=== PATIENT | female | born 1940 | race Caucasian/White ===

== ENCOUNTER 2020-11-25 06:37 | Outpatient (REF) | payer MEDICARE, SELFPAY ==
[2020-11-25 11:27] LABS: MANUAL DIFF FLAG NO
[2020-11-25 11:32] LABS: Urine Cytology See Pathology rpt
[2020-11-25 11:48] LABS: Basophils Absolute Auto 0.1 X10*3/uL (0.0-0.2); Basophils Percent Auto 0.7 % (0-2); Eosinophils Absolute Auto 0.8 X10*3/uL (0.0-0.4); Eosinophils Percent Auto 12.2 % (0-4); Hematocrit 35.7 % (37-47); Hemoglobin 11.3 g/dl (12.0-16.0); Imm Gran Abs Auto 0.03 X10*3/uL (0.00-0.03); Imm Gran Pct Auto 0.4 % (0.0-0.4); Lymphocytes Absolute Auto 1.3 X10*3/uL (1.2-4.9); Mean Corpuscular HGB Conc 31.7 g/dl (31.0-35.0); Mean Corpuscular Hemoglobin 31.5 pg (27.0-33.0); Mean Corpuscular Volume 99.4 fL (80-98); Mean Platelet Volume 11.2 fL (9.4-12.3); Monocytes Absolute Auto 0.6 X10*3/uL (0.1-1.2); Neutrophils Percent Auto 58.7 % (45-73); Platelet Count 281 X10*3/uL (160-400); Red Blood Count 3.59 X10*6/uL (4.20-5.50); Red Cell Distribution Width 14.5 % (11.0-16.0); White Blood Count 6.8 X10*3/uL (4.8-10.8)
[2020-11-25 12:12] LABS: Alanine Aminotransferase 17 U/L (0-31); Albumin Level 4.2 g/dL (3.5-5.0); Alkaline Phosphatase 68 U/L (39-117); Anion Gap 14 (12-20); Aspartate Amino Transferase 23 U/L (5-31); Bilirubin Total 0.5 mg/dL (0.0-1.0); Blood Urea Nitrogen 25 mg/dL (9-16); Calcium 9.7 mg/dL (8.4-10.2); Carbon Dioxide 26 mmol/L (22-29); Chloride 106 mmol/L (96-108); Cholesterol 143 mg/dL; Estimated Glomerular Filt Rate 59; Glucose Fasting 130 mg/dL (60-99); HDL Cholesterol 56 mg/dL; Iron 76 mcg/dL (30-160); LDL Cholesterol Calculated 64 mg/dl; Percent Iron Saturation 21 % (15-50); Potassium 4.6 mmol/L (3.3-5.1); Sodium 141 mmol/L (135-145); Total Iron Binding Capacity 356 mcg/dL (228-428); Total Protein 6.8 g/dL (6.5-8.0); Triglycerides 119 mg/dL; Unsaturated Iron Binding 280 ug/dL
[2020-11-25 12:16] LABS: Free T4 (Free Thyroxine) 1.21 ng/dL (0.71-1.85); Thyroid Stimulating Hormone 0.25 uIU/mL (0.32-4.0); Vitamin D 25-OH Total 42.5 ng/mL (>30)
[2020-11-25 12:17] LABS: Estimated Average Glucose 128 mg/dL; Hemoglobin A1c % 6.1 %
== END 2020-11-25 06:38 | disposition home or self-care (01) ==
LOC: HO.HMGCLDS 06:37
PROVIDERS: PCP Internal Medicine; Visit Provider Internal Medicine
DX: I10 Essential (primary) hypertension (principal); E78.00 Pure hypercholesterolemia, unspecified; E11.9 Type 2 diabetes mellitus without complications; E03.9 Hypothyroidism, unspecified; E55.9 Vitamin D deficiency, unspecified; D50.9 Iron deficiency anemia, unspecified
CPT/HCPCS: 36415; 80053; 80061; 82306; 83036; 83540; 84439; 84443; 85025; 88112

== ENCOUNTER 2020-11-26 07:30 | Outpatient (REF) | payer MEDICARE, SELFPAY ==
[2020-11-28 09:01] LABS: Urine Cytology See Pathology rpt
== END 2020-11-26 07:31 | disposition home or self-care (01) ==
LOC: HO.LNP 07:30
PROVIDERS: Visit Provider Internal Medicine
DX: R31.9 Hematuria, unspecified (principal)
CPT/HCPCS: 88112

== ENCOUNTER 2020-11-27 07:30 | Outpatient (REF) | payer MEDICARE, SELFPAY ==
[2020-11-28 09:09] LABS: Urine Cytology See Pathology rpt
== END 2020-11-27 07:31 | disposition home or self-care (01) ==
LOC: HO.LNP 07:30
PROVIDERS: Visit Provider Internal Medicine
DX: R31.9 Hematuria, unspecified (principal)
CPT/HCPCS: 88112

== ENCOUNTER 2020-11-27 08:14 | Outpatient (REF) | payer MEDICARE, SELFPAY | END 2020-11-27 08:15 | disposition home or self-care (01) | LOC: HO.HMGCLNP 08:14 | PROVIDERS: Visit Provider Internal Medicine | DX: Z13.89 Encounter for screening for other disorder (principal) ==

== ENCOUNTER 2021-02-27 09:08 | Outpatient (REF) | payer MEDICARE, SELFPAY ==
[2021-02-27 11:54] LABS: Estimated Average Glucose 131 mg/dL; Hemoglobin A1c % 6.2 %
== END 2021-02-27 09:09 | disposition home or self-care (01) ==
LOC: HO.HMGCLR 09:08
PROVIDERS: PCP Internal Medicine; Visit Provider Internal Medicine
DX: E11.9 Type 2 diabetes mellitus without complications (principal)
CPT/HCPCS: 36415; 83036

== ENCOUNTER 2021-06-02 07:16 | Outpatient (REF) | payer MEDICARE, SELFPAY ==
[2021-06-02 11:55] LABS: Estimated Average Glucose 134 mg/dL; Hemoglobin A1c % 6.3 %
== END 2021-06-02 07:17 | disposition home or self-care (01) ==
LOC: HO.HMGCLDS 07:16
PROVIDERS: PCP Internal Medicine; Visit Provider Internal Medicine
DX: E11.9 Type 2 diabetes mellitus without complications (principal)
CPT/HCPCS: 36415; 83036

== ENCOUNTER 2021-11-06 07:07 | Outpatient (REF) | payer MEDICARE, SELFPAY ==
[2021-11-06 11:21] LABS: MANUAL DIFF FLAG NO
[2021-11-06 11:43] LABS: Estimated Average Glucose 131 mg/dL; Hemoglobin A1c % 6.2 %
[2021-11-06 11:54] LABS: Creatinine Urine 74.71 mg/dL; Microalbum/Creatinine Ratio Ur 10.7 ug/mg cr
[2021-11-06 11:59] LABS: Alanine Aminotransferase 18 U/L (0-31); Albumin Level 3.9 g/dL (3.5-5.0); Alkaline Phosphatase 81 U/L (39-117); Anion Gap 11 (12-20); Aspartate Amino Transferase 24 U/L (5-31); Basophils Percent Auto 0.6 % (0-2); Bilirubin Total 0.6 mg/dL (0.0-1.0); Blood Urea Nitrogen 28 mg/dL (9-16); Calcium 9.6 mg/dL (8.4-10.2); Carbon Dioxide 26 mmol/L (22-29); Chloride 106 mmol/L (96-108); Cholesterol 138 mg/dL; Eosinophils Absolute Auto 0.7 X10*3/uL (0.0-0.4); Eosinophils Percent Auto 9.7 % (0-4); Estimated Glomerular Filt Rate 58; Glucose Fasting 124 mg/dL (60-99); HDL Cholesterol 49 mg/dL; Hematocrit 31.4 % (37.0-47.0); Hemoglobin 9.8 g/dl (12.0-16.0); Imm Gran Abs Auto 0.02 X10*3/uL (0.00-0.03); Imm Gran Pct Auto 0.3 % (0.0-0.4); LDL Cholesterol Calculated 74 mg/dl; Lymphocytes Absolute Auto 1.1 X10*3/uL (1.2-4.9); Mean Corpuscular HGB Conc 31.2 g/dl (31.0-35.0); Mean Corpuscular Hemoglobin 31.3 pg (27.0-33.0); Mean Corpuscular Volume 100.3 fL (80.0-98.0); Monocytes Absolute Auto 0.7 X10*3/uL (0.1-1.2); Monocytes Percent Auto 10.8 % (2-11); Neutrophils Absolute Auto 4.2 x10*3/uL (2.0-8.3); Neutrophils Percent Auto 62.6 % (45-73); Platelet Count 287 X10*3/uL (160-400); Potassium 4.8 mmol/L (3.3-5.1); Red Blood Count 3.13 X10*6/uL (4.20-5.50); Red Cell Distribution Width 15.6 % (11.0-16.0); Sodium 138 mmol/L (135-145); Total Protein 6.6 g/dL (6.5-8.0); Triglycerides 76 mg/dL; White Blood Count 6.7 X10*3/uL (4.8-10.8)
[2021-11-06 12:04] LABS: Thyroid Stimulating Hormone 0.65 uIU/mL (0.32-4.0); Vitamin D 25-OH Total 48.3 ng/mL (>30)
== END 2021-11-06 07:08 | disposition home or self-care (01) ==
LOC: HO.HMGCLDS 07:07
PROVIDERS: PCP Internal Medicine; Visit Provider Internal Medicine
DX: I25.10 Atherosclerotic heart disease of native coronary artery without angina pectoris (principal); I10 Essential (primary) hypertension; E78.00 Pure hypercholesterolemia, unspecified; E11.9 Type 2 diabetes mellitus without complications; E03.9 Hypothyroidism, unspecified; E55.9 Vitamin D deficiency, unspecified
CPT/HCPCS: 36415; 80053; 80061; 82043; 82306; 83036; 84439; 84443; 85025

== ENCOUNTER 2022-02-16 10:28 | Outpatient (REF) | payer MEDICARE, SELFPAY ==
[2022-02-16 13:44] LABS: MANUAL DIFF FLAG NO
[2022-02-16 14:00] LABS: Basophils Absolute Auto 0.1 X10*3/uL (0.0-0.2); Basophils Percent Auto 0.8 % (0-2); Eosinophils Absolute Auto 0.5 X10*3/uL (0.0-0.4); Eosinophils Percent Auto 7.8 % (0-4); Hematocrit 29.8 % (37.0-47.0); Hemoglobin 9.6 g/dl (12.0-16.0); Imm Gran Abs Auto 0.02 X10*3/uL (0.00-0.03); Imm Gran Pct Auto 0.3 % (0.0-0.4); Lymphocytes Absolute Auto 1.2 X10*3/uL (1.2-4.9); Lymphocytes Percent Auto 20.3 % (20-40); Mean Corpuscular HGB Conc 32.2 g/dl (31.0-35.0); Mean Corpuscular Hemoglobin 31.9 pg (27.0-33.0); Monocytes Absolute Auto 0.6 X10*3/uL (0.1-1.2); Monocytes Percent Auto 10.1 % (2-11); Neutrophils Absolute Auto 3.7 x10*3/uL (2.0-8.3); Neutrophils Percent Auto 60.7 % (45-73); Platelet Count 229 X10*3/uL (160-400); Red Blood Count 3.01 X10*6/uL (4.20-5.50); Red Cell Distribution Width 14.8 % (11.0-16.0); White Blood Count 6.1 X10*3/uL (4.8-10.8)
[2022-02-16 14:04] LABS: Estimated Average Glucose 126 mg/dL
[2022-02-16 14:28] LABS: Alanine Aminotransferase 18 U/L (0-31); Albumin Level 3.8 g/dL (3.5-5.0); Alkaline Phosphatase 59 U/L (39-117); Anion Gap 12 (12-20); Aspartate Amino Transferase 28 U/L (5-31); Bilirubin Total 0.2 mg/dL (0.0-1.0); Blood Urea Nitrogen 27 mg/dL (9-16); Calcium 9.4 mg/dL (8.4-10.2); Carbon Dioxide 24 mmol/L (22-29); Chloride 108 mmol/L (96-108); Estimated Glomerular Filt Rate 57; Glucose Random 88 mg/dL (60-115); Iron 74 mcg/dL (30-160); Percent Iron Saturation 21 % (15-50); Potassium 5.9 mmol/L (3.3-5.1); Sodium 138 mmol/L (135-145); Total Iron Binding Capacity 354 mcg/dL (228-428); Total Protein 6.6 g/dL (6.5-8.0); Unsaturated Iron Binding 280 ug/dL
== END 2022-02-16 10:29 | disposition home or self-care (01) ==
LOC: HO.10HDL 10:28
PROVIDERS: Visit Provider Internal Medicine
DX: D64.9 Anemia, unspecified (principal); E11.9 Type 2 diabetes mellitus without complications; I25.10 Atherosclerotic heart disease of native coronary artery without angina pectoris; I10 Essential (primary) hypertension
CPT/HCPCS: 36415; 80053; 83036; 83540; 85025

== ENCOUNTER 2022-05-20 06:58 | Outpatient (REF) | payer MEDICARE, SELFPAY ==
[2022-05-20 11:27] LABS: MANUAL DIFF FLAG NO
[2022-05-20 11:36] LABS: Basophils Absolute Auto 0.1 X10*3/uL (0.0-0.2); Eosinophils Absolute Auto 0.5 X10*3/uL (0.0-0.4); Eosinophils Percent Auto 10.4 % (0-4); Hematocrit 32.2 % (37.0-47.0); Hemoglobin 10.4 g/dl (12.0-16.0); Imm Gran Abs Auto 0.01 X10*3/uL (0.00-0.03); Imm Gran Pct Auto 0.2 % (0.0-0.4); Lymphocytes Absolute Auto 1.2 X10*3/uL (1.2-4.9); Mean Corpuscular HGB Conc 32.3 g/dl (31.0-35.0); Mean Corpuscular Hemoglobin 32.3 pg (27.0-33.0); Mean Platelet Volume 11.6 fL (9.4-12.3); Monocytes Absolute Auto 0.6 X10*3/uL (0.1-1.2); Monocytes Percent Auto 11.2 % (2-11); Neutrophils Absolute Auto 2.8 x10*3/uL (2.0-8.3); Neutrophils Percent Auto 54.2 % (45-73); Platelet Count 274 X10*3/uL (160-400); Red Blood Count 3.22 X10*6/uL (4.20-5.50); Red Cell Distribution Width 14.9 % (11.0-16.0); White Blood Count 5.2 X10*3/uL (4.8-10.8)
[2022-05-20 11:55] LABS: Alanine Aminotransferase 17 U/L (0-31); Albumin Level 4.2 g/dL (3.5-5.0); Alkaline Phosphatase 67 U/L (39-117); Anion Gap 14 (12-20); Aspartate Amino Transferase 25 U/L (5-31); Bilirubin Total 0.5 mg/dL (0.0-1.0); Blood Urea Nitrogen 25 mg/dL (9-16); Calcium 9.7 mg/dL (8.4-10.2); Carbon Dioxide 25 mmol/L (22-29); Chloride 107 mmol/L (96-108); Estimated Glomerular Filt Rate 51; Glucose Random 121 mg/dL (60-115); Iron 57 mcg/dL (30-160); Percent Iron Saturation 15 % (15-50); Potassium 4.9 mmol/L (3.3-5.1); Sodium 141 mmol/L (135-145); Total Iron Binding Capacity 385 mcg/dL (228-428); Total Protein 6.9 g/dL (6.5-8.0); Unsaturated Iron Binding 328 ug/dL
[2022-05-20 12:02] LABS: Estimated Average Glucose 131 mg/dL; Hemoglobin A1c % 6.2 %
== END 2022-05-20 06:59 | disposition home or self-care (01) ==
LOC: HO.HMGCLDS 06:58
PROVIDERS: PCP Internal Medicine; Visit Provider Internal Medicine
DX: D64.9 Anemia, unspecified (principal); E11.9 Type 2 diabetes mellitus without complications; I25.10 Atherosclerotic heart disease of native coronary artery without angina pectoris; I10 Essential (primary) hypertension
CPT/HCPCS: 36415; 80053; 83036; 83540; 85025

== ENCOUNTER 2022-08-20 08:12 | Outpatient (REF) | payer MEDICARE, SELFPAY ==
[2022-08-20 11:19] LABS: MANUAL DIFF FLAG NO
[2022-08-20 11:24] LABS: Basophils Percent Auto 0.5 % (0-2); Eosinophils Absolute Auto 0.5 X10*3/uL (0.0-0.4); Eosinophils Percent Auto 8.5 % (0-4); Hematocrit 32.6 % (37.0-47.0); Hemoglobin 10.4 g/dl (12.0-16.0); Imm Gran Abs Auto 0.09 X10*3/uL (0.00-0.03); Imm Gran Pct Auto 1.4 % (0.0-0.4); Lymphocytes Absolute Auto 1.4 X10*3/uL (1.2-4.9); Lymphocytes Percent Auto 22.1 % (20-40); Mean Corpuscular HGB Conc 31.9 g/dl (31.0-35.0); Mean Corpuscular Volume 97.3 fL (80.0-98.0); Mean Platelet Volume 10.3 fL (9.4-12.3); Monocytes Absolute Auto 0.6 X10*3/uL (0.1-1.2); Monocytes Percent Auto 9.5 % (2-11); Neutrophils Absolute Auto 3.7 x10*3/uL (2.0-8.3); Platelet Count 361 X10*3/uL (160-400); Red Blood Count 3.35 X10*6/uL (4.20-5.50); Red Cell Distribution Width 14.4 % (11.0-16.0); White Blood Count 6.3 X10*3/uL (4.8-10.8)
[2022-08-20 11:43] LABS: Alanine Aminotransferase 22 U/L (0-31); Alkaline Phosphatase 81 U/L (39-117); Anion Gap 9 (12-20); Aspartate Amino Transferase 28 U/L (5-31); Bilirubin Total 0.4 mg/dL (0.0-1.0); Blood Urea Nitrogen 26 mg/dL (9-16); Calcium 9.7 mg/dL (8.4-10.2); Carbon Dioxide 28 mmol/L (22-29); Chloride 106 mmol/L (96-108); Estimated Glomerular Filt Rate 52; Glucose Random 120 mg/dL (60-115); Iron 40 mcg/dL (30-160); Percent Iron Saturation 13 % (15-50); Potassium 4.9 mmol/L (3.3-5.1); Sodium 138 mmol/L (135-145); Total Iron Binding Capacity 309 mcg/dL (228-428); Total Protein 6.7 g/dL (6.5-8.0); Unsaturated Iron Binding 269 ug/dL
[2022-08-20 11:48] LABS: Estimated Average Glucose 137 mg/dL; Hemoglobin A1c % 6.4 %
== END 2022-08-20 08:13 | disposition home or self-care (01) ==
LOC: HO.HMGCLDS 08:12
PROVIDERS: PCP Internal Medicine; Visit Provider Internal Medicine
DX: D64.9 Anemia, unspecified (principal); E11.9 Type 2 diabetes mellitus without complications; I25.10 Atherosclerotic heart disease of native coronary artery without angina pectoris; I10 Essential (primary) hypertension
CPT/HCPCS: 36415; 80053; 83036; 83540; 85025

== ENCOUNTER 2022-11-24 08:21 | Outpatient (REF) | payer MEDICARE, SELFPAY ==
[2022-11-24 11:28] LABS: MANUAL DIFF FLAG NO
[2022-11-24 12:04] LABS: Basophils Absolute Auto 0.1 X10*3/uL (0.0-0.2); Basophils Percent Auto 0.8 % (0-2); Eosinophils Absolute Auto 0.4 X10*3/uL (0.0-0.4); Eosinophils Percent Auto 6.3 % (0-4); Hematocrit 31.7 % (37.0-47.0); Hemoglobin 9.9 g/dl (12.0-16.0); Imm Gran Abs Auto 0.02 X10*3/uL (0.00-0.03); Imm Gran Pct Auto 0.3 % (0.0-0.4); Lymphocytes Absolute Auto 1.4 X10*3/uL (1.2-4.9); Lymphocytes Percent Auto 22.1 % (20-40); Mean Corpuscular HGB Conc 31.2 g/dl (31.0-35.0); Mean Corpuscular Hemoglobin 30.9 pg (27.0-33.0); Mean Corpuscular Volume 99.1 fL (80.0-98.0); Mean Platelet Volume 10.7 fL (9.4-12.3); Monocytes Absolute Auto 0.7 X10*3/uL (0.1-1.2); Monocytes Percent Auto 11.9 % (2-11); Neutrophils Absolute Auto 3.6 x10*3/uL (2.0-8.3); Neutrophils Percent Auto 58.6 % (45-73); Platelet Count 307 X10*3/uL (160-400); Red Cell Distribution Width 14.8 % (11.0-16.0); White Blood Count 6.2 X10*3/uL (4.8-10.8)
[2022-11-24 12:07] LABS: Estimated Average Glucose 137 mg/dL; Hemoglobin A1c % 6.4 %
[2022-11-24 12:39] LABS: Creatinine Urine 51.27 mg/dL; Microalbumin Urine < 5.0 mg/L
[2022-11-24 14:55] LABS: Alanine Aminotransferase 15 U/L (0-31); Albumin Level 4.1 g/dL (3.5-5.0); Alkaline Phosphatase 84 U/L (39-117); Anion Gap 12 (12-20); Aspartate Amino Transferase 21 U/L (5-31); Bilirubin Total 0.6 mg/dL (0.0-1.0); Blood Urea Nitrogen 31 mg/dL (9-16); Calcium 9.6 mg/dL (8.4-10.2); Carbon Dioxide 24 mmol/L (22-29); Chloride 107 mmol/L (96-108); Estimated Glomerular Filt Rate 47; Glucose Random 114 mg/dL (60-115); Potassium 4.2 mmol/L (3.3-5.1); Sodium 139 mmol/L (135-145); Total Protein 6.7 g/dL (6.5-8.0)
[2022-11-24 15:10] LABS: Thyroid Stimulating Hormone 0.51 uIU/mL (0.32-4.0)
== END 2022-11-24 08:22 | disposition home or self-care (01) ==
LOC: HO.HMGCLDS 08:21
PROVIDERS: PCP Internal Medicine; Visit Provider Internal Medicine
DX: I12.9 Hypertensive chronic kidney disease with stage 1 through stage 4 chronic kidney disease, or unspecified chronic kidney disease (principal); E11.22 Type 2 diabetes mellitus with diabetic chronic kidney disease; N18.9 Chronic kidney disease, unspecified; K21.9 Gastro-esophageal reflux disease without esophagitis; E03.9 Hypothyroidism, unspecified
CPT/HCPCS: 36415; 80053; 82043; 83036; 84439; 84443; 85025

== ENCOUNTER 2023-03-02 06:16 | Outpatient (REF) | payer MEDICARE, SELFPAY ==
[2023-03-02 11:24] LABS: MANUAL DIFF FLAG NO
[2023-03-02 11:36] LABS: Basophils Absolute Auto 0.1 X10*3/uL (0.0-0.2); Eosinophils Absolute Auto 0.8 X10*3/uL (0.0-0.4); Eosinophils Percent Auto 12.1 % (0-4); Hemoglobin 9.5 g/dl (12.0-16.0); Imm Gran Abs Auto 0.03 X10*3/uL (0.00-0.03); Imm Gran Pct Auto 0.4 % (0.0-0.4); Lymphocytes Absolute Auto 1.3 X10*3/uL (1.2-4.9); Lymphocytes Percent Auto 18.4 % (20-40); Mean Corpuscular HGB Conc 31.7 g/dl (31.0-35.0); Mean Corpuscular Hemoglobin 30.8 pg (27.0-33.0); Mean Corpuscular Volume 97.4 fL (80.0-98.0); Mean Platelet Volume 10.7 fL (9.4-12.3); Monocytes Absolute Auto 0.7 X10*3/uL (0.1-1.2); Monocytes Percent Auto 9.5 % (2-11); Neutrophils Percent Auto 58.6 % (45-73); Platelet Count 277 X10*3/uL (160-400); Red Blood Count 3.08 X10*6/uL (4.20-5.50); Red Cell Distribution Width 15.7 % (11.0-16.0); White Blood Count 6.9 X10*3/uL (4.8-10.8)
[2023-03-02 11:52] LABS: Estimated Average Glucose 134 mg/dL; Hemoglobin A1c % 6.3 %
[2023-03-02 12:23] LABS: Creatinine Urine 61.43 mg/dL; Microalbum/Creatinine Ratio Ur 16.2 ug/mg cr
[2023-03-02 12:35] LABS: Alanine Aminotransferase 14 U/L (0-31); Albumin Level 3.8 g/dL (3.5-5.0); Alkaline Phosphatase 69 U/L (39-117); Anion Gap 14 (12-20); Aspartate Amino Transferase 21 U/L (5-31); Bilirubin Total 0.4 mg/dL (0.0-1.0); Blood Urea Nitrogen 24 mg/dL (9-16); Calcium 9.7 mg/dL (8.4-10.2); Carbon Dioxide 22 mmol/L (22-29); Chloride 107 mmol/L (96-108); Cholesterol 138 mg/dL; Estimated Glomerular Filt Rate 54; Glucose Fasting 118 mg/dL (60-99); HDL Cholesterol 52 mg/dL; LDL Cholesterol Calculated 68 mg/dl; Potassium 4.4 mmol/L (3.3-5.1); Sodium 139 mmol/L (135-145); Total Protein 6.8 g/dL (6.5-8.0); Triglycerides 90 mg/dL
[2023-03-02 12:57] LABS: Thyroid Stimulating Hormone 0.54 uIU/mL (0.32-4.0)
== END 2023-03-02 06:17 | disposition home or self-care (01) ==
LOC: HO.HMGCLDS 06:16
PROVIDERS: PCP Internal Medicine; Visit Provider Internal Medicine
DX: I25.10 Atherosclerotic heart disease of native coronary artery without angina pectoris (principal); I10 Essential (primary) hypertension; E03.9 Hypothyroidism, unspecified; E78.00 Pure hypercholesterolemia, unspecified; E11.9 Type 2 diabetes mellitus without complications
CPT/HCPCS: 36415; 80053; 80061; 82043; 83036; 84439; 84443; 85025

== ENCOUNTER 2023-06-07 10:52 | Outpatient (REF) | payer MEDICARE, SELFPAY ==
[2023-06-07 13:19] LABS: MANUAL DIFF FLAG NO
[2023-06-07 13:28] LABS: Basophils Absolute Auto 0.1 X10*3/uL (0.0-0.2); Basophils Percent Auto 0.9 % (0-2); Eosinophils Absolute Auto 0.5 X10*3/uL (0.0-0.4); Eosinophils Percent Auto 7.8 % (0-4); Hematocrit 30.6 % (37.0-47.0); Hemoglobin 9.6 g/dl (12.0-16.0); Imm Gran Abs Auto 0.02 X10*3/uL (0.00-0.03); Imm Gran Pct Auto 0.3 % (0.0-0.4); Lymphocytes Absolute Auto 1.2 X10*3/uL (1.2-4.9); Lymphocytes Percent Auto 18.8 % (20-40); Mean Corpuscular HGB Conc 31.4 g/dl (31.0-35.0); Mean Corpuscular Hemoglobin 30.9 pg (27.0-33.0); Mean Corpuscular Volume 98.4 fL (80.0-98.0); Mean Platelet Volume 10.8 fL (9.4-12.3); Monocytes Absolute Auto 0.9 X10*3/uL (0.1-1.2); Monocytes Percent Auto 13.3 % (2-11); Neutrophils Absolute Auto 3.9 x10*3/uL (2.0-8.3); Neutrophils Percent Auto 58.9 % (45-73); Platelet Count 246 X10*3/uL (160-400); Red Blood Count 3.11 X10*6/uL (4.20-5.50); Red Cell Distribution Width 15.1 % (11.0-16.0); White Blood Count 6.6 X10*3/uL (4.8-10.8)
[2023-06-07 13:42] LABS: Estimated Average Glucose 128 mg/dL; Hemoglobin A1c % 6.1 % (<6.0)
[2023-06-07 13:47] LABS: Anion Gap 12 (12-20); Blood Urea Nitrogen 23 mg/dL (9-16); Calcium 9.6 mg/dL (8.4-10.2); Carbon Dioxide 23 mmol/L (22-29); Chloride 109 mmol/L (96-108); Estimated Glomerular Filt Rate 59; Glucose Random 91 mg/dL (60-115); Iron 36 mcg/dL (30-160); Percent Iron Saturation 11 % (15-50); Potassium 4.6 mmol/L (3.3-5.1); Sodium 139 mmol/L (135-145); Total Iron Binding Capacity 342 mcg/dL (228-428); Unsaturated Iron Binding 306 ug/dL
== END 2023-06-07 10:53 | disposition home or self-care (01) ==
LOC: HO.HMGCLDS 10:52
PROVIDERS: PCP Internal Medicine; Visit Provider Internal Medicine
DX: E11.22 Type 2 diabetes mellitus with diabetic chronic kidney disease (principal); I12.9 Hypertensive chronic kidney disease with stage 1 through stage 4 chronic kidney disease, or unspecified chronic kidney disease; N18.9 Chronic kidney disease, unspecified; D64.9 Anemia, unspecified
CPT/HCPCS: 36415; 80048; 83036; 83540; 85025

== ENCOUNTER 2023-09-08 10:25 | Outpatient (REF) | payer MEDICARE, SELFPAY ==
[2023-09-08 13:21] LABS: MANUAL DIFF FLAG NO
[2023-09-08 13:29] LABS: Basophils Absolute Auto 0.1 X10*3/uL (0.0-0.2); Eosinophils Absolute Auto 0.4 X10*3/uL (0.0-0.4); Eosinophils Percent Auto 8.4 % (0-4); Hemoglobin 8.8 g/dl (12.0-16.0); Imm Gran Abs Auto 0.01 X10*3/uL (0.00-0.03); Imm Gran Pct Auto 0.2 % (0.0-0.4); Lymphocytes Absolute Auto 0.8 X10*3/uL (1.2-4.9); Lymphocytes Percent Auto 16.2 % (20-40); Mean Corpuscular HGB Conc 31.4 g/dl (31.0-35.0); Mean Corpuscular Hemoglobin 30.1 pg (27.0-33.0); Mean Corpuscular Volume 95.9 fL (80.0-98.0); Mean Platelet Volume 10.4 fL (9.4-12.3); Monocytes Absolute Auto 0.6 X10*3/uL (0.1-1.2); Monocytes Percent Auto 11.5 % (2-11); Neutrophils Absolute Auto 3.2 x10*3/uL (2.0-8.3); Neutrophils Percent Auto 62.7 % (45-73); Platelet Count 259 X10*3/uL (160-400); Red Blood Count 2.92 X10*6/uL (4.20-5.50); Red Cell Distribution Width 15.5 % (11.0-16.0); White Blood Count 5.1 X10*3/uL (4.8-10.8)
[2023-09-08 13:49] LABS: Estimated Average Glucose 134 mg/dL; Hemoglobin A1c % 6.3 % (<6.0)
[2023-09-08 13:54] LABS: Alanine Aminotransferase 9 U/L (0-31); Albumin Level 3.7 g/dL (3.5-5.0); Alkaline Phosphatase 75 U/L (39-117); Anion Gap 12 (12-20); Aspartate Amino Transferase 18 U/L (5-31); Bilirubin Total 0.3 mg/dL (0.0-1.0); Blood Urea Nitrogen 23 mg/dL (9-16); Calcium 9.3 mg/dL (8.4-10.2); Carbon Dioxide 25 mmol/L (22-29); Chloride 107 mmol/L (96-108); Estimated Glomerular Filt Rate 56; Glucose Random 108 mg/dL (60-115); Potassium 4.6 mmol/L (3.3-5.1); Sodium 139 mmol/L (135-145); Total Protein 6.8 g/dL (6.5-8.0)
[2023-09-08 14:15] LABS: Free T4 (Free Thyroxine) 1.16 ng/dL (0.71-1.85); Thyroid Stimulating Hormone 0.64 uIU/mL (0.32-4.0)
== END 2023-09-08 10:26 | disposition home or self-care (01) ==
LOC: HO.HMGCLDS 10:25
PROVIDERS: PCP Internal Medicine; Visit Provider Internal Medicine
DX: I25.10 Atherosclerotic heart disease of native coronary artery without angina pectoris (principal); I12.9 Hypertensive chronic kidney disease with stage 1 through stage 4 chronic kidney disease, or unspecified chronic kidney disease; E11.22 Type 2 diabetes mellitus with diabetic chronic kidney disease; N18.9 Chronic kidney disease, unspecified; D64.9 Anemia, unspecified
CPT/HCPCS: 36415; 80053; 83036; 84439; 84443; 85025

== ENCOUNTER 2023-12-10 09:42 | Outpatient (REF) | payer MEDICARE, SELFPAY ==
[2023-12-10 13:03] LABS: MANUAL DIFF FLAG NO
[2023-12-10 13:22] LABS: Basophils Absolute Auto 0.1 X10*3/uL (0.0-0.2); Basophils Percent Auto 0.9 % (0-2); Eosinophils Absolute Auto 0.5 X10*3/uL (0.0-0.4); Eosinophils Percent Auto 7.5 % (0-4); Hematocrit 28.8 % (37.0-47.0); Hemoglobin 8.9 g/dl (12.0-16.0); Imm Gran Abs Auto 0.03 X10*3/uL (0.00-0.03); Imm Gran Pct Auto 0.4 % (0.0-0.4); Lymphocytes Absolute Auto 1.3 X10*3/uL (1.2-4.9); Lymphocytes Percent Auto 19.1 % (20-40); Mean Corpuscular HGB Conc 30.9 g/dl (31.0-35.0); Mean Corpuscular Hemoglobin 29.7 pg (27.0-33.0); Mean Platelet Volume 10.3 fL (9.4-12.3); Monocytes Absolute Auto 0.8 X10*3/uL (0.1-1.2); Monocytes Percent Auto 11.4 % (2-11); Neutrophils Absolute Auto 4.1 x10*3/uL (2.0-8.3); Neutrophils Percent Auto 60.7 % (45-73); Platelet Count 298 X10*3/uL (160-400); Red Cell Distribution Width 16.2 % (11.0-16.0); White Blood Count 6.7 X10*3/uL (4.8-10.8)
[2023-12-10 13:45] LABS: Estimated Average Glucose 140 mg/dL; Hemoglobin A1c % 6.5 % (<6.0)
[2023-12-10 14:03] LABS: Anion Gap 14 (12-20); Blood Urea Nitrogen 21 mg/dL (9-16); Calcium 9.8 mg/dL (8.4-10.2); Carbon Dioxide 22 mmol/L (22-29); Chloride 107 mmol/L (96-108); Estimated Glomerular Filt Rate 51; Glucose Random 115 mg/dL (60-115); Iron 35 mcg/dL (30-160); Percent Iron Saturation 10 % (15-50); Potassium 4.8 mmol/L (3.3-5.1); Sodium 138 mmol/L (135-145); Total Iron Binding Capacity 359 mcg/dL (228-428); Unsaturated Iron Binding 324 ug/dL
== END 2023-12-10 09:43 | disposition home or self-care (01) ==
LOC: HO.HMGCLDS 09:42
PROVIDERS: PCP Internal Medicine; Visit Provider Internal Medicine
DX: E11.9 Type 2 diabetes mellitus without complications (principal); I10 Essential (primary) hypertension; D64.9 Anemia, unspecified
CPT/HCPCS: 36415; 80048; 83036; 83540; 85025

== ENCOUNTER 2024-01-05 10:41 | Outpatient (REF) | payer MEDICARE, SELFPAY ==
[2024-01-05 14:35] LABS: Iron 37 mcg/dL (30-160); Percent Iron Saturation 13 % (15-50); Total Iron Binding Capacity 277 mcg/dL (228-428); Unsaturated Iron Binding 240 ug/dL
[2024-01-05 14:52] LABS: Ferritin 151 ng/mL (10-250)
[2024-01-05 14:59] LABS: Folate 12.7 ng/mL (> or = 4.0); Vitamin B12 961 pg/mL (200-900)
== END 2024-01-05 10:42 | disposition home or self-care (01) ==
LOC: HO.HMGCLDS 10:41
PROVIDERS: PCP Internal Medicine; Visit Provider Internal Medicine Gastroenterology
DX: D64.9 Anemia, unspecified (principal)
CPT/HCPCS: 36415; 82607; 82728; 82746; 83540

== ENCOUNTER 2024-01-08 13:28 | Outpatient (REF) | payer MEDICARE, SELFPAY ==
[2024-01-10 13:51] LABS: OBS1 NEGATIVE (NEGATIVE)
[2024-01-10 13:52] LABS: OBS Int Ctl Valid YES; OBS2 NEGATIVE (NEGATIVE); OBS3 NEGATIVE (NEGATIVE)
== END 2024-01-08 13:29 | disposition home or self-care (01) ==
LOC: HO.LNP 13:28
PROVIDERS: Visit Provider Internal Medicine Gastroenterology
DX: D64.9 Anemia, unspecified (principal)
CPT/HCPCS: 82270

== ENCOUNTER 2024-01-23 05:09 | Inpatient (IN) | payer MEDICARE, SELFPAY ==
[2024-01-23] VITALS (9 sets, daily range): BP systolic 114–160; BP diastolic 58–75; PULSE 76–92; RESP 13–18; TEMP 35.8–36.9; O2SAT 96–99; BMI 26.8; BMI 26.9
--- NOTE | 2024-01-23 | ECG_ITS ---
Test Reason : WEAKNESS Blood Pressure : / mmHG Vent. Rate : 082 BPM Atrial Rate : 082 BPM P-R Int : 204 ms QRS Dur : 082 ms QT Int : 346 ms P-R-T Axes : 069 -27 024 degrees QTc Int : 404 ms Normal sinus rhythm Minimal voltage criteria for LVH, may be normal variant ( R in aVL ) Inferior infarct , age undetermined Anteroseptal infarct (cited on or before 02-OCT-2002) Abnormal ECG When compared with ECG of 08-OCT-2002 07:36, Inferior infarct is now Present Questionable change in initial forces of Septal leads T wave inversion now evident in Anterior leads Referred By: Generic ED Physician Electronically Signed By:SALOMON AGUILA MD
--- NOTE | ~2024-01-23 | MR_ITS ---
EXAMINATION: MR ABDOMEN WITHOUT CONTRAST CLINICAL INFORMATION: obstructive jaundice COMPARISON: CT from the same day TECHNIQUE: MR abdomen is performed without gadolinium contrast. Routine and MRCP sequences were obtained. FINDINGS: Limited evaluation in some regions due to motion artifact. LUNG BASES: The visualized lung bases are grossly unremarkable. LIVER, GALLBLADDER, AND BILIARY TREE: Hepatic signal appears normal. There is redemonstrated severe intrahepatic biliary ductal dilatation, similar to recent CT. The uppermost portion of the common bile duct is not clearly visualized, while the mid and lower duct appears nondilated in the postcholecystectomy state. Absence of clear communication between the dilated central intrahepatic ducts and the upper common bile duct raises suspicion for an obstructing mass lesion at this location such as a Klatskin tumor cholangiocarcinoma, with evaluation for this partially limited without intravenous contrast. PANCREAS: Pancreas appears moderately atrophic but appreciable ductal dilatation. SPLEEN: There are several scattered T2 bright lesions in the spleen measuring up to approximately 2 cm in diameter. These are nonspecific and may represent cysts and/or hemangiomas. ADRENAL GLANDS: Unremarkable. KIDNEYS AND URETERS: No hydronephrosis. No focal parenchymal abnormalities in the absence of intravenous contrast. GASTROINTESTINAL TRACT: No bowel obstruction. No ascites or fluid collection. ABDOMINAL WALL: No significant hernia is appreciated. LYMPH NODES: No lymphadenopathy. VASCULAR: Grossly unremarkable on this unenhanced exam. OSSEOUS STRUCTURES: Multilevel degenerative changes in the spine. MR/MR MRCP IMPRESSION: Severe intrahepatic biliary ductal dilatation redemonstrated. Absence of clear communication between the dilated central intrahepatic ducts and the upper common bile duct raises suspicion for an obstructing mass lesion such as a Klatskin tumor cholangiocarcinoma, with evaluation for this partially limited without intravenous contrast.
--- NOTE | ~2024-01-23 | CT_ITS ---
EXAMINATION: CT ABDOMEN AND PELVIS WITH CONTRAST CLINICAL INFORMATION: Painless jaundice COMPARISON: None available. TECHNIQUE: Multidetector volumetric images were obtained from the superior aspect of the liver through the pubic symphysis following administration 85 mL of Omnipaque 350 intravenous contrast. Sagittal and coronal reformatted images were obtained on the technologist's workstation. Oral contrast: Yes This CT examination was performed using dose optimization techniques as appropriate, variously including the following: *Automated exposure control *Adjustment of mA and/or kV according to patient size (this includes techniques or standardized protocols for targeted exams where dose is matched to indication/reason for exam; i.e. extremities or head) *Use of iterative reconstruction technique DLP: 485 mGy-cm FINDINGS: LUNG BASES: Dependent atelectasis at the lung bases. Upper normal heart size. Coronary artery and aortic valve calcification seen. LIVER, GALLBLADDER, AND BILIARY TREE: There is severe intrahepatic biliary duct dilatation. The common bile duct does not appear dilated. There is question increased enhancement and wall thickening of the common hepatic duct for example coronal image 31 series 7. There are also surgical clips seen in this region. No liver mass appreciated. The gallbladder is not seen and has presumably been removed. PANCREAS: Unremarkable. SPLEEN: Several low-attenuation splenic lesions. These have low Hounsfield units and may represent multiple splenic cysts. ADRENAL GLANDS: Unremarkable. KIDNEYS AND URETERS: The kidneys are normal in size, shape, and attenuation. No hydronephrosis, hydroureter, or calculi seen. No perinephric stranding. BLADDER: Unremarkable. GASTROINTESTINAL TRACT: There is a question area of wall thickening in the proximal right colon for example axial image 51 series 3 and coronal reconstructed image 45 small and large bowel is otherwise unremarkable. The appendix is not seen. The stomach is unremarkable. ABDOMINAL WALL: No significant hernia is appreciated. LYMPH NODES: Normal. VASCULAR: Atherosclerotic disease. No aneurysm. PELVIC VISCERA: Post hysterectomy. OSSEOUS STRUCTURES: Mild scoliosis and degenerative changes of the spine. Mild anterior subluxation of L5 with respect L5 or S1 probably secondary to facet arthritis. CT/CT abdomen pelvis w IV con IMPRESSION: Severe intrahepatic biliary duct dilatation. Extrahepatic bile ducts do not appear dilated. Question wall thickening and enhancement of the proximal common hepatic duct in the hilum of the liver. There are surgical clips seen in this region. Gallbladder not seen and has presumably been removed. Biliary stricture, cholangitis, cholangiocarcinoma/Klatskin tumor, and metastatic disease should be considered. No discrete liver mass seen. Follow-up MR with contrast and MRCP recommended although this may be limited due to artifact from surgical clips in the liver hilum. Question of abnormal wall thickening of the proximal right colon. Differential would include colitis and mass. Multiple low-attenuation splenic lesions, probably representing cysts. Fleischner guidelines were followed.
--- NOTE | 2024-01-23 05:26 | ED.GENADULT ---
HPI - General Adult General Chief complaint: Weakness Stated complaint: WEAKNESS Time Seen by Provider: 01/23/24 05:26 History of Present Illness ED Provider: Satinder CORDERO narrative: The patient is an 83-year-old woman who lives with her . The patient comes to the emergency room tonight because she tried to walk in her legs were very weak so that she could not hold herself up. She let herself down gently to the floor. Her could not help her up and so he called 911. The patient says that the weakness of her legs seems to have been coming on over the last week. She says that last Wednesday, on father's Day, she was very active and functioning at her usual normal level of function. However since last Wednesday she has had gradual worsening of the strength of her legs until finally she had her episode tonight where she could not keep herself up. There is no pain associated with this process. It is obvious that the patient is jaundiced. The patient says that she has not typically jaundiced and had not noticed that she was jaundiced until paramedics commented on her appearance. The patient's also had not realized that she had developed jaundice. She has had no fever, sweats, chills. No cough or sputum. Related Data Allergies Allergy/AdvReac Type Severity Reaction Status Date / Time No Known Allergies Allergy Verified 01/23/24 05:16 Review of Systems Review of Systems: Yes all other systems are reviewed and are negative [facility] Social History Social History Smoked in Last 30 Days: No Use of substances other than those prescribed or required for medical reasons: No Advance Directives: No Advance Directives Information Provided: No Do you have a plan to hurt others: No Plan Physical Exam ED Vital Signs: Vital Signs - 24 hr 01/23/24 05:10 01/23/24 08:00 Temperature 98.2 F 98.4 F Pulse Rate 84 85 Respiratory Rate 18 14 Blood Pressure 136/62 133/69 Pulse Oximetry 97 97 Oxygen Delivery Method Room Air Room Air BMI result Body Mass Index 26.8 Const Other: The patient is awake and alert. She is obviously jaundiced. Her mental status seems clear and she seems to be quite a good historian. She does not appear in any pain or respiratory distress. Mucous membranes looked dry suggesting dehydration. HENMT Other: Face is symmetrical. Mucous membranes are dry. Eyes Other: Pupils are round equal, conjunctivae are clear, extraocular movements intact. Bilateral scleral icterus. Neck Other: No JVD Resp Effort & Inspection: normal respiratory effort Auscultation: clear to auscultation bilaterally Cardio Other: The patient has a regular rate and rhythm. I think there is a 2/6 or 3/6 systolic murmur. GI Other: Abdomen is soft and nontender. Back/Spine/Pelvis Other: No CVA percussion tenderness Skin Other: The skin is jaundiced. No other obvious skin abnormalities apparent. Neuro Other: The patient is awake and alert with a normal mental status. She is good historian. She seems generally weak. Her cranial nerves are intact. She moves her upper extremities well. She is able to move both of her legs but she moves them weakly. Extrem Other: Trace peripheral edema. No calf swelling or tenderness. No asymmetry. Medical Decision Making Medical Decision Making MDM Narrative: The patient is an 83-year-old woman who presents with 6 days of gradually worsening weakness. Here in the emergency room it was apparent that she is quite jaundiced. Apparently neither she nor her had noticed the development of jaundice which suggests that this has been a gradual development. The patient has no abdominal pain or other pains associated with this jaundice. The patient's workup shows a white count of 8.8, a hemoglobin low at 7.7. Clinically the patient looks dry but the patient is BUN creatinine are at baseline. The patient's LFTs however are remarkably deranged. Bilirubin is 9.6. AST is 718. ALT is 280. Alk phos is 2,229. I have ordered a CT scan to help evaluate the patient has painless jaundice and abnormal LFTs. I will be signing the patient out to the oncoming emergency physician at change of shift pending the results of her abdominal CT. Lab Data 01/23/24 05:26 01/23/24 06:08 Labs: Lab Results 01/23/24 01/23/24 Range/Units 05:26 06:08 WBC 8.8 (4.8-10.8) X10*3/uL RBC 2.46 L (4.20-5.50) X10*6/uL Hgb 7.7 L (12.0-16.0) g/dl Hct 23.3 L (37.0-47.0) % MCV 94.7 (80.0-98.0) fL MCH 31.3 (27.0-33.0) pg MCHC 33.0 (31.0-35.0) g/dl RDW 21.9 H (11.0-16.0) % Plt Count 324 (160-400) X10*3/uL MPV 10.7 (9.4-12.3) fL Immature Gran % (Auto) 0.3 (0.0-0.4) % Neut % (Auto) 77.4 H (45-73) % Lymph % (Auto) 7.3 L (20-40) % [place] % (Auto) 10.6 (2-11) % Eos % (Auto) 3.8 (0-4) % Baso % (Auto) 0.6 (0-2) % Lymph # (Auto) 0.6 L (1.2-4.9) X10*3/uL [place] # (Auto) 0.9 (0.1-1.2) X10*3/uL Eos # (Auto) 0.3 (0.0-0.4) X10*3/uL Baso # (Auto) 0.1 (0.0-0.2) X10*3/uL Abs Immat Gran (auto) 0.03 (0.00-0.03) X10*3/uL Absolute Neuts (auto) 6.8 (2.0-8.3) x10*3/uL Absolute Nucleated RBC 0.000 (0.0-0.012) X10*3/uL Nucleated RBC % (auto) 0.0 (0.0-0.2) /100WBC Sodium 134 L (135-145) mmol/L Potassium 4.7 (3.3-5.1) mmol/L Chloride 103 (96-108) mmol/L Carbon Dioxide 22 (22-29) mmol/L Anion Gap 14 (12-20) BUN 23 H (9-16) mg/dL Creatinine 0.90 (0.5-1.4) mg/dL Estim Creat Clear Calc 39.7 Estimated GFR 60 Random Glucose 107 (60-115) mg/dL Calcium 9.2 D (8.4-10.2) mg/dL Total Bilirubin 9.6 H (0.0-1.0) mg/dL AST 718 H (5-31) U/L ALT 280 H (0-31) U/L Alkaline Phosphatase 2229 H (39-117) U/L Troponin I High Sens 17.6 H (<3.5-17.0) ng/L Total Protein 6.5 (6.5-8.0) g/dL Albumin 2.8 L (3.5-5.0) g/dL Independent Interpretation I performed an independent interpretation of an: EKG Interpretation: EKG at 05:21 shows normal sinus rhythm at 82 beats per minute. No definite acute ischemic changes. Discharge Plan Discharge Clinical Impression: Painless jaundice, Weakness Patient Disposition: Still a Patient Print Language: [place]ar[place]
[2024-01-23 05:30] LABS: MANUAL DIFF FLAG NO
[2024-01-23 05:31] LABS: Basophils Absolute Auto 0.1 X10*3/uL (0.0-0.2); Basophils Percent Auto 0.6 % (0-2); Eosinophils Absolute Auto 0.3 X10*3/uL (0.0-0.4); Eosinophils Percent Auto 3.8 % (0-4); Hematocrit 23.3 % (37.0-47.0); Hemoglobin 7.7 g/dl (12.0-16.0); Imm Gran Abs Auto 0.03 X10*3/uL (0.00-0.03); Imm Gran Pct Auto 0.3 % (0.0-0.4); Lymphocytes Absolute Auto 0.6 X10*3/uL (1.2-4.9); Lymphocytes Percent Auto 7.3 % (20-40); Mean Corpuscular Hemoglobin 31.3 pg (27.0-33.0); Mean Corpuscular Volume 94.7 fL (80.0-98.0); Mean Platelet Volume 10.7 fL (9.4-12.3); Monocytes Absolute Auto 0.9 X10*3/uL (0.1-1.2); Monocytes Percent Auto 10.6 % (2-11); Neutrophils Absolute Auto 6.8 x10*3/uL (2.0-8.3); Neutrophils Percent Auto 77.4 % (45-73); Platelet Count 324 X10*3/uL (160-400); Red Blood Count 2.46 X10*6/uL (4.20-5.50); Red Cell Distribution Width 21.9 % (11.0-16.0); White Blood Count 8.8 X10*3/uL (4.8-10.8)
--- NOTE | 2024-01-23 05:33 | PC.NURSE ---
pt biba from home, a&ox4, respirations even and unlabored. pt reporting increasing bilateral leg weakness x3 days, pt reports her PCP had stopped her amlodipine and reports that she felt that the symptoms started after that. pt reports she does not use a wlkaer at home but reports due to weakness she has needed to. pt denies chest pain, n/v/d. pt normal sinus on tele 80-83 bpm. 22G placed in right hand, labs obtained and sent.
[2024-01-23 06:24] LABS: Anion Gap 14 (12-20)
[2024-01-23 06:32] LABS: Alanine Aminotransferase 280 U/L (0-31); Albumin Level 2.8 g/dL (3.5-5.0); Alkaline Phosphatase 2229 U/L (39-117); Aspartate Amino Transferase 718 U/L (5-31); Bilirubin Total 9.6 mg/dL (0.0-1.0); Blood Urea Nitrogen 23 mg/dL (9-16); Calcium 9.2 mg/dL (8.4-10.2); Carbon Dioxide 22 mmol/L (22-29); Chloride 103 mmol/L (96-108); Creatinine Clr Calc Pharmacy 39.7; Estimated Glomerular Filt Rate 60; Glucose Random 107 mg/dL (60-115); Potassium 4.7 mmol/L (3.3-5.1); Sodium 134 mmol/L (135-145); Total Protein 6.5 g/dL (6.5-8.0)
[2024-01-23 06:38] LABS: Troponin-I High Sensitivity 17.6 ng/L (<3.5-17.0)
[2024-01-23] MEDS: iohexoL 350 MG/ML 100 ML INFUS..BTL IV (08:32)
--- NOTE | 2024-01-23 08:41 | ECG_ITS ---
Test Reason : CHEST PAIN Blood Pressure : / mmHG Vent. Rate : 090 BPM Atrial Rate : 090 BPM P-R Int : 218 ms QRS Dur : 086 ms QT Int : 362 ms P-R-T Axes : 091 -19 072 degrees QTc Int : 442 ms Poor data quality, interpretation may be adversely affected Sinus rhythm with 1st degree A-V block Low voltage QRS Septal infarct (cited on or before 02-OCT-2002) Abnormal ECG When compared with ECG of 23-JAN-2024 05:21, No significant change was found Referred By: Yunier Rajan Electronically Signed By:SALOMON AGUILA MD
[2024-01-23] MEDS: 0.9 % Sodium Chloride 1,000 ML 999 ML IV (08:42)
--- NOTE | 2024-01-23 08:45 | PC.NURSE ---
Pt complaining of ras pain after returning from CT scan. vs as charted, pt appears well, ekg ordered.
[2024-01-23 08:51] LABS: Bilirubin Direct 7.3 mg/dL (0.0-0.5)
--- NOTE | 2024-01-23 11:23 | P.HPHOSP_ITS ---
History of Present Illness Date of Service: 01/23/24 Attending physician on admission: Gerry Hoyt Chief Complaint: jaundice, weakness 83 year old female with history of htn, hld, cad, moderate , and type 2 diabetes presented to the ED earlier today for evaluation of bilateral lower extremity weakness. She was so weak today she had to lower herself to the ground and her (with whom she lives) could not help her up. She reports for the last 2 weeks she has been feeling generally weak with anorexia, nausea, vomiting x1. Has lost 8 pounds unintentionally over the last 2 weeks. She has also had joy like stools but denies any melena, hematochezia, abd pain, diarrhea. She was seen by Dr. Oliveira in the office for evaluation of anemia and was prescribed iron but stopped taking this. She also stopped taking amlodipine on her own as she felt this was causing her symptoms. Her son at bedside reports that she was at his house last weekend and was ambulatory though was slightly unsteady on her feet. He noticed she was jaundiced yesterday. On arrival, VSS thought hypertensive on admission to 160/75 (has not yet received am meds). No leukocytosis. H/H 7.7/23.3% (was 8.9/28.8% on 12/09 stool occult blood negative on 01/09). Renal function lytes normal except Na 134. Total bili 9.6, direct bili 7.3, AST 718, ALT 280, alk phos 2229. Initial trop 17.6, repeat pending. CT abdomen/pelvis shows severe intrahepatic biliary ductal dilatation without any dilatation of the extrahepatic bile ducts. There was also question of wall thickening enhancement of the proximal common hepatic duct in the hilum of the liver with surgical clips seen in the region. She is status post cholecystectomy. Differential diagnosis includes biliary stricture, cholangitis, cholangiocarcinoma/Klatskin tumor, and metastatic disease should be considered. No discrete liver mass seen. There is also question of abnormal wall thickening of the proximal right colon differential to include colitis versus mass. She will be admitted for further evaluation and management of painless jaundice. Review of Systems 2 Review of Systems: Yes all other systems are reviewed and are negative [facility] Medical History Aortic stenosis CAD (coronary artery disease) Type 2 diabetes mellitus HLD (hyperlipidemia) HTN (hypertension) Social History Unable to assess alcohol history related to: Unknown Smoked in Last 30 Days: No Use of substances other than those prescribed or required for medical reasons: No Advance Directives: No Advance Directives Information Provided: No Do you have a plan to hurt others: No Plan Meds Allergies Allergy/AdvReac Type Severity Reaction Status Date / Time No Known Allergies Allergy Verified 01/23/24 05:16 Active Medications: Current Medications Acetaminophen (Acetaminophen 325 Mg Tablet) 650 mg PO Q6H PRN PRN Reason: Pain, Mild (Pain Scale 1-3), fever or headache Calcium Carbonate (Calcium Carbonate 750 Mg Tab.Chew) 750 mg PO Q4H PRN PRN Reason: Heartburn Enoxaparin Sodium (Enoxaparin Sodium 40 Mg/0.4 Ml Syringe) 40 mg SUBCUT Q24H DEN Sodium Chloride (Ns) 1,000 mls @ 100 mls/hr IVCONT .Q10H DEN Magnesium Hydroxide (Milk Of Magnesia 30 Ml Oral.Susp) 30 ml PO DAILY PRN PRN Reason: Constipation Melatonin (Melatonin 3 Mg Tablet) 6 mg PO BEDTIME PRN PRN Reason: Insomnia Sodium Chloride (0.9 % Sodium Chloride Flush 3 Ml Syringe) 3 ml IVFLUSH QSHIFT DEN Home Medications ?Medication ?Instructions ?Recorded ?Confirmed ?Last Taken ?Type albuterol sulfate 90 mcg/actuation 2 puff inhalation Q4-6H PRN 01/23/24 01/23/24 Unknown History aerosol inhaler Shortness Of Breath Or Wheezing aspirin 81 mg tablet,delayed 81 mg PO BEDTIME 01/23/24 01/23/24 01/22/24 History release atorvastatin 40 mg tablet 40 mg PO BEDTIME 01/23/24 01/23/24 01/22/24 History carvedilol 12.5 mg tablet 12.5 mg PO BID 01/23/24 01/23/24 01/22/24 History cholecalciferol (vitamin D3) 50 50 mcg PO BID 01/23/24 01/23/24 01/22/24 History mcg (2,000 unit) capsule isosorbide mononitrate 60 mg 90 mg PO DAILY 01/23/24 01/23/24 01/22/24 History tablet,extended release 24 hr levothyroxine 88 mcg tablet 88 mcg PO DAILY 01/23/24 01/23/24 01/22/24 History (Synthroid) lisinopril 10 mg tablet 10 mg PO DAILY 01/23/24 01/23/24 01/22/24 History magnesium oxide 500 mg PO DAILY 01/23/24 01/23/24 01/22/24 History metformin 500 mg tablet 500 mg PO DAILY 01/23/24 01/23/24 01/22/24 History nitroglycerin 0.4 mg sublingual 0.4 mg sublingual Q5M PRN Chest 01/23/24 01/23/24 Unknown History tablet Pain Physical Exam 2 Vital Signs and Narrative: Vital Signs: Last Vital Signs Temp 98.4 F 01/23/24 08:00 Pulse 88 01/23/24 08:45 Resp 18 01/23/24 08:45 BP 147/65 H 01/23/24 08:45 Pulse Ox 98 01/23/24 08:45 O2 Del Method Room Air 01/23/24 08:45 BMI result Body Mass Index 26.8 Constitutional - Awake and Alert, No apparent distress Eyes - PERRLA, EOMI, scleral icterus Cardiovascular - S1S2, RRR, No edema Respiratory - Normal lung expansion, Normal respiratory effort, No respiratory distress, CTA bilaterally Gastrointestinal - NT / ND; +BS; No rebound or guarding Extremities - no calf tenderness bilaterally, no swelling Skin - Warm/Dry, jaundice Neurological - Alert & oriented x3 Psychological - Appropriate affect Results Labs 01/23/24 05:26 01/23/24 06:08 Labs: Laboratory Results - last 24 hr 01/23/24 01/23/24 05:26 06:08 MCV 94.7 MCH 31.3 MCHC 33.0 RDW 21.9 H Plt Count 324 MPV 10.7 Immature Gran % (Auto) 0.3 Neut % (Auto) 77.4 H Lymph % (Auto) 7.3 L [place] % (Auto) 10.6 Eos % (Auto) 3.8 Baso % (Auto) 0.6 Lymph # (Auto) 0.6 L [place] # (Auto) 0.9 Eos # (Auto) 0.3 Baso # (Auto) 0.1 Abs Immat Gran (auto) 0.03 Absolute Neuts (auto) 6.8 Absolute Nucleated RBC 0.000 Nucleated RBC % (auto) 0.0 Anion Gap 14 Estim Creat Clear Calc 39.7 Estimated GFR 60 Random Glucose 107 Calcium 9.2 D Total Bilirubin 9.6 H Direct Bilirubin 7.3 H AST 718 H ALT 280 H Alkaline Phosphatase 2229 H Troponin I High Sens 17.6 H Total Protein 6.5 Albumin 2.8 L Imaging Radiologist's Impressions: Impressions Abdomen/Pelvis CT 01/23/24 08:59 IMPRESSION: Severe intrahepatic biliary duct dilatation. Extrahepatic bile ducts do not appear dilated. Question wall thickening and enhancement of the proximal common hepatic duct in the hilum of the liver. There are surgical clips seen in this region. Gallbladder not seen and has presumably been removed. Biliary stricture, cholangitis, cholangiocarcinoma/Klatskin tumor, and metastatic disease should be considered. No discrete liver mass seen. Follow-up MR with contrast and MRCP recommended although this may be limited due to artifact from surgical clips in the liver hilum. Question of abnormal wall thickening of the proximal right colon. Differential would include colitis and mass. Multiple low-attenuation splenic lesions, probably representing cysts. Fleischner guidelines were followed. Assessment and Plan (1) Weakness: Status: Acute (2) Painless jaundice: Status: Acute (3) Anemia: Status: Acute Plan 83 year old female with history of htn, hld, cad, moderate , and type 2 diabetes admitted for further management and evaluation of painless jaundice #Painless obstructive jaundice -Total bili 9.6, direct bili 7.3, AST 718, ALT 280, alk phos 2229. -CT abdomen/pelvis shows severe intrahepatic biliary ductal dilatation without any dilatation of the extrahepatic bile ducts. There was also question of wall thickening enhancement of the proximal common hepatic duct in the hilum of the liver with surgical clips seen in the region. She is status post cholecystectomy. Differential diagnosis includes biliary stricture, cholangitis, cholangiocarcinoma/Klatskin tumor, and metastatic disease should be considered. No discrete liver mass seen. There is also question of abnormal wall thickening of the proximal right colon differential to include colitis versus mass. -MRCP ordered -GI consult -admit to med/tele #Unintentional weight loss --8lbs last 2 weeks with anorexia #Acute on chronic normocytic anemia -h/h 7.7/23.3% -concern for hemolysis- ldh, retic count haptoglobin pending #Elevated trop/CAD -no anginal chest pain. ekg nonischemic -?chronic trop peak. Initial trop 17, repeat pending -continue bb, isosorbide, asa #hld -hold statin due to above #HTN -continue coreg, isosorbide, lisinopril #Hypothyroidism -continue levothyroxine #Non insulin dependent type 2 diabetes -poc glucose, diabetic diet -admelog ss -hold metforming DVT prophylaxis- lovenox full code Pt requires inpt stay at least 2 midnights for evaluation and management of painless obstructive jaundice with concern for malignancy requiring advanced imaging and expert consultation as well as close monitoring given presumed hemolytic anemia Quality Stroke Does the patient have a stroke diagnosis?: No VTE Prior VTE?: No VTE Risk Level:: Medical - moderate - high VTE Device Contraindication: Treatment Not Indicated VTE Drug Contraindication: N/A - Med Ordered
--- NOTE | 2024-01-23 11:28 | PHA.MEDREC ---
Pharmacy Consult ? Medication Reconciliation Pharmacy has completed the medication reconciliation. Spoke with patient to confirm medication, she was a great historian and knew all of her medications. She stopped taking amlodipine on per doctors orders and was taking an iron supplement but stopped taking that Wednesday. She has nitroglycerin with her wherever she goes but has never used it. She confirmed she does 1.5 tablets of isosorbide daily. She last took her medications yesterday and had nothing today.
[2024-01-23 11:36] LABS: Retic HGB Equivalent 35.7 pg (30.0-35.0); Reticulocyte Percent 3.1 % (0.5-1.8); Reticulocytes Absolute 0.075 X10*6/uL (0.026-0.095)
[2024-01-23 11:47] LABS: Lactate Dehydrogenase 679 U/L (122-220)
[2024-01-23] MEDS: Isosorbide Mononitrate 30 MG TAB.ER.24H 90 MG PO (12:08)
[2024-01-23] MEDS: carvediloL 12.5 MG TABLET PO ×2 (12:08→21:27)
[2024-01-23] MEDS: Enoxaparin Sodium 40 MG/0.4 ML SYRINGE SUBCUT (12:08)
[2024-01-23] MEDS: Cholecalciferol (Vitamin D3) 25 MCG TABLET 50 MCG PO ×2 (12:08→21:27)
[2024-01-23] MEDS: lisinopriL 10 MG TABLET PO (12:08)
[2024-01-23 12:22] LABS: Troponin-I High Sensitivity 29.8 ng/L (<3.5-17.0)
[2024-01-23 14:36] LABS: Glucose, Whole Blood 93 mg/dL (60-115)
[2024-01-23] MEDS: 0.9 % Sodium Chloride 1,000 ML 100 ML IVCONT (14:40)
[2024-01-23 14:55] LABS: INTERNATIONAL NORM RATIO 1.2 (0.9-1.1)
[2024-01-23 16:12] LABS: Glucose, Whole Blood 106 mg/dL (60-115)
[2024-01-23] MEDS: Milk of Magnesia 30 ML ORAL.SUSP PO (18:25)
--- NOTE | 2024-01-23 19:52 | PM.EVENT ---
Event Note Date of Service: 01/23/24 Event Note: GI Consult-Full note dictated-D/W patient and her son, Demetrius, in detail Imp/Recs: 1. 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 Will require an ERCP and EUS at tertiary center, and if not successful would then need an IR procedure for a percutaneous drainage. Will try to arrange for an inpatient transfer to [facility]. If no beds are available we can work on an outpatient referral once she is transfused and up to being discharged. 2. Anemia. Stools Hemoccult neg x 3 earlier in the month and she reports a neg. Cologuard last year. She has not had any endoscopic procedures for > 10 years, but denies any GI symptomns. Would give 1 or 2 u PRBC's for symptomatic relief. Hold Aspirin. Patient and her son are comfortable with this plan. D/W hospitalist staff, LUYD Pani[place]. Thanks. Time Spent With Patient Time: Total time managing care of this patient today ____ minutes.
--- NOTE | 2024-01-23 19:52 | PM.DS ---
DS: Providers Provider Date of Service: 01/23/24 Date of admission: 01/23/24 11:19 Date of discharge: 01/23/24 Primary care physician: Polo Villalta MD Admitting clinician: Maria Alejandra Pearson Attending physician on admission: Gerry Hoyt Consults: 01/23/24 11:21 Consult to Gastroenterology Routine Consulting Provider: Zaid Slater Reason for consultation: painless jaundice, MRCP ordered Attending physician on discharge: Lawson Montes Discharging clinician: Maria Alejandra Pearson DS: Transfer Hospital Acceptance Reason for Transfer: painless obstructive jaundice Name of Facility: [facility] DS: Diagnosis Discharge Diagnosis (1) Weakness: Status: Acute (2) Painless jaundice: Status: Acute (3) Anemia: Status: Acute DS: Summary Hospital Course Hospital Course: HPI on admission by this provider 01/23/24: 83 year old female with history of htn, hld, cad, moderate , and type 2 diabetes presented to the ED earlier today for evaluation of bilateral lower extremity weakness. She was so weak today she had to lower herself to the ground and her (with whom she lives) could not help her up. She reports for the last 2 weeks she has been feeling generally weak with anorexia, nausea, vomiting x1. Has lost 8 pounds unintentionally over the last 2 weeks. She has also had joy like stools but denies any melena, hematochezia, abd pain, diarrhea. She was seen by Dr. Oliveira in the office for evaluation of anemia and was prescribed iron but stopped taking this. She also stopped taking amlodipine on her own as she felt this was causing her symptoms. Her son at bedside reports that she was at his house last weekend and was ambulatory though was slightly unsteady on her feet. He noticed she was jaundiced yesterday. On arrival, VSS thought hypertensive on admission to 160/75 (has not yet received am meds). No leukocytosis. H/H 7.7/23.3% (was 8.9/28.8% on 12/09 stool occult blood negative on 01/09). Renal function lytes normal except Na 134. Total bili 9.6, direct bili 7.3, AST 718, ALT 280, alk phos 2229. Initial trop 17.6, repeat pending. CT abdomen/pelvis shows severe intrahepatic biliary ductal dilatation without any dilatation of the extrahepatic bile ducts. There was also question of wall thickening enhancement of the proximal common hepatic duct in the hilum of the liver with surgical clips seen in the region. She is status post cholecystectomy. Differential diagnosis includes biliary stricture, cholangitis, cholangiocarcinoma/Klatskin tumor, and metastatic disease should be considered. No discrete liver mass seen. There is also question of abnormal wall thickening of the proximal right colon differential to include colitis versus mass. She will be admitted for further evaluation and management of painless jaundice. Hospital course: Pt admitted to med/surg for further evaluation and management of obstructive jaundice. CT abd/pelvis as above. MRCP ordered with final radiology report pending. CA-19 pending, CEA elevated at 4.5 given non smoking status. Concern for hemolytic anemia with H/H 7.7/23.3%, LDH 679 with% reticulocytes 3.1%, haptoglobin remains pending. 1 unit packed red blood cells ordered for transfusion following type and screen and repeat CBC. Inital trop elevated at 17.6, with positive delta change with repeat 29. There is no chest pain. EKG shows t wave inversion in septal and anterior leads but no STELLA or depressions, suspect demand in setting of anemia. Discussed with cardiology, no further work up/intervention recommended, agrees with transfusion. nuclear monitoring technician placed for cardiac monitoring. Gastroenterology was consulted and evaluated case including MRCP recommending transfer to tertiary care facility for ERCP with possible percutaneous intervention. Dr. Slater, GI, discussed case with Dr. Roy at [facility] who is agreeable to transfer and Dr. Herman would be attending GI provider upon transfer pending acceptable. Call placed to [facility] transfer line and patient will be transferred upon bed availability. She has never been a smoker and no significant alcohol history. No illicit substance use. Course by problem: #Painless obstructive jaundice -Total bili 9.6, direct bili 7.3, AST 718, ALT 280, alk phos 2229. -CT abdomen/pelvis shows severe intrahepatic biliary ductal dilatation without any dilatation of the extrahepatic bile ducts. There was also question of wall thickening enhancement of the proximal common hepatic duct in the hilum of the liver with surgical clips seen in the region. She is status post cholecystectomy. Differential diagnosis includes biliary stricture, cholangitis, cholangiocarcinoma/Klatskin tumor, and metastatic disease should be considered. No discrete liver mass seen. There is also question of abnormal wall thickening of the proximal right colon differential to include colitis versus mass. -MRCP ordered with final read pending. Reviewed by GI recommending transfer to tertiary facility for ERCP. Images uploaded to [facility] #Unintentional weight loss- concerning for malignancy --8lbs last 2 weeks with anorexia #Acute on chronic normocytic anemia -h/h 7.7/23.3% -concern for hemolysis- LDH 679, retic % 3.1%, haptoglobin pending -transfuse 1 unit packed red blood cells #Elevated trop/CAD- likely demand in setting of anemia -no anginal chest pain. ekg nonischemic -Initial trop 17, repeat 29. Discussed with cardiology, agrees with transfusion, no further work-up/intervention recommended -continue bb, isosorbide. ASA on hold #hld -hold statin due to above #HTN -continue coreg, isosorbide, lisinopril #Hypothyroidism -continue levothyroxine #Non insulin dependent type 2 diabetes -poc glucose, diabetic diet -admelog ss -hold metformin Status at Discharge Functional status at discharge: independent ambulation Overall status at discharge: patient is not back to baseline Time Attestation Discharge Coordination Time (in mins): 40 Quality: Safe Use of Opioids Does Pt have an Active Cancer Diagnosis on the Problem List?: No Quality: Stroke Does the patient have a stroke diagnosis?: No Physical Exam Vital Signs: Vital Signs: Last Vital Signs Temp 97.6 F 01/23/24 15:50 Pulse 79 01/23/24 15:50 Resp 13 01/23/24 15:50 BP 148/64 H 01/23/24 15:50 Pulse Ox 98 01/23/24 15:50 O2 Del Method Room Air 01/23/24 15:50 BMI result Body Mass Index 26.9 DS: Data Data Completed and Pending Labs on day of discharge: Laboratory Results - last 24 hr 01/23/24 01/23/24 01/23/24 05:26 06:08 11:54 WBC 8.8 RBC 2.46 L Hgb 7.7 L Hct 23.3 L MCV 94.7 MCH 31.3 MCHC 33.0 RDW 21.9 H Plt Count 324 MPV 10.7 Immature Gran % (Auto) 0.3 Neut % (Auto) 77.4 H Lymph % (Auto) 7.3 L Humphreys % (Auto) 10.6 Eos % (Auto) 3.8 Baso % (Auto) 0.6 Lymph # (Auto) 0.6 L Humphreys # (Auto) 0.9 Eos # (Auto) 0.3 Baso # (Auto) 0.1 Abs Immat Gran (auto) 0.03 Absolute Neuts (auto) 6.8 Absolute Nucleated RBC 0.000 Nucleated RBC % (auto) 0.0 Absolute Retic 0.075 Percent Retic 3.1 H Immature Retic Fraction 32.0 H Retic Hgb Equivalent 35.7 H PT INR Sodium 134 L Potassium 4.7 Chloride 103 Carbon Dioxide 22 Anion Gap 14 BUN 23 H Creatinine 0.90 Estim Creat Clear Calc 39.7 Estimated GFR 60 POC Glucose Random Glucose 107 Calcium 9.2 D Total Bilirubin 9.6 H Direct Bilirubin 7.3 H AST 718 H ALT 280 H Alkaline Phosphatase 2229 H Lactate Dehydrogenase 679 H Troponin I High Sens 17.6 H 29.8 H D Total Protein 6.5 Albumin 2.8 L Carcinoembryonic Ag 01/23/24 01/23/24 01/23/24 14:32 14:34 16:08 WBC RBC Hgb Hct MCV MCH MCHC RDW Plt Count MPV Immature Gran % (Auto) Neut % (Auto) Lymph % (Auto) Humphreys % (Auto) Eos % (Auto) Baso % (Auto) Lymph # (Auto) Humphreys # (Auto) Eos # (Auto) Baso # (Auto) Abs Immat Gran (auto) Absolute Neuts (auto) Absolute Nucleated RBC Nucleated RBC % (auto) Absolute Retic Percent Retic Immature Retic Fraction Retic Hgb Equivalent PT 15.0 H INR 1.2 H Sodium Potassium Chloride Carbon Dioxide Anion Gap BUN Creatinine Estim Creat Clear Calc Estimated GFR POC Glucose 93 106 Random Glucose Calcium Total Bilirubin Direct Bilirubin AST ALT Alkaline Phosphatase Lactate Dehydrogenase Troponin I High Sens Total Protein Albumin Carcinoembryonic Ag 4.50 Discharge Plan Discharge Anticipated Discharge Date/Time: 01/23/24 20:15 Patient Disposition: Xfer Acute Care Hospital Discharge Diagnosis: Painless obstructive jaundice Referrals: Polo Villalta MD [Primary Care Provider] - 1 Week Zaid Slater MD [Physician] - 1 Week Discharge Medications: Continued atorvastatin 40 mg tablet 40 mg PO BEDTIME metformin 500 mg tablet 500 mg PO DAILY carvedilol 12.5 mg tablet 12.5 mg PO BID isosorbide mononitrate 60 mg tablet extended release 24 hr 90 mg PO DAILY Rx Instructions: 1.5 tablets daily levothyroxine [Synthroid] 88 mcg tablet 88 mcg PO DAILY lisinopril 10 mg tablet 10 mg PO DAILY nitroglycerin 0.4 mg tablet, sublingual 0.4 mg sublingual Q5M PRN (Reason: Chest Pain) albuterol sulfate 90 mcg/actuation HFA aerosol inhaler 2 puff inhalation Q4-6H PRN (Reason: Shortness Of Breath Or Wheezing) magnesium oxide 500 mg magnesium Tablet 500 mg PO DAILY cholecalciferol (vitamin D3) 50 mcg (2,000 unit) Capsule 50 mcg PO BID Held aspirin 81 mg Tablet,Delayed Release (Dr/Ec) 81 mg PO BEDTIME Hold Instructions: Resume on 01/28/24. resume at discretion of [facility] post procedure Discharge Orders: Discharge Order (Routine); Ordered 01/23/24 Ordered By: Lawson Montes Diet: Diabetic diet Activity on Discharge: As tolerated Stand Alone Forms: Patient Portal Discharge page Print Language: Hungarian Care Plan Goals: Transfer to [facility] for ERCP Health Concerns: Painless obstructive jaundice Plan of Treatment: Transfer to [facility] for ERCP Assessment: See discharge summary
[2024-01-23 19:59] LABS: MANUAL DIFF FLAG NO
[2024-01-23 20:06] LABS: Basophils Percent Auto 0.5 % (0-2); Eosinophils Absolute Auto 0.1 X10*3/uL (0.0-0.4); Eosinophils Percent Auto 0.9 % (0-4); Hematocrit 22.1 % (37.0-47.0); Hemoglobin 7.2 g/dl (12.0-16.0); Imm Gran Abs Auto 0.04 X10*3/uL (0.00-0.03); Imm Gran Pct Auto 0.5 % (0.0-0.4); Lymphocytes Absolute Auto 0.7 X10*3/uL (1.2-4.9); Lymphocytes Percent Auto 8.6 % (20-40); Mean Corpuscular HGB Conc 32.6 g/dl (31.0-35.0); Mean Corpuscular Hemoglobin 31.4 pg (27.0-33.0); Mean Corpuscular Volume 96.5 fL (80.0-98.0); Monocytes Absolute Auto 0.9 X10*3/uL (0.1-1.2); Neutrophils Absolute Auto 6.2 x10*3/uL (2.0-8.3); Neutrophils Percent Auto 78.5 % (45-73); Platelet Count 337 X10*3/uL (160-400); Red Blood Count 2.29 X10*6/uL (4.20-5.50); Red Cell Distribution Width 22.3 % (11.0-16.0); White Blood Count 7.9 X10*3/uL (4.8-10.8)
[2024-01-23 20:39] LABS: Glucose, Whole Blood 193 mg/dL (60-115)
[2024-01-23] MEDS: Insulin Lispro 100 UNIT/ML 3 ML VIAL SUBCUT (21:26)
--- NOTE | 2024-01-23 21:50 | PC.NURSE ---
pt to transfer to [facility]. tele placed per order, rbc ordered and hanging, pm meds given and nurse to angelique given to [facility]. pt to fe to [place] [facility], room 36b.
--- NOTE | 2024-01-24 03:45 | CONS_ITS ---
DATE OF SERVICE: 01/23/2024 REASON FOR CONSULTATION: Obstructive jaundice and anemia. HISTORY OF PRESENT ILLNESS: The patient is an 83-year-old female, who presented to the hospital early this morning with weakness and was found to be anemic, as well as noted to be jaundiced. She was not aware of her jaundice when she arrived. It appears that the patient has been somewhat progressively anemic since at least last year where she had a hemoglobin of 9.9 in October 2022. Hemoglobin in September was 8.8. Hemoglobin on January 22 when she came in this morning was down to 7.7. She did submit 3 hemoccult negative stool cards early this month. She also describes a negative Cologuard test last year. She has not had any type of colonoscopy nor upper endoscopy in at least 10 years by her description. She did have iron studies early this month with an iron of 37, iron saturation of 13% and a ferritin of 151. She had normal B12 and folate level earlier this month as well. She has otherwise been feeling well from a GI standpoint. She specifically denies any history of significant heartburn, dysphagia, anorexia, nausea, vomiting, nor early satiety. Her bowel movements have been fairly regular and she has not noticed any hematochezia nor melena. She does describe having undergone a cardiac catheterization a couple of months ago that was negative for any significant coronary artery disease and did not require any coronary artery stent placement. She has been on a low-dose aspirin, but no other blood thinners. In regard to the jaundice, she has no prior history of that in herself nor any family history of liver disease. She does not use any alcohol. She denies any abdominal pain, pruritus, increasing abdominal girth, nor edema. She has noticed light colored stools for at least a week and darkened urine. MEDICATIONS: At home included amlodipine, albuterol inhaler p.r.n., aspirin 81 mg atorvastatin, carvedilol, isosorbide, levothyroxine, lisinopril, metformin. PAST MEDICAL HISTORY: She has had surgeries including cholecystectomy, appendectomy, hysterectomy, back surgery, and carpal tunnel surgery. Medical problems include hypertension, hyperlipidemia, [id number] diabetes mellitus. She denies history of [place] or stroke. Anemia as above. FAMILY HISTORY: Noncontributory. REVIEW OF SYSTEMS: CONSTITUTIONAL: She has been feeling weak and tired. She has lost about 10 pounds. CARDIAC: No chest pain. PULMONARY: No coughing or hemoptysis. GI: As above. URINARY: No dysuria. No hematuria although her urine has been dark in relation to her jaundice. PHYSICAL EXAMINATION: GENERAL: Pleasant, alert, elderly female, in no distress. She has jaundice. No spider angiomata. HEENT: Anicteric sclerae. Moist mucous membranes. NECK: Supple. CARDIAC: Normal S1, S2. ABDOMEN: Soft, nondistended, nontender without mass. EXTREMITIES: Without edema. LABORATORY DATA: As above. CBC this evening shows a white blood cell count of 7.9, hemoglobin 7.2, MCV 97, platelets 337,000. PT 15.0 with INR 1.2. CEA level 4.5. Labs from this morning showed normal electrolytes, BUN 23, creatinine 0.9, total bilirubin 9.6, direct bilirubin 7.3, AST 718, ALT 280, alkaline phosphatase 2229. Of note, she had a completely normal liver profile in September. Her albumin today was 2.8. I did review both her CT scan and MRI. These both show significant intrahepatic biliary dilatation with a cutoff seen at the level of the cyndee hepatis. The extrahepatic bile duct distal to that is normal. There was no sign of any pancreatic mass. There was no sign of any obvious liver mass. There was some questionable thickening of the right colon on the CAT scan. There was no definitive mass. 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 She does not show any signs of cholangitis. She does not show any signs of intrinsic liver disease. Based on all this, I would recommend that she needs an ERCP and endoscopic ultrasound for further evaluation both with a biopsy and hopeful placement of biliary stent for decompression and relief of her jaundice. Given the nature of her disease, I would recommend this be done a tertiary facility. As such, I shall look to arrange a transfer to a tertiary facility such as [facility]. If a bed is not available within 24 hours, we could always plan to discharge her once she is feeling better in regard to the anemia and then look to arrange for an outpatient procedure as soon as possible. In the meantime, I would plan on giving her least a unit of blood to hopefully give her symptomatic improvement in regard to the anemia. The cause of the anemia is not clear given her negative hemoccults and negative Cologuard, as well as negative GI symptoms. She also does not have iron deficiency and therefore seems unlikely to be related to chronic GI blood loss. I would hold her aspirin in the meantime. This has all been discussed in detail with the patient and her son, particularly in regard to the probable diagnosis of a cholangiocarcinoma. They are comfortable with this plan including that of transfer to [facility]. Thanks for the consultation. MD HUGO Whiteside/CARLY / [phone] MTDD
[2024-01-25 10:38] LABS: Haptoglobin 259 mg/dL (43-212)
[2024-01-26 13:44] LABS: Carbohydrate Antigen 19-9 506 U/mL (<34)
== END 2024-01-23 22:25 | disposition short-term general hospital (02) | DRG 437 ==
LOC: HO.ED 10:34 → HO.EDOVER 11:29 → HO.S3 12:05
PROVIDERS: Internal Medicine; Admitting Provider Physician Assistant; Emergency Provider Emergency Medicine; PCP Internal Medicine; Visit Provider Hospitalist
DX: C24.0 Malignant neoplasm of extrahepatic bile duct (principal); I25.10 Atherosclerotic heart disease of native coronary artery without angina pectoris; E11.9 Type 2 diabetes mellitus without complications; I10 Essential (primary) hypertension; I35.0 Nonrheumatic aortic (valve) stenosis; E03.9 Hypothyroidism, unspecified; E78.5 Hyperlipidemia, unspecified; D64.9 Anemia, unspecified; R63.4 Abnormal weight loss; Z68.26 Body mass index [BMI] 26.0-26.9, adult; Z79.82 Long term (current) use of aspirin; Z79.890 Hormone replacement therapy; Z79.899 Other long term (current) drug therapy
CPT/HCPCS: 36415; 74177; 74181; 80053; 82248; 82378; 82947; 83010; 83615; 84484; 85025; 85045; 85610; 86301; 86850; 86900; 86901; 86923; 93005; 99221; 99285; J1650; P9016; Q9967

== ENCOUNTER → 2024-01-23 05:21 | Outpatient (BNV) | payer MEDICARE, SELFPAY | PROVIDERS: Admitting Provider Physician Assistant; Emergency Provider Emergency Medicine; PCP Internal Medicine; Visit Provider Internal Medicine Cardiovascular Disease | DX: R94.31 Abnormal electrocardiogram [ECG] [EKG] (principal) | CPT/HCPCS: 93010 ==

== ENCOUNTER → 2024-01-23 11:19 | Outpatient (BNV) | payer MEDICARE, SELFPAY | PROVIDERS: Admitting Provider Physician Assistant; Emergency Provider Emergency Medicine; PCP Internal Medicine; Visit Provider Physician Assistant | DX: R17 Unspecified jaundice (principal); D64.9 Anemia, unspecified; R53.1 Weakness | CPT/HCPCS: 99235 ==

== ENCOUNTER 2024-02-09 05:47 | Outpatient (REF) | payer MEDICARE, SELFPAY ==
[2024-02-09 05:49] LABS: MANUAL DIFF FLAG NO
[2024-02-09 06:19] LABS: Basophils Absolute Auto 0.1 X10*3/uL (0.0-0.2); Basophils Percent Auto 0.6 % (0-2); Eosinophils Absolute Auto 0.4 X10*3/uL (0.0-0.4); Eosinophils Percent Auto 4.9 % (0-4); Hematocrit 23.6 % (37.0-47.0); Hemoglobin 7.5 g/dl (12.0-16.0); Imm Gran Abs Auto 0.11 X10*3/uL (0.00-0.03); Imm Gran Pct Auto 1.3 % (0.0-0.4); Lymphocytes Absolute Auto 2.4 X10*3/uL (1.2-4.9); Lymphocytes Percent Auto 26.8 % (20-40); Mean Corpuscular HGB Conc 31.8 g/dl (31.0-35.0); Mean Corpuscular Hemoglobin 31.9 pg (27.0-33.0); Mean Corpuscular Volume 100.4 fL (80.0-98.0); Mean Platelet Volume 10.3 fL (9.4-12.3); Neutrophils Absolute Auto 4.9 x10*3/uL (2.0-8.3); Neutrophils Percent Auto 55.4 % (45-73); Platelet Count 280 X10*3/uL (160-400); Red Blood Count 2.35 X10*6/uL (4.20-5.50); Red Cell Distribution Width 22.5 % (11.0-16.0); White Blood Count 8.8 X10*3/uL (4.8-10.8)
== END 2024-02-09 05:48 | disposition home or self-care (01) ==
LOC: HO.MMNH1L 05:47
PROVIDERS: Visit Provider Internal Medicine
DX: M62.59 Muscle wasting and atrophy, not elsewhere classified, multiple sites (principal); N18.30 Chronic kidney disease, stage 3 unspecified
CPT/HCPCS: 36415; 85025

== ENCOUNTER 2024-02-28 16:05 | Outpatient (REF) | payer MEDICARE, SELFPAY ==
[2024-02-28 16:34] LABS: MANUAL DIFF FLAG NO
[2024-02-28 17:13] LABS: Basophils Absolute Auto 0.1 X10*3/uL (0.0-0.2); Basophils Percent Auto 0.6 % (0-2); Eosinophils Absolute Auto 0.3 X10*3/uL (0.0-0.4); Eosinophils Percent Auto 3.3 % (0-4); Hematocrit 27.1 % (37.0-47.0); Hemoglobin 8.8 g/dl (12.0-16.0); Imm Gran Abs Auto 0.03 X10*3/uL (0.00-0.03); Imm Gran Pct Auto 0.4 % (0.0-0.4); Lymphocytes Percent Auto 23.7 % (20-40); Mean Corpuscular HGB Conc 32.5 g/dl (31.0-35.0); Mean Corpuscular Hemoglobin 32.8 pg (27.0-33.0); Mean Corpuscular Volume 101.1 fL (80.0-98.0); Neutrophils Absolute Auto 5.1 x10*3/uL (2.0-8.3); Platelet Count 297 X10*3/uL (160-400); Red Blood Count 2.68 X10*6/uL (4.20-5.50); Red Cell Distribution Width 19.2 % (11.0-16.0); White Blood Count 8.5 X10*3/uL (4.8-10.8)
[2024-02-28 18:53] LABS: Alanine Aminotransferase 83 U/L (0-31); Albumin Level 3.1 g/dL (3.5-5.0); Alkaline Phosphatase 1016 U/L (39-117); Anion Gap 12 (12-20); Aspartate Amino Transferase 132 U/L (5-31); Bilirubin Total 1.7 mg/dL (0.0-1.0); Blood Urea Nitrogen 11 mg/dL (9-16); Calcium 9.1 mg/dL (8.4-10.2); Carbon Dioxide 29 mmol/L (22-29); Chloride 101 mmol/L (96-108); Estimated Glomerular Filt Rate > 60; Glucose Random 97 mg/dL (60-115); Iron 30 mcg/dL (30-160); Percent Iron Saturation 15 % (15-50); Potassium 3.9 mmol/L (3.3-5.1); Sodium 138 mmol/L (135-145); Total Iron Binding Capacity 200 mcg/dL (228-428); Total Protein 6.8 g/dL (6.5-8.0); Unsaturated Iron Binding 170 ug/dL
== END 2024-02-28 16:06 | disposition home or self-care (01) ==
LOC: HO.LAB 16:05
PROVIDERS: PCP Internal Medicine; Visit Provider Internal Medicine
DX: D64.9 Anemia, unspecified (principal); R63.4 Abnormal weight loss
CPT/HCPCS: 36415; 80053; 82378; 83540; 85025

== ENCOUNTER 2024-03-21 14:17 | Inpatient (IN) | payer MEDICARE, SELFPAY ==
[2024-03-21] VITALS (17 sets, daily range): BP systolic 143–197; BP diastolic 73–114; PULSE 87–102; RESP 15–23; TEMP 36.7–39.1; O2SAT 89–100; BMI 26.3
--- NOTE | ~2024-03-21 | CT_ITS ---
EXAMINATION: CT head for stroke (accession [id number]) CT angio head neck stroke (accession [id number]) CLINICAL INFORMATION: Word salkaren. COMPARISON: MR brain 11/26/2005. TECHNIQUE: Chart Calculator images were obtained. A CT angiogram of the head and neck was performed in the arterial phase after the intravenous administration of 70 mL Omnipaque 350. Pre and delayed postcontrast images of the head were also obtained. 3D images were processed on an independent workstation under concurrent supervision. Arterial stenoses are measured in accordance with NASCET criteria or similar method if applicable. This CT examination was performed using dose optimization techniques as appropriate, including one or more of the following: Automated exposure control, iterative reconstruction, and adjustment of technique factors (mA and/or kVp) according to patient size (this includes techniques or standardized protocols for targeted exams where dose is matched to indication/reason for exam). Fleischner Society criteria for the followup of incidental pulmonary nodules was implemented if appropriate. Total exam dose-length product 1430 mGy-cm FINDINGS: Head: Postcontrast images reveal no abnormal intracranial mass or enhancement. There is no intracranial mass effect or midline shift. Lateral and third ventricles are normal. No hydrocephalus. There are numerous foci of hypoattenuation within the periventricular white matter that most likely represent a chronic manifestation of small vessel ischemia. Gupta-white matter infiltration is otherwise preserved and there is no evidence of an acute infarct. The calvarium and skull base are grossly intact. Mastoid air cells and middle ear cavities are well aerated. No intracranial sinus disease. CT angiogram neck: Atheromatous calcification involves the aortic arch apex. Origins of the major aortic branches are widely patent. Common carotid arteries are patent. Partially calcified atheromatous plaque involves both carotid bifurcations. There is 25% stenosis at the origin of the right lower carotid artery. No stenosis of the left extra cranial internal carotid artery. The cervical segments of the vertebral arteries are widely patent. CT angiogram head: Atheromatous calcification involves the cavernous segments of both internal carotid arteries. Intracranial carotid arteries are otherwise patent. The intradural vertebral artery segments and basilar artery are patent. Anterior, middle, and posterior cerebral artery complexes are normal. No intracranial large vessel occlusion. No identifiable aneurysm or high flow vascular lesion. The timing of the contrast injection provides adequate opacification of the dural venous sinuses which are patent. Other: Soft tissues of the neck including the thyroid gland are normal. No pathologically enlarged cervical lymph nodes. No mediastinal or axillary adenopathy is visualized within the [id number] of this examination. There is pleural-parenchymal scarring at the apices of both lungs. There is no acute osseous finding. Specifically no worrisome lytic or blastic osseous lesion. CT/CT angio head neck stroke IMPRESSION: There are numerous chronic small vessel ischemic changes within the periventricular white matter. No evidence of acute territorial infarct or hemorrhage. No abnormal intracranial mass or enhancement. There is 25% stenosis at the origin of the right internal carotid artery. Otherwise no stenosis of the cervical carotid or vertebral arteries. No intracranial large vessel occlusion. Electronically signed by: Zaid Nash MD 03/21/2024 03:13 PM EDT
--- NOTE | ~2024-03-21 | CT_ITS ---
EXAMINATION: CT head for stroke (accession [id number]) CT angio head neck stroke (accession [id number]) CLINICAL INFORMATION: Word salkaren. COMPARISON: MR brain 11/26/2005. TECHNIQUE: [employer]er images were obtained. A CT angiogram of the head and neck was performed in the arterial phase after the intravenous administration of 70 mL Omnipaque 350. Pre and delayed postcontrast images of the head were also obtained. 3D images were processed on an independent workstation under concurrent supervision. Arterial stenoses are measured in accordance with NASCET criteria or similar method if applicable. This CT examination was performed using dose optimization techniques as appropriate, including one or more of the following: Automated exposure control, iterative reconstruction, and adjustment of technique factors (mA and/or kVp) according to patient size (this includes techniques or standardized protocols for targeted exams where dose is matched to indication/reason for exam). Fleischner Society criteria for the followup of incidental pulmonary nodules was implemented if appropriate. Total exam dose-length product 1430 mGy-cm FINDINGS: Head: Postcontrast images reveal no abnormal intracranial mass or enhancement. There is no intracranial mass effect or midline shift. Lateral and third ventricles are normal. No hydrocephalus. There are numerous foci of hypoattenuation within the periventricular white matter that most likely represent a chronic manifestation of small vessel ischemia. Gupta-white matter infiltration is otherwise preserved and there is no evidence of an acute infarct. The calvarium and skull base are grossly intact. Mastoid air cells and middle ear cavities are well aerated. No intracranial sinus disease. CT angiogram neck: Atheromatous calcification involves the aortic arch apex. Origins of the major aortic branches are widely patent. Common carotid arteries are patent. Partially calcified atheromatous plaque involves both carotid bifurcations. There is 25% stenosis at the origin of the right lower carotid artery. No stenosis of the left extra cranial internal carotid artery. The cervical segments of the vertebral arteries are widely patent. CT angiogram head: Atheromatous calcification involves the cavernous segments of both internal carotid arteries. Intracranial carotid arteries are otherwise patent. The intradural vertebral artery segments and basilar artery are patent. Anterior, middle, and posterior cerebral artery complexes are normal. No intracranial large vessel occlusion. No identifiable aneurysm or high flow vascular lesion. The timing of the contrast injection provides adequate opacification of the dural venous sinuses which are patent. Other: Soft tissues of the neck including the thyroid gland are normal. No pathologically enlarged cervical lymph nodes. No mediastinal or axillary adenopathy is visualized within the [id number] of this examination. There is pleural-parenchymal scarring at the apices of both lungs. There is no acute osseous finding. Specifically no worrisome lytic or blastic osseous lesion. CT/CT head for stroke IMPRESSION: There are numerous chronic small vessel ischemic changes within the periventricular white matter. No evidence of acute territorial infarct or hemorrhage. No abnormal intracranial mass or enhancement. There is 25% stenosis at the origin of the right internal carotid artery. Otherwise no stenosis of the cervical carotid or vertebral arteries. No intracranial large vessel occlusion. Electronically signed by: Zaid Nash MD 03/21/2024 03:13 PM EDT
--- NOTE | ~2024-03-21 | MR_ITS ---
EXAMINATION: MR BRAIN WITHOUT CONTRAST CLINICAL INFORMATION: word salad, understanding issues stroke protocol COMPARISON: None available. TECHNIQUE: MRI of the brain was obtained using routine sequences without contrast. FINDINGS: No acute intracranial hemorrhage or infarct. Scattered and confluent periventricular and deep white matter T2/FLAIR hyperintensities, nonspecific however commonly seen with small vessel ischemic disease. Mild global cerebral atrophy. No midline shift or hydrocephalus. No acute extra-axial fluid collections. The osseous structures are unremarkable. Partially empty sella. The pineal gland and remaining midline structures are unremarkable. Sequelae of bilateral lens replacement. Other, no acute orbital pathology. The paranasal sinuses and mastoid air cells are clear. MR/MR head/brain wo con IMPRESSION: -No acute intracranial abnormalities. -Mild global cerebral atrophy and chronic microangiopathy. Electronically signed by: Sade Hill MD 03/22/2024 03:26 PM EDT
--- NOTE | ~2024-03-21 | CT_ITS ---
EXAMINATION: CT CHEST, ABDOMEN AND PELVIS WITHOUT CONTRAST CLINICAL INFORMATION: Altered mental status, fever, cough, nausea/vomiting COMPARISON: CT abdomen and pelvis 01/23/2024 TECHNIQUE: Multidetector volumetric imaging was performed of the chest, abdomen and pelvis without intravenous contrast. Oral contrast was not administered. Sagittal and coronal reformatted images were obtained on the technologist's workstation. This CT examination was performed using dose optimization techniques as appropriate, variously including the following: *Automated exposure control *Adjustment of mA and/or kV according to patient size (this includes techniques or standardized protocols for targeted exams where dose is matched to indication/reason for exam; i.e. extremities or head) *Use of iterative reconstruction technique DLP: 844 mGy-cm FINDINGS: Evaluation of solid organs, vascular structures, and bowel wall limited in the absence of intravenous contrast. CHEST: PLEURA: There is no pleural effusion. LUNGS: Central airways patent. Moderate diffuse bronchial wall thickening. Diffuse bilateral smooth interlobular septal thickening. Mild bilateral lower lobe deep atelectasis. No confluent pulmonary consolidation. Solid, oval, 4 mm nodule in the superior segment left lower lobe (series 5, image 199), for which per Fleischner Society guidelines no dedicated follow-up imaging is required. Scattered additional sub-4 mm pulmonary micronodules, nonspecific. MEDIASTINUM: Left atrial enlargement. Moderate aortic arch calcific atherosclerosis. Dilated main pulmonary artery, measuring up to 3.6 cm in maximal diameter. No pericardial effusion. No mediastinal lymphadenopathy. Lack of intravenous contrast limits evaluation for hilar lymphadenopathy. No bulky hilar lymphadenopathy appreciated. CORONARY ARTERY CALCIFICATION: Moderate multivessel coronary artery calcifications and/or stents present. CHEST WALL/AXILLA: Unremarkable. No lymphadenopathy. ABDOMEN AND PELVIS: LIVER AND BILIARY TREE: Two, bile duct stents in place proximal tips in the left hepatic lobe, and distal tip terminating in the third portion of the duodenum. Mild pneumobilia. Decreased, mild to moderate residual intrahepatic biliary duct dilation throughout. GALLBLADDER: Status post cholecystectomy. PANCREAS: Unremarkable. SPLEEN: Unremarkable. ADRENAL GLANDS: Unremarkable. KIDNEYS AND URETERS: Excreted contrast within the bilateral renal collecting systems. No hydronephrosis. GASTROINTESTINAL TRACT: Unremarkable. VASCULAR: Moderate aortoiliac calcific atherosclerosis. LYMPH NODES: No lymphadenopathy. PERITONEUM: Trace pelvic free fluid. BLADDER: Gerard catheter with a partially distended urinary bladder. PELVIC VISCERA: Status post hysterectomy. ABDOMINAL AND PELVIC WALL: Unremarkable. OSSEOUS STRUCTURES: Severe anterior wedge compression deformity of the T7 vertebral body with approximately 70% anterior height loss and no osseous retropulsion, age indeterminate but chronic appearing. Moderate multilevel degenerative lumbar spondylosis. Mild, 2 mm anterolisthesis of L5 on S1. CT/CT abdomen pelvis wo IV con IMPRESSION: 1. Diffuse bilateral pulmonary bronchial wall thickening and interlobular septal thickening, most likely representing interstitial edema although atypical infection could appear similar. No pleural effusions. 2. No acute abnormality of the abdomen, or pelvis within the limitations of noncontrast technique. 3. Compared to 01/23/2024, interval placement of two internal biliary stents with decreased, mild to moderate residual intrahepatic biliary duct dilation. 4. Severe anterior wedge compression deformity of the T7 vertebral body with approximately 70% anterior height loss and no osseous retropulsion, age indeterminate but chronic appearing. Electronically signed by: Venkata Varela MD 03/21/2024 05:35 PM EDT
--- NOTE | 2024-03-21 14:23 | ECG_ITS ---
Test Reason : STROKE ? Blood Pressure : / mmHG Vent. 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
--- NOTE | 2024-03-21 14:24 | ED_ITS ---
HPI - General Adult General Chief complaint: Stroke Stated complaint: VILLAR,ALTERED PER EMS Time Seen by Provider: 03/21/24 14:30 Source: patient and EMS Mode of arrival: EMS Limitations: altered mental status History of Present Illness ED Provider: Agustín WOODWARD HPI narrative: 84-year-old female history of anemia, painless jaundice, htn, hld presents to the emergency department with altered mental status, difficulty speaking, she is unable to provide me with a history or review of systems. On my 1st review with patient she is having word salad and difficulty putting sentences together she is not making sense. Unable to obtain an accurate NIH stroke scale. According to EMS patient reported to that she woke up this morning with a headache she typically does not get headaches. However last known well time was yesterday before bed. Unclear when exactly. Patient is not on blood thinners only aspirin. Related Data Home Medications ?Medication ?Instructions ?Recorded ?Confirmed albuterol sulfate 90 mcg/actuation 2 puff inhalation Q4-6H PRN 01/23/24 01/23/24 aerosol inhaler Shortness Of Breath Or Wheezing aspirin 81 mg tablet,delayed 81 mg PO BEDTIME 01/23/24 01/23/24 release atorvastatin 40 mg tablet 40 mg PO BEDTIME 01/23/24 01/23/24 carvedilol 12.5 mg tablet 12.5 mg PO BID 01/23/24 01/23/24 cholecalciferol (vitamin D3) 50 50 mcg PO BID 01/23/24 01/23/24 mcg (2,000 unit) capsule isosorbide mononitrate 60 mg 90 mg PO DAILY 01/23/24 01/23/24 tablet,extended release 24 hr levothyroxine 88 mcg tablet 88 mcg PO DAILY 01/23/24 01/23/24 (Synthroid) lisinopril 10 mg tablet 10 mg PO DAILY 01/23/24 01/23/24 magnesium oxide 500 mg PO DAILY 01/23/24 01/23/24 metformin 500 mg tablet 500 mg PO DAILY 01/23/24 01/23/24 nitroglycerin 0.4 mg sublingual 0.4 mg sublingual Q5M PRN Chest 01/23/24 01/23/24 tablet Pain Allergies Allergy/AdvReac Type Severity Reaction Status Date / Time No Known Allergies Allergy Verified 03/21/24 14:49 Review of Systems 2 Review of Systems: Yes all other systems are reviewed and are negative [facility] Past Medical History Attestation statement: The following information was validated with the patient. Source: old records reviewed and nursing notes reviewed Medical History Aortic stenosis CAD (coronary artery disease) Type 2 diabetes mellitus HLD (hyperlipidemia) HTN (hypertension) Social History Social History Household Members: Spouse Housing: House Do you presently have visiting nurse or other home services: No Unable to assess alcohol history related to: Unable to respond and Unknown Patient Tobacco Use Status: Never used Tobacco Use of substances other than those prescribed or required for medical reasons: Unable to respond Advance Directives: No Advance Directives Information Provided: No Do you have a plan to hurt others: No Plan Physical Exam ED Vital Signs: Vital Signs - 24 hr 03/21/24 14:47 03/21/24 14:59 03/21/24 15:22 Temperature 98.6 F 100.5 F H Pulse Rate 88 87 90 Respiratory Rate 23 H 18 17 Blood Pressure 197/77 H 188/78 H 183/73 H Pulse Oximetry 96 93 Oxygen Delivery Method Room Air Room Air Room Air Oxygen Flow Rate 03/21/24 15:43 03/21/24 15:59 03/21/24 16:25 Temperature 98.0 F Pulse Rate 93 96 94 Respiratory Rate 19 16 20 Blood Pressure 185/74 H 186/88 H 184/90 H Pulse Oximetry 92 95 Oxygen Delivery Method Room Air Room Air Oxygen Flow Rate 03/21/24 17:38 03/21/24 17:48 03/21/24 18:44 Temperature 101.7 F H Pulse Rate 98 99 Respiratory Rate 22 H 22 H Blood Pressure 189/108 H 188/87 H Pulse Oximetry 96 89 L Oxygen Delivery Method Room Air Oxygen Flow Rate 03/21/24 18:49 03/21/24 19:39 03/21/24 20:08 Temperature 102.4 F H Pulse Rate 102 H 100 Respiratory Rate 20 15 Blood Pressure 145/114 H 143/79 H Pulse Oximetry 96 100 100 Oxygen Delivery Method Nasal Cannula Nasal Cannula Nasal Cannula Oxygen Flow Rate 2 2 2 BMI result Body Mass Index 26.3 vss Appearance: Alert. Only oriented to person, not place, time or situation.? No acute distress.? Head: Normocephalic, atraumatic, no step-offs or deformities Eyes: Pupils equal, round and reactive to light.? ENT: Pharynx normal.? Neck: Normal inspection.? Neck supple.? CVS: Normal heart rate and rhythm.? Pulses normal.? Respiratory: No respiratory distress.? Breath sounds normal.? Abdomen: Soft and nontender.? Skin: Skin warm and dry.? Normal skin color.? Normal skin turgor.? Extremities: No lower extremity edema.? No calf ttp. 5/5 strength to upper extremities. Patient not following commands unable to obtain strength to lower extremities bilaterally. Neuro: Only oriented to person, not place, time or situation.? Patient intermittently following commands unable to obtain an accurate NIH stroke scale. Course Reevaluation(s) Reevaluation #1: Discuss this case with Dr. Serrano who recommemds prompt MRI and no TNK due to unclear LKWT. Time: 14:38 Reevaluation #2: I received a call from radiologist Dr. Cleveland who states that there is no acute hemorrhage or ischemic regions on CT head. There is currently a system down for [facility], CT head without contrast is showing white matter changes, diffuse atrophy. CTA still pending. MRI ordered Time: 14:44 Reevaluation #3: CBC with a baseline anemia noted. Chemistry no acute findings needing intervention. Patient's troponin 21 with a nonischemic EKG, patient's cholesterol LDL and total cholesterol elevated. Time: 15:03 Additional Reevaluation(s): 1613 I was informed by nursing that patient febrile, at this time some sort of infection suspected, due to normal labs, urine, and altered mentation meningitis and aseptic meningitis should be ruled out as well as encephalitis. Patient an MRI will start empiric antibiotics vanco and 2 g of ceftriaxone. If MRI is normal will proceed with lumbar puncture. Also added imaging of abdomen and chest to ensure there is no other possible etiologies for altered mental status and or infection. 1817 Per MRI, they were unaware that patient was a stroke protocol although is ordered as a stroke protocol due to lack of phone call from ED. It was in the indication on the test however . Now patient projectile vomiting, unable to go to MRI at this time. Will proceed with lumbar puncture. When MRI arrived at this time, patient is now a projectile vomiting, appears jaundice. Will give Reglan and Benadryl. Will also order stat ammonia 1950 Lumbar puncture done by this CRISSY w/ sterile technique, no complications, tubes sent for analysis. Verbal consent was obtained from family () prior to the procedure. 2033 High protein 55.7. Normal glucose 62. Meningitis and encephalitis panel pending Hospitalist aware of this. Plan hospital admission CT abd and pelvis and CT chest also pending Medications Administered Discontinued Medications Generic Name Dose Route Start Last Admin Trade Name Freq PRN Reason Stop Dose Admin Acetaminophen 650 mg 03/21/24 15:10 03/21/24 15:25 Acetaminophen Supp 650 Mg Supp.Rect [place] 03/21/24 15:11 650 mg ONCE ONE Administration Acetaminophen 325 mg 03/21/24 18:08 03/21/24 18:50 Acetaminophen Supp 325 Mg Supp.Rect [place] 03/21/24 18:09 325 mg ONCE ONE Administration Dexamethasone Sodium Phosphate 10 mg 03/21/24 20:00 03/21/24 20:09 Dexamethasone Sod Phosphate 10 Mg/Ml Vial IVPUSH 03/21/24 20:01 10 mg ONCE ONE Administration Diphenhydramine HCl 25 mg 03/21/24 18:19 03/21/24 18:39 Diphenhydramine Hcl 50 Mg/Ml Vial IVPUSH 03/21/24 18:20 25 mg ONCE ONE Administration Ceftriaxone Sodium 2 gm/ 50 mls @ 100 mls/hr 03/21/24 16:13 03/21/24 17:21 Sodium Chloride IV 03/21/24 16:42 Infused ONCE ONE Infusion Vancomycin HCl 1,500 mg/ 500 mls @ 333.333 mls/hr 03/21/24 16:13 03/21/24 17:33 Sodium Chloride IV 03/21/24 17:42 333.33 mls/hr ONCE ONE Administration Sodium Chloride 1,000 mls @ 999 mls/hr 03/21/24 16:45 03/21/24 17:35 Ns IV 03/21/24 17:45 999 mls/hr .Q1H1M DEN Administration Iohexol 100 ml 03/21/24 14:39 03/21/24 14:40 Iohexol 350 Mg/Ml 100 Ml Infus..Btl IV 03/21/24 14:40 70 ml ONCE ONE Administration Metoclopramide HCl 10 mg 03/21/24 18:19 03/21/24 18:39 Metoclopramide Hcl 10 Mg/2 Ml Vial IVPUSH 03/21/24 18:20 10 mg ONCE ONE Administration Midazolam HCl 1 mg 03/21/24 19:58 03/21/24 20:09 Midazolam Hcl/Pf 2 Mg/2 Ml Vial IVPUSH 03/21/24 19:59 1 mg ONCE ONE Administration Medical Decision Making Medical Decision Making [facility] Narrative: 1427 84-year-old female presents with word salad and headache since this morning. Last known well time however was last night. Poor historian. Only oriented to person on arrival. Physical exam normal UE strength, unable to assess strength lower extremities bilaterally. When patient tries to speak it has garbled speech, word salad. Oriented only to person, not place, time or situation. I am concerned for intracranial hemorrhage or stroke. Other differentials include complex migraine. Will rule out metabolic derangements and urinary infection. No reported trauma no signs of trauma head, neck, chest, abdomen and pelvis. Meningitis and encephalitis may need to be ruled out. Plan stroke protocol. Will reach out to neurology. Differential Diagnosis Differential Diagnoses: The differential diagnosis associated with the presentation includes I am concerned for intracranial hemorrhage or stroke. Other differentials include complex migraine. Will rule out metabolic derangements and urinary infection. No reported trauma no signs of trauma head, neck, chest, abdomen and pelvis.Meningitis and encephalitis may need to be ruled out. Admission/Observation Consideration of admission/observation: Escalation of care including admission/observation considered Lab Data [facility] Lab Attestation statement: I reviewed the patient's lab results. 03/21/24 14:27 03/21/24 14:27 Labs: Lab Results 03/21/24 03/21/24 03/21/24 Range/Units 14:27 14:55 15:26 WBC 8.2 (4.8-10.8) X10*3/uL RBC 3.02 L (4.20-5.50) X10*6/uL Hgb 9.8 L (12.0-16.0) g/dl Hct 30.1 L (37.0-47.0) % MCV 99.7 H (80.0-98.0) fL MCH 32.5 (27.0-33.0) pg MCHC 32.6 (31.0-35.0) g/dl RDW 17.1 H (11.0-16.0) % Plt Count 236 (160-400) X10*3/uL MPV 10.6 (9.4-12.3) fL Immature Gran % (Auto) 0.4 (0.0-0.4) % Neut % (Auto) 67.1 (45-73) % Lymph % (Auto) 21.5 (20-40) % Phillips % (Auto) 9.0 (2-11) % Eos % (Auto) 1.3 (0-4) % Baso % (Auto) 0.7 (0-2) % Lymph # (Auto) 1.8 (1.2-4.9) X10*3/uL Phillips # (Auto) 0.7 (0.1-1.2) X10*3/uL Eos # (Auto) 0.1 (0.0-0.4) X10*3/uL Baso # (Auto) 0.1 (0.0-0.2) X10*3/uL Abs Immat Gran (auto) 0.03 (0.00-0.03) X10*3/uL Absolute Neuts (auto) 5.5 (2.0-8.3) x10*3/uL Absolute Nucleated RBC 0.000 (0.0-0.012) X10*3/uL Nucleated RBC % (auto) 0.0 (0.0-0.2) /100WBC ESR 38 H (0-20) MM/HR Hold Purple Top SEE NOTE PT 12.3 (11.1-13.3) SEC Whole Blood PT (11.1-13.5) sec INR 1.0 (0.9-1.1) Whole Blood INR (0.9-1.1) APTT 30.7 (26.0-36.8) SEC Hold Blue Top SEE NOTE Sodium 137 (135-145) mmol/L Potassium 3.8 (3.3-5.1) mmol/L Chloride 100 (96-108) mmol/L Carbon Dioxide 28 (22-29) mmol/L Anion Gap 13 (12-20) BUN 14 (9-16) mg/dL Creatinine 0.66 (0.5-1.4) mg/dL Estim Creat Clear Calc TNP Estimated GFR > 60 POC Glucose 122 H (60-115) mg/dL Random Glucose 117 H (60-115) mg/dL Lactic Acid (0.5-2.0) mmol/L Calcium 9.3 (8.4-10.2) mg/dL Total Bilirubin 1.3 H (0.0-1.0) mg/dL Direct Bilirubin 0.7 H (0.0-0.5) mg/dL AST 43 H (5-31) U/L ALT 28 (0-31) U/L Alkaline Phosphatase 319 H (39-117) U/L Ammonia (13-55) umol/L Lactate Dehydrogenase 249 H (122-220) U/L Troponin I High Sens 21.0 H (<3.5-17.0) ng/L C-Reactive Protein 2.98 H (< or = 0.50) mg/dL Total Protein 7.0 (6.5-8.0) g/dL Albumin 3.3 L (3.5-5.0) g/dL Triglycerides 94 (<150) mg/dL Cholesterol 206 H (<200) mg/dL LDL Cholesterol, Calc 130 H (<100) mg/dL HDL Cholesterol 58 (>40) mg/dL Urine Color Yellow Urine Appearance Clear Urine pH 7.5 (5.0-9.0) Ur Specific [place] >= 1.030 H (1.005-1.025) Urine Protein 30 (1+) H (Neg-Trace) mg/dL Urine Glucose (UA) Negative (Negative) mg/dL Urine Ketones Negative (Negative) mg/dL Urine Blood Negative (Negative) Urine Nitrite Negative (Negative) Ur Leukocyte Esterase Negative (Negative) Urine RBC 0-2 (0-2) /HPF Urine WBC 0-5 (0-5) /HPF Ur Squamous Epith Cells 3-5 (0-2) /HPF Urine Bacteria None Seen (None Seen) Hyaline Casts 0-2 (0-2) /LPF CSF Tube Number CSF Appearance (b) CSF Glucose mg/dL CSF Total Protein (15-45) mg/dL Salicylates (15-30) mg/dL Acetaminophen (<30) mcg/mL Influenza Type A (PCR) (Negative) Influenza Type B (PCR) (Negative) RSV RNA Qual (PCR) (Negative) SARS-CoV-2 RNA (RT-PCR) (Negative) 03/21/24 03/21/24 03/21/24 Range/Units 15:37 17:09 17:31 WBC (4.8-10.8) X10*3/uL RBC (4.20-5.50) X10*6/uL Hgb (12.0-16.0) g/dl Hct (37.0-47.0) % MCV (80.0-98.0) fL MCH (27.0-33.0) pg MCHC (31.0-35.0) g/dl RDW (11.0-16.0) % Plt Count (160-400) X10*3/uL MPV (9.4-12.3) fL Immature Gran % (Auto) (0.0-0.4) % Neut % (Auto) (45-73) % Lymph % (Auto) (20-40) % Phillips % (Auto) (2-11) % Eos % (Auto) (0-4) % Baso % (Auto) (0-2) % Lymph # (Auto) (1.2-4.9) X10*3/uL Phillips # (Auto) (0.1-1.2) X10*3/uL Eos # (Auto) (0.0-0.4) X10*3/uL Baso # (Auto) (0.0-0.2) X10*3/uL Abs Immat Gran (auto) (0.00-0.03) X10*3/uL Absolute Neuts (auto) (2.0-8.3) x10*3/uL Absolute Nucleated RBC (0.0-0.012) X10*3/uL Nucleated RBC % (auto) (0.0-0.2) /100WBC ESR (0-20) MM/HR Hold Purple Top PT (11.1-13.3) SEC Whole Blood PT (11.1-13.5) sec INR (0.9-1.1) Whole Blood INR (0.9-1.1) APTT (26.0-36.8) SEC Hold Blue Top Sodium (135-145) mmol/L Potassium (3.3-5.1) mmol/L Chloride (96-108) mmol/L Carbon Dioxide (22-29) mmol/L Anion Gap (12-20) BUN (9-16) mg/dL Creatinine (0.5-1.4) mg/dL Estim Creat Clear Calc Estimated GFR POC Glucose (60-115) mg/dL Random Glucose (60-115) mg/dL Lactic Acid 1.0 (0.5-2.0) mmol/L Calcium (8.4-10.2) mg/dL Total Bilirubin (0.0-1.0) mg/dL Direct Bilirubin (0.0-0.5) mg/dL AST (5-31) U/L ALT (0-31) U/L Alkaline Phosphatase (39-117) U/L Ammonia (13-55) umol/L Lactate Dehydrogenase (122-220) U/L Troponin I High Sens 154.0 H* D (<3.5-17.0) ng/L C-Reactive Protein (< or = 0.50) mg/dL Total Protein (6.5-8.0) g/dL Albumin (3.5-5.0) g/dL Triglycerides (<150) mg/dL Cholesterol (<200) mg/dL LDL Cholesterol, Calc (<100) mg/dL HDL Cholesterol (>40) mg/dL Urine Color Urine Appearance Urine pH (5.0-9.0) Ur Specific [place] (1.005-1.025) Urine Protein (Neg-Trace) mg/dL Urine Glucose (UA) (Negative) mg/dL Urine Ketones (Negative) mg/dL Urine Blood (Negative) Urine Nitrite (Negative) Ur Leukocyte Esterase (Negative) Urine RBC (0-2) /HPF Urine WBC (0-5) /HPF Ur Squamous Epith Cells (0-2) /HPF Urine Bacteria (None Seen) Hyaline Casts (0-2) /LPF CSF Tube Number CSF Appearance (b) CSF Glucose mg/dL CSF Total Protein (15-45) mg/dL Salicylates (15-30) mg/dL Acetaminophen (<30) mcg/mL Influenza Type A (PCR) NEGATIVE (Negative) Influenza Type B (PCR) NEGATIVE (Negative) RSV RNA Qual (PCR) NEGATIVE (Negative) SARS-CoV-2 RNA (RT-PCR) NEGATIVE (Negative) 03/21/24 03/21/24 03/21/24 Range/Units 17:43 18:36 19:45 WBC (4.8-10.8) X10*3/uL RBC (4.20-5.50) X10*6/uL Hgb (12.0-16.0) g/dl Hct (37.0-47.0) % MCV (80.0-98.0) fL MCH (27.0-33.0) pg MCHC (31.0-35.0) g/dl RDW (11.0-16.0) % Plt Count (160-400) X10*3/uL MPV (9.4-12.3) fL Immature Gran % (Auto) (0.0-0.4) % Neut % (Auto) (45-73) % Lymph % (Auto) (20-40) % Phillips % (Auto) (2-11) % Eos % (Auto) (0-4) % Baso % (Auto) (0-2) % Lymph # (Auto) (1.2-4.9) X10*3/uL Phillips # (Auto) (0.1-1.2) X10*3/uL Eos # (Auto) (0.0-0.4) X10*3/uL Baso # (Auto) (0.0-0.2) X10*3/uL Abs Immat Gran (auto) (0.00-0.03) X10*3/uL Absolute Neuts (auto) (2.0-8.3) x10*3/uL Absolute Nucleated RBC (0.0-0.012) X10*3/uL Nucleated RBC % (auto) (0.0-0.2) /100WBC ESR (0-20) MM/HR Hold Purple Top PT (11.1-13.3) SEC Whole Blood PT (11.1-13.5) sec INR (0.9-1.1) Whole Blood INR (0.9-1.1) APTT (26.0-36.8) SEC Hold Blue Top Sodium (135-145) mmol/L Potassium (3.3-5.1) mmol/L Chloride (96-108) mmol/L Carbon Dioxide (22-29) mmol/L Anion Gap (12-20) BUN (9-16) mg/dL Creatinine (0.5-1.4) mg/dL Estim Creat Clear Calc Estimated GFR POC Glucose (60-115) mg/dL Random Glucose (60-115) mg/dL Lactic Acid (0.5-2.0) mmol/L Calcium (8.4-10.2) mg/dL Total Bilirubin (0.0-1.0) mg/dL Direct Bilirubin (0.0-0.5) mg/dL AST (5-31) U/L ALT (0-31) U/L Alkaline Phosphatase (39-117) U/L Ammonia 35 (13-55) umol/L Lactate Dehydrogenase (122-220) U/L Troponin I High Sens (<3.5-17.0) ng/L C-Reactive Protein (< or = 0.50) mg/dL Total Protein (6.5-8.0) g/dL Albumin (3.5-5.0) g/dL Triglycerides (<150) mg/dL Cholesterol (<200) mg/dL LDL Cholesterol, Calc (<100) mg/dL HDL Cholesterol (>40) mg/dL Urine Color Urine Appearance Urine pH (5.0-9.0) Ur Specific [place] (1.005-1.025) Urine Protein (Neg-Trace) mg/dL Urine Glucose (UA) (Negative) mg/dL Urine Ketones (Negative) mg/dL Urine Blood (Negative) Urine Nitrite (Negative) Ur Leukocyte Esterase (Negative) Urine RBC (0-2) /HPF Urine WBC (0-5) /HPF Ur Squamous Epith Cells (0-2) /HPF Urine Bacteria (None Seen) Hyaline Casts (0-2) /LPF CSF Tube Number 2 CSF Appearance (b) Cloudy CSF Glucose 62 mg/dL CSF Total Protein 55.7 H (15-45) mg/dL Salicylates < 5.0 L (15-30) mg/dL Acetaminophen 11 (<30) mcg/mL Influenza Type A (PCR) (Negative) Influenza Type B (PCR) (Negative) RSV RNA Qual (PCR) (Negative) SARS-CoV-2 RNA (RT-PCR) (Negative) 03/22/24 Range/Units 15:08 WBC (4.8-10.8) X10*3/uL RBC (4.20-5.50) X10*6/uL Hgb (12.0-16.0) g/dl Hct (37.0-47.0) % MCV (80.0-98.0) fL MCH (27.0-33.0) pg MCHC (31.0-35.0) g/dl RDW (11.0-16.0) % Plt Count (160-400) X10*3/uL MPV (9.4-12.3) fL Immature Gran % (Auto) (0.0-0.4) % Neut % (Auto) (45-73) % Lymph % (Auto) (20-40) % Phillips % (Auto) (2-11) % Eos % (Auto) (0-4) % Baso % (Auto) (0-2) % Lymph # (Auto) (1.2-4.9) X10*3/uL Phillips # (Auto) (0.1-1.2) X10*3/uL Eos # (Auto) (0.0-0.4) X10*3/uL Baso # (Auto) (0.0-0.2) X10*3/uL Abs Immat Gran (auto) (0.00-0.03) X10*3/uL Absolute Neuts (auto) (2.0-8.3) x10*3/uL Absolute Nucleated RBC (0.0-0.012) X10*3/uL Nucleated RBC % (auto) (0.0-0.2) /100WBC ESR (0-20) MM/HR Hold Purple Top PT (11.1-13.3) SEC Whole Blood PT 13.0 (11.1-13.5) sec INR (0.9-1.1) Whole Blood INR 1.1 (0.9-1.1) APTT (26.0-36.8) SEC Hold Blue Top Sodium (135-145) mmol/L Potassium (3.3-5.1) mmol/L Chloride (96-108) mmol/L Carbon Dioxide (22-29) mmol/L Anion Gap (12-20) BUN (9-16) mg/dL Creatinine (0.5-1.4) mg/dL Estim Creat Clear Calc Estimated GFR POC Glucose (60-115) mg/dL Random Glucose (60-115) mg/dL Lactic Acid (0.5-2.0) mmol/L Calcium (8.4-10.2) mg/dL Total Bilirubin (0.0-1.0) mg/dL Direct Bilirubin (0.0-0.5) mg/dL AST (5-31) U/L ALT (0-31) U/L Alkaline Phosphatase (39-117) U/L Ammonia (13-55) umol/L Lactate Dehydrogenase (122-220) U/L Troponin I High Sens (<3.5-17.0) ng/L C-Reactive Protein (< or = 0.50) mg/dL Total Protein (6.5-8.0) g/dL Albumin (3.5-5.0) g/dL Triglycerides (<150) mg/dL Cholesterol (<200) mg/dL LDL Cholesterol, Calc (<100) mg/dL HDL Cholesterol (>40) mg/dL Urine Color Urine Appearance Urine pH (5.0-9.0) Ur Specific [place] (1.005-1.025) Urine Protein (Neg-Trace) mg/dL Urine Glucose (UA) (Negative) mg/dL Urine Ketones (Negative) mg/dL Urine Blood (Negative) Urine Nitrite (Negative) Ur Leukocyte Esterase (Negative) Urine RBC (0-2) /HPF Urine WBC (0-5) /HPF Ur Squamous Epith Cells (0-2) /HPF Urine Bacteria (None Seen) Hyaline Casts (0-2) /LPF CSF Tube Number CSF Appearance (b) CSF Glucose mg/dL CSF Total Protein (15-45) mg/dL Salicylates (15-30) mg/dL Acetaminophen (<30) mcg/mL Influenza Type A (PCR) (Negative) Influenza Type B (PCR) (Negative) RSV RNA Qual (PCR) (Negative) SARS-CoV-2 RNA (RT-PCR) (Negative) Independent Interpretation I performed an independent interpretation of an: EKG (Vent. 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 External Record Review External record reviewed: Outpatient record Chronic Conditions Patient?s care impacted by: Diabetes and Hypertension Critical Care Time Critical Care Time Critical Care Time: Yes Total Critical Care Time: 60 Attestation: I attest to this time spent taking care of the patient, obtaining history, physical, reviewing labs, imaging, speaking to my attending, speaking to specialist. Discharge Plan Discharge Clinical Impression: Encephalopathy, AMS (altered mental status), Fever Patient Disposition: Still a Patient Prescriptions: No Action atorvastatin 40 mg tablet 40 mg PO BEDTIME metformin 500 mg tablet 500 mg PO DAILY carvedilol 12.5 mg tablet 12.5 mg PO BID isosorbide mononitrate 60 mg tablet extended release 24 hr 90 mg PO DAILY Rx Instructions: 1.5 tablets daily levothyroxine [Synthroid] 88 mcg tablet 88 mcg PO DAILY lisinopril 10 mg tablet 10 mg PO DAILY nitroglycerin 0.4 mg tablet, sublingual 0.4 mg sublingual Q5M PRN (Reason: Chest Pain) albuterol sulfate 90 mcg/actuation HFA aerosol inhaler 2 puff inhalation Q4-6H PRN (Reason: Shortness Of Breath Or Wheezing) aspirin 81 mg Tablet,Delayed Release (Dr/Ec) 81 mg PO BEDTIME Hold Instructions: Resume on 01/28/24. resume at discretion of [facility] GI post procedure magnesium oxide 500 mg magnesium Tablet 500 mg PO DAILY cholecalciferol (vitamin D3) 50 mcg (2,000 unit) Capsule 50 mcg PO BID Print Language: Maldivian
[2024-03-21 14:33] LABS: MANUAL DIFF FLAG NO
[2024-03-21 14:39] LABS: Basophils Absolute Auto 0.1 X10*3/uL (0.0-0.2); Basophils Percent Auto 0.7 % (0-2); Eosinophils Absolute Auto 0.1 X10*3/uL (0.0-0.4); Eosinophils Percent Auto 1.3 % (0-4); Hematocrit 30.1 % (37.0-47.0); Hemoglobin 9.8 g/dl (12.0-16.0); Imm Gran Abs Auto 0.03 X10*3/uL (0.00-0.03); Imm Gran Pct Auto 0.4 % (0.0-0.4); Lymphocytes Absolute Auto 1.8 X10*3/uL (1.2-4.9); Lymphocytes Percent Auto 21.5 % (20-40); Mean Corpuscular HGB Conc 32.6 g/dl (31.0-35.0); Mean Corpuscular Hemoglobin 32.5 pg (27.0-33.0); Mean Corpuscular Volume 99.7 fL (80.0-98.0); Mean Platelet Volume 10.6 fL (9.4-12.3); Monocytes Absolute Auto 0.7 X10*3/uL (0.1-1.2); Neutrophils Absolute Auto 5.5 x10*3/uL (2.0-8.3); Neutrophils Percent Auto 67.1 % (45-73); Platelet Count 236 X10*3/uL (160-400); Red Blood Count 3.02 X10*6/uL (4.20-5.50); Red Cell Distribution Width 17.1 % (11.0-16.0); White Blood Count 8.2 X10*3/uL (4.8-10.8)
[2024-03-21] MEDS: iohexoL 350 MG/ML 100 ML INFUS..BTL IV (14:40)
[2024-03-21 14:42] LABS: Prothrombin Time 12.3 SEC (11.1-13.3)
[2024-03-21 14:45] LABS: Partial Thromboplastin Time 30.7 SEC (26.0-36.8)
[2024-03-21 14:52] LABS: Anion Gap 13 (12-20); Blood Urea Nitrogen 14 mg/dL (9-16); Calcium 9.3 mg/dL (8.4-10.2); Carbon Dioxide 28 mmol/L (22-29); Chloride 100 mmol/L (96-108); Cholesterol 206 mg/dL (<200); Estimated Glomerular Filt Rate > 60; Glucose Random 117 mg/dL (60-115); HDL Cholesterol 58 mg/dL (>40); LDL Cholesterol Calculated 130 mg/dL (<100); Potassium 3.8 mmol/L (3.3-5.1); Sodium 137 mmol/L (135-145); Triglycerides 94 mg/dL (<150)
[2024-03-21 15:04] LABS: Stroke Lab Use COMPLETE
[2024-03-21 15:11] LABS: ~PT, ~INR - Anti Coag Clinic 1.1 (0.9-1.1)
[2024-03-21 15:11] LABS: Glucose, Whole Blood 122 mg/dL (60-115)
[2024-03-21] MEDS: Acetaminophen Supp 650 MG SUPP.RECT PR (15:25)
[2024-03-21 15:33] LABS: Appearance Urine Clear; Color Urine Yellow; Glucose Urine UA Negative (Negative); Leukocyte Esterase Urine Negative (Negative); Nitrite Urine Negative (Negative); PH 7.5 (5.0-9.0); Specific Gravity - Urine >= 1.030 (1.005-1.025); UMIC TRIGGER UACC YES; Urine Blood Negative (Negative); Urine Ketones Negative (Negative); Urine Protein 30 (1+) mg/dL (Neg-Trace)
--- NOTE | 2024-03-21 15:42 | PC.NURSE ---
Pt comes to ED today via EMS for c/o VILLAR, confusion, and disorganized speech. Per EMS, reports upon waking Pt was exhibiting the above mentioned symptoms. Last well known was last night before bed. VSS, Pt is febrile at 100.5 rectally. Exam and PMH is limited as Pt is unable to appropriately respond to questions. Gerard placed and Pt medicated per MAR. Attempted to call at listed contact number for PMH and completion of MRI screening form, no answer x2. Will continue to try to contact.
[2024-03-21 15:45] LABS: Bacteria Urine None Seen (None Seen); Hyaline Casts Urine 0-2 /LPF (0-2); RBC Urine 0-2 /HPF (0-2); WBC Urine 0-5 /HPF (0-5)
--- NOTE | 2024-03-21 16:02 | PC.NURSE ---
MRI screening form completed w son at bedside and faxed to MRI.
--- NOTE | 2024-03-21 16:03 | PC.NURSE ---
pt noted to have episode of coughing w small of amount of green/yellow vomit, pt also noted to have some increased sneezing on arrival. family denies similar symptoms at home but reports some allergy symptoms.
--- NOTE | 2024-03-21 16:22 | MHC.STROKE ---
Met with patient, and son to discuss patient's presenting symptoms. reports that patient complained of severe headache yesterday evening around 5pm. Reports that she was holding her head in her hands. States that she was using the telephone as a tv remote and he noticed that her speech was garbled. Today in ED, patient confused. Unable to follow all commands. Difficulty with word finding and speech noted to be garbled as well. Pt does have periods of lucidity but then will be unable to answer basic questions. Pt moving all extremities. No palmar drift noted. Denies any pain at this time. Pt is warm to touch and has a temp of 100.5. ED provider spoke with neurology. Plan is for MRI. Pt's and son agreeable to this plan. Stroke/TIA education provided. ED provider also provided in depth conversation on plan of care. All questions answered. Will continue to assist as needed.
[2024-03-21] MEDS: cefTRIAXone sodium 2 GM in 0.9 % Sodium Chloride 50 ML IV (16:45)
[2024-03-21 16:53] LABS: C Reactive Protein 2.98 mg/dL (< or = 0.50)
[2024-03-21 17:05] LABS: Erythrocyte Sedimentation Rate 38 MM/HR (0-20)
[2024-03-21] MEDS: vancomycin HCL 1,500 MG in 0.9 % Sodium Chloride 500 ML 333.33 MG IV (17:33)
[2024-03-21] MEDS: 0.9 % Sodium Chloride 1,000 ML 999 ML IV (17:35)
[2024-03-21 18:05] LABS: Influenza A PCR NEGATIVE (Negative); Influenza B PCR NEGATIVE (Negative); Resp Syncy Virus RNA Qual PCR NEGATIVE (Negative); SARS COV2 PCR INHOUSE NEGATIVE (Negative)
[2024-03-21 18:19] LABS: Acetaminophen LAB 11 mcg/mL (<30); Salicylate < 5.0 mg/dL (15-30)
--- NOTE | 2024-03-21 18:28 | ECG_ITS ---
Test Reason : ABNORMAL LABS Blood Pressure : / mmHG Vent. 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
[2024-03-21 18:31] LABS: Lactate Dehydrogenase 249 U/L (122-220)
[2024-03-21] MEDS: diphenhydrAMINE HCL 50 MG/ML VIAL 25 MG IVPUSH (18:39)
[2024-03-21] MEDS: Metoclopramide HCl 10 MG/2 ML VIAL IVPUSH (18:39)
[2024-03-21 18:49] LABS: Ammonia 35 umol/L (13-55)
[2024-03-21] MEDS: Acetaminophen Supp 325 MG SUPP.RECT PR (18:50)
--- NOTE | 2024-03-21 19:47 | PC.NURSE ---
this rn assumed care of pt, pt alert but not oriented. respirations even and unlabored on 2L nasal cannula. Emi BOSTON at bedside preforming spinal tap. pt tolerated well, fluids obtained and sent to lab. pt repositioned into back with pillows on sides. Provider aware of pt temperature at this time. pt IV rewrapped. pt sinus tachy on monitor 100-102bpm.
[2024-03-21 19:59] LABS: CSF Tube # 2
[2024-03-21 20:06] LABS: Alanine Aminotransferase 28 U/L (0-31); Albumin Level 3.3 g/dL (3.5-5.0); Alkaline Phosphatase 319 U/L (39-117); Aspartate Amino Transferase 43 U/L (5-31); Bilirubin Direct 0.7 mg/dL (0.0-0.5); Bilirubin Total 1.3 mg/dL (0.0-1.0)
[2024-03-21] MEDS: dexAMETHasone sod phosphate 10 MG/ML VIAL IVPUSH (20:09)
[2024-03-21] MEDS: Midazolam HCl/PF 2 MG/2 ML VIAL 1 MG IVPUSH (20:09)
--- NOTE | 2024-03-21 20:13 | PC.NURSE ---
pt visibly agitated and attempting to interfere with medical devices. pt medicated per mar at this time.
[2024-03-21 20:18] LABS: CSF Appearance Cloudy
[2024-03-21 20:29] LABS: Glucose CSF 62 mg/dL; Total Protein CSF 55.7 mg/dL (15-45)
--- NOTE | 2024-03-21 20:37 | P.HPHOSP_ITS ---
History of Present Illness Date of Service: 03/21/24 Attending physician on admission: Ambika Cabrales Chief Complaint: headache,ams 84-year-old female with history of aortic stenosis, coronary artery disease, [id number] type 2 diabetes, hyperlipidemia, hypothyroidism, hypertension, painless jaundice, and recently diagnosed cholangiocarcinoma following with Dr. Clifton at the [facility] presented to the ED earlier today from home for evaluation of altered mental status. The patient is unable to provide any history and is presenting with word salad and difficulty putting sentences together, overall not making sense. Her [id number] is at bedside who assists with history. She states that over the last week she has had several intermittent episodes of garbled speech/word salad that have been transient. However this morning woke up agitated and aggressive which is far from her baseline. She is independent at home and takes care of her demented and ambulates with a walker at baseline. This morning was complaining of a severe headache and was unable to put words together. Last known well time was at bedtime last night. Patient is unable to follow commands and NIH stroke scale is unavailable as a result. She does take a baby aspirin daily. Since arrival, patient has developed fevers of 102.4 tachycardia as well as tachypnea. She was briefly hypoxic to 89% but is now satting 100% on 2 L supplemental O2. Initially hypertensive at 189/108 143/79 on admission. There is no leukocytosis. She has a macrocytic anemia with H/H 9.8/30.1%. Renal function within normal limits, electrolyte levels normal. Glucose 117. Lactic acid 1.0. Total bilirubin 1.3, direct bilirubin 0.7, AST 43, ALT 28, alkaline phosphatase 313. Ammonia level 35. LDH 249. Initial troponin 21, repeat 154. CRP 2.98, ESR 38. LDL 130. Urinalysis not indicative of infection but shows elevated specific gravity 1+ protein. LP performed at bedside in the ED with results pending but glucose within normal limits and elevated total protein at 55.7. She is negative for COVID-19, RSV, influenza. Head CT appears negative for any acute intracranial abnormality but shows chronic microvascular changes and CTA of the head/neck is negative for any large vessel occlusion or hemodynamically significant stenosis. Chest CT and CT of the abdomen/pelvis remain pending due to delay in radiology reads. In the ED, has been treated empirically for bacterial meningitis with ampicillin, ceftriaxone, vancomycin and dexamethasone. Has also been given 1 mg midazolam for agitation and Reglan for vomiting. Review of Systems 2 Review of Systems: Yes Unobtainable due to mental status [facility] Medical History Cholangiocarcinoma Aortic stenosis CAD (coronary artery disease) Type 2 diabetes mellitus HLD (hyperlipidemia) HTN (hypertension) Social History Household Members: Spouse Housing: House Do you presently have visiting nurse or other home services: No Unable to assess alcohol history related to: Unable to respond and Unknown Patient Tobacco Use Status: Never used Tobacco Use of substances other than those prescribed or required for medical reasons: Unable to respond Advance Directives: No Advance Directives Information Provided: No Do you have a plan to hurt others: No Plan Meds Allergies Allergy/AdvReac Type Severity Reaction Status Date / Time No Known Allergies Allergy Verified 03/21/24 14:49 Active Medications: Current Medications Acetaminophen (Acetaminophen 325 Mg Tablet) 650 mg PO Q6H PRN PRN Reason: Pain, Mild (Pain Scale 1-3), fever or headache Atorvastatin Calcium (Atorvastatin Calcium 80 Mg Tablet) 80 mg PO DAILY DEN Calcium Carbonate (Calcium Carbonate 750 Mg Tab.Chew) 750 mg PO Q4H PRN PRN Reason: Heartburn Dexamethasone Sodium Phosphate (Dexamethasone Sod Phosphate 10 Mg/Ml Vial) 10 mg IVPUSH Q6H DEN Ampicillin Sodium 2 gm/ Sodium (Chloride) 100 mls @ 200 mls/hr IV ONCE DEN Lactated Ringer's (Lr) 1,000 mls @ 100 mls/hr IVCONT .Q10H DEN Ampicillin Sodium 2 gm/ Sodium (Chloride) 100 mls @ 200 mls/hr IV Q4H DEN Ceftriaxone Sodium 2 gm/ (Sodium Chloride) 50 mls @ 100 mls/hr IV Q12H DEN Acyclovir Sodium 600 mg/ (Sodium Chloride) 262 mls @ 262 mls/hr IV Q8H DEN Magnesium Hydroxide (Milk Of Magnesia 30 Ml Oral.Susp) 30 ml PO DAILY PRN PRN Reason: Constipation Melatonin (Melatonin 3 Mg Tablet) 6 mg PO BEDTIME PRN PRN Reason: Insomnia Pharmacy Consult (Consult Rx Vancomycin Dosing) 1 each MISCELLANE DAILY PRN PRN Reason: Consult order Sodium Chloride (0.9 % Sodium Chloride Flush 3 Ml Syringe) 3 ml IVFLUSH QSHIFT [facility] Home Medications ?Medication ?Instructions ?Recorded ?Confirmed ?Last Taken ?Type albuterol sulfate 90 mcg/actuation 2 puff inhalation Q4-6H PRN 01/23/24 03/21/24 03/21/24 06:00 History aerosol inhaler Shortness Of Breath Or Wheezing atorvastatin 40 mg tablet 40 mg PO BEDTIME 01/23/24 03/21/24 03/20/24 History carvedilol 12.5 mg tablet 12.5 mg PO BID 01/23/24 03/21/24 03/21/24 06:00 History cholecalciferol (vitamin D3) 50 50 mcg PO BID 01/23/24 03/21/24 03/21/24 06:00 History mcg (2,000 unit) capsule isosorbide mononitrate 60 mg 90 mg PO DAILY 01/23/24 03/21/24 03/21/24 06:00 History tablet,extended release 24 hr levothyroxine 88 mcg tablet 88 mcg PO DAILY 01/23/24 03/21/24 03/21/24 06:00 History (Synthroid) lisinopril 10 mg tablet 10 mg PO DAILY 01/23/24 03/21/24 03/21/24 06:00 History magnesium oxide 500 mg PO DAILY 01/23/24 03/21/24 03/21/24 06:00 History metformin 500 mg tablet 500 mg PO DAILY 01/23/24 03/21/24 03/21/24 06:00 History nitroglycerin 0.4 mg sublingual 0.4 mg sublingual Q5M PRN Chest 01/23/24 03/21/24 03/21/24 06:00 History tablet Pain Physical Exam 2 Vital Signs and Narrative: Vital Signs: Last Vital Signs Temp 102.4 F H 03/21/24 19:39 Pulse 100 03/21/24 20:08 Resp 15 03/21/24 20:08 BP 143/79 H 03/21/24 20:08 Pulse Ox 100 03/21/24 20:08 O2 Del Method Nasal Cannula 03/21/24 20:08 O2 Flow Rate 2 03/21/24 20:08 BMI result Body Mass Index 26.3 Constitutional - Awake and Alert, weak appearing, No apparent distress Eyes - PERRLA, EOMI Cardiovascular - S1S2, RRR, 2+ ble edema Respiratory - Normal lung expansion, Normal respiratory effort, No respiratory distress, CTA bilaterally Gastrointestinal - NT / ND; +BS; No rebound or guarding - Gerard catheter in place Extremities - no calf tenderness bilaterally, no swelling Skin - Warm/Dry Neurological - Alert & disoriented, unable to form sentences, demonstrating word salad/incomprehensible speech Results Labs 03/21/24 14:27 03/21/24 14:27 Labs: Laboratory Results - last 24 hr 03/21/24 03/21/24 03/21/24 14:27 14:55 15:26 MCV 99.7 H MCH 32.5 MCHC 32.6 RDW 17.1 H Plt Count 236 MPV 10.6 Immature Gran % (Auto) 0.4 Neut % (Auto) 67.1 Lymph % (Auto) 21.5 Jack % (Auto) 9.0 Eos % (Auto) 1.3 Baso % (Auto) 0.7 Lymph # (Auto) 1.8 Jack # (Auto) 0.7 Eos # (Auto) 0.1 Baso # (Auto) 0.1 Abs Immat Gran (auto) 0.03 Absolute Neuts (auto) 5.5 Absolute Nucleated RBC 0.000 Nucleated RBC % (auto) 0.0 ESR 38 H Hold Purple Top SEE NOTE PT 12.3 Whole Blood PT INR 1.0 Whole Blood INR APTT 30.7 Hold Blue Top SEE NOTE Anion Gap 13 Estim Creat Clear Calc TNP Estimated GFR > 60 POC Glucose 122 H Random Glucose 117 H Lactic Acid Calcium 9.3 Total Bilirubin 1.3 H Direct Bilirubin 0.7 H AST 43 H ALT 28 Alkaline Phosphatase 319 H Ammonia Lactate Dehydrogenase 249 H Troponin I High Sens 21.0 H C-Reactive Protein 2.98 H Total Protein 7.0 Albumin 3.3 L Triglycerides 94 Cholesterol 206 H LDL Cholesterol, Calc 130 H HDL Cholesterol 58 Urine Color Yellow Urine Appearance Clear Urine pH 7.5 Ur Specific [place] >= 1.030 H Urine Protein 30 (1+) H Urine Glucose (UA) Negative Urine Ketones Negative Urine Blood Negative Urine Nitrite Negative Ur Leukocyte Esterase Negative Urine RBC 0-2 Urine WBC 0-5 Ur Squamous Epith Cells 3-5 Urine Bacteria None Seen Hyaline Casts 0-2 CSF Tube Number CSF Appearance (b) CSF Glucose CSF Total Protein Salicylates Acetaminophen Influenza Type A (PCR) Influenza Type B (PCR) RSV RNA Qual (PCR) SARS-CoV-2 RNA (RT-PCR) 03/21/24 03/21/24 03/21/24 15:37 17:09 17:31 MCV MCH MCHC RDW Plt Count MPV Immature Gran % (Auto) Neut % (Auto) Lymph % (Auto) Jack % (Auto) Eos % (Auto) Baso % (Auto) Lymph # (Auto) Jack # (Auto) Eos # (Auto) Baso # (Auto) Abs Immat Gran (auto) Absolute Neuts (auto) Absolute Nucleated RBC Nucleated RBC % (auto) ESR Hold Purple Top PT Whole Blood PT INR Whole Blood INR APTT Hold Blue Top Anion Gap Estim Creat Clear Calc Estimated GFR POC Glucose Random Glucose Lactic Acid 1.0 Calcium Total Bilirubin Direct Bilirubin AST ALT Alkaline Phosphatase Ammonia Lactate Dehydrogenase Troponin I High Sens 154.0 H* D C-Reactive Protein Total Protein Albumin Triglycerides Cholesterol LDL Cholesterol, Calc HDL Cholesterol Urine Color Urine Appearance Urine pH Ur Specific [place] Urine Protein Urine Glucose (UA) Urine Ketones Urine Blood Urine Nitrite Ur Leukocyte Esterase Urine RBC Urine WBC Ur Squamous Epith Cells Urine Bacteria Hyaline Casts CSF Tube Number CSF Appearance (b) CSF Glucose CSF Total Protein Salicylates Acetaminophen Influenza Type A (PCR) NEGATIVE Influenza Type B (PCR) NEGATIVE RSV RNA Qual (PCR) NEGATIVE SARS-CoV-2 RNA (RT-PCR) NEGATIVE 03/21/24 03/21/24 03/21/24 17:43 18:36 19:45 MCV MCH MCHC RDW Plt Count MPV Immature Gran % (Auto) Neut % (Auto) Lymph % (Auto) Jack % (Auto) Eos % (Auto) Baso % (Auto) Lymph # (Auto) Jack # (Auto) Eos # (Auto) Baso # (Auto) Abs Immat Gran (auto) Absolute Neuts (auto) Absolute Nucleated RBC Nucleated RBC % (auto) ESR Hold Purple Top PT Whole Blood PT INR Whole Blood INR APTT Hold Blue Top Anion Gap Estim Creat Clear Calc Estimated GFR POC Glucose Random Glucose Lactic Acid Calcium Total Bilirubin Direct Bilirubin AST ALT Alkaline Phosphatase Ammonia 35 Lactate Dehydrogenase Troponin I High Sens C-Reactive Protein Total Protein Albumin Triglycerides Cholesterol LDL Cholesterol, Calc HDL Cholesterol Urine Color Urine Appearance Urine pH Ur Specific [place] Urine Protein Urine Glucose (UA) Urine Ketones Urine Blood Urine Nitrite Ur Leukocyte Esterase Urine RBC Urine WBC Ur Squamous Epith Cells Urine Bacteria Hyaline Casts CSF Tube Number 2 CSF Appearance (b) Cloudy CSF Glucose 62 CSF Total Protein 55.7 H Salicylates < 5.0 L Acetaminophen 11 Influenza Type A (PCR) Influenza Type B (PCR) RSV RNA Qual (PCR) SARS-CoV-2 RNA (RT-PCR) 03/22/24 15:08 MCV MCH MCHC RDW Plt Count MPV Immature Gran % (Auto) Neut % (Auto) Lymph % (Auto) Jack % (Auto) Eos % (Auto) Baso % (Auto) Lymph # (Auto) Jack # (Auto) Eos # (Auto) Baso # (Auto) Abs Immat Gran (auto) Absolute Neuts (auto) Absolute Nucleated RBC Nucleated RBC % (auto) ESR Hold Purple Top PT Whole Blood PT 13.0 INR Whole Blood INR 1.1 APTT Hold Blue Top Anion Gap Estim Creat Clear Calc Estimated GFR POC Glucose Random Glucose Lactic Acid Calcium Total Bilirubin Direct Bilirubin AST ALT Alkaline Phosphatase Ammonia Lactate Dehydrogenase Troponin I High Sens C-Reactive Protein Total Protein Albumin Triglycerides Cholesterol LDL Cholesterol, Calc HDL Cholesterol Urine Color Urine Appearance Urine pH Ur Specific [place] Urine Protein Urine Glucose (UA) Urine Ketones Urine Blood Urine Nitrite Ur Leukocyte Esterase Urine RBC Urine WBC Ur Squamous Epith Cells Urine Bacteria Hyaline Casts CSF Tube Number CSF Appearance (b) CSF Glucose CSF Total Protein Salicylates Acetaminophen Influenza Type A (PCR) Influenza Type B (PCR) RSV RNA Qual (PCR) SARS-CoV-2 RNA (RT-PCR) Assessment and Plan (1) Fever: Status: Acute (2) AMS (altered mental status): Status: Acute (3) Encephalopathy: Status: Acute Plan 84-year-old female with history of aortic stenosis, coronary artery disease, [id number] type 2 diabetes, hyperlipidemia, hypothyroidism, hypertension, painless jaundice, and recently diagnosed cholangiocarcinoma following with Dr. Clifton at the [facility] admitted for further management of acute metabolic encephalopathy #Acute encephalopathy with incomprehensible speech- suspect metabolic -LP performed at bedside. Elevated total protein 55, remaining CSF analysis pending including encephalitis/meningitis panel and Lyme -cover empirically for viral/bacterial meningitis/encephalitis with IV ampicillin, 2 g ceftriaxone q.12h, vancomycin, acyclovir, and dexamethasone q.6h (initiated 03/21) -head CT negative for any acute intracranial abnormality -ammonia level within normal limits. TSH with reflex free T4 pending -evaluate MRI brain for any structural abnormality including mass or acute CVA -given LP, aspirin contraindicated. Keep patient NPO given encephalopathy. Continue IVF. As a result, statin contraindicated but lipid panel is pending -neuro checks, swallow evaluation, MUSCULOSKELETAL PHYSICIAN evaluation -neurology consult, Infectious Disease consult -monitor on telemetry # acute fever -concern for meningitis. Plan as above -urinalysis unremarkable. CT chest and abdomen/pelvis pending # elevated troponins -initial tropes 21 -->154. Per cardiology no AC given LP. Repeat trop am -echo -cardiology consult -monitor on telemetry # [id number] type 2 diabetes -POC glucose. NPO for now. Hold on insulin coverage for now -hold metformin # chronic macrocytic anemia -vitamin B12 and folic acid pending # cholangiocarcinoma -following outpatient with [facility] # hypothyroidism -TSH with reflex free T4 pending. Continue levothyroxine # CAD -resume Coreg, isosorbide once tolerating p.o.. Hold aspirin # hypertension -resume lisinopril, isosorbide, Coreg once tolerating p.o. DVT prophylaxis- SCPs, hold on anticoagulation given LP Full code Patient requires inpatient stay at least 2 midnights for management of fever with acute metabolic encephalopathy with concern for meningitis/encephalitis requiring empiric coverage with IV antibiotics, IV antiviral therapy, IV steroids, close monitoring of mentation and vital signs as well as expert consultation Quality Stroke Does the patient have a stroke diagnosis?: No VTE Prior VTE?: No VTE Risk Level:: Medical - moderate - high VTE Device Contraindication: N/A - Device Ordered VTE Drug Contraindication: Treatment Not Indicated
--- NOTE | 2024-03-21 21:27 | PHA.MEDREC ---
Addendum entered by Baljit Marinelli RPh 03/21/24 21:37: Med rec checked by [facility] Original Note: Pharmacy Consult ? Medication Reconciliation Pharmacy has completed the medication reconciliation. Confirmed medications with patient daughter in law Vianca at bedside. The daughter in law was able to confirm her meds and states she probably took them this morning but was not entirely sure.
[2024-03-21] MEDS: Lactated Ringers 1,000 ML 100 ML IVCONT (21:29)
[2024-03-21 21:36] LABS: Folate 7.2 ng/mL (> or = 4.0); Vitamin B12 509 pg/mL (200-900)
[2024-03-21 21:37] LABS: Appearance CSF BLOODY; CSF Tube # 4
[2024-03-21 21:38] LABS: Color CSF RED
[2024-03-21 21:39] LABS: White Blood Cell CSF 38 MM*3
[2024-03-21 21:40] LABS: CSF Monos 1 %; Lymphocytes CSF 8 %; Neutrophils CSF 91 %; Red Blood Cell CSF 4200 MM*3
--- NOTE | 2024-03-21 21:40 | PC.NURSE ---
second IV access established at this time, 22G placed in left forearm. pt medicated per sep. aware of pt temperature, ice packs placed on pt. critical 38WBC found in spinal fluid called to this RN, aware.
[2024-03-21 21:50] LABS: Cholesterol 207 mg/dL (<200); HDL Cholesterol 57 mg/dL (>40); LDL Cholesterol Calculated 129 mg/dL (<100); Triglycerides 108 mg/dL (<150)
[2024-03-21] MEDS: Acetaminophen 1,000 MG/100 ML PIGGYBACK 400 MG IV (21:50)
[2024-03-21 21:54] LABS: Cryptococcus neoformans/gattii Not Detected (Not Detect.); Enterovirus Not Detected (Not Detect.); Escherichia coli K1 Not Detected (Not Detect.); Haemophilus influenzae Not Detected (Not Detect.); Herpes simplex virus 1 Not Detected (Not Detect.); Herpes simplex virus 2 Not Detected (Not Detect.); Human herpesvirus 6 Not Detected (Not Detect.); Human parechovirus Not Detected (Not Detect.); Listeria monocytogenes Not Detected (Not Detect.); Neisseria meningitidis Not Detected (Not Detect.); Streptococcus agalactiae Not Detected (Not Detect.); Streptococcus pneumoniae Not Detected (Not Detect.); Varicella zoster virus Not Detected (Not Detect.)
[2024-03-21 22:04] LABS: TSH reflex Free T4 0.21 uIU/mL (0.32-4.0)
[2024-03-21] MEDS: diazePAM 10 MG/2 ML CARTRIDGE 5 MG IVPUSH (22:11)
--- NOTE | 2024-03-21 22:11 | PC.NURSE ---
Addendum entered by Maribel Dean 03/21/24 22:23: unable to place camera, sitter to do 1:1 at this time. Original Note: pt notably agitated and attempting to remove IVs, pt medicated per mar. camera placed on pt for safety, rectal probe placed to monitor pt temperature.
[2024-03-21 22:22] LABS: Glucose, Whole Blood 120 mg/dL (60-115)
[2024-03-21 22:45] LABS: Free T4 (Free Thyroxine) 1.33 ng/dL (0.71-1.85)
[2024-03-22] VITALS (15 sets, daily range): BP systolic 148–197; BP diastolic 67–93; PULSE 76–95; RESP 13–21; TEMP 36.2–38; O2SAT 99–100; BMI 29.1
[2024-03-22] MEDS: Ampicillin Sodium 2 GM in 0.9 % Sodium Chloride 100 ML IV ×6 (00:26→21:56)
[2024-03-22] MEDS: dexAMETHasone sod phosphate 10 MG/ML VIAL IVPUSH ×4 (00:26→19:58)
[2024-03-22] MEDS: LORazepam 2 MG/ML VIAL IVPUSH (00:50)
[2024-03-22] MEDS: OLANZapine 10 MG VIAL IM (00:50)
--- NOTE | 2024-03-22 00:54 | PC.NURSE ---
pt continues to be agitated, combative and unable tp orient. aware, pt medicated per sep. adithyater remains at bedside.
--- NOTE | 2024-03-22 01:09 | PC.NURSE ---
pt allowed to sleep, respirations even and unlabored. pt sating 100% on 2L nasal cannula, no acute distress noted.
[2024-03-22] MEDS: cefTRIAXone sodium 2 GM in 0.9 % Sodium Chloride 50 ML IV ×2 (03:50→16:59)
[2024-03-22] MEDS: vancomycin HCL 750 MG in 0.9 % Sodium Chloride 250 ML 265 MG IV ×2 (05:49→19:59)
[2024-03-22 06:13] LABS: MANUAL DIFF FLAG NO
[2024-03-22 06:29] LABS: Basophils Percent Auto 0.2 % (0-2); Hematocrit 32.3 % (37.0-47.0); Hemoglobin 10.5 g/dl (12.0-16.0); Imm Gran Abs Auto 0.04 X10*3/uL (0.00-0.03); Imm Gran Pct Auto 0.5 % (0.0-0.4); Lymphocytes Absolute Auto 0.9 X10*3/uL (1.2-4.9); Lymphocytes Percent Auto 11.7 % (20-40); Mean Corpuscular HGB Conc 32.5 g/dl (31.0-35.0); Mean Corpuscular Hemoglobin 32.1 pg (27.0-33.0); Mean Corpuscular Volume 98.8 fL (80.0-98.0); Mean Platelet Volume 11.2 fL (9.4-12.3); Monocytes Absolute Auto 0.1 X10*3/uL (0.1-1.2); Monocytes Percent Auto 1.4 % (2-11); Neutrophils Absolute Auto 6.9 x10*3/uL (2.0-8.3); Neutrophils Percent Auto 86.2 % (45-73); Platelet Count 220 X10*3/uL (160-400); Red Blood Count 3.27 X10*6/uL (4.20-5.50); Red Cell Distribution Width 16.9 % (11.0-16.0); White Blood Count 8.1 X10*3/uL (4.8-10.8)
[2024-03-22 06:30] LABS: Anion Gap 17 (12-20); Blood Urea Nitrogen 10 mg/dL (9-16); Calcium 8.6 mg/dL (8.4-10.2); Carbon Dioxide 23 mmol/L (22-29); Chloride 100 mmol/L (96-108); Creatinine Clr Calc Pharmacy 53.7; Estimated Glomerular Filt Rate > 60; Glucose Random 152 mg/dL (60-115); Potassium 3.4 mmol/L (3.3-5.1); Sodium 137 mmol/L (135-145)
--- NOTE | 2024-03-22 07:00 | CA_ITS ---
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 There is normal left ventricular wall thickness. The left ventricular systolic function is low normal. The visually estimated ejection fraction is between 50-55%. - Elevated filling pressures. - The inferoseptal wall, the basal inferior, mid inferior, and mid anteroseptal segments are akinetic. - Normal right ventricular cavity size and systolic function. - Mild pulmonary hypertension is present. Findings Procedure Information Contrast agent, definity, is being given per protocol without apparent complications. Left Ventricle Normal left ventricular cavity size. There is normal left ventricular wall thickness. The left ventricular systolic function is low normal. The visually estimated ejection fraction is between 50-55%. There is evidence of regional wall motion abnormalities. Abnormal diastolic function is noted. Spectral Doppler is indicative of an impaired relaxation filling pattern. Elevated filling pressures. Wall Motion Rest Echo Findings The inferoseptal wall, the basal inferior, mid inferior, and mid anteroseptal segments are akinetic. Right Ventricle Normal right ventricular cavity size and systolic function. Atria The left atrium is severely dilated. The right atrium is normal in size. Aortic Valve There is a normal trileaflet aortic valve. There is mild calcification of the aortic valve. There is no aortic valve stenosis. There is no aortic valve regurgitation. Mitral Valve There is mild mitral annular calcification. There is trace mitral valve regurgitation. There is no mitral valve stenosis. Pulmonic Valve The pulmonic valve is normal. There is trace pulmonic valve regurgitation. Tricuspid Valve Likely normal tricuspid valve structure and function. Significantly elevated right atrial pressure. Mild pulmonary hypertension is present. Great Vessels All visible segments of the aorta are normal in size. The visualized portions of the pulmonary artery and branches are normal. Venous The inferior vena cava is dilated and does not collapse with inspiration. Pericardium/Pleural There is no evidence of pericardial effusion. Prior Study Comparison No prior study available for comparison. Measurements 2D Linear Measurements IVSd: 1.01 0.6-0.9/0.6-1.0 cm LVIDd: 3.97 3.9-5.3/4.2-5.9 cm LVIDd Index: 2.58 2.4-3.2/2.2-3.1 cm/m2 LVIDs: 3.06 2.0-3.6 cm LVPWd: 0.84 0.7-1.1 cm LA Diam: 3.70 2.7-3.8/3.0-4.0 cm LAIDs Index: 2.40 1.5-2.3 cm/m2 LV Mass: 140.27 67-162/88-224 g LV Mass Index: 91.08 43-95/49-115 g/m2 LVOT Diam: 2.10 3.0+(-)1.3 cm 2D Systolic Function EF 4C: 46.10 >55% EF 2C: 53.50 >55% EF BiP: 51.90 >55% Mitral Valve MV VTI: 0.28 MV Pk Vivek: 1.31 MV Mn Vivek: 0.84 MV Pk Grad: 7.00 MV Mn Grad: 3.00 MV Pk E: 0.97 MV PK A: 1.14 MV Decel Time: 186.00 E/A: 0.90 E'Lateral: 3.92 E'Medial: 3.59 E/E' Med: 27.10 E/E' Lat: 24.80 PHT: 54.00 MVA PHT: 4.07 MVA Continuity: 1.92 Decel Millard: 5.23 Aortic Valve AoV Pk Vivek: 2.01 AoV Mn Vivek: 1.45 AoV VTI: 0.48 AoV Pk Grad: 16.00 Aov Mn Grad: 9.00 LEON Cont.VTI: 1.11 LVOT LVOT Pk Vivek: 0.71 LVOT Mn Vivek: 0.46 LVOT VTI: 0.15 LVOT Pk Grad: 2.00 LVOT Mn Grad: 1.00 LVOT Diam: 2.10 LVOT Area: 3.46 Diastolic Function MV Pk E: 0.97 MV Pk A: 1.14 E/A: 0.90 E'Medial: 3.59 E/E' Med: 27.10 E' Laterial: 3.92 E/E' Lat: 24.80 Right Ventricle TAPSE (mm): 20.40 TVS' Vivek: 11.40 Tricuspid Valve TR Pk Vivek: 2.24 TR Pk Grad: 20.00 RA Press: 15.00 RVSP: 35.00 Great Vessels Aorta Sinus of Valsalva: 3.27 2.0-3.5 cm Ao Asc: 3.50 2.1-3.4 cm Updated in Other Vendor System with Status of Final Saud Butterfield MD electronically signed on 03/22/2024 12:44:10 PM with status of Final
[2024-03-22] MEDS: Lactated Ringers 1,000 ML 100 ML IVCONT ×2 (07:40→17:49)
[2024-03-22 08:57] LABS: Troponin-I High Sensitivity 784.4 ng/L (<3.5-17.0)
--- NOTE | 2024-03-22 09:19 | MHC.CM.PN ---
Patient is here with AMS; CM spoke with /Nayan @ [phone] and addressed IMM with him (original will be mailed certified letter to Nayan nd a copy will be placed on the chart). Patient lives in a house with Nayan, she uses a walker & cane to assist with mobility, and she is active with [facility]. Home/resume said services vs STR pending PT Eval is the tentative plan and CM has initiated and will follow for dc planning. Patient's Son, Ghulam is the HCP and Nayan is agreeable go look for a copy.PCP is Dr. Polo Villalta.
--- NOTE | 2024-03-22 10:01 | P.CONCA_ITS ---
History of Present Illness History of Present Illness Date of Service: 03/22/24 Requesting physician: Gerry Hoyt Chief complaint: AMS, ?CVA vs ?meningitis Narrative: 84-year-old female presenting for change in mental status and confusion. She previously had coronary CTA performed which showed proximal RCA and LAD stenosis and apparently underwent cardiac catheterization in 12/20/2023 at [facility]. At that time no significant coronary disease was noted. 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 She also has background diabetes, [id number] aortic valve stenosis and hyperlipidemia. She is recently diagnosed with cholangiocarcinoma. She had a LP performed the emergency department yesterday and some desserts are currently pending she also had acute fever. We are seeing her for elevated troponin level. She is very hard of hearing but was able to answer questions. She denied any chest discomfort shortness of breath whatsoever. Appears quite frail and chronically sick. [facility] Past Medical History Medical History Cholangiocarcinoma Aortic stenosis CAD (coronary artery disease) Type 2 diabetes mellitus HLD (hyperlipidemia) HTN (hypertension) Social History Social History Household Members: Spouse Housing: House Do you presently have visiting nurse or other home services: No Unable to assess alcohol history related to: Unable to respond and Unknown Patient Tobacco Use Status: Never used Tobacco Use of substances other than those prescribed or required for medical reasons: Unable to respond Advance Directives: No Advance Directives Information Provided: No Do you have a plan to hurt others: No Plan Nutrition Risks: No Nutritional Risk service: No Meds Allergies Allergy/AdvReac Type Severity Reaction Status Date / Time No Known Allergies Allergy Verified 03/21/24 14:49 Active Medications: Current Medications Acetaminophen (Acetaminophen 325 Mg Tablet) 650 mg PO Q6H PRN PRN Reason: Pain, Mild (Pain Scale 1-3), fever or headache Atorvastatin Calcium (Atorvastatin Calcium 80 Mg Tablet) 80 mg PO DAILY DEN Calcium Carbonate (Calcium Carbonate 750 Mg Tab.Chew) 750 mg PO Q4H PRN PRN Reason: Heartburn Dexamethasone Sodium Phosphate (Dexamethasone Sod Phosphate 10 Mg/Ml Vial) 10 mg IVPUSH Q6H [facility] Last Admin: 03/22/24 05:48 Dose: 10 mg Glucose (Glucose Gel 15 Gm Gel..Gram.) 15 gm PO Q15M PRN; Protocol PRN Reason: per Hypoglycemia Standing Ord. Ampicillin Sodium 2 gm/ Sodium (Chloride) 100 mls @ 200 mls/hr IV ONCE [facility] Last Infusion: 03/22/24 01:09 Dose: Infused Lactated Ringer's (Lr) 1,000 mls @ 100 mls/hr IVCONT .Q10H [facility] Last Admin: 03/22/24 07:40 Dose: 100 mls/hr Ampicillin Sodium 2 gm/ Sodium (Chloride) 100 mls @ 200 mls/hr IV Q4H [facility] Last Infusion: 03/22/24 04:50 Dose: Infused Ceftriaxone Sodium 2 gm/ (Sodium Chloride) 50 mls @ 100 mls/hr IV Q12H [facility] Last Infusion: 03/22/24 04:19 Dose: Infused Acyclovir Sodium 600 mg/ (Sodium Chloride) 262 mls @ 262 mls/hr IV Q8H [facility] Last Infusion: 03/22/24 09:15 Dose: Infused Vancomycin HCl 750 mg/ Sodium (Chloride) 265 mls @ 265 mls/hr IV Q12H [facility] Last Infusion: 03/22/24 07:40 Dose: Infused Dextrose (D10) 250 mls @ 750 mls/hr IV Q15M PRN; Protocol PRN Reason: per Hypoglycemia Standing Ord. Magnesium Hydroxide (Milk Of Magnesia 30 Ml Oral.Susp) 30 ml PO DAILY PRN PRN Reason: Constipation Melatonin (Melatonin 3 Mg Tablet) 6 mg PO BEDTIME PRN PRN Reason: Insomnia Pharmacy Consult (Consult Rx Vancomycin Dosing) 1 each MISCELLANE DAILY PRN PRN Reason: Consult order Sodium Chloride (0.9 % Sodium Chloride Flush 3 Ml Syringe) 3 ml IVFLUSH QSHIFT [facility] Last Admin: 03/22/24 09:04 Dose: Not Given Home Medications ?Medication ?Instructions ?Recorded ?Confirmed ?Last Taken ?Type albuterol sulfate 90 mcg/actuation 2 puff inhalation Q4-6H PRN 01/23/24 03/21/24 03/21/24 06:00 History aerosol inhaler Shortness Of Breath Or Wheezing atorvastatin 40 mg tablet 40 mg PO BEDTIME 01/23/24 03/21/24 03/20/24 History carvedilol 12.5 mg tablet 12.5 mg PO BID 01/23/24 03/21/24 03/21/24 06:00 History cholecalciferol (vitamin D3) 50 50 mcg PO BID 01/23/24 03/21/24 03/21/24 06:00 History mcg (2,000 unit) capsule isosorbide mononitrate 60 mg 90 mg PO DAILY 01/23/24 03/21/24 03/21/24 06:00 History tablet,extended release 24 hr levothyroxine 88 mcg tablet 88 mcg PO DAILY 01/23/24 03/21/24 03/21/24 06:00 History (Synthroid) lisinopril 10 mg tablet 10 mg PO DAILY 01/23/24 03/21/24 03/21/24 06:00 History magnesium oxide 500 mg PO DAILY 01/23/24 03/21/24 03/21/24 06:00 History metformin 500 mg tablet 500 mg PO DAILY 01/23/24 03/21/24 03/21/24 06:00 History nitroglycerin 0.4 mg sublingual 0.4 mg sublingual Q5M PRN Chest 01/23/24 03/21/24 03/21/24 06:00 History tablet Pain Physical Exam 2 Vital Signs: Vital Signs: Last Vital Signs Temp 97.4 F 03/22/24 07:38 Pulse 84 03/22/24 09:31 Resp 14 03/22/24 09:31 BP 148/69 H 03/22/24 09:31 Pulse Ox 99 03/22/24 09:31 O2 Del Method Nasal Cannula 03/22/24 09:31 O2 Flow Rate 2 03/22/24 09:31 BMI result Body Mass Index 26.3 GENERAL APPEARANCE: Frail. Ill-appearing. In no acute distress. NECK: no carotid bruit, no jugular venous distention. SKIN: no suspicious lesions, warm and dry. HEART: no murmurs, regular rate and rhythm. LUNGS: clear to auscultation bilaterally. ABDOMEN: soft, nontender. EXTREMITIES: no edema. PERIPHERAL PULSES: equal. Objective Labs and Meds 03/22/24 04:29 03/22/24 04:29 Lab results: Laboratory Results - last 24 hr 03/21/24 03/21/24 03/21/24 14:27 14:55 15:26 WBC 8.2 RBC 3.02 L Hgb 9.8 L Hct 30.1 L MCV 99.7 H MCH 32.5 MCHC 32.6 RDW 17.1 H Plt Count 236 MPV 10.6 Immature Gran % (Auto) 0.4 Neut % (Auto) 67.1 Lymph % (Auto) 21.5 Harper % (Auto) 9.0 Eos % (Auto) 1.3 Baso % (Auto) 0.7 Lymph # (Auto) 1.8 Harper # (Auto) 0.7 Eos # (Auto) 0.1 Baso # (Auto) 0.1 Abs Immat Gran (auto) 0.03 Absolute Neuts (auto) 5.5 Absolute Nucleated RBC 0.000 Nucleated RBC % (auto) 0.0 ESR 38 H Hold Purple Top SEE NOTE PT 12.3 Whole Blood PT INR 1.0 Whole Blood INR APTT 30.7 Hold Blue Top SEE NOTE Sodium 137 Potassium 3.8 Chloride 100 Carbon Dioxide 28 Anion Gap 13 BUN 14 Creatinine 0.66 Estim Creat Clear Calc TNP Estimated GFR > 60 POC Glucose 122 H Random Glucose 117 H Lactic Acid Calcium 9.3 Total Bilirubin 1.3 H Direct Bilirubin 0.7 H AST 43 H ALT 28 Alkaline Phosphatase 319 H Ammonia Lactate Dehydrogenase 249 H Troponin I High Sens 21.0 H C-Reactive Protein 2.98 H Total Protein 7.0 Albumin 3.3 L Triglycerides 94 Cholesterol 206 H LDL Cholesterol, Calc 130 H HDL Cholesterol 58 Vitamin B12 Folate TSH Free T4 Urine Color Yellow Urine Appearance Clear Urine pH 7.5 Ur Specific [place] >= 1.030 H Urine Protein 30 (1+) H Urine Glucose (UA) Negative Urine Ketones Negative Urine Blood Negative Urine Nitrite Negative Ur Leukocyte Esterase Negative Urine RBC 0-2 Urine WBC 0-5 Ur Squamous Epith Cells 3-5 Urine Bacteria None Seen Hyaline Casts 0-2 CSF Tube Number CSF Volume CSF Appearance CSF Color CSF WBC CSF RBC CSF Neutrophils CSF Lymphocytes CSF Monocytes % CSF Appearance (b) CSF Glucose CSF Total Protein CSF C.neoform/gat PCR CSF CMV DNA (PCR) CSF Enterovirus (PCR) CSF E. coli K1 (PCR) CSF H. influenzae (PCR) CSF HSV I (PCR) CSF HSV II (PCR) CSF HHV 6 (PCR) CSF L.monocytogenes PCR CSF N. meningitidis PCR CSF Parechovirus (PCR) CSF S. agalactiae (PCR) CSF S. pneumoniae (PCR) CSF VZV (PCR) Salicylates Acetaminophen Influenza Type A (PCR) Influenza Type B (PCR) RSV RNA Qual (PCR) SARS-CoV-2 RNA (RT-PCR) 03/21/24 03/21/24 03/21/24 15:37 17:09 17:31 WBC RBC Hgb Hct MCV MCH MCHC RDW Plt Count MPV Immature Gran % (Auto) Neut % (Auto) Lymph % (Auto) Harper % (Auto) Eos % (Auto) Baso % (Auto) Lymph # (Auto) Harper # (Auto) Eos # (Auto) Baso # (Auto) Abs Immat Gran (auto) Absolute Neuts (auto) Absolute Nucleated RBC Nucleated RBC % (auto) ESR Hold Purple Top PT Whole Blood PT INR Whole Blood INR APTT Hold Blue Top Sodium Potassium Chloride Carbon Dioxide Anion Gap BUN Creatinine Estim Creat Clear Calc Estimated GFR POC Glucose Random Glucose Lactic Acid 1.0 Calcium Total Bilirubin Direct Bilirubin AST ALT Alkaline Phosphatase Ammonia Lactate Dehydrogenase Troponin I High Sens 154.0 H* D C-Reactive Protein Total Protein Albumin Triglycerides Cholesterol LDL Cholesterol, Calc HDL Cholesterol Vitamin B12 Folate TSH Free T4 Urine Color Urine Appearance Urine pH Ur Specific [place] Urine Protein Urine Glucose (UA) Urine Ketones Urine Blood Urine Nitrite Ur Leukocyte Esterase Urine RBC Urine WBC Ur Squamous Epith Cells Urine Bacteria Hyaline Casts CSF Tube Number CSF Volume CSF Appearance CSF Color CSF WBC CSF RBC CSF Neutrophils CSF Lymphocytes CSF Monocytes % CSF Appearance (b) CSF Glucose CSF Total Protein CSF C.neoform/gat PCR CSF CMV DNA (PCR) CSF Enterovirus (PCR) CSF E. coli K1 (PCR) CSF H. influenzae (PCR) CSF HSV I (PCR) CSF HSV II (PCR) CSF HHV 6 (PCR) CSF L.monocytogenes PCR CSF N. meningitidis PCR CSF Parechovirus (PCR) CSF S. agalactiae (PCR) CSF S. pneumoniae (PCR) CSF VZV (PCR) Salicylates Acetaminophen Influenza Type A (PCR) NEGATIVE Influenza Type B (PCR) NEGATIVE RSV RNA Qual (PCR) NEGATIVE SARS-CoV-2 RNA (RT-PCR) NEGATIVE 03/21/24 03/21/24 03/21/24 17:43 18:36 19:45 WBC RBC Hgb Hct MCV MCH MCHC RDW Plt Count MPV Immature Gran % (Auto) Neut % (Auto) Lymph % (Auto) Harper % (Auto) Eos % (Auto) Baso % (Auto) Lymph # (Auto) Harper # (Auto) Eos # (Auto) Baso # (Auto) Abs Immat Gran (auto) Absolute Neuts (auto) Absolute Nucleated RBC Nucleated RBC % (auto) ESR Hold Purple Top PT Whole Blood PT INR Whole Blood INR APTT Hold Blue Top Sodium Potassium Chloride Carbon Dioxide Anion Gap BUN Creatinine Estim Creat Clear Calc Estimated GFR POC Glucose Random Glucose Lactic Acid Calcium Total Bilirubin Direct Bilirubin AST ALT Alkaline Phosphatase Ammonia 35 Lactate Dehydrogenase Troponin I High Sens C-Reactive Protein Total Protein Albumin Triglycerides 108 Cholesterol 207 H LDL Cholesterol, Calc 129 H HDL Cholesterol 57 Vitamin B12 509 Folate 7.2 TSH 0.21 L Free T4 1.33 Urine Color Urine Appearance Urine pH Ur Specific [place] Urine Protein Urine Glucose (UA) Urine Ketones Urine Blood Urine Nitrite Ur Leukocyte Esterase Urine RBC Urine WBC Ur Squamous Epith Cells Urine Bacteria Hyaline Casts CSF Tube Number 2 CSF Volume CSF Appearance CSF Color CSF WBC CSF RBC CSF Neutrophils CSF Lymphocytes CSF Monocytes % CSF Appearance (b) CSF Glucose CSF Total Protein CSF C.neoform/gat PCR CSF CMV DNA (PCR) CSF Enterovirus (PCR) CSF E. coli K1 (PCR) CSF H. influenzae (PCR) CSF HSV I (PCR) CSF HSV II (PCR) CSF HHV 6 (PCR) CSF L.monocytogenes PCR CSF N. meningitidis PCR CSF Parechovirus (PCR) CSF S. agalactiae (PCR) CSF S. pneumoniae (PCR) CSF VZV (PCR) Salicylates < 5.0 L Acetaminophen 11 Influenza Type A (PCR) Influenza Type B (PCR) RSV RNA Qual (PCR) SARS-CoV-2 RNA (RT-PCR) 03/21/24 03/21/24 03/22/24 19:45 22:14 04:29 WBC 8.1 RBC 3.27 L Hgb 10.5 L Hct 32.3 L MCV 98.8 H MCH 32.1 MCHC 32.5 RDW 16.9 H Plt Count 220 MPV 11.2 Immature Gran % (Auto) 0.5 H Neut % (Auto) 86.2 H Lymph % (Auto) 11.7 L Harper % (Auto) 1.4 L Eos % (Auto) 0.0 Baso % (Auto) 0.2 Lymph # (Auto) 0.9 L Harper # (Auto) 0.1 Eos # (Auto) 0.0 Baso # (Auto) 0.0 Abs Immat Gran (auto) 0.04 H Absolute Neuts (auto) 6.9 Absolute Nucleated RBC 0.000 Nucleated RBC % (auto) 0.0 ESR Hold Purple Top PT Whole Blood PT INR Whole Blood INR APTT Hold Blue Top Sodium 137 Potassium 3.4 Chloride 100 Carbon Dioxide 23 Anion Gap 17 BUN 10 Creatinine 0.62 Estim Creat Clear Calc 53.7 Estimated GFR > 60 POC Glucose 120 H Random Glucose 152 H Lactic Acid Calcium 8.6 D Total Bilirubin Direct Bilirubin AST ALT Alkaline Phosphatase Ammonia Lactate Dehydrogenase Troponin I High Sens 784.4 H* D C-Reactive Protein Total Protein Albumin Triglycerides Cholesterol LDL Cholesterol, Calc HDL Cholesterol Vitamin B12 Folate TSH Free T4 Urine Color Urine Appearance Urine pH Ur Specific [place] Urine Protein Urine Glucose (UA) Urine Ketones Urine Blood Urine Nitrite Ur Leukocyte Esterase Urine RBC Urine WBC Ur Squamous Epith Cells Urine Bacteria Hyaline Casts CSF Tube Number 4 CSF Volume 1.0 CSF Appearance BLOODY CSF Color RED CSF WBC 38 H* CSF RBC 4200 CSF Neutrophils 91 CSF Lymphocytes 8 CSF Monocytes % 1 CSF Appearance (b) Cloudy CSF Glucose 62 CSF Total Protein 55.7 H CSF C.neoform/gat PCR Not Detected CSF CMV DNA (PCR) Not Detected CSF Enterovirus (PCR) Not Detected CSF E. coli K1 (PCR) Not Detected CSF H. influenzae (PCR) Not Detected CSF HSV I (PCR) Not Detected CSF HSV II (PCR) Not Detected CSF HHV 6 (PCR) Not Detected CSF L.monocytogenes PCR Not Detected CSF N. meningitidis PCR Not Detected CSF Parechovirus (PCR) Not Detected CSF S. agalactiae (PCR) Not Detected CSF S. pneumoniae (PCR) Not Detected CSF VZV (PCR) Not Detected Salicylates Acetaminophen Influenza Type A (PCR) Influenza Type B (PCR) RSV RNA Qual (PCR) SARS-CoV-2 RNA (RT-PCR) 03/22/24 15:08 WBC RBC Hgb Hct MCV MCH MCHC RDW Plt Count MPV Immature Gran % (Auto) Neut % (Auto) Lymph % (Auto) Harper % (Auto) Eos % (Auto) Baso % (Auto) Lymph # (Auto) Harper # (Auto) Eos # (Auto) Baso # (Auto) Abs Immat Gran (auto) Absolute Neuts (auto) Absolute Nucleated RBC Nucleated RBC % (auto) ESR Hold Purple Top PT Whole Blood PT 13.0 INR Whole Blood INR 1.1 APTT Hold Blue Top Sodium Potassium Chloride Carbon Dioxide Anion Gap BUN Creatinine Estim Creat Clear Calc Estimated GFR POC Glucose Random Glucose Lactic Acid Calcium Total Bilirubin Direct Bilirubin AST ALT Alkaline Phosphatase Ammonia Lactate Dehydrogenase Troponin I High Sens C-Reactive Protein Total Protein Albumin Triglycerides Cholesterol LDL Cholesterol, Calc HDL Cholesterol Vitamin B12 Folate TSH Free T4 Urine Color Urine Appearance Urine pH Ur Specific [place] Urine Protein Urine Glucose (UA) Urine Ketones Urine Blood Urine Nitrite Ur Leukocyte Esterase Urine RBC Urine WBC Ur Squamous Epith Cells Urine Bacteria Hyaline Casts CSF Tube Number CSF Volume CSF Appearance CSF Color CSF WBC CSF RBC CSF Neutrophils CSF Lymphocytes CSF Monocytes % CSF Appearance (b) CSF Glucose CSF Total Protein CSF C.neoform/gat PCR CSF CMV DNA (PCR) CSF Enterovirus (PCR) CSF E. coli K1 (PCR) CSF H. influenzae (PCR) CSF HSV I (PCR) CSF HSV II (PCR) CSF HHV 6 (PCR) CSF L.monocytogenes PCR CSF N. meningitidis PCR CSF Parechovirus (PCR) CSF S. agalactiae (PCR) CSF S. pneumoniae (PCR) CSF VZV (PCR) Salicylates Acetaminophen Influenza Type A (PCR) Influenza Type B (PCR) RSV RNA Qual (PCR) SARS-CoV-2 RNA (RT-PCR) Imaging Radiologist's impression: Impressions Head CT 03/21/24 14:23 IMPRESSION: There are numerous chronic small vessel ischemic changes within the periventricular white matter. No evidence of acute territorial infarct or hemorrhage. No abnormal intracranial mass or enhancement. There is 25% stenosis at the origin of the right internal carotid artery. Otherwise no stenosis of the cervical carotid or vertebral arteries. No intracranial large vessel occlusion. Electronically signed by: Zaid Nash MD 03/21/2024 03:13 PM EDT RP Head/Neck CTA 03/21/24 14:30 IMPRESSION: There are numerous chronic small vessel ischemic changes within the periventricular white matter. No evidence of acute territorial infarct or hemorrhage. No abnormal intracranial mass or enhancement. There is 25% stenosis at the origin of the right internal carotid artery. Otherwise no stenosis of the cervical carotid or vertebral arteries. No intracranial large vessel occlusion. Electronically signed by: Zaid Nash MD 03/21/2024 03:13 PM EDT RP Abdomen/Pelvis CT 03/21/24 16:34 IMPRESSION: 1. Diffuse bilateral pulmonary bronchial wall thickening and interlobular septal thickening, most likely representing interstitial edema although atypical infection could appear similar. No pleural effusions. 2. No acute abnormality of the abdomen, or pelvis within the limitations of noncontrast technique. 3. Compared to 01/23/2024, interval placement of two internal biliary stents with decreased, mild to moderate residual intrahepatic biliary duct dilation. 4. Severe anterior wedge compression deformity of the T7 vertebral body with approximately 70% anterior height loss and no osseous retropulsion, age indeterminate but chronic appearing. Electronically signed by: Venkata Varela MD 03/21/2024 05:35 PM EDT RP Chest CT 03/21/24 16:46 IMPRESSION: 1. Diffuse bilateral pulmonary bronchial wall thickening and interlobular septal thickening, most likely representing interstitial edema although atypical infection could appear similar. No pleural effusions. 2. No acute abnormality of the abdomen, or pelvis within the limitations of noncontrast technique. 3. Compared to 01/23/2024, interval placement of two internal biliary stents with decreased, mild to moderate residual intrahepatic biliary duct dilation. 4. Severe anterior wedge compression deformity of the T7 vertebral body with approximately 70% anterior height loss and no osseous retropulsion, age indeterminate but chronic appearing. Electronically signed by: Venkata Varela MD 03/21/2024 05:35 PM EDT RP Assessment and Plan (1) Elevated troponin: Status: Acute Plan [age] year female presenting with confusion and fever. She is being worked up and had lumbar puncture performed. She was also noted to have elevated troponin levels. EKGs has anteroseptal Q-waves and inferior Q-waves but these are chronic. ECHO is showing basal to mid inferior wall akinesis as well as mid anteroseptal wall akinesis. Imaging is not clearly consistent with any stress-induced cardiomyopathy although it can be some variant. She recently had cardiac catheterization in November when she had 30% RCA and 30% lad stenosis. Biomarkers are not consistent with an acutely occluded vessel. She has no symptoms to. EKGs unchanged. I think she has a type 2 injury in the setting of sepsis. She has known cholangiocarcinoma. Not a candidate for any aggressive treatment currently. No heparin drip. Conservative care and workup for presentation which is mostly related to fever and change in mental status. We are signing off. Thank you for allowing me to participate in the care of your patient. Please feel free to contact me if you have any questions. Procedures Date of Service Date of Service: 03/22/24
[2024-03-22] MEDS: Atorvastatin Calcium 80 MG TABLET PO (10:03)
--- NOTE | 2024-03-22 10:43 | MHC.SL.SWA ---
Speech Pathologist Impression: Pharyngeal dysphagia Risk of Aspiration Due to: Weak Cough Weak Voice Dysphasia Diet Status: UPGRADE Liquid Consistency and Strategies for Safe Swallow: Liquid Intake Recommendation: Thin Liquid Intake Strategies: Small Sips Solid Food Consistency: Dietary Recommendations: Pureed (NDD1) Oral Medication Intake: Crushed with Puree Please contact the pharmacy regarding appropriate crushable or liquid drug formulations that are available whenever modified delivery is recommended. Compensatory Strategies and Precautions to be Taken for Safe Swallow: Sitting Upright (90 deg) Small Bites and Sips Alternate Liquids/Solids Supervision While Eating and Drinking for Safe Swallow: Total Assistance (1:1) Swallowing Recommended Treatments: Compens. Strategy Educat. Recommendation for Speech: Inpatient Speech Therapy Comment: Recommend UPGRADE to PUREE SOLIDS (NDD1), THIN liquids (small sips), and pills CRUSHED in PUREE. Pt requires assistance holding cup and bringing it to mouth. With straw, may need to remove straw from pt's mouth to encourage small sips. Pt presents with soft voice, largely clear speech, and appropriate grammar and word combinations at the time of HORSE [employer]ACE ST[employer]TER evaluation. HORSE RACE STARTER to continue to follow to monitor diet and speech. Ob/Gyn Clinican/Clinical Fellow: No Supervisory Statement: I have reviewed and agree with the student/clinical fellow's documentation: N/A Speech Language Pathologist: Elinor Mcknight M.A., CCC-HORSE RACE STARTER
--- NOTE | 2024-03-22 10:47 | PM.NEUROCN ---
History of Present Illness Data of Consult Service Date: 03/22/24 Primary Care Provider: Polo Villalta MD [facility] Reason for consult: Altered mental status ? stroke This is a 84-year-old female with history of aortic stenosis, coronary artery disease, [id number] type 2 diabetes, hyperlipidemia, hypothyroidism, hypertension, recently diagnosed cholangiocarcinoma following with Dr. Clifton at the [facility] presented to the ED earlier today from home for evaluation of altered mental status. The patient is unable to provide any history and is presenting with word salad and difficulty putting sentences together, overall not making sense. Over the last week she has had several intermittent episodes of garbled speech/word salad that have been transient. However this morning woke up agitated and aggressive which is far from her baseline. She is independent at home and takes care of her demented and ambulates with a walker at baseline. This morning was complaining of a severe headache and was unable to put words together. Last known well time was at bedtime last night. Patient is unable to follow commands and NIH stroke scale is unavailable as a result. She does take a baby aspirin daily. Since arrival, patient has developed fevers of 102.4 tachycardia as well as tachypnea. She was briefly hypoxic to 89% but is now satting 100% on 2 L supplemental O2. Initially hypertensive at 189/108 143/79 on admission. There is no leukocytosis. She has a macrocytic anemia with H/H 9.8/30.1%. Renal function within normal limits, electrolyte levels normal. Glucose 117. Lactic acid 1.0. Total bilirubin 1.3, direct bilirubin 0.7, AST 43, ALT 28, alkaline phosphatase 313. Ammonia level 35. LDH 249. Initial troponin 21, repeat 154. CRP 2.98, ESR 38. LDL 130. Urinalysis not indicative of infection but shows elevated specific gravity 1+ protein. LP performed at bedside in the ED with results pending but glucose within normal limits and elevated total protein at 55.7. She is negative for COVID-19, RSV, influenza. Head CT was negative for any acute intracranial abnormality but shows extensive chronic microvascular changes and CTA of the head/neck is negative for any large vessel occlusion or hemodynamically significant stenosis. [facility] Past Medical History Medical History Cholangiocarcinoma Aortic stenosis CAD (coronary artery disease) Type 2 diabetes mellitus HLD (hyperlipidemia) HTN (hypertension) Social History Social History Household Members: Spouse Housing: House Do you presently have visiting nurse or other home services: No Unable to assess alcohol history related to: Unable to respond and Unknown Patient Tobacco Use Status: Never used Tobacco Use of substances other than those prescribed or required for medical reasons: Unable to respond Advance Directives: No Advance Directives Information Provided: No Do you have a plan to hurt others: No Plan Nutrition Risks: No Nutritional Risk service: No Meds Allergies Allergy/AdvReac Type Severity Reaction Status Date / Time No Known Allergies Allergy Verified 03/21/24 14:49 Active Medications: Current Medications Acetaminophen (Acetaminophen 325 Mg Tablet) 650 mg PO Q6H PRN PRN Reason: Pain, Mild (Pain Scale 1-3), fever or headache Atorvastatin Calcium (Atorvastatin Calcium 80 Mg Tablet) 80 mg PO DAILY [facility] Last Admin: 03/22/24 10:03 Dose: 80 mg Calcium Carbonate (Calcium Carbonate 750 Mg Tab.Chew) 750 mg PO Q4H PRN PRN Reason: Heartburn Dexamethasone Sodium Phosphate (Dexamethasone Sod Phosphate 10 Mg/Ml Vial) 10 mg IVPUSH Q6H [facility] Last Admin: 03/22/24 05:48 Dose: 10 mg Glucose (Glucose Gel 15 Gm Gel..Gram.) 15 gm PO Q15M PRN; Protocol PRN Reason: per Hypoglycemia Standing Ord. Ampicillin Sodium 2 gm/ Sodium (Chloride) 100 mls @ 200 mls/hr IV ONCE [facility] Last Infusion: 03/22/24 01:09 Dose: Infused Lactated Ringer's (Lr) 1,000 mls @ 100 mls/hr IVCONT .Q10H [facility] Last Admin: 03/22/24 07:40 Dose: 100 mls/hr Ampicillin Sodium 2 gm/ Sodium (Chloride) 100 mls @ 200 mls/hr IV Q4H [facility] Last Admin: 03/22/24 10:14 Dose: 200 mls/hr Ceftriaxone Sodium 2 gm/ (Sodium Chloride) 50 mls @ 100 mls/hr IV Q12H [facility] Last Infusion: 03/22/24 04:19 Dose: Infused Acyclovir Sodium 600 mg/ (Sodium Chloride) 262 mls @ 262 mls/hr IV Q8H [facility] Last Infusion: 03/22/24 09:15 Dose: Infused Vancomycin HCl 750 mg/ Sodium (Chloride) 265 mls @ 265 mls/hr IV Q12H [facility] Last Infusion: 03/22/24 07:40 Dose: Infused Dextrose (D10) 250 mls @ 750 mls/hr IV Q15M PRN; Protocol PRN Reason: per Hypoglycemia Standing Ord. Magnesium Hydroxide (Milk Of Magnesia 30 Ml Oral.Susp) 30 ml PO DAILY PRN PRN Reason: Constipation Melatonin (Melatonin 3 Mg Tablet) 6 mg PO BEDTIME PRN PRN Reason: Insomnia Pharmacy Consult (Consult Rx Vancomycin Dosing) 1 each MISCELLANE DAILY PRN PRN Reason: Consult order Sodium Chloride (0.9 % Sodium Chloride Flush 3 Ml Syringe) 3 ml IVFLUSH QSHIFT [facility] Last Admin: 03/22/24 09:04 Dose: Not Given Home Medications ?Medication ?Instructions ?Recorded ?Confirmed ?Last Taken ?Type albuterol sulfate 90 mcg/actuation 2 puff inhalation Q4-6H PRN 01/23/24 03/21/24 03/21/24 06:00 History aerosol inhaler Shortness Of Breath Or Wheezing atorvastatin 40 mg tablet 40 mg PO BEDTIME 01/23/24 03/21/24 03/20/24 History carvedilol 12.5 mg tablet 12.5 mg PO BID 01/23/24 03/21/24 03/21/24 06:00 History cholecalciferol (vitamin D3) 50 50 mcg PO BID 01/23/24 03/21/24 03/21/24 06:00 History mcg (2,000 unit) capsule isosorbide mononitrate 60 mg 90 mg PO DAILY 01/23/24 03/21/24 03/21/24 06:00 History tablet,extended release 24 hr levothyroxine 88 mcg tablet 88 mcg PO DAILY 01/23/24 03/21/24 03/21/24 06:00 History (Synthroid) lisinopril 10 mg tablet 10 mg PO DAILY 01/23/24 03/21/24 03/21/24 06:00 History magnesium oxide 500 mg PO DAILY 01/23/24 03/21/24 03/21/24 06:00 History metformin 500 mg tablet 500 mg PO DAILY 01/23/24 03/21/24 03/21/24 06:00 History nitroglycerin 0.4 mg sublingual 0.4 mg sublingual Q5M PRN Chest 01/23/24 03/21/24 03/21/24 06:00 History tablet Pain Physical Exam Vital Signs: Vital Signs: Last Vital Signs Temp 97.4 F 03/22/24 07:38 Pulse 84 03/22/24 09:31 Resp 14 03/22/24 09:31 BP 148/69 H 03/22/24 09:31 Pulse Ox 99 03/22/24 09:31 O2 Del Method Nasal Cannula 03/22/24 09:31 O2 Flow Rate 2 03/22/24 09:31 BMI result Body Mass Index 26.3 Neuro: Other: She is drowsy but arousable. She is oriented to person and knows the month. She knows her address. Her speech is soft slow thick and slurred, and she has some word finding difficulties. This no obvious facial droop. Visual mckeon could not be adequately tested in her current altered state. She moves all 4 extremities but appears to have slight right-sided weakness and an extensor plantar response on the right. Results Labs 03/22/24 04:29 03/22/24 04:29 Labs: Short CBC 03/21/24 03/22/24 Range/Units 14:27 04:29 WBC 8.2 8.1 (4.8-10.8) X10*3/uL Hgb 9.8 L 10.5 L (12.0-16.0) g/dl Hct 30.1 L 32.3 L (37.0-47.0) % Plt Count 236 220 (160-400) X10*3/uL BMP 03/21/24 03/22/24 14:27 04:29 Sodium 137 137 Potassium 3.8 3.4 Chloride 100 100 Carbon Dioxide 28 23 BUN 14 10 Creatinine 0.66 0.62 Calcium 9.3 8.6 D Liver Function 03/21/24 Range/Units 14:27 Total Bilirubin 1.3 H (0.0-1.0) mg/dL Direct Bilirubin 0.7 H (0.0-0.5) mg/dL AST 43 H (5-31) U/L ALT 28 (0-31) U/L Alkaline Phosphatase 319 H (39-117) U/L Albumin 3.3 L (3.5-5.0) g/dL Urine 03/21/24 Range/Units 15:26 Urine Color Yellow Urine Appearance Clear Urine pH 7.5 (5.0-9.0) Ur Specific [place] >= 1.030 H (1.005-1.025) Urine Protein 30 (1+) H (Neg-Trace) mg/dL Urine Glucose (UA) Negative (Negative) mg/dL Microbiology Microbiology Results: Microbiology 03/21/24 19:45 Cerebrospinal Fluid Gram Stain - Final 03/21/24 19:45 Cerebrospinal Fluid CSF Examination - Final 03/21/24 19:45 Cerebrospinal Fluid Fluid Description - Final 03/21/24 19:45 Cerebrospinal Fluid CSF Culture - Preliminary No growth to date. Assessment and Plan (1) AMS (altered mental status): Status: Acute She has extensive white matter microvascular disease and her acute change is possibly related to a new ischemic infarct in the left hemisphere involving her they middle cerebral territory. Other metabolic infectious etiologies need to be excluded. LP traumatic . Cultures pending Recommendation: MRI of the brain to rule out an acute ischemic change in the left hemisphere. Check for infectious and metabolic abnormalities. She was not a candidate for TNK because of delayed presentation with LKWT of > 12 hrs Procedures Date of Service Date of Service: 03/22/24
--- NOTE | 2024-03-22 12:53 | HO.PM.IMPN ---
Subjective Subjective Date of Service: 03/22/24 Interval History: No acute issues overnight. Workup pending Review of Systems Denies chest pain Denies shortness of breath Denies nausea vomiting diarrhea Denies fever chills Physical Exam Vital Signs: Vital Signs: Last Vital Signs Temp 97.4 F 03/22/24 07:38 Pulse 79 03/22/24 12:23 Resp 21 H 03/22/24 12:23 BP 149/69 H 03/22/24 12:23 Pulse Ox 100 03/22/24 12:23 O2 Del Method Nasal Cannula 03/22/24 12:23 O2 Flow Rate 2 03/22/24 12:23 BMI result Body Mass Index 26.3 Const: Other: Awake alert no acute distress Resp: Other: Clear to auscultation bilaterally no rales rhonchi or wheezes Cardio: Other: No S4; positive S1-S2; no S3 murmurs rubs or gallops GI: Other: Soft nontender nondistended normoactive bowel sounds Extrem: Other: No edema bilaterally Objective Data Active Medications Acetaminophen (Acetaminophen 325 Mg Tablet) 650 mg PO Q6H PRN PRN Reason: Pain, Mild (Pain Scale 1-3), fever or headache Atorvastatin Calcium (Atorvastatin Calcium 80 Mg Tablet) 80 mg PO DAILY [facility] Last Admin: 03/22/24 10:03 Dose: 80 mg Documented By: THOM Calcium Carbonate (Calcium Carbonate 750 Mg Tab.Chew) 750 mg PO Q4H PRN PRN Reason: Heartburn Dexamethasone Sodium Phosphate (Dexamethasone Sod Phosphate 10 Mg/Ml Vial) 10 mg IVPUSH Q6H [facility] Last Admin: 03/22/24 05:48 Dose: 10 mg Documented By: BOB Glucose (Glucose Gel 15 Gm Gel..Gram.) 15 gm PO Q15M PRN; Protocol PRN Reason: per Hypoglycemia Standing Ord. Ampicillin Sodium 2 gm/ Sodium (Chloride) 100 mls @ 200 mls/hr IV ONCE [facility] Last Infusion: 03/22/24 01:09 Dose: Infused Documented By: BOB Lactated Ringer's (Lr) 1,000 mls @ 100 mls/hr IVCONT .Q10H [facility] Last Admin: 03/22/24 07:40 Dose: 100 mls/hr Documented By: RODGER Ampicillin Sodium 2 gm/ Sodium (Chloride) 100 mls @ 200 mls/hr IV Q4H [facility] Last Infusion: 03/22/24 11:37 Dose: Infused Documented By: THOM Ceftriaxone Sodium 2 gm/ (Sodium Chloride) 50 mls @ 100 mls/hr IV Q12H [facility] Last Infusion: 03/22/24 04:19 Dose: Infused Documented By: BOB Acyclovir Sodium 600 mg/ (Sodium Chloride) 262 mls @ 262 mls/hr IV Q8H [facility] Last Infusion: 03/22/24 09:15 Dose: Infused Documented By: THOM Vancomycin HCl 750 mg/ Sodium (Chloride) 265 mls @ 265 mls/hr IV Q12H [facility] Last Infusion: 03/22/24 07:40 Dose: Infused Documented By: RODGER Dextrose (D10) 250 mls @ 750 mls/hr IV Q15M PRN; Protocol PRN Reason: per Hypoglycemia Standing Ord. Magnesium Hydroxide (Milk Of Magnesia 30 Ml Oral.Susp) 30 ml PO DAILY PRN PRN Reason: Constipation Melatonin (Melatonin 3 Mg Tablet) 6 mg PO BEDTIME PRN PRN Reason: Insomnia Pharmacy Consult (Consult Rx Vancomycin Dosing) 1 each MISCELLANE DAILY PRN PRN Reason: Consult order Sodium Chloride (0.9 % Sodium Chloride Flush 3 Ml Syringe) 3 ml IVFLUSH QSHIFT [facility] Last Admin: 03/22/24 09:04 Dose: Not Given Documented By: RODGER Non-Admin Reason: IV Running Labs 03/22/24 04:29 03/22/24 04:29 Labs: Laboratory Results - last 24 hr 03/21/24 03/21/24 03/21/24 14:27 14:55 15:26 MCV 99.7 H MCH 32.5 MCHC 32.6 RDW 17.1 H Plt Count 236 MPV 10.6 Immature Gran % (Auto) 0.4 Neut % (Auto) 67.1 Lymph % (Auto) 21.5 [place] % (Auto) 9.0 Eos % (Auto) 1.3 Baso % (Auto) 0.7 Lymph # (Auto) 1.8 [place] # (Auto) 0.7 Eos # (Auto) 0.1 Baso # (Auto) 0.1 Abs Immat Gran (auto) 0.03 Absolute Neuts (auto) 5.5 Absolute Nucleated RBC 0.000 Nucleated RBC % (auto) 0.0 ESR 38 H Hold Purple Top SEE NOTE PT 12.3 Whole Blood PT INR 1.0 Whole Blood INR APTT 30.7 Hold Blue Top SEE NOTE Anion Gap 13 Estim Creat Clear Calc TNP Estimated GFR > 60 POC Glucose 122 H Random Glucose 117 H Lactic Acid Calcium 9.3 Total Bilirubin 1.3 H Direct Bilirubin 0.7 H AST 43 H ALT 28 Alkaline Phosphatase 319 H Ammonia Lactate Dehydrogenase 249 H Troponin I High Sens 21.0 H C-Reactive Protein 2.98 H Total Protein 7.0 Albumin 3.3 L Triglycerides 94 Cholesterol 206 H LDL Cholesterol, Calc 130 H HDL Cholesterol 58 Vitamin B12 Folate TSH Free T4 Urine Color Yellow Urine Appearance Clear Urine pH 7.5 Ur Specific [place] >= 1.030 H Urine Protein 30 (1+) H Urine Glucose (UA) Negative Urine Ketones Negative Urine Blood Negative Urine Nitrite Negative Ur Leukocyte Esterase Negative Urine RBC 0-2 Urine WBC 0-5 Ur Squamous Epith Cells 3-5 Urine Bacteria None Seen Hyaline Casts 0-2 CSF Tube Number CSF Volume CSF Appearance CSF Color CSF WBC CSF RBC CSF Neutrophils CSF Lymphocytes CSF Monocytes % CSF Appearance (b) CSF Glucose CSF Total Protein CSF C.neoform/gat PCR CSF CMV DNA (PCR) CSF Enterovirus (PCR) CSF E. coli K1 (PCR) CSF H. influenzae (PCR) CSF HSV I (PCR) CSF HSV II (PCR) CSF HHV 6 (PCR) CSF L.monocytogenes PCR CSF N. meningitidis PCR CSF Parechovirus (PCR) CSF S. agalactiae (PCR) CSF S. pneumoniae (PCR) CSF VZV (PCR) Salicylates Acetaminophen Influenza Type A (PCR) Influenza Type B (PCR) RSV RNA Qual (PCR) SARS-CoV-2 RNA (RT-PCR) 03/21/24 03/21/24 03/21/24 15:37 17:09 17:31 MCV MCH MCHC RDW Plt Count MPV Immature Gran % (Auto) Neut % (Auto) Lymph % (Auto) [place] % (Auto) Eos % (Auto) Baso % (Auto) Lymph # (Auto) [place] # (Auto) Eos # (Auto) Baso # (Auto) Abs Immat Gran (auto) Absolute Neuts (auto) Absolute Nucleated RBC Nucleated RBC % (auto) ESR Hold Purple Top PT Whole Blood PT INR Whole Blood INR APTT Hold Blue Top Anion Gap Estim Creat Clear Calc Estimated GFR POC Glucose Random Glucose Lactic Acid 1.0 Calcium Total Bilirubin Direct Bilirubin AST ALT Alkaline Phosphatase Ammonia Lactate Dehydrogenase Troponin I High Sens 154.0 H* D C-Reactive Protein Total Protein Albumin Triglycerides Cholesterol LDL Cholesterol, Calc HDL Cholesterol Vitamin B12 Folate TSH Free T4 Urine Color Urine Appearance Urine pH Ur Specific [place] Urine Protein Urine Glucose (UA) Urine Ketones Urine Blood Urine Nitrite Ur Leukocyte Esterase Urine RBC Urine WBC Ur Squamous Epith Cells Urine Bacteria Hyaline Casts CSF Tube Number CSF Volume CSF Appearance CSF Color CSF WBC CSF RBC CSF Neutrophils CSF Lymphocytes CSF Monocytes % CSF Appearance (b) CSF Glucose CSF Total Protein CSF C.neoform/gat PCR CSF CMV DNA (PCR) CSF Enterovirus (PCR) CSF E. coli K1 (PCR) CSF H. influenzae (PCR) CSF HSV I (PCR) CSF HSV II (PCR) CSF HHV 6 (PCR) CSF L.monocytogenes PCR CSF N. meningitidis PCR CSF Parechovirus (PCR) CSF S. agalactiae (PCR) CSF S. pneumoniae (PCR) CSF VZV (PCR) Salicylates Acetaminophen Influenza Type A (PCR) NEGATIVE Influenza Type B (PCR) NEGATIVE RSV RNA Qual (PCR) NEGATIVE SARS-CoV-2 RNA (RT-PCR) NEGATIVE 03/21/24 03/21/24 03/21/24 17:43 18:36 19:45 MCV MCH MCHC RDW Plt Count MPV Immature Gran % (Auto) Neut % (Auto) Lymph % (Auto) [place] % (Auto) Eos % (Auto) Baso % (Auto) Lymph # (Auto) [place] # (Auto) Eos # (Auto) Baso # (Auto) Abs Immat Gran (auto) Absolute Neuts (auto) Absolute Nucleated RBC Nucleated RBC % (auto) ESR Hold Purple Top PT Whole Blood PT INR Whole Blood INR APTT Hold Blue Top Anion Gap Estim Creat Clear Calc Estimated GFR POC Glucose Random Glucose Lactic Acid Calcium Total Bilirubin Direct Bilirubin AST ALT Alkaline Phosphatase Ammonia 35 Lactate Dehydrogenase Troponin I High Sens C-Reactive Protein Total Protein Albumin Triglycerides 108 Cholesterol 207 H LDL Cholesterol, Calc 129 H HDL Cholesterol 57 Vitamin B12 509 Folate 7.2 TSH 0.21 L Free T4 1.33 Urine Color Urine Appearance Urine pH Ur Specific [place] Urine Protein Urine Glucose (UA) Urine Ketones Urine Blood Urine Nitrite Ur Leukocyte Esterase Urine RBC Urine WBC Ur Squamous Epith Cells Urine Bacteria Hyaline Casts CSF Tube Number 2 CSF Volume CSF Appearance CSF Color CSF WBC CSF RBC CSF Neutrophils CSF Lymphocytes CSF Monocytes % CSF Appearance (b) CSF Glucose CSF Total Protein CSF C.neoform/gat PCR CSF CMV DNA (PCR) CSF Enterovirus (PCR) CSF E. coli K1 (PCR) CSF H. influenzae (PCR) CSF HSV I (PCR) CSF HSV II (PCR) CSF HHV 6 (PCR) CSF L.monocytogenes PCR CSF N. meningitidis PCR CSF Parechovirus (PCR) CSF S. agalactiae (PCR) CSF S. pneumoniae (PCR) CSF VZV (PCR) Salicylates < 5.0 L Acetaminophen 11 Influenza Type A (PCR) Influenza Type B (PCR) RSV RNA Qual (PCR) SARS-CoV-2 RNA (RT-PCR) 03/21/24 03/21/24 03/22/24 19:45 22:14 04:29 MCV 98.8 H MCH 32.1 MCHC 32.5 RDW 16.9 H Plt Count 220 MPV 11.2 Immature Gran % (Auto) 0.5 H Neut % (Auto) 86.2 H Lymph % (Auto) 11.7 L [place] % (Auto) 1.4 L Eos % (Auto) 0.0 Baso % (Auto) 0.2 Lymph # (Auto) 0.9 L [place] # (Auto) 0.1 Eos # (Auto) 0.0 Baso # (Auto) 0.0 Abs Immat Gran (auto) 0.04 H Absolute Neuts (auto) 6.9 Absolute Nucleated RBC 0.000 Nucleated RBC % (auto) 0.0 ESR Hold Purple Top PT Whole Blood PT INR Whole Blood INR APTT Hold Blue Top Anion Gap 17 Estim Creat Clear Calc 53.7 Estimated GFR > 60 POC Glucose 120 H Random Glucose 152 H Lactic Acid Calcium 8.6 D Total Bilirubin Direct Bilirubin AST ALT Alkaline Phosphatase Ammonia Lactate Dehydrogenase Troponin I High Sens 784.4 H* D C-Reactive Protein Total Protein Albumin Triglycerides Cholesterol LDL Cholesterol, Calc HDL Cholesterol Vitamin B12 Folate TSH Free T4 Urine Color Urine Appearance Urine pH Ur Specific [place] Urine Protein Urine Glucose (UA) Urine Ketones Urine Blood Urine Nitrite Ur Leukocyte Esterase Urine RBC Urine WBC Ur Squamous Epith Cells Urine Bacteria Hyaline Casts CSF Tube Number 4 CSF Volume 1.0 CSF Appearance BLOODY CSF Color RED CSF WBC 38 H* CSF RBC 4200 CSF Neutrophils 91 CSF Lymphocytes 8 CSF Monocytes % 1 CSF Appearance (b) Cloudy CSF Glucose 62 CSF Total Protein 55.7 H CSF C.neoform/gat PCR Not Detected CSF CMV DNA (PCR) Not Detected CSF Enterovirus (PCR) Not Detected CSF E. coli K1 (PCR) Not Detected CSF H. influenzae (PCR) Not Detected CSF HSV I (PCR) Not Detected CSF HSV II (PCR) Not Detected CSF HHV 6 (PCR) Not Detected CSF L.monocytogenes PCR Not Detected CSF N. meningitidis PCR Not Detected CSF Parechovirus (PCR) Not Detected CSF S. agalactiae (PCR) Not Detected CSF S. pneumoniae (PCR) Not Detected CSF VZV (PCR) Not Detected Salicylates Acetaminophen Influenza Type A (PCR) Influenza Type B (PCR) RSV RNA Qual (PCR) SARS-CoV-2 RNA (RT-PCR) 03/22/24 15:08 MCV MCH MCHC RDW Plt Count MPV Immature Gran % (Auto) Neut % (Auto) Lymph % (Auto) [place] % (Auto) Eos % (Auto) Baso % (Auto) Lymph # (Auto) [place] # (Auto) Eos # (Auto) Baso # (Auto) Abs Immat Gran (auto) Absolute Neuts (auto) Absolute Nucleated RBC Nucleated RBC % (auto) ESR Hold Purple Top PT Whole Blood PT 13.0 INR Whole Blood INR 1.1 APTT Hold Blue Top Anion Gap Estim Creat Clear Calc Estimated GFR POC Glucose Random Glucose Lactic Acid Calcium Total Bilirubin Direct Bilirubin AST ALT Alkaline Phosphatase Ammonia Lactate Dehydrogenase Troponin I High Sens C-Reactive Protein Total Protein Albumin Triglycerides Cholesterol LDL Cholesterol, Calc HDL Cholesterol Vitamin B12 Folate TSH Free T4 Urine Color Urine Appearance Urine pH Ur Specific [place] Urine Protein Urine Glucose (UA) Urine Ketones Urine Blood Urine Nitrite Ur Leukocyte Esterase Urine RBC Urine WBC Ur Squamous Epith Cells Urine Bacteria Hyaline Casts CSF Tube Number CSF Volume CSF Appearance CSF Color CSF WBC CSF RBC CSF Neutrophils CSF Lymphocytes CSF Monocytes % CSF Appearance (b) CSF Glucose CSF Total Protein CSF C.neoform/gat PCR CSF CMV DNA (PCR) CSF Enterovirus (PCR) CSF E. coli K1 (PCR) CSF H. influenzae (PCR) CSF HSV I (PCR) CSF HSV II (PCR) CSF HHV 6 (PCR) CSF L.monocytogenes PCR CSF N. meningitidis PCR CSF Parechovirus (PCR) CSF S. agalactiae (PCR) CSF S. pneumoniae (PCR) CSF VZV (PCR) Salicylates Acetaminophen Influenza Type A (PCR) Influenza Type B (PCR) RSV RNA Qual (PCR) SARS-CoV-2 RNA (RT-PCR) Microbiology Microbiology Results: Microbiology 03/21/24 19:45 Gram Stain - Final Cerebrospinal Fluid CSF Examination - Final Fluid Description - Final CSF Culture - Preliminary No growth to date. Assessment and Plan (1) AMS (altered mental status): Status: Acute (2) CAD (coronary artery disease): Status: Acute (3) Type 2 diabetes mellitus: Status: Acute Plan 84-year-old female with history of aortic stenosis, coronary artery disease, [id number] type 2 diabetes, hyperlipidemia, hypothyroidism, hypertension, painless jaundice, and recently diagnosed cholangiocarcinoma following with Dr. Clifton at the [facility] admitted for further management of acute metabolic encephalopathy 1.Acute [id number] -continue empiric coverage/ IV ampicillin, 2 g ceftriaxone q.12h, vancomycin, acyclovir, and dexamethasone q.6h (initiated 03/21) --cultures pending -brain MRI pending -neurology consult, Infectious Disease consult -monitor on telemetry 2.Acute fever -plan as above -afebrile overnight 3.Elevated troponins -initial tropes 21 -->154. Per cardiology no AC given LP. Repeat trop 784 -echo -cardiology consult pending -monitor on telemetry 3.Esp-gekmzxb-mixrfsbbc type 2 diabetes -acceptable control presently -lispro correctional scale -adjust as indicated 4.CAD - resume outpatient therapies -await Cardiology input 5.Hypertension -resume lisinopril, isosorbide, Coreg DVT prophylaxis- SCPs, Full code Patient requires ongoing hospitalization pending completion of workup for metabolic encephalopathy and ongoing specialty consultation Quality Stroke Does the patient have a stroke diagnosis?: No VTE Prior VTE?: No VTE Risk Level:: Medical - moderate - high VTE Device Contraindication: N/A - Device Ordered VTE Drug Contraindication: Treatment Not Indicated
[2024-03-22 14:56] LABS: Alanine Aminotransferase 22 U/L (0-31); Albumin Level 2.6 g/dL (3.5-5.0); Alkaline Phosphatase 252 U/L (39-117); Anion Gap 10 (12-20); Aspartate Amino Transferase 33 U/L (5-31); Bilirubin Total 0.8 mg/dL (0.0-1.0); Blood Urea Nitrogen 11 mg/dL (9-16); Calcium 8.4 mg/dL (8.4-10.2); Carbon Dioxide 26 mmol/L (22-29); Chloride 104 mmol/L (96-108); Creatinine Clr Calc Pharmacy 56.5; Estimated Glomerular Filt Rate > 60; Glucose Fasting 134 mg/dL (60-99); Sodium 137 mmol/L (135-145); Total Protein 5.7 g/dL (6.5-8.0)
[2024-03-22 16:33] LABS: Vancomycin Random 14.9 mcg/mL (15-20)
[2024-03-22] MEDS: 0.9 % Sodium Chloride Flush 3 ML SYRINGE IVFLUSH (19:59)
[2024-03-22 21:06] LABS: Glucose, Whole Blood 151 mg/dL (60-115)
[2024-03-23] VITALS (8 sets, daily range): BP systolic 134–158; BP diastolic 72–92; PULSE 79–87; RESP 17–20; TEMP 36.1–36.6; O2SAT 92–99
[2024-03-23] MEDS: dexAMETHasone sod phosphate 10 MG/ML VIAL IVPUSH ×3 (00:18→11:55)
[2024-03-23] MEDS: Ampicillin Sodium 2 GM in 0.9 % Sodium Chloride 100 ML IV ×4 (04:10→15:37)
[2024-03-23] MEDS: cefTRIAXone sodium 2 GM in 0.9 % Sodium Chloride 50 ML IV ×2 (04:55→15:41)
[2024-03-23] MEDS: vancomycin HCL 750 MG in 0.9 % Sodium Chloride 250 ML 265 MG IV (05:44)
[2024-03-23 07:12] LABS: MANUAL DIFF FLAG NO
[2024-03-23 07:16] LABS: Basophils Percent Auto 0.2 % (0-2); Hematocrit 29.8 % (37.0-47.0); Imm Gran Abs Auto 0.07 X10*3/uL (0.00-0.03); Imm Gran Pct Auto 0.6 % (0.0-0.4); Lymphocytes Absolute Auto 0.7 X10*3/uL (1.2-4.9); Lymphocytes Percent Auto 6.3 % (20-40); Mean Corpuscular HGB Conc 33.6 g/dl (31.0-35.0); Mean Corpuscular Hemoglobin 32.7 pg (27.0-33.0); Mean Corpuscular Volume 97.4 fL (80.0-98.0); Mean Platelet Volume 10.9 fL (9.4-12.3); Monocytes Absolute Auto 0.5 X10*3/uL (0.1-1.2); Monocytes Percent Auto 4.3 % (2-11); Neutrophils Absolute Auto 9.9 x10*3/uL (2.0-8.3); Neutrophils Percent Auto 88.6 % (45-73); Platelet Count 275 X10*3/uL (160-400); Red Blood Count 3.06 X10*6/uL (4.20-5.50); White Blood Count 11.2 X10*3/uL (4.8-10.8)
[2024-03-23 07:29] LABS: Glucose, Whole Blood 155 mg/dL (60-115)
[2024-03-23 07:30] LABS: Creatinine Clr Calc Pharmacy 50.7; Estimated Glomerular Filt Rate > 60
[2024-03-23] MEDS: Insulin Lispro 100 UNIT/ML 3 ML VIAL SUBCUT ×4 (07:50→21:04)
[2024-03-23] MEDS: Atorvastatin Calcium 80 MG TABLET PO (07:50)
[2024-03-23 08:45] LABS: Anion Gap 14 (12-20)
[2024-03-23 08:47] LABS: Blood Urea Nitrogen 17 mg/dL (9-16); Calcium 8.7 mg/dL (8.4-10.2); Carbon Dioxide 26 mmol/L (22-29); Chloride 104 mmol/L (96-108); Glucose Random 152 mg/dL (60-115); Potassium 3.1 mmol/L (3.3-5.1); Sodium 141 mmol/L (135-145)
--- NOTE | 2024-03-23 10:37 | MHC.SL.SWA ---
Speech Pathologist Impression: Risk of Aspiration Due to: Weak Cough Weak Voice Dysphasia Diet Status: Recommend UPGRADE diet to Chopped/Advanced (NDD3), continue thin liquids, pills whole with liquid. Liquid Consistency and Strategies for Safe Swallow: Liquid Intake Recommendation: Thin Liquid Intake Strategies: Small Sips Solid Food Consistency: Dietary Recommendations: Chopped/Advanced (NDD3) Additional Modifications to Solid Foods: Assure that patient had dentures present during meals, assist at onset of meal to set up tray, assure all items are opened and accessible and patient is oriented to meal. Place towel on patient in case of any spills/drops during meal. With this initial assistance, patient can be independent with meal. MD/RD and RN notified of recommendations. Oral Medication Intake: Whole with Liquid Please contact the pharmacy regarding appropriate crushable or liquid drug formulations that are available whenever modified delivery is recommended. Compensatory Strategies and Precautions to be Taken for Safe Swallow: Sitting Upright (90 deg) Liquids from Cup Small Bites and Sips Supervision While Eating and Drinking for Safe Swallow: Intermittent Supervision Foods to Avoid: Tough, difficult to chew solids. Swallowing Recommended Treatments: Compens. Strategy Educat. Recommendation for Speech: Inpatient Speech Therapy Comment: Patient seen this morning for re-evaluation of swallow. Patient seen for initial evaluation yesterday with MIRROR SILVERER recommending puree/thin diet and communicating with MD re: diet reccs. MD yesterday did not order diet, patient still NPO in expanse this morning. Hospitalist Michelle advised of yesterday's evaluation this AM prior to MIRROR SILVERER re-eval of patient. Patient this morning was awake and alert, had just been seated in chair at bedside, presenting as very confused but pleasant. RN noted that patient had dentures present, patient then put dentures in mouth with relative independence. MIRROR SILVERER handed patient cup of applesauce, with patient independently feeding her self by spoonful. On this puree consistency patient presented with all aspects of swallow WFL. Patient then given softened cracker in pudding with patient producing a normal rotary chew and timely swallow. Patient also evidenced WFL when given hard cracker dipped in puree. Patient further observed taking independent cup sips of water, again producing a swallow wfl, no clinical signs of aspiration. Recommend UPGRADE diet to Chopped/Advanced (NDD3), continue thin liquids, pills whole with liquid. Assure that patient had dentures present during meals, assist at onset of meal to set up tray, assure all items are opened and accessible and patient is oriented to meal. Place towel on patient in case of any spills/drops during meal. With this initial assistance, patient can be independent with meal. MD/RD and RN notified of recommendations. Frequency/Duration: Date Range for Service Req: Timeline to reassess: Business And Financial Counsel Clinican/Clinical Fellow: No Supervisory Statement: I have reviewed and agree with the student/clinical fellow's documentation: N/A Speech Language Pathologist: Ene Davis M.A., CCC-MIRROR SILVERER
[2024-03-23] MEDS: Potassium Chloride Packet 20 MEQ PACKET 40 MEQ PO (11:55)
[2024-03-23 11:59] LABS: Glucose, Whole Blood 205 mg/dL (60-115)
--- NOTE | 2024-03-23 14:56 | PC.NURSE ---
per provider order, eastman removed at 1315. pt d/t void at [phone]
--- NOTE | 2024-03-23 15:09 | P.PNIM_ITS ---
Subjective Subjective Date of Service: 03/23/24 Interval History: Seen and examined this morning Follow-up for altered mental status, speech disturbance No overnight events Initial concern for meningitis, MRI negative for stroke Patient awake, alert Review of Systems Review of Systems: Yes all other systems are reviewed and are negative Constitutional Constitutional: Denies chills and Denies fever(s) Cardiovascular Cardiovascular: Denies chest pain Gastrointestinal Gastrointestinal: Denies abdominal pain Physical Exam 2 Vital Signs: Vital Signs: Last Vital Signs Temp 97.3 F 03/23/24 12:00 Pulse 81 03/23/24 12:00 Resp 18 03/23/24 12:00 BP 143/81 H 03/23/24 12:00 Pulse Ox 96 03/23/24 12:00 O2 Del Method Room Air 03/23/24 12:00 O2 Flow Rate 2 03/23/24 08:00 BMI result Body Mass Index 29.1 Const: General: cooperative, no acute distress, alert and awake Nutritional Appearance: thin Orientation/consciousness: oriented to person and oriented to place Eyes: Pupils: Equal, round and reactive pupils present Resp: Effort & Inspection: normal respiratory effort and able to speak in complete sentences Cardio: Rate: regular rate GI: Inspection: No distended Palpation (GI): Soft to palpation and nontender Neuro: Other: Grossly nonfocal General: oriented to person, oriented to place and moves all extremities Cranial nerves: Yes Equal, round and reactive pupils present Extrem: General: Yes no pedal edema Objective Data Active Medications Acetaminophen (Acetaminophen 325 Mg Tablet) 650 mg PO Q6H PRN PRN Reason: Pain, Mild (Pain Scale 1-3), fever or headache Atorvastatin Calcium (Atorvastatin Calcium 80 Mg Tablet) 80 mg PO DAILY [facility] Last Admin: 03/23/24 07:50 Dose: 80 mg Documented By: CHACHA Calcium Carbonate (Calcium Carbonate 750 Mg Tab.Chew) 750 mg PO Q4H PRN PRN Reason: Heartburn Dexamethasone Sodium Phosphate (Dexamethasone Sod Phosphate 10 Mg/Ml Vial) 10 mg IVPUSH Q6H [facility] Last Admin: 03/23/24 11:55 Dose: 10 mg Documented By: CHACHA Glucose (Glucose Gel 15 Gm Gel..Gram.) 15 gm PO Q15M PRN; Protocol PRN Reason: per Hypoglycemia Standing Ord. Ampicillin Sodium 2 gm/ Sodium (Chloride) 100 mls @ 200 mls/hr IV Q4H [facility] Last Infusion: 03/23/24 12:33 Dose: Infused Documented By: CHACHA Ceftriaxone Sodium 2 gm/ (Sodium Chloride) 50 mls @ 100 mls/hr IV Q12H [facility] Last Infusion: 03/23/24 05:49 Dose: Infused Documented By: BRIDGET Vancomycin HCl 750 mg/ Sodium (Chloride) 265 mls @ 265 mls/hr IV Q12H [facility] Last Infusion: 03/23/24 06:45 Dose: Infused Documented By: BRIDGET Dextrose (D10) 250 mls @ 750 mls/hr IV Q15M PRN; Protocol PRN Reason: per Hypoglycemia Standing Ord. Acyclovir Sodium 600 mg/ (Dextrose) 112 mls @ 110.014 mls/hr IV Q8H [facility] Last Infusion: 03/23/24 10:20 Dose: Infused Documented By: CHACHA Insulin Human Lispro (Insulin Lispro 100 Unit/Ml 3 Ml Vial) 0 unit SUBCUT QIDACHS [facility]; Protocol Last Admin: 03/23/24 12:08 Dose: 4 unit Documented By: CHACHA Magnesium Hydroxide (Milk Of Magnesia 30 Ml Oral.Susp) 30 ml PO DAILY PRN PRN Reason: Constipation Melatonin (Melatonin 3 Mg Tablet) 6 mg PO BEDTIME PRN PRN Reason: Insomnia Pharmacy Consult (Consult Rx Vancomycin Dosing) 1 each MISCELLANE DAILY PRN PRN Reason: Consult order Sodium Chloride (0.9 % Sodium Chloride Flush 3 Ml Syringe) 3 ml IVFLUSH QSHIFT [facility] Last Admin: 03/23/24 09:18 Dose: Not Given Documented By: CHACHA Non-Admin Reason: IV Running Labs 03/23/24 06:44 03/23/24 06:44 Labs: Laboratory Results - last 24 hr 03/22/24 03/22/24 03/23/24 16:06 20:58 06:44 MCV 97.4 MCH 32.7 MCHC 33.6 RDW 17.0 H Plt Count 275 MPV 10.9 Immature Gran % (Auto) 0.6 H Neut % (Auto) 88.6 H Lymph % (Auto) 6.3 L Irion % (Auto) 4.3 Eos % (Auto) 0.0 Baso % (Auto) 0.2 Lymph # (Auto) 0.7 L Irion # (Auto) 0.5 Eos # (Auto) 0.0 Baso # (Auto) 0.0 Abs Immat Gran (auto) 0.07 H Absolute Neuts (auto) 9.9 H Absolute Nucleated RBC 0.000 Nucleated RBC % (auto) 0.0 Anion Gap 14 Estim Creat Clear Calc 50.7 Estimated GFR > 60 POC Glucose 151 H Random Glucose 152 H Calcium 8.7 Random Vancomycin 14.9 L 03/23/24 03/23/24 07:22 11:44 MCV MCH MCHC RDW Plt Count MPV Immature Gran % (Auto) Neut % (Auto) Lymph % (Auto) Irion % (Auto) Eos % (Auto) Baso % (Auto) Lymph # (Auto) Irion # (Auto) Eos # (Auto) Baso # (Auto) Abs Immat Gran (auto) Absolute Neuts (auto) Absolute Nucleated RBC Nucleated RBC % (auto) Anion Gap Estim Creat Clear Calc Estimated GFR POC Glucose 155 H 205 H Random Glucose Calcium Random Vancomycin Microbiology Microbiology Results: Microbiology 03/21/24 19:45 Gram Stain - Final Cerebrospinal Fluid CSF Examination - Final Fluid Description - Final CSF Culture - Preliminary No growth after 1 day 03/21/24 15:45 Blood Culture - Preliminary Blood - Venous No growth after 24 hours. 03/21/24 15:37 Blood Culture - Preliminary Blood - Venous No growth after 24 hours. Assessment and Plan (1) AMS (altered mental status): Status: Acute (2) Elevated troponin: Status: Acute Plan 84-year-old female with history of aortic stenosis, coronary artery disease, [id number] type 2 diabetes, hyperlipidemia, hypothyroidism, hypertension, painless jaundice, and recently diagnosed cholangiocarcinoma following with Dr. Clifton at the [facility] admitted for further management of acute metabolic encephalopathy Acute toxic metabolic encephalopathy Initial presentation with fever and altered mental status and therefore concern for meningitis. LP obtained in the emergency department. started on empiric therapy -per neurology less likely bacterial meningitis will continue empiric coverage/ IV ampicillin, 2 g ceftriaxone q.12h, vancomycin, acyclovir, and dexamethasone q.6h (initiated 03/21) for now and discuss with ID, can likely deescalate Viral meningoencephalitis panel negative but can not rule out viral meningitis per Neurology. CSF culture negative to date Elevated WBCs and CSF likely falsely elevated due to elevated RBCs, traumatic tap Brain MRI negative for acute stroke. Brain imaging with significant microvascular disease/global volume loss ID consult pending afebrile since 03/21 Blood cultures negative to date Elevated troponins echo with preserved ejection fraction, multiple areas of akinesis Seen by Cardiology, history of underlying coronary artery disease, but feels elevated cardiac enzymes related to demand rather than acute ischemic event. No indication for anticoagulation. Recommends conservative management Hypokalemia Replace orally Follow BMP Seu-yzppiwn-icbwtjfjy type 2 diabetes check Hba1c Hold metformin -lispro correctional scale CAD We will resume beta-savannah, Imdur see above Hypothyroidism Continue Synthroid tsh low, check free t4 Hypertension isosorbide, Coreg hold lisinopril for now, resume as indicated DVT prophylaxis- SCPs, Full code Patient requires ongoing hospitalization pending completion of workup for metabolic encephalopathy and ongoing specialty consultation Quality Stroke Does the patient have a stroke diagnosis?: No VTE Prior VTE?: No VTE Risk Level:: Medical - moderate - high VTE Device Contraindication: N/A - Device Ordered VTE Drug Contraindication: Treatment Not Indicated
[2024-03-23] MEDS: 0.9 % Sodium Chloride Flush 3 ML SYRINGE IVFLUSH ×2 (15:41→21:04)
--- NOTE | 2024-03-23 16:04 | P.CNID_ITS ---
History of Present Illness Data of Consult Service Date: 03/22/24 Requesting physician: Gerry Hoyt Primary Care Provider: Polo Villalta MD HPI Reason for consult: fever of unknown origin,encephalopathy She presents with fever about 101 and confusion. She has been speaking ,but doesnt make sense. She has no known travel or ill exposure. WBC is 38 and 55 protein CSF and negative CSF profile. MRI not showing any abnormalities. Review of Systems 2 Review of Systems: Yes Unobtainable due to mental condition PMFSH Past Medical History Medical History Cholangiocarcinoma Aortic stenosis CAD (coronary artery disease) Type 2 diabetes mellitus HLD (hyperlipidemia) HTN (hypertension) Family History Family history: reviewed and not pertinent Social History Social History Household Members: Spouse Housing: House Do you presently have visiting nurse or other home services: No Unable to assess alcohol history related to: Unable to respond and Unknown Patient Tobacco Use Status: Never used Tobacco service: No Meds Allergies Allergy/AdvReac Type Severity Reaction Status Date / Time No Known Allergies Allergy Verified 03/21/24 14:49 Active Medications: Current Medications Acetaminophen (Acetaminophen 325 Mg Tablet) 650 mg PO Q6H PRN PRN Reason: Pain, Mild (Pain Scale 1-3), fever or headache Albuterol Sulfate (Albuterol Sulfate 90 Mcg 8 Gm Inhaler) 2 puff INHALE Q4H PRN PRN Reason: Shortness Of Breath Or Wheezing Atorvastatin Calcium (Atorvastatin Calcium 80 Mg Tablet) 80 mg PO DAILY [facility] Last Admin: 03/23/24 07:50 Dose: 80 mg Calcium Carbonate (Calcium Carbonate 750 Mg Tab.Chew) 750 mg PO Q4H PRN PRN Reason: Heartburn Carvedilol (Carvedilol 12.5 Mg Tablet) 12.5 mg PO BID [facility]; Protocol Dexamethasone Sodium Phosphate (Dexamethasone Sod Phosphate 10 Mg/Ml Vial) 10 mg IVPUSH Q6H [facility] Last Admin: 03/23/24 11:55 Dose: 10 mg Glucose (Glucose Gel 15 Gm Gel..Gram.) 15 gm PO Q15M PRN; Protocol PRN Reason: per Hypoglycemia Standing Ord. Ampicillin Sodium 2 gm/ Sodium (Chloride) 100 mls @ 200 mls/hr IV Q4H [facility] Last Admin: 03/23/24 15:37 Dose: 200 mls/hr Ceftriaxone Sodium 2 gm/ (Sodium Chloride) 50 mls @ 100 mls/hr IV Q12H [facility] Last Admin: 03/23/24 15:41 Dose: 100 mls/hr Vancomycin HCl 750 mg/ Sodium (Chloride) 265 mls @ 265 mls/hr IV Q12H [facility] Last Infusion: 03/23/24 06:45 Dose: Infused Dextrose (D10) 250 mls @ 750 mls/hr IV Q15M PRN; Protocol PRN Reason: per Hypoglycemia Standing Ord. Acyclovir Sodium 600 mg/ (Dextrose) 112 mls @ 110.014 mls/hr IV Q8H [facility] Last Infusion: 03/23/24 10:20 Dose: Infused Insulin Human Lispro (Insulin Lispro 100 Unit/Ml 3 Ml Vial) 0 unit SUBCUT QIDACHS [facility]; Protocol Last Admin: 03/23/24 12:08 Dose: 4 unit Isosorbide Mononitrate (Isosorbide Mononitrate 30 Mg Tab.Er.24h) 90 mg PO DAILY [facility]; Protocol Levothyroxine Sodium (Levothyroxine Sodium 88 Mcg Tablet) 88 mcg PO DAILY@0600 [facility] Magnesium Hydroxide (Milk Of Magnesia 30 Ml Oral.Susp) 30 ml PO DAILY PRN PRN Reason: Constipation Magnesium Oxide (Magnesium Oxide 400 Mg Tablet) 400 mg PO DAILY [facility] Melatonin (Melatonin 3 Mg Tablet) 6 mg PO BEDTIME PRN PRN Reason: Insomnia Pharmacy Consult (Consult Rx Vancomycin Dosing) 1 each MISCELLANE DAILY PRN PRN Reason: Consult order Sodium Chloride (0.9 % Sodium Chloride Flush 3 Ml Syringe) 3 ml IVFLUSH QSHIFT [facility] Last Admin: 03/23/24 15:41 Dose: 3 ml Vitamin D (Cholecalciferol (Vitamin D3) 25 Mcg Tablet) 50 mcg PO BID [facility] Home Medications ?Medication ?Instructions ?Recorded ?Confirmed ?Last Taken ?Type albuterol sulfate 90 mcg/actuation 2 puff inhalation Q4-6H PRN 01/23/24 03/21/24 03/21/24 06:00 History aerosol inhaler Shortness Of Breath Or Wheezing atorvastatin 40 mg tablet 40 mg PO BEDTIME 01/23/24 03/21/24 03/20/24 History carvedilol 12.5 mg tablet 12.5 mg PO BID 01/23/24 03/21/24 03/21/24 06:00 History cholecalciferol (vitamin D3) 50 50 mcg PO BID 01/23/24 03/21/24 03/21/24 06:00 History mcg (2,000 unit) capsule isosorbide mononitrate 60 mg 90 mg PO DAILY 01/23/24 03/21/24 03/21/24 06:00 History tablet,extended release 24 hr levothyroxine 88 mcg tablet 88 mcg PO DAILY 01/23/24 03/21/24 03/21/24 06:00 History (Synthroid) lisinopril 10 mg tablet 10 mg PO DAILY 01/23/24 03/21/24 03/21/24 06:00 History magnesium oxide 500 mg PO DAILY 01/23/24 03/21/24 03/21/24 06:00 History metformin 500 mg tablet 500 mg PO DAILY 01/23/24 03/21/24 03/21/24 06:00 History nitroglycerin 0.4 mg sublingual 0.4 mg sublingual Q5M PRN Chest 01/23/24 03/21/24 03/21/24 06:00 History tablet Pain Physical Exam 2 Vital Signs: Vital Signs: Last Vital Signs Temp 97.3 F 03/23/24 12:00 Pulse 81 03/23/24 12:00 Resp 18 03/23/24 12:00 BP 143/81 H 03/23/24 12:00 Pulse Ox 96 03/23/24 12:00 O2 Del Method Room Air 03/23/24 12:00 O2 Flow Rate 2 03/23/24 08:00 BMI result Body Mass Index 29.1 Psych: Other: confusion Results Labs 03/23/24 06:44 03/23/24 06:44 Labs: Short CBC 03/23/24 Range/Units 06:44 WBC 11.2 H (4.8-10.8) X10*3/uL Hgb 10.0 L (12.0-16.0) g/dl Hct 29.8 L (37.0-47.0) % Plt Count 275 (160-400) X10*3/uL BMP 03/23/24 06:44 Sodium 141 Potassium 3.1 L Chloride 104 Carbon Dioxide 26 BUN 17 H Creatinine 0.69 Calcium 8.7 Microbiology Microbiology Results: Microbiology 03/21/24 19:45 Cerebrospinal Fluid Gram Stain - Final 03/21/24 19:45 Cerebrospinal Fluid CSF Examination - Final 03/21/24 19:45 Cerebrospinal Fluid Fluid Description - Final 03/21/24 19:45 Cerebrospinal Fluid CSF Culture - Preliminary No growth after 1 day 03/21/24 15:45 Blood - Venous Blood Culture - Preliminary No growth after 24 hours. 03/21/24 15:37 Blood - Venous Blood Culture - Preliminary No growth after 24 hours. Assessment and Plan (1) Type 2 diabetes mellitus: Status: Acute (2) AMS (altered mental status): Status: Acute (3) Encephalopathy: Status: Acute Plan She has encephalopathy,metabolic with no infectious cause seen that we can treat. It is possible vasculitis,West Nile or Eastern Equine encephalitis. Doubt CJD. There are no changes in CSF or MRI c/w HSV encephalitis or bacterial meningitis. Would stop antibiotics, Would stop antivirals. Would stop steroids. Symptomatic management. Follow with Neurology.
[2024-03-23 16:17] LABS: Estimated Average Glucose 108 mg/dL; Hemoglobin A1c % 5.4 % (<6.0)
[2024-03-23 16:34] LABS: Free T4 (Free Thyroxine) 0.97 ng/dL (0.71-1.85)
[2024-03-23 16:36] LABS: Glucose, Whole Blood 183 mg/dL (60-115)
[2024-03-23 16:47] LABS: Vancomycin Random 20.3 mcg/mL (15-20)
--- NOTE | 2024-03-23 19:42 | PC.NURSE ---
Very confused and agitated, hitting staff, several attempts to get out of bed.Dr Cabrales informed.
[2024-03-23] MEDS: LORazepam 2 MG/ML VIAL IVPUSH (19:48)
--- NOTE | 2024-03-23 19:52 | PC.NURSE ---
Ativan given as ordered. Sitter at bedside. Close monitoring.Safety maintain.
[2024-03-23 20:37] LABS: Glucose, Whole Blood 172 mg/dL (60-115)
[2024-03-23] MEDS: Melatonin 3 MG TABLET 6 MG PO (21:03)
[2024-03-23] MEDS: carvediloL 12.5 MG TABLET PO (21:03)
[2024-03-23] MEDS: Cholecalciferol (Vitamin D3) 25 MCG TABLET 50 MCG PO (21:03)
--- NOTE | 2024-03-23 22:31 | PC.NURSE ---
No agitation since Ativan administered.Sleeping at the moment. Bed alarm active. camera in room.Close monitoring.
--- NOTE | 2024-03-23 23:37 | PC.NURSE ---
Patient care transfer to [facility] charge nurse.Report given.
[2024-03-24] MEDS: OLANZapine 10 MG VIAL IM (00:02)
[2024-03-24 03:34] VITALS: BP 126/64; PULSE 59; RESP 20; TEMP 36.1; O2SAT 95
[2024-03-24 08:00] VITALS: BP 160/90; PULSE 72; RESP 17; TEMP 36.2; O2SAT 94
[2024-03-24 08:05] LABS: Glucose, Whole Blood 147 mg/dL (60-115)
[2024-03-24] MEDS: 0.9 % Sodium Chloride Flush 3 ML SYRINGE IVFLUSH ×3 (08:43→22:40)
[2024-03-24 10:55] LABS: Anion Gap 12 (12-20); Blood Urea Nitrogen 24 mg/dL (9-16); Calcium 8.6 mg/dL (8.4-10.2); Carbon Dioxide 27 mmol/L (22-29); Chloride 105 mmol/L (96-108); Creatinine Clr Calc Pharmacy 52.2; Estimated Glomerular Filt Rate > 60; Glucose Random 144 mg/dL (60-115); Potassium 3.5 mmol/L (3.3-5.1); Sodium 140 mmol/L (135-145)
[2024-03-24 10:59] VITALS: BP 170/90; PULSE 68; RESP 17; TEMP 36.4; O2SAT 97
--- NOTE | 2024-03-24 11:07 | P.PNIM_ITS ---
Subjective Subjective Date of Service: 03/24/24 Interval History: seen and examined this morning follow up for AMS Agitated overnight this morning she is sleepy but arousable, remains confused. Unable to obtain review of systems Neurologic Neurologic: Reports confusion Psychiatric Psychiatric: Reports confusion Physical Exam 2 Vital Signs: Vital Signs: Last Vital Signs Temp 97.2 F 03/24/24 08:00 Pulse 72 03/24/24 08:00 Resp 17 03/24/24 08:00 BP 160/90 H 03/24/24 08:00 Pulse Ox 94 03/24/24 08:00 O2 Del Method Room Air 03/24/24 08:00 O2 Flow Rate 2 03/23/24 08:00 BMI result Body Mass Index 29.1 Const: General: cooperative, no acute distress, alert, awake and confusion Nutritional Appearance: thin Orientation/consciousness: oriented to person and confusion Eyes: Pupils: Equal, round and reactive pupils present Resp: Effort & Inspection: normal respiratory effort and able to speak in complete sentences Cardio: Rate: regular rate GI: Inspection: No distended Palpation (GI): Soft to palpation and nontender Neuro: Other: Grossly nonfocal General: oriented to person, moves all extremities and confusion Cranial nerves: Yes Equal, round and reactive pupils present Extrem: General: Yes no pedal edema Objective Data Active Medications Acetaminophen (Acetaminophen 325 Mg Tablet) 650 mg PO Q6H PRN PRN Reason: Pain, Mild (Pain Scale 1-3), fever or headache Albuterol Sulfate (Albuterol Sulfate 90 Mcg 8 Gm Inhaler) 2 puff INHALE Q4H PRN PRN Reason: Shortness Of Breath Or Wheezing Atorvastatin Calcium (Atorvastatin Calcium 80 Mg Tablet) 80 mg PO DAILY [facility] Last Admin: 03/23/24 07:50 Dose: 80 mg Documented By: CHACHA Calcium Carbonate (Calcium Carbonate 750 Mg Tab.Chew) 750 mg PO Q4H PRN PRN Reason: Heartburn Carvedilol (Carvedilol 12.5 Mg Tablet) 12.5 mg PO BID [facility]; Protocol Last Admin: 03/23/24 21:03 Dose: 12.5 mg Documented By: GREGG Glucose (Glucose Gel 15 Gm Gel..Gram.) 15 gm PO Q15M PRN; Protocol PRN Reason: per Hypoglycemia Standing Ord. Dextrose (D10) 250 mls @ 750 mls/hr IV Q15M PRN; Protocol PRN Reason: per Hypoglycemia Standing Ord. Insulin Human Lispro (Insulin Lispro 100 Unit/Ml 3 Ml Vial) 0 unit SUBCUT QIDACHS [facility]; Protocol Last Admin: 03/24/24 08:06 Dose: Not Given Documented By: LUIS Non-Admin Reason: No Insulin Coverage Isosorbide Mononitrate (Isosorbide Mononitrate 30 Mg Tab.Er.24h) 90 mg PO DAILY [facility]; Protocol Levothyroxine Sodium (Levothyroxine Sodium 88 Mcg Tablet) 88 mcg PO DAILY@0600 [facility] Last Admin: 03/24/24 07:13 Dose: Not Given Documented By: EDE Non-Admin Reason: Patient Refused Magnesium Hydroxide (Milk Of Magnesia 30 Ml Oral.Susp) 30 ml PO DAILY PRN PRN Reason: Constipation Magnesium Oxide (Magnesium Oxide 400 Mg Tablet) 400 mg PO DAILY [facility] Melatonin (Melatonin 3 Mg Tablet) 6 mg PO BEDTIME PRN PRN Reason: Insomnia Last Admin: 03/23/24 21:03 Dose: 6 mg Documented By: GREGG Olanzapine (Olanzapine 2.5 Mg Tablet) 2.5 mg PO DAILY@1800 [facility] Sodium Chloride (0.9 % Sodium Chloride Flush 3 Ml Syringe) 3 ml IVFLUSH QSHIFT [facility] Last Admin: 03/24/24 08:43 Dose: 3 ml Documented By: LUIS Vitamin D (Cholecalciferol (Vitamin D3) 25 Mcg Tablet) 50 mcg PO BID [facility] Last Admin: 03/23/24 21:03 Dose: 50 mcg Documented By: GREGG Labs 03/23/24 06:44 03/24/24 10:16 Labs: Laboratory Results - last 24 hr 03/23/24 03/23/24 03/23/24 06:44 11:44 16:07 Anion Gap Estim Creat Clear Calc Estimated GFR POC Glucose 205 H Random Glucose Estimat Average Glucose 108 Hemoglobin A1c % 5.4 Calcium Free T4 0.97 Random Vancomycin 20.3 H 03/23/24 03/23/24 03/24/24 16:33 20:30 07:57 Anion Gap Estim Creat Clear Calc Estimated GFR POC Glucose 183 H 172 H 147 H Random Glucose Estimat Average Glucose Hemoglobin A1c % Calcium Free T4 Random Vancomycin 03/24/24 10:16 Anion Gap 12 Estim Creat Clear Calc 52.2 Estimated GFR > 60 POC Glucose Random Glucose 144 H Estimat Average Glucose Hemoglobin A1c % Calcium 8.6 Free T4 Random Vancomycin Microbiology Microbiology Results: Microbiology 03/21/24 19:45 Gram Stain - Final Cerebrospinal Fluid CSF Examination - Final Fluid Description - Final CSF Culture - Preliminary No growth after 2 days 03/21/24 15:45 Blood Culture - Preliminary Blood - Venous No growth after 48 hours. 03/21/24 15:37 Blood Culture - Preliminary Blood - Venous No growth after 48 hours. Assessment and Plan (1) AMS (altered mental status): Status: Acute (2) Encephalopathy: Status: Acute Plan 84-year-old female with history of aortic stenosis, coronary artery disease, uzb-rrdfttz-[id number] type 2 diabetes, hyperlipidemia, hypothyroidism, hypertension, painless jaundice, and recently diagnosed cholangiocarcinoma following with Dr. Clifton at the [facility] admitted for further management of acute metabolic encephalopathy Acute metabolic encephalopathy Initial presentation with fever and altered mental status and therefore concern for meningitis. LP obtained in the emergency department. started on empiric therapy with IV ampicillin,ceftriaxone, vancomycin, acyclovir, and dexamethasone -all discontinued. not c/w bacterial meningitis. Elevated WBCs in CSF likely falsely elevated due to elevated RBCs, traumatic tap Viral meningoencephalitis panel negative. Send out pending for West Nile, Eastern equine encephalits CSF culture negative to date Brain MRI negative for acute stroke. Brain imaging with significant microvascular disease/global volume loss - possible component of vascular dementia ID consult - no treatable infectious cause, rec symptomatic management afebrile since 03/21 Blood cultures negative to date agitated overnight, unclear if r/t hospital dilirium on background of likely cognitive impairment vs r/t above - will trial low dose po zyprexa at bedtime b12, folate wnl Elevated troponins echo with preserved ejection fraction, multiple areas of akinesis Seen by Cardiology, history of underlying coronary artery disease, but feels elevated cardiac enzymes related to demand rather than acute ischemic event. No indication for anticoagulation. Recommends conservative management Hypokalemia resolved with replacement Kki-xvgclgm-xhapzvueb type 2 diabetes Hba1c 5.4 Hold metformin lispro correctional scale, follow POCs CAD will resume beta-savannah, Imdur Hypothyroidism Continue Synthroid tsh low, free t4 normal Hypertension isosorbide, Coreg hold lisinopril for now, resume as indicated DVT prophylaxis- SCPs, Full code Patient requires ongoing hospitalization pending completion of workup for metabolic encephalopathy and ongoing specialty consultation Quality Stroke Does the patient have a stroke diagnosis?: No VTE Prior VTE?: No VTE Risk Level:: Medical - moderate - high VTE Device Contraindication: N/A - Device Ordered VTE Drug Contraindication: Treatment Not Indicated
[2024-03-24 11:51] LABS: Glucose, Whole Blood 138 mg/dL (60-115)
[2024-03-24 11:56] VITALS: BP 170/90; PULSE 68; O2SAT 97
--- NOTE | 2024-03-24 13:27 | MHC.SL.SWA ---
Speech Pathologist Impression:Risk of aspiration Risk of Aspiration Due to: Weak Cough Weak Voice Dysphasia Diet Status: Recommend continue on Chopped/Advanced (NDD3) solids and Thin liquids, pills whole with liquid. Liquid Consistency and Strategies for Safe Swallow: Liquid Intake Recommendation: Thin Liquid Intake Strategies: Small Sips Solid Food Consistency: Dietary Recommendations: Chopped/Advanced (NDD3) Additional Modifications to Solid Foods: Assure that patient had dentures present during meals, assist at onset of meal to set up tray, assure all items are opened and accessible and patient is oriented to meal. Place towel on patient in case of any spills/drops during meal. With this initial assistance, patient can be independent with meal. MD/RD and RN notified of recommendations. Oral Medication Intake: Whole with Liquid Please contact the pharmacy regarding appropriate crushable or liquid drug formulations that are available whenever modified delivery is recommended. Compensatory Strategies and Precautions to be Taken for Safe Swallow: Sitting Upright (90 deg) Liquids from Cup Small Bites and Sips Supervision While Eating and Drinking for Safe Swallow: Intermittent Supervision Foods to Avoid: Tough, difficult to chew solids. Swallowing Recommended Treatments: Compens. Strategy Educat. Recommendation for Speech: Inpatient Speech Therapy Temper [employer] Clinican/Clinical Fellow: No Supervisory Statement: I have reviewed and agree with the student/clinical fellow's documentation: N/A Speech Language Pathologist: Lucia Loaiza M.A., CCC-RELIEF WORKER
--- NOTE | 2024-03-24 13:42 | MHC.CM.PN ---
Per rounds, pt is not ready for DC. She requires work up for metabolic encephalopathy. CM to follow and assist with DC plan.
[2024-03-24] MEDS: Lactated Ringers 1,000 ML 75 ML IVCONT (15:22)
[2024-03-24 16:00] VITALS: BP 160/70; PULSE 76; RESP 17; TEMP 36.3; O2SAT 99
[2024-03-24 17:10] LABS: Glucose, Whole Blood 162 mg/dL (60-115)
[2024-03-24] MEDS: Insulin Lispro 100 UNIT/ML 3 ML VIAL SUBCUT (17:42)
[2024-03-24 20:00] VITALS: BP 142/77; PULSE 75; RESP 18; TEMP 36.3; O2SAT 95
[2024-03-24 20:56] LABS: Glucose, Whole Blood 108 mg/dL (60-115)
[2024-03-25] VITALS: BP 136/70; PULSE 70; RESP 18; TEMP 36.2; O2SAT 94
[2024-03-25 03:58] VITALS: BP 172/80; PULSE 67; RESP 18; TEMP 36.2; O2SAT 95
[2024-03-25 07:33] LABS: Glucose, Whole Blood 89 mg/dL (60-115)
[2024-03-25 08:00] VITALS: BP 172/76; PULSE 71; RESP 18; TEMP 37.4; O2SAT 96
[2024-03-25 08:22] LABS: Hematocrit 30.4 % (37.0-47.0); Hemoglobin 9.9 g/dl (12.0-16.0); Mean Corpuscular HGB Conc 32.6 g/dl (31.0-35.0); Mean Corpuscular Hemoglobin 31.9 pg (27.0-33.0); Mean Corpuscular Volume 98.1 fL (80.0-98.0); Mean Platelet Volume 10.5 fL (9.4-12.3); Platelet Count 201 X10*3/uL (160-400); Red Cell Distribution Width 16.8 % (11.0-16.0); White Blood Count 5.3 X10*3/uL (4.8-10.8)
[2024-03-25 08:27] LABS: Ammonia 33 umol/L (13-55)
[2024-03-25 09:08] LABS: Anion Gap 10 (12-20); Blood Urea Nitrogen 17 mg/dL (9-16); Calcium 8.3 mg/dL (8.4-10.2); Carbon Dioxide 29 mmol/L (22-29); Chloride 105 mmol/L (96-108); Creatinine Clr Calc Pharmacy 54.7; Estimated Glomerular Filt Rate > 60; Glucose Random 87 mg/dL (60-115); Potassium 2.9 mmol/L (3.3-5.1); Sodium 141 mmol/L (135-145)
[2024-03-25] MEDS: Atorvastatin Calcium 80 MG TABLET PO (09:33)
[2024-03-25] MEDS: Cholecalciferol (Vitamin D3) 25 MCG TABLET 50 MCG PO ×2 (09:33→20:12)
[2024-03-25] MEDS: Magnesium Oxide 400 MG TABLET PO (09:33)
[2024-03-25] MEDS: Isosorbide Mononitrate 30 MG TAB.ER.24H 90 MG PO (09:33)
[2024-03-25] MEDS: carvediloL 12.5 MG TABLET PO ×2 (09:33→20:12)
[2024-03-25] MEDS: Potassium Chloride Packet 20 MEQ PACKET 40 MEQ PO ×2 (09:34→20:12)
[2024-03-25] MEDS: 0.9 % Sodium Chloride Flush 3 ML SYRINGE IVFLUSH ×3 (09:34→20:13)
--- NOTE | 2024-03-25 11:10 | MHC.CM.PN ---
CM MET WITH PT AND FAMILY TO DISCUSS DC PLANS THEY REPORT THEY WOULD PREFER PT DC TO [facility] SHE WAS THERE ABOUT A MONTH AGO AND HAD A GOOD EXPERIENCE REFERRAL PLACED
[2024-03-25 12:00] VITALS: BP 153/74; PULSE 67; RESP 18; TEMP 37.2; O2SAT 98
[2024-03-25] MEDS: Insulin Lispro 100 UNIT/ML 3 ML VIAL SUBCUT ×2 (12:12→17:26)
--- NOTE | 2024-03-25 12:31 | HO.PM.IMPN ---
Subjective Subjective Date of Service: 03/25/24 Interval History: Seen and examined this morning Follow-up for encephalopathy No issues overnight Patient is awake, alert, oriented, much improved. Afebrile Review of Systems Review of Systems: Yes all other systems are reviewed and are negative Constitutional Constitutional: Denies chills and Denies fever(s) Cardiovascular Cardiovascular: Denies chest pain and Denies dyspnea Respiratory Respiratory: Denies dyspnea Gastrointestinal Gastrointestinal: Denies abdominal pain Physical Exam Vital Signs: Vital Signs: Last Vital Signs Temp 98.9 F 03/25/24 12:00 Pulse 67 03/25/24 12:00 Resp 18 03/25/24 12:00 BP 153/74 H 03/25/24 12:00 Pulse Ox 98 03/25/24 12:00 O2 Del Method Room Air 03/25/24 12:00 O2 Flow Rate 2 03/23/24 08:00 BMI result Body Mass Index 29.1 Const: General: cooperative, no acute distress, alert and awake Nutritional Appearance: thin Orientation/consciousness: oriented to person and oriented to place Eyes: Pupils: Equal, round and reactive pupils present Resp: Effort & Inspection: normal respiratory effort and able to speak in complete sentences Cardio: Rate: regular rate GI: Inspection: No distended Palpation (GI): Soft to palpation and nontender Neuro: General: oriented to person, oriented to place and moves all extremities Cranial nerves: Yes CN's II-XII intact bilaterally, Yes Equal, round and reactive pupils present and Yes Bilaterally intact EOM present Extrem: General: Yes no pedal edema Objective Data Active Medications Acetaminophen (Acetaminophen 325 Mg Tablet) 650 mg PO Q6H PRN PRN Reason: Pain, Mild (Pain Scale 1-3), fever or headache Albuterol Sulfate (Albuterol Sulfate 90 Mcg 8 Gm Inhaler) 2 puff INHALE Q4H PRN PRN Reason: Shortness Of Breath Or Wheezing Atorvastatin Calcium (Atorvastatin Calcium 80 Mg Tablet) 80 mg PO DAILY [facility] Last Admin: 03/25/24 09:33 Dose: 80 mg Documented By: DELANO Calcium Carbonate (Calcium Carbonate 750 Mg Tab.Chew) 750 mg PO Q4H PRN PRN Reason: Heartburn Carvedilol (Carvedilol 12.5 Mg Tablet) 12.5 mg PO BID [facility]; Protocol Last Admin: 03/25/24 09:33 Dose: 12.5 mg Documented By: DELANO Glucose (Glucose Gel 15 Gm Gel..Gram.) 15 gm PO Q15M PRN; Protocol PRN Reason: per Hypoglycemia Standing Ord. Dextrose (D10) 250 mls @ 750 mls/hr IV Q15M PRN; Protocol PRN Reason: per Hypoglycemia Standing Ord. Insulin Human Lispro (Insulin Lispro 100 Unit/Ml 3 Ml Vial) 0 unit SUBCUT QIDACHS [facility]; Protocol Last Admin: 03/25/24 12:12 Dose: 2 unit Documented By: PODMORP Isosorbide Mononitrate (Isosorbide Mononitrate 30 Mg Tab.Er.24h) 90 mg PO DAILY [facility]; Protocol Last Admin: 03/25/24 09:33 Dose: 90 mg Documented By: DELANO Levothyroxine Sodium (Levothyroxine Sodium 88 Mcg Tablet) 88 mcg PO DAILY@0600 [facility] Last Admin: 03/25/24 05:43 Dose: Not Given Documented By: CAROL Non-Admin Reason: pt lethargic Magnesium Hydroxide (Milk Of Magnesia 30 Ml Oral.Susp) 30 ml PO DAILY PRN PRN Reason: Constipation Magnesium Oxide (Magnesium Oxide 400 Mg Tablet) 400 mg PO DAILY [facility] Last Admin: 03/25/24 09:33 Dose: 400 mg Documented By: DELANO Melatonin (Melatonin 3 Mg Tablet) 6 mg PO BEDTIME PRN PRN Reason: Insomnia Last Admin: 03/23/24 21:03 Dose: 6 mg Documented By: GREGG Olanzapine (Olanzapine 2.5 Mg Tablet) 2.5 mg PO DAILY@1800 [facility] Last Admin: 03/24/24 18:03 Dose: Not Given Documented By: CASSANDRA Non-Admin Reason: per md orders Potassium Chloride (Potassium Chloride Packet 20 Meq Packet) 40 meq PO BID [facility] Stop: 03/25/24 21:01 Last Admin: 03/25/24 09:34 Dose: 40 meq Documented By: DELANO Sodium Chloride (0.9 % Sodium Chloride Flush 3 Ml Syringe) 3 ml IVFLUSH QSHIFT [facility] Last Admin: 03/25/24 09:34 Dose: 3 ml Documented By: DELANO Vitamin D (Cholecalciferol (Vitamin D3) 25 Mcg Tablet) 50 mcg PO BID [facility] Last Admin: 03/25/24 09:33 Dose: 50 mcg Documented By: DELANO Labs 03/25/24 07:45 03/25/24 07:45 Labs: Laboratory Results - last 24 hr 03/24/24 03/24/24 03/25/24 17:01 20:53 07:18 MCV MCH MCHC RDW Plt Count MPV Absolute Nucleated RBC Nucleated RBC % (auto) Anion Gap Estim Creat Clear Calc Estimated GFR POC Glucose 162 H 108 89 Random Glucose Calcium Ammonia 03/25/24 07:45 MCV 98.1 H MCH 31.9 MCHC 32.6 RDW 16.8 H Plt Count 201 D MPV 10.5 Absolute Nucleated RBC 0.000 Nucleated RBC % (auto) 0.0 Anion Gap 10 L Estim Creat Clear Calc 54.7 Estimated GFR > 60 POC Glucose Random Glucose 87 Calcium 8.3 L Ammonia 33 Microbiology Microbiology Results: Microbiology 03/21/24 19:45 Gram Stain - Final Cerebrospinal Fluid CSF Examination - Final Fluid Description - Final CSF Culture - Final No growth after 3 days. Assessment and Plan (1) Encephalopathy: Status: Acute Plan 84-year-old female with history of aortic stenosis, coronary artery disease, key-udijeoo-rfqgtmzhu type 2 diabetes, hyperlipidemia, hypothyroidism, hypertension, painless jaundice, and recently diagnosed cholangiocarcinoma following with Dr. Clifton at the [facility] admitted for further management of acute metabolic encephalopathy Acute metabolic encephalopathy Initial presentation with fever and altered mental status and therefore concern for meningitis and LP obtained in the emergency department. treated empirically but all discontinued. not c/w bacterial meningitis. Elevated WBCs in CSF likely falsely elevated due to elevated RBCs, traumatic tap Viral meningoencephalitis panel negative. Send out pending for West Nile, Eastern equine encephalits CSF culture negative to date Brain MRI negative for acute stroke. Brain imaging with significant microvascular disease/global volume loss - possible component of vascular dementia ID consult - no treatable infectious cause, rec symptomatic management afebrile since 03/21 Blood cultures negative to date b12, folate wnl Elevated troponins echo with preserved ejection fraction, multiple areas of akinesis Seen by Cardiology, history of underlying coronary artery disease, but feels elevated cardiac enzymes related to demand rather than acute ischemic event. No indication for anticoagulation. Recommends conservative management Hypokalemia due to decreased po intake replace and follow Daa-xmitiyl-qvvmejoke type 2 diabetes Hba1c 5.4 Hold metformin lispro correctional scale, follow POCs CAD will resume beta-savannah, Imdur Hypothyroidism Continue Synthroid tsh slightly low, free t4 normal In light of acute illness we will hold off edges patient follows Hypertension isosorbide, Coreg hold lisinopril for now, resume as indicated DVT prophylaxis- SCPs, Bjihanigfpn-tlhzf-uumc rehab Full code Patient requires ongoing hospitalization pending completion of workup for metabolic encephalopathy and ongoing specialty consultation Quality Stroke Does the patient have a stroke diagnosis?: No VTE Prior VTE?: No VTE Risk Level:: Medical - moderate - high VTE Device Contraindication: N/A - Device Ordered VTE Drug Contraindication: Treatment Not Indicated
[2024-03-25 12:51] LABS: Glucose, Whole Blood 161 mg/dL (60-115)
[2024-03-25 16:00] VITALS: BP 183/84; PULSE 79; RESP 18; TEMP 36.8; O2SAT 93
[2024-03-25 16:06] LABS: Glucose, Whole Blood 192 mg/dL (60-115)
[2024-03-25 20:00] VITALS: BP 146/84; PULSE 79; RESP 18; TEMP 37.7; O2SAT 94
[2024-03-25 20:44] LABS: Glucose, Whole Blood 146 mg/dL (60-115)
[2024-03-25 20:48] LABS: Glucose, Whole Blood 126 mg/dL (60-115)
[2024-03-26] VITALS (7 sets, daily range): BP systolic 108–167; BP diastolic 51–75; PULSE 70–77; RESP 16–18; TEMP 36.7–37.7; O2SAT 96–98
[2024-03-26] MEDS: Levothyroxine Sodium 88 MCG TABLET PO (04:37)
[2024-03-26 07:27] LABS: Glucose, Whole Blood 100 mg/dL (60-115)
[2024-03-26 07:41] LABS: Anion Gap 11 (12-20); Blood Urea Nitrogen 16 mg/dL (9-16); Carbon Dioxide 26 mmol/L (22-29); Chloride 105 mmol/L (96-108); Creatinine Clr Calc Pharmacy 59.3; Estimated Glomerular Filt Rate > 60; Glucose Random 110 mg/dL (60-115); Sodium 138 mmol/L (135-145)
[2024-03-26 07:53] LABS: Potassium 3.7 mmol/L (3.3-5.1)
[2024-03-26] MEDS: Isosorbide Mononitrate 30 MG TAB.ER.24H 90 MG PO (08:55)
[2024-03-26] MEDS: Magnesium Oxide 400 MG TABLET PO (08:55)
[2024-03-26] MEDS: carvediloL 12.5 MG TABLET PO ×2 (08:55→20:43)
[2024-03-26] MEDS: Cholecalciferol (Vitamin D3) 25 MCG TABLET 50 MCG PO ×2 (08:55→20:44)
[2024-03-26] MEDS: Atorvastatin Calcium 80 MG TABLET PO (08:55)
[2024-03-26] MEDS: 0.9 % Sodium Chloride Flush 3 ML SYRINGE IVFLUSH ×3 (09:13→20:44)
[2024-03-26 11:01] LABS: Glucose, Whole Blood 163 mg/dL (60-115)
[2024-03-26] MEDS: Insulin Lispro 100 UNIT/ML 3 ML VIAL SUBCUT (11:23)
--- NOTE | 2024-03-26 12:12 | HO.PM.IMPN ---
Subjective Subjective Date of Service: 03/26/24 Interval History: Seen and examined this morning Follow-up for altered mental status Awake and alert this morning unable to pee overnight no complaints this am Review of Systems Denies chest pain Denies shortness of breath Denies nausea vomiting diarrhea Denies fever chills Review of Systems: Yes all other systems are reviewed and are negative Constitutional Constitutional: Denies chills and Denies fever(s) Cardiovascular Cardiovascular: Denies chest pain, Denies palpitations and Denies dyspnea Respiratory Respiratory: Denies cough and Denies dyspnea Gastrointestinal Gastrointestinal: Denies abdominal pain Endocrine Endocrine: Denies palpitations Physical Exam Vital Signs: Vital Signs: Last Vital Signs Temp 98.4 F 03/26/24 11:45 Pulse 70 03/26/24 11:45 Resp 18 03/26/24 11:45 BP 108/52 L 03/26/24 11:45 Pulse Ox 96 03/26/24 11:45 O2 Del Method Room Air 03/26/24 11:45 O2 Flow Rate 2 03/23/24 08:00 BMI result Body Mass Index 29.1 Const: General: cooperative, no acute distress, alert and awake Nutritional Appearance: thin Orientation/consciousness: patient oriented x3 Eyes: Pupils: Equal, round and reactive pupils present Resp: Effort & Inspection: normal respiratory effort, able to speak in complete sentences, no respiratory distress and no use of accessory muscles Auscultation: clear to auscultation bilaterally Cardio: Rate: regular rate GI: Inspection: No distended Palpation (GI): Soft to palpation and nontender Neuro: Other: Grossly nonfocal General: patient oriented x3 and moves all extremities Cranial nerves: Yes CN's II-XII intact bilaterally, Yes Equal, round and reactive pupils present and Yes Bilaterally intact EOM present Extrem: General: Yes no pedal edema Objective Data Active Medications Acetaminophen (Acetaminophen 325 Mg Tablet) 650 mg PO Q6H PRN PRN Reason: Pain, Mild (Pain Scale 1-3), fever or headache Albuterol Sulfate (Albuterol Sulfate 90 Mcg 8 Gm Inhaler) 2 puff INHALE Q4H PRN PRN Reason: Shortness Of Breath Or Wheezing Atorvastatin Calcium (Atorvastatin Calcium 80 Mg Tablet) 80 mg PO DAILY [facility] Last Admin: 03/26/24 08:55 Dose: 80 mg Documented By: CASSANDRA Calcium Carbonate (Calcium Carbonate 750 Mg Tab.Chew) 750 mg PO Q4H PRN PRN Reason: Heartburn Carvedilol (Carvedilol 12.5 Mg Tablet) 12.5 mg PO BID [facility]; Protocol Last Admin: 03/26/24 08:55 Dose: 12.5 mg Documented By: CASSANDRA Glucose (Glucose Gel 15 Gm Gel..Gram.) 15 gm PO Q15M PRN; Protocol PRN Reason: per Hypoglycemia Standing Ord. Dextrose (D10) 250 mls @ 750 mls/hr IV Q15M PRN; Protocol PRN Reason: per Hypoglycemia Standing Ord. Insulin Human Lispro (Insulin Lispro 100 Unit/Ml 3 Ml Vial) 0 unit SUBCUT QIDACHS [facility]; Protocol Last Admin: 03/26/24 11:23 Dose: 2 unit Documented By: CASSANDRA Isosorbide Mononitrate (Isosorbide Mononitrate 30 Mg Tab.Er.24h) 90 mg PO DAILY [facility]; Protocol Last Admin: 03/26/24 08:55 Dose: 90 mg Documented By: CASSANDRA Levothyroxine Sodium (Levothyroxine Sodium 88 Mcg Tablet) 88 mcg PO DAILY@0600 [facility] Last Admin: 03/26/24 04:37 Dose: 88 mcg Documented By: MT Magnesium Hydroxide (Milk Of Magnesia 30 Ml Oral.Susp) 30 ml PO DAILY PRN PRN Reason: Constipation Magnesium Oxide (Magnesium Oxide 400 Mg Tablet) 400 mg PO DAILY [facility] Last Admin: 03/26/24 08:55 Dose: 400 mg Documented By: CASSANDRA Melatonin (Melatonin 3 Mg Tablet) 6 mg PO BEDTIME PRN PRN Reason: Insomnia Last Admin: 03/23/24 21:03 Dose: 6 mg Documented By: GREGG Olanzapine (Olanzapine 2.5 Mg Tablet) 2.5 mg PO DAILY@1800 [facility] Last Admin: 03/24/24 18:03 Dose: Not Given Documented By: CASSANDRA Non-Admin Reason: per md orders Sodium Chloride (0.9 % Sodium Chloride Flush 3 Ml Syringe) 3 ml IVFLUSH QSHIFT [facility] Last Admin: 03/26/24 09:13 Dose: 3 ml Documented By: CASSANDRA Vitamin D (Cholecalciferol (Vitamin D3) 25 Mcg Tablet) 50 mcg PO BID [facility] Last Admin: 03/26/24 08:55 Dose: 50 mcg Documented By: CASSANDRA Labs 03/25/24 07:45 03/26/24 06:36 Labs: Laboratory Results - last 24 hr 03/25/24 03/25/24 03/25/24 11:30 16:00 20:11 Anion Gap Estim Creat Clear Calc Estimated GFR POC Glucose 161 H 192 H 146 H Random Glucose Calcium 03/25/24 03/26/24 03/26/24 20:34 06:36 07:13 Anion Gap 11 L Estim Creat Clear Calc 59.3 Estimated GFR > 60 POC Glucose 126 H 100 Random Glucose 110 Calcium 8.0 L 03/26/24 10:45 Anion Gap Estim Creat Clear Calc Estimated GFR POC Glucose 163 H Random Glucose Calcium Assessment and Plan (1) AMS (altered mental status): Status: Acute Plan 84-year-old female with history of aortic stenosis, coronary artery disease, fgf-dkzpbco-mxwacrtwi type 2 diabetes, hyperlipidemia, hypothyroidism, hypertension, painless jaundice, and recently diagnosed cholangiocarcinoma following with Dr. Clifton at the [facility] admitted for further management of acute metabolic encephalopathy Acute metabolic encephalopathy Initial presentation with fever and altered mental status and therefore concern for meningitis and LP obtained in the emergency department. treated empirically but discontinued. not c/w bacterial meningitis. Elevated WBCs in CSF likely falsely elevated due to elevated RBCs, traumatic tap Viral meningoencephalitis panel negative. Send out pending for West Nile, Eastern equine encephalits; csf for lyme pending CSF culture negative to date Brain MRI negative for acute stroke. Brain imaging with significant microvascular disease/global volume loss - possible component of vascular dementia ID consult - no treatable infectious cause, rec symptomatic management afebrile since 03/21 Blood cultures negative to date b12, folate wnl likely due to viral illness vs aseptic meningitis on background of probable mild vascular dementia mental status now improving, near baseline Elevated troponins echo with preserved ejection fraction, multiple areas of akinesis Seen by Cardiology, history of underlying coronary artery disease, but feels elevated cardiac enzymes related to demand rather than acute ischemic event. No indication for anticoagulation. Recommends conservative management Hypokalemia resolved with replacement Xas-ouziotz-hphthxqka type 2 diabetes Hba1c 5.4 stop metformin lispro correctional scale, follow POCs CAD will resume beta-savannah, Imdur Hypothyroidism Continue Synthroid tsh slightly low, free t4 normal In light of acute illness we will hold off on adjustment; outpatient follow up/repeat labs recommended Hypertension isosorbide, Coreg hold lisinopril for now, resume as indicated DVT prophylaxis- SCPs, heparin Kglmffitjyf-zlqye-zdhc rehab Full code Patient requires ongoing hospitalization pending completion of workup for metabolic encephalopathy, safe disposition Quality Stroke Does the patient have a stroke diagnosis?: No VTE Prior VTE?: No VTE Risk Level:: Medical - moderate - high VTE Device Contraindication: N/A - Device Ordered VTE Drug Contraindication: Treatment Not Indicated
[2024-03-26] MEDS: Heparin Sodium,Porcine 5,000 UNIT/ML VIAL 5000 UNIT SUBCUT (13:21)
[2024-03-26 16:23] LABS: Glucose, Whole Blood 138 mg/dL (60-115)
[2024-03-26 20:13] LABS: Glucose, Whole Blood 133 mg/dL (60-115)
[2024-03-26 23:49] LABS: Lyme IgG CSF Immunoblot NO BANDS DETECTED; Lyme IgM CSF Immunoblot NO BANDS DETECTED
[2024-03-27] VITALS: BP 169/73; PULSE 70; RESP 20; TEMP 36.5; O2SAT 97
[2024-03-27] MEDS: Heparin Sodium,Porcine 5,000 UNIT/ML VIAL 5000 UNIT SUBCUT ×2 (02:30→13:40)
[2024-03-27 03:48] VITALS: BP 137/87; PULSE 68; RESP 20; TEMP 36.2; O2SAT 95
[2024-03-27] MEDS: Levothyroxine Sodium 88 MCG TABLET PO (05:21)
[2024-03-27 07:18] VITALS: BP 176/84; PULSE 71; RESP 20; TEMP 36.6; O2SAT 96
[2024-03-27 07:30] LABS: Glucose, Whole Blood 107 mg/dL (60-115)
--- NOTE | 2024-03-27 08:06 | P.PNIM_ITS ---
Subjective Subjective Date of Service: 03/27/24 Physical Exam 2 Vital Signs: Vital Signs: Last Vital Signs Temp 97.8 F 03/27/24 07:18 Pulse 71 03/27/24 07:18 Resp 20 03/27/24 07:18 BP 176/84 H 03/27/24 07:18 Pulse Ox 96 03/27/24 07:18 O2 Del Method Room Air 03/27/24 07:18 O2 Flow Rate 2 03/23/24 08:00 BMI result Body Mass Index 29.1 Objective Data Active Medications Acetaminophen (Acetaminophen 325 Mg Tablet) 650 mg PO Q6H PRN PRN Reason: Pain, Mild (Pain Scale 1-3), fever or headache Albuterol Sulfate (Albuterol Sulfate 90 Mcg 8 Gm Inhaler) 2 puff INHALE Q4H PRN PRN Reason: Shortness Of Breath Or Wheezing Atorvastatin Calcium (Atorvastatin Calcium 80 Mg Tablet) 80 mg PO DAILY [facility] Last Admin: 03/26/24 08:55 Dose: 80 mg Documented By: CASSANDRA Calcium Carbonate (Calcium Carbonate 750 Mg Tab.Chew) 750 mg PO Q4H PRN PRN Reason: Heartburn Carvedilol (Carvedilol 12.5 Mg Tablet) 12.5 mg PO BID [facility]; Protocol Last Admin: 03/26/24 20:43 Dose: 12.5 mg Documented By: MT Glucose (Glucose Gel 15 Gm Gel..Gram.) 15 gm PO Q15M PRN; Protocol PRN Reason: per Hypoglycemia Standing Ord. Heparin Sodium (Porcine) (Heparin Sodium,Porcine 5,000 Unit/Ml Vial) 5,000 unit SUBCUT Q12H [facility] Last Admin: 03/27/24 02:30 Dose: 5,000 unit Documented By: MT Dextrose (D10) 250 mls @ 750 mls/hr IV Q15M PRN; Protocol PRN Reason: per Hypoglycemia Standing Ord. Insulin Human Lispro (Insulin Lispro 100 Unit/Ml 3 Ml Vial) 0 unit SUBCUT QIDACHS [facility]; Protocol Last Admin: 03/27/24 07:51 Dose: Not Given Documented By: JOSE Non-Admin Reason: No Insulin Coverage Isosorbide Mononitrate (Isosorbide Mononitrate 30 Mg Tab.Er.24h) 90 mg PO DAILY [facility]; Protocol Last Admin: 03/26/24 08:55 Dose: 90 mg Documented By: CASSANDRA Levothyroxine Sodium (Levothyroxine Sodium 88 Mcg Tablet) 88 mcg PO DAILY@0600 [facility] Last Admin: 03/27/24 05:21 Dose: 88 mcg Documented By: MT Magnesium Hydroxide (Milk Of Magnesia 30 Ml Oral.Susp) 30 ml PO DAILY PRN PRN Reason: Constipation Magnesium Oxide (Magnesium Oxide 400 Mg Tablet) 400 mg PO DAILY [facility] Last Admin: 03/26/24 08:55 Dose: 400 mg Documented By: CASSANDRA Melatonin (Melatonin 3 Mg Tablet) 6 mg PO BEDTIME PRN PRN Reason: Insomnia Last Admin: 03/23/24 21:03 Dose: 6 mg Documented By: GREGG Olanzapine (Olanzapine 2.5 Mg Tablet) 2.5 mg PO DAILY@1800 [facility] Last Admin: 03/24/24 18:03 Dose: Not Given Documented By: CASSANDRA Non-Admin Reason: per md orders Sodium Chloride (0.9 % Sodium Chloride Flush 3 Ml Syringe) 3 ml IVFLUSH QSHIFT [facility] Last Admin: 03/26/24 20:44 Dose: 3 ml Documented By: MT Vitamin D (Cholecalciferol (Vitamin D3) 25 Mcg Tablet) 50 mcg PO BID [facility] Last Admin: 03/26/24 20:44 Dose: 50 mcg Documented By: MT Labs 03/25/24 07:45 03/26/24 06:36 Labs: Laboratory Results - last 24 hr 03/21/24 03/26/24 03/26/24 19:45 10:45 16:11 POC Glucose 163 H 138 H CSF Lyme IgG (Immblot) NO BANDS DETECTED CSF Lyme IgM (Immblot) NO BANDS DETECTED 03/26/24 03/27/24 19:45 07:24 POC Glucose 133 H 107 CSF Lyme IgG (Immblot) CSF Lyme IgM (Immblot) Microbiology Microbiology Results: Microbiology 03/21/24 15:45 Blood Culture - Final Blood - Venous No growth after 5 days. 03/21/24 15:37 Blood Culture - Final Blood - Venous No growth after 5 days. Quality Stroke Does the patient have a stroke diagnosis?: No VTE Prior VTE?: No VTE Risk Level:: Medical - moderate - high VTE Device Contraindication: N/A - Device Ordered VTE Drug Contraindication: Treatment Not Indicated
[2024-03-27] MEDS: Magnesium Oxide 400 MG TABLET PO (08:50)
[2024-03-27] MEDS: Isosorbide Mononitrate 30 MG TAB.ER.24H 90 MG PO (08:50)
[2024-03-27] MEDS: carvediloL 12.5 MG TABLET PO (08:50)
[2024-03-27] MEDS: Atorvastatin Calcium 80 MG TABLET PO (08:50)
[2024-03-27] MEDS: Cholecalciferol (Vitamin D3) 25 MCG TABLET 50 MCG PO (08:50)
[2024-03-27] MEDS: 0.9 % Sodium Chloride Flush 3 ML SYRINGE IVFLUSH (08:51)
[2024-03-27 09:06] LABS: MANUAL DIFF FLAG NO
[2024-03-27 09:09] LABS: Basophils Percent Auto 0.1 % (0-2); Eosinophils Absolute Auto 0.7 X10*3/uL (0.0-0.4); Hematocrit 29.2 % (37.0-47.0); Hemoglobin 9.4 g/dl (12.0-16.0); Imm Gran Abs Auto 0.05 X10*3/uL (0.00-0.03); Imm Gran Pct Auto 0.7 % (0.0-0.4); Lymphocytes Absolute Auto 1.5 X10*3/uL (1.2-4.9); Mean Corpuscular HGB Conc 32.2 g/dl (31.0-35.0); Mean Corpuscular Hemoglobin 31.9 pg (27.0-33.0); Mean Platelet Volume 10.7 fL (9.4-12.3); Monocytes Absolute Auto 0.6 X10*3/uL (0.1-1.2); Monocytes Percent Auto 7.8 % (2-11); Neutrophils Absolute Auto 4.5 x10*3/uL (2.0-8.3); Neutrophils Percent Auto 61.4 % (45-73); Platelet Count 197 X10*3/uL (160-400); Red Blood Count 2.95 X10*6/uL (4.20-5.50); Red Cell Distribution Width 16.8 % (11.0-16.0); White Blood Count 7.3 X10*3/uL (4.8-10.8)
[2024-03-27 09:21] LABS: Anion Gap 9 (12-20); Blood Urea Nitrogen 12 mg/dL (9-16); Calcium 8.1 mg/dL (8.4-10.2); Carbon Dioxide 26 mmol/L (22-29); Chloride 107 mmol/L (96-108); Creatinine Clr Calc Pharmacy 56.4; Estimated Glomerular Filt Rate > 60; Glucose Random 136 mg/dL (60-115); Potassium 3.6 mmol/L (3.3-5.1); Sodium 138 mmol/L (135-145)
--- NOTE | 2024-03-27 10:36 | MHC.CM.PN ---
Patient has been accepted at her first choice SNF/[facility], who is initiating auth with [facility] today. CM will follow.
[2024-03-27 10:59] VITALS: BP 123/68; PULSE 95; RESP 20; TEMP 36.1; O2SAT 94
[2024-03-27 11:42] LABS: Glucose, Whole Blood 131 mg/dL (60-115)
--- NOTE | 2024-03-27 12:43 | MHC.SL.SWA ---
Risk of Aspiration Due to: Weak Cough Weak Voice Dysphasia Diet Status: NO CHANGE Liquid Consistency and Strategies for Safe Swallow: Liquid Intake Recommendation: Thin Solid Food Consistency: Dietary Recommendations: Chopped/Advanced (NDD3) Oral Medication Intake: Whole with Liquid Please contact the pharmacy regarding appropriate crushable or liquid drug formulations that are available whenever modified delivery is recommended. Compensatory Strategies and Precautions to be Taken for Safe Swallow: Sitting Upright (90 deg) Small Bites and Sips Supervision While Eating and Drinking for Safe Swallow: Intermittent Supervision Foods to Avoid: Tough, difficult to chew solids. Swallowing Recommended Treatments: Compens. Strategy Educat. Recommendation for Speech: Inpatient Speech Therapy Comment: Assure that patient had dentures present during meals. Recommend continue on Chopped/Advanced (NDD3) solids and Thin liquids, pills whole with liquid. Recommend 1 f/u with BAG LOADER to monitor toleration of chopped/advanced solids. Customer Support Associate Clinican/Clinical Fellow: No Supervisory Statement: I have reviewed and agree with the student/clinical fellow's documentation: N/A Speech Language Pathologist: Lucia Loaiza M.A., CCC-BAG LOADER
--- NOTE | 2024-03-27 13:22 | MHC.CM.PN ---
Patient has been medically cleared for dc to SNF/STR today. Patient will dc [facility], via [facility]. CM addressed IMM with Patient at bedside and the original was given to her and as copy has been placed on the chart. CM has informed /HCP/Nayan @ [phone] and Friend/Dot @ [phone] of the dc plan.
--- NOTE | 2024-03-27 14:19 | MHC.CM.PN ---
CM returned a call to Juan Jose/Demetrius @ [phone], and informed him of the dc plan.
--- NOTE | 2024-03-27 15:13 | PM.DS ---
DS: Providers Provider Date of Service: 03/27/24 Date of admission: 03/21/24 20:25 Date of discharge: 03/27/24 Primary care physician: Polo Villalta MD Admitting clinician: Maria Alejandra Pearson Attending physician on admission: Ambika Cabrales Consults: 03/21/24 20:26 Consult to Neurology Routine Consulting Provider: [facility] Reason for consultation: ?cva, ?meningitis, severe hinojosa, ams 03/21/24 20:37 Consult to Cardiology Routine Consulting Provider: [facility] Reason for consultation: elevated trops 03/21/24 20:51 Consult to Infectious Diseases Routine Consulting Provider: [facility] Reason for consultation: fever, encephalopathy, concern for meningitis Attending physician on discharge: Justin Grove Discharging clinician: Maria Alejandra Pearson DS: Diagnosis Discharge Diagnosis (1) AMS (altered mental status): Status: Acute DS: Summary Hospital Course Hospital Course: HPI on admission by this provider 03/21: 84-year-old female with history of aortic stenosis, coronary artery disease, dkc-eqorqap-kyeoifdxd type 2 diabetes, hyperlipidemia, hypothyroidism, hypertension, painless jaundice, and recently diagnosed cholangiocarcinoma following with Dr. Clifton at the [facility] presented to the ED earlier today from home for evaluation of altered mental status. The patient is unable to provide any history and is presenting with word salad and difficulty putting sentences together, overall not making sense. Her ekbudlke-xp-fkd is at bedside who assists with history. She states that over the last week she has had several intermittent episodes of garbled speech/word salad that have been transient. However this morning woke up agitated and aggressive which is far from her baseline. She is independent at home and takes care of her demented and ambulates with a walker at baseline. This morning was complaining of a severe headache and was unable to put words together. Last known well time was at bedtime last night. Patient is unable to follow commands and NIH stroke scale is unavailable as a result. She does take a baby aspirin daily. Since arrival, patient has developed fevers of 102.4 tachycardia as well as tachypnea. She was briefly hypoxic to 89% but is now satting 100% on 2 L supplemental O2. Initially hypertensive at 189/108 143/79 on admission. There is no leukocytosis. She has a macrocytic anemia with H/H 9.8/30.1%. Renal function within normal limits, electrolyte levels normal. Glucose 117. Lactic acid 1.0. Total bilirubin 1.3, direct bilirubin 0.7, AST 43, ALT 28, alkaline phosphatase 313. Ammonia level 35. LDH 249. Initial troponin 21, repeat 154. CRP 2.98, ESR 38. LDL 130. Urinalysis not indicative of infection but shows elevated specific gravity 1+ protein. LP performed at bedside in the ED with results pending but glucose within normal limits and elevated total protein at 55.7. She is negative for COVID-19, RSV, influenza. Head CT appears negative for any acute intracranial abnormality but shows chronic microvascular changes and CTA of the head/neck is negative for any large vessel occlusion or hemodynamically significant stenosis. Chest CT and CT of the abdomen/pelvis remain pending due to delay in radiology reads. In the ED, has been treated empirically for bacterial meningitis with ampicillin, ceftriaxone, vancomycin and dexamethasone. Has also been given 1 mg midazolam for agitation and Reglan for vomiting. Hospital course: Pt admitted for med/tele due to altered mental status and confusion. Initially given fevers there was concern for meningitis started on empiric antibiotics/steroids however, LP not consistent with bacterial meningitis as elevated WBC's/RBCs due to traumatic tap. There was no sepsis/severe sepsis. Viral meningoencephalitis panel negative. Send out pending for SELENE and Fariba. CSF lyme negative. CSF cultures negative. Followed by ID who recommended discontinuing antibiotics/antivirals as no clear infectious cause of sytmptoms. Did have brain MRI performed which was read as negative radiology for acute intracranial abnormality though did show significant microvacsular disease/global volume loss with possible component of vascular dementia. There is possibility of viral illness causing encephalopathy vs an aseptic meningitis. However, mentation has returned to baseline. Vitamin B12 and folic acid levels wnl. BLood cultures negative. Initially presented with elevated troponins evaluated by cardiology, not felt to have acute ischemic event, but rather r/t demand. No indication for AC and echo showed multiple areas of akinesis and preserved ejection fraction. Was continued on coreg, imdur, and statin. Initially has hypokalemia which resolved with repletion. Was continued on levothyroxine. TSH slightly low but normal free t4. Continue current dose. For hypertension was continued on coreg and imdur but lisinopril held. She was normotensive during admission. She also has type 2 dm with a1c of 5.4%. Recommend discontinuing metformin as this is not needed. She was evaluated by PT recommending STR and will be transferred to [facility]. Anticipate need for rehab less than 30 days. Acute metabolic encephalopathy Initial presentation with fever and altered mental status and therefore concern for meningitis and LP obtained in the emergency department. treated empirically but discontinued. not c/w bacterial meningitis. Elevated WBCs in CSF likely falsely elevated due to elevated RBCs, traumatic tap Viral meningoencephalitis panel negative. Send out pending for West Nile, Eastern equine encephalits; csf for lyme pending CSF culture negative to date Brain MRI negative for acute stroke. Brain imaging with significant microvascular disease/global volume loss - possible component of vascular dementia ID consult - no treatable infectious cause, rec symptomatic management afebrile since 03/21 Blood cultures negative b12, folate wnl likely due to viral illness vs aseptic meningitis on background of probable mild vascular dementia mental status baseline Elevated troponins echo with preserved ejection fraction, multiple areas of akinesis Seen by Cardiology, history of underlying coronary artery disease, but feels elevated cardiac enzymes related to demand rather than acute ischemic event. No indication for anticoagulation. Recommends conservative management Hypokalemia resolved with replacement Opd-pwtnuwh-ctrfeddtk type 2 diabetes Hba1c 5.4 stop metformin CAD will resume beta-savannah, Imdur Hypothyroidism Continue Synthroid tsh slightly low, free t4 normal In light of acute illness we will hold off on adjustment; outpatient follow up/repeat labs recommended Hypertension isosorbide, Coreg hold lisinopril for now patient normotensive, resume on discharge as indicated Chronic macrocytic anemia b12, folic acid wnl baseline Time Attestation Discharge Coordination Time (in mins): 42 Quality: Safe Use of Opioids Does Pt have an Active Cancer Diagnosis on the Problem List?: No Quality: Stroke Does the patient have a stroke diagnosis?: No Physical Exam Vital Signs: Vital Signs: Last Vital Signs Temp 97.0 F 03/27/24 10:59 Pulse 95 03/27/24 10:59 Resp 20 03/27/24 10:59 BP 123/68 03/27/24 10:59 Pulse Ox 94 03/27/24 10:59 O2 Del Method Room Air 03/27/24 10:59 O2 Flow Rate 2 03/23/24 08:00 BMI result Body Mass Index 29.1 DS: Data Data Completed and Pending Labs on day of discharge: Laboratory Results - last 24 hr 03/21/24 03/26/24 03/26/24 19:45 16:11 19:45 WBC RBC Hgb Hct MCV MCH MCHC RDW Plt Count MPV Immature Gran % (Auto) Neut % (Auto) Lymph % (Auto) Rosebud % (Auto) Eos % (Auto) Baso % (Auto) Lymph # (Auto) Rosebud # (Auto) Eos # (Auto) Baso # (Auto) Abs Immat Gran (auto) Absolute Neuts (auto) Absolute Nucleated RBC Nucleated RBC % (auto) Sodium Potassium Chloride Carbon Dioxide Anion Gap BUN Creatinine Estim Creat Clear Calc Estimated GFR POC Glucose 138 H 133 H Random Glucose Calcium CSF Lyme IgG (Immblot) NO BANDS DETECTED CSF Lyme IgG Bands Det TNP CSF Lyme IgM (Immblot) NO BANDS DETECTED CSF Lyme IgM Bands Det TNP 03/27/24 03/27/24 03/27/24 07:24 08:50 11:03 WBC 7.3 RBC 2.95 L Hgb 9.4 L Hct 29.2 L MCV 99.0 H MCH 31.9 MCHC 32.2 RDW 16.8 H Plt Count 197 MPV 10.7 Immature Gran % (Auto) 0.7 H Neut % (Auto) 61.4 Lymph % (Auto) 21.0 Rosebud % (Auto) 7.8 Eos % (Auto) 9.0 H Baso % (Auto) 0.1 Lymph # (Auto) 1.5 Rosebud # (Auto) 0.6 Eos # (Auto) 0.7 H Baso # (Auto) 0.0 Abs Immat Gran (auto) 0.05 H Absolute Neuts (auto) 4.5 Absolute Nucleated RBC 0.000 Nucleated RBC % (auto) 0.0 Sodium 138 Potassium 3.6 Chloride 107 Carbon Dioxide 26 Anion Gap 9 L BUN 12 Creatinine 0.62 Estim Creat Clear Calc 56.4 Estimated GFR > 60 POC Glucose 107 131 H Random Glucose 136 H Calcium 8.1 L CSF Lyme IgG (Immblot) CSF Lyme IgG Bands Det CSF Lyme IgM (Immblot) CSF Lyme IgM Bands Det Discharge Plan Discharge Anticipated Discharge Date/Time: 03/27/24 13:15 Patient Disposition: er SNF Discharge Diagnosis: acute metabolic encephalopathy, ?viral illness/aseptic meningitis, vascular dementia Referrals: [facility] [Outside] - 1 Week Polo Villalta MD [Primary Care Provider] - 1 Week Discharge Medications: New atorvastatin 80 mg Tablet 80 mg PO DAILY Qty: 90 0RF Continued carvedilol 12.5 mg tablet 12.5 mg PO BID isosorbide mononitrate 60 mg tablet extended release 24 hr 90 mg PO DAILY Rx Instructions: 1.5 tablets daily levothyroxine [Synthroid] 88 mcg tablet 88 mcg PO DAILY lisinopril 10 mg tablet 10 mg PO DAILY nitroglycerin 0.4 mg tablet, sublingual 0.4 mg sublingual Q5M PRN (Reason: Chest Pain) albuterol sulfate 90 mcg/actuation HFA aerosol inhaler 2 puff inhalation Q4-6H PRN (Reason: Shortness Of Breath Or Wheezing) magnesium oxide 500 mg magnesium Tablet 500 mg PO DAILY cholecalciferol (vitamin D3) 50 mcg (2,000 unit) Capsule 50 mcg PO BID Discontinued atorvastatin 40 mg tablet 40 mg PO BEDTIME metformin 500 mg tablet 500 mg PO DAILY Discharge Orders: Discharge Order (Routine); Ordered 03/27/24 Ordered By: Maria Alejandra Pearson Diet: Advance to usual diet Activity on Discharge: As tolerated Stand Alone Forms: Patient Portal Discharge page Print Language: Telugu Care Plan Goals: Transfer to [facility] for Short Term Rehab Health Concerns: acute metabolic encephalopthy vascular dementia ?Viral illness/aseptic meningitis Plan of Treatment: Admitted with acute metabolic encephalopathy with unclear etiology- CSF panel negative though EEE and West Nile CSF pending -per ID no infectiously etiology to treat at this time. Abx/steroids/antiviral therapy discontinued -Brain MRI negative -fevers resolved, blood cultures negative -Underlying vascular dementia Diabetes -well controlled with a1c 5.4%./ Discontinue metformin as not needed Seen by PT, recommending STR Assessment: See above, see dc summary
== END 2024-03-27 17:00 | disposition skilled nursing facility (03) | DRG 97 ==
LOC: HO.ED 20:02 → HO.EDOVER 20:40 → HO.IMC 03-22 16:56
PROVIDERS: Hospitalist; Physician Assistant; Physician Assistant Medical; Student in an Organized Health Care Education/Training Program; Admitting Provider Physician Assistant; Emergency Provider Emergency Medicine; PCP Internal Medicine; Visit Provider Physician Assistant
DX: G03.0 Nonpyogenic meningitis (principal); G93.41 Metabolic encephalopathy; C22.1 Intrahepatic bile duct carcinoma; B34.9 Viral infection, unspecified; I25.10 Atherosclerotic heart disease of native coronary artery without angina pectoris; E78.5 Hyperlipidemia, unspecified; E87.6 Hypokalemia; I10 Essential (primary) hypertension; F01.50 Vascular dementia, unspecified severity, without behavioral disturbance, psychotic disturbance, mood disturbance, and anxiety; D53.9 Nutritional anemia, unspecified; E11.9 Type 2 diabetes mellitus without complications; E03.9 Hypothyroidism, unspecified; Z20.822 Contact with and (suspected) exposure to COVID-19; Z79.890 Hormone replacement therapy; Z79.899 Other long term (current) drug therapy
CPT/HCPCS: 0241U; 36415; 70450; 70496; 70498; 70551; 71250; 74176; 80048; 80053; 80061; 80076; 80143; 80179; 80202; 81001; 82140; 82565; 82607; 82746; 82945; 82947; 83036; 83605; 83615; 84157; 84439; 84443; 84484; 85025; 85027; 85610; 85652; 85730; 86140; 86617; 87015; 87040; 87070; 87205; 87483; 89051; 92526; 92610; 93005; 93306; 97162; 97167; 97530; 97535; 99285; C1758; J0131; J0133; J0290; J0696; J1100; J1200; J1644; J2060; J2250; J2359; J2765; J3360; J3370; J3371; J7120; Q9957; Q9967

== ENCOUNTER 2024-03-21 20:25 | Outpatient (BNV) | payer MEDICARE, SELFPAY | END 2024-03-22 07:00 | PROVIDERS: Admitting Provider Physician Assistant; Emergency Provider Emergency Medicine; PCP Internal Medicine; Visit Provider Internal Medicine Cardiovascular Disease | DX: I27.20 Pulmonary hypertension, unspecified (principal); I35.8 Other nonrheumatic aortic valve disorders; I34.81 Nonrheumatic mitral (valve) annulus calcification | CPT/HCPCS: 93306 ==

== ENCOUNTER → 2024-03-21 20:25 | Outpatient (BNV) | payer MEDICARE, SELFPAY | PROVIDERS: Admitting Provider Physician Assistant; Emergency Provider Emergency Medicine; PCP Internal Medicine; Visit Provider Internal Medicine Cardiovascular Disease | DX: R79.89 Other specified abnormal findings of blood chemistry (principal) | CPT/HCPCS: 99223 ==

== ENCOUNTER → 2024-03-21 20:25 | Outpatient (BNV) | payer MEDICARE, SELFPAY | PROVIDERS: Admitting Provider Physician Assistant; Emergency Provider Emergency Medicine; PCP Internal Medicine; Visit Provider Psychiatry & Neurology Neurology | DX: R41.82 Altered mental status, unspecified (principal); R90.82 White matter disease, unspecified | CPT/HCPCS: 99222 ==

== ENCOUNTER → 2024-03-21 20:25 | Outpatient (BNV) | payer MEDICARE, SELFPAY | PROVIDERS: Admitting Provider Physician Assistant; Emergency Provider Emergency Medicine; PCP Internal Medicine; Visit Provider Physician Assistant | DX: R50.9 Fever, unspecified (principal); R41.82 Altered mental status, unspecified; G93.40 Encephalopathy, unspecified | CPT/HCPCS: 99223; 99232; 99233; 99239 ==

== ENCOUNTER → 2024-03-21 20:25 | Outpatient (BNV) | payer MEDICARE, SELFPAY | PROVIDERS: Admitting Provider Physician Assistant; Emergency Provider Emergency Medicine; PCP Internal Medicine; Visit Provider Internal Medicine | DX: E11.9 Type 2 diabetes mellitus without complications (principal); R41.82 Altered mental status, unspecified; G93.40 Encephalopathy, unspecified | CPT/HCPCS: 99222 ==

== ENCOUNTER 2024-03-29 06:28 | Outpatient (REF) | payer MEDICARE, SELFPAY ==
[2024-03-29 06:34] LABS: MANUAL DIFF FLAG NO
[2024-03-29 06:54] LABS: Basophils Percent Auto 0.3 % (0-2); Eosinophils Absolute Auto 0.3 X10*3/uL (0.0-0.4); Eosinophils Percent Auto 3.3 % (0-4); Hematocrit 25.8 % (37.0-47.0); Hemoglobin 8.8 g/dl (12.0-16.0); Imm Gran Abs Auto 0.15 X10*3/uL (0.00-0.03); Imm Gran Pct Auto 1.5 % (0.0-0.4); Lymphocytes Absolute Auto 0.8 X10*3/uL (1.2-4.9); Lymphocytes Percent Auto 8.2 % (20-40); Mean Corpuscular HGB Conc 34.1 g/dl (31.0-35.0); Mean Corpuscular Hemoglobin 32.7 pg (27.0-33.0); Mean Corpuscular Volume 95.9 fL (80.0-98.0); Mean Platelet Volume 10.7 fL (9.4-12.3); Monocytes Absolute Auto 1.3 X10*3/uL (0.1-1.2); Monocytes Percent Auto 12.2 % (2-11); Neutrophils Absolute Auto 7.6 x10*3/uL (2.0-8.3); Neutrophils Percent Auto 74.5 % (45-73); Platelet Count 184 X10*3/uL (160-400); Red Blood Count 2.69 X10*6/uL (4.20-5.50); Red Cell Distribution Width 16.9 % (11.0-16.0); White Blood Count 10.2 X10*3/uL (4.8-10.8)
[2024-03-29 07:31] LABS: Alanine Aminotransferase 36 U/L (0-31); Albumin Level 2.4 g/dL (3.5-5.0); Alkaline Phosphatase 232 U/L (39-117); Anion Gap 12 (12-20); Aspartate Amino Transferase 40 U/L (5-31); Bilirubin Total 0.8 mg/dL (0.0-1.0); Blood Urea Nitrogen 9 mg/dL (9-16); Calcium 8.3 mg/dL (8.4-10.2); Carbon Dioxide 25 mmol/L (22-29); Chloride 103 mmol/L (96-108); Estimated Glomerular Filt Rate > 60; Glucose Random 121 mg/dL (60-115); Potassium 2.8 mmol/L (3.3-5.1); Sodium 137 mmol/L (135-145); Total Protein 5.1 g/dL (6.5-8.0)
== END 2024-03-29 06:29 | disposition home or self-care (01) ==
LOC: HO.MMNH1L 06:28
PROVIDERS: Visit Provider Hospitalist
DX: I10 Essential (primary) hypertension (principal)
CPT/HCPCS: 36415; 80053; 85025

== ENCOUNTER 2024-04-17 08:55 | Outpatient (REF) | payer MEDICARE, SELFPAY ==
[2024-04-17 10:47] LABS: MANUAL DIFF FLAG NO
[2024-04-17 10:48] LABS: Basophils Percent Auto 0.7 % (0-2); Eosinophils Absolute Auto 0.2 X10*3/uL (0.0-0.4); Hemoglobin 9.1 g/dl (12.0-16.0); Imm Gran Abs Auto 0.03 X10*3/uL (0.00-0.03); Imm Gran Pct Auto 0.5 % (0.0-0.4); Lymphocytes Absolute Auto 0.9 X10*3/uL (1.2-4.9); Lymphocytes Percent Auto 14.2 % (20-40); Mean Corpuscular HGB Conc 32.5 g/dl (31.0-35.0); Mean Corpuscular Hemoglobin 32.2 pg (27.0-33.0); Mean Corpuscular Volume 98.9 fL (80.0-98.0); Mean Platelet Volume 10.5 fL (9.4-12.3); Monocytes Absolute Auto 0.6 X10*3/uL (0.1-1.2); Monocytes Percent Auto 9.3 % (2-11); Neutrophils Absolute Auto 4.4 x10*3/uL (2.0-8.3); Neutrophils Percent Auto 72.3 % (45-73); Platelet Count 283 X10*3/uL (160-400); Red Blood Count 2.83 X10*6/uL (4.20-5.50); Red Cell Distribution Width 15.6 % (11.0-16.0)
[2024-04-17 10:59] LABS: Estimated Average Glucose 120 mg/dL; Hemoglobin A1c % 5.8 % (<6.0)
[2024-04-17 11:00] LABS: Alanine Aminotransferase 25 U/L (0-31); Albumin Level 3.1 g/dL (3.5-5.0); Alkaline Phosphatase 491 U/L (39-117); Anion Gap 11 (12-20); Aspartate Amino Transferase 33 U/L (5-31); Bilirubin Total 0.6 mg/dL (0.0-1.0); Blood Urea Nitrogen 16 mg/dL (9-16); Calcium 9.3 mg/dL (8.4-10.2); Carbon Dioxide 28 mmol/L (22-29); Chloride 103 mmol/L (96-108); Estimated Glomerular Filt Rate > 60; Glucose Random 150 mg/dL (60-115); Iron 31 mcg/dL (30-160); Percent Iron Saturation 12 % (15-50); Potassium 3.5 mmol/L (3.3-5.1); Sodium 138 mmol/L (135-145); Total Iron Binding Capacity 254 mcg/dL (228-428); Total Protein 6.3 g/dL (6.5-8.0); Unsaturated Iron Binding 223 ug/dL
== END 2024-04-17 08:56 | disposition home or self-care (01) ==
LOC: HO.10HDL 08:55
PROVIDERS: Visit Provider Internal Medicine
DX: D64.9 Anemia, unspecified (principal); N18.9 Chronic kidney disease, unspecified; E11.9 Type 2 diabetes mellitus without complications
CPT/HCPCS: 36415; 80053; 83036; 83540; 85025

== ENCOUNTER 2024-06-27 10:24 | Outpatient (REF) | payer MEDICARE, SELFPAY ==
[2024-06-27 13:13] LABS: MANUAL DIFF FLAG NO
[2024-06-27 13:14] LABS: Basophils Absolute Auto 0.1 X10*3/uL (0.0-0.2); Basophils Percent Auto 0.8 % (0-2); Eosinophils Absolute Auto 0.3 X10*3/uL (0.0-0.4); Eosinophils Percent Auto 4.4 % (0-4); Hematocrit 29.4 % (37.0-47.0); Hemoglobin 9.1 g/dl (12.0-16.0); Imm Gran Abs Auto 0.02 X10*3/uL (0.00-0.03); Imm Gran Pct Auto 0.3 % (0.0-0.4); Lymphocytes Absolute Auto 1.2 X10*3/uL (1.2-4.9); Lymphocytes Percent Auto 20.6 % (20-40); Mean Corpuscular Hemoglobin 29.2 pg (27.0-33.0); Mean Corpuscular Volume 94.2 fL (80.0-98.0); Mean Platelet Volume 10.5 fL (9.4-12.3); Monocytes Absolute Auto 0.8 X10*3/uL (0.1-1.2); Monocytes Percent Auto 13.3 % (2-11); Neutrophils Absolute Auto 3.6 x10*3/uL (2.0-8.3); Neutrophils Percent Auto 60.6 % (45-73); Platelet Count 264 X10*3/uL (160-400); Red Blood Count 3.12 X10*6/uL (4.20-5.50); Red Cell Distribution Width 16.5 % (11.0-16.0); White Blood Count 5.9 X10*3/uL (4.8-10.8)
[2024-06-27 13:40] LABS: Alanine Aminotransferase 16 U/L (0-31); Albumin Level 3.5 g/dL (3.5-5.0); Alkaline Phosphatase 121 U/L (39-117); Anion Gap 10 (12-20); Aspartate Amino Transferase 28 U/L (5-31); Bilirubin Total 0.5 mg/dL (0.0-1.0); Blood Urea Nitrogen 21 mg/dL (9-16); Calcium 9.4 mg/dL (8.4-10.2); Carbon Dioxide 26 mmol/L (22-29); Chloride 105 mmol/L (96-108); Estimated Glomerular Filt Rate > 60; Glucose Random 105 mg/dL (60-115); Iron 62 mcg/dL (30-160); Percent Iron Saturation 17 % (15-50); Potassium 4.2 mmol/L (3.3-5.1); Sodium 137 mmol/L (135-145); Total Iron Binding Capacity 365 mcg/dL (228-428); Total Protein 6.8 g/dL (6.5-8.0); Unsaturated Iron Binding 303 ug/dL
[2024-06-27 13:48] LABS: Ferritin 18 ng/mL (10-250)
== END 2024-06-27 10:25 | disposition home or self-care (01) ==
LOC: HO.HMGCLDS 10:24
PROVIDERS: PCP Internal Medicine; Visit Provider Internal Medicine
DX: E11.9 Type 2 diabetes mellitus without complications (principal); D64.9 Anemia, unspecified; I25.10 Atherosclerotic heart disease of native coronary artery without angina pectoris
CPT/HCPCS: 36415; 80053; 82728; 83540; 85025

== ENCOUNTER 2024-07-07 13:06 | Outpatient (REF) | payer MEDICARE, SELFPAY ==
[2024-07-07 16:25] LABS: Anion Gap 12 (12-20); Blood Urea Nitrogen 20 mg/dL (9-16); Calcium 9.6 mg/dL (8.4-10.2); Carbon Dioxide 25 mmol/L (22-29); Chloride 107 mmol/L (96-108); Estimated Glomerular Filt Rate > 60; Glucose Random 164 mg/dL (60-115); Potassium 3.9 mmol/L (3.3-5.1); Sodium 140 mmol/L (135-145)
--- OUTSIDE RECORDS SUMMARY | 2024-07-12 09:27 | XMS_ITS ---
Author Organization [facility] Address [address] [place] [address] Care Team Providers Care Bandsaw Operator Name Role Phone Polo Villalta MD Primary Care Provider UnavailJuan C Bee Jr [phone] REASON FOR VISIT labs Encounters Encounter Location Date Provider Diagnosis [facility] [address] [place] [address] 01/06/2024 Juan C Oliveira Jr PLAN OF TREATMENT No Information
--- OUTSIDE RECORDS SUMMARY | 2024-07-12 09:27 | XMS_ITS ---
Author Organization [facility] Address [address] [place] [address] Care Team Providers Care Press Tool Maker Name Role Phone Polo Villalta MD Primary Care Provider UnavailJuan C Bee Jr REASON FOR VISIT labs Encounters Encounter Location Date Provider Diagnosis [facility] [address] [place] [address] 01/12/2024 Juan C Oliveira Jr PLAN OF TREATMENT No Information
--- OUTSIDE RECORDS SUMMARY | 2024-07-12 09:27 | XMS_ITS ---
Author Organization [facility] Address [address] [place] [address] Care Team Providers Care Bullet Lubricating Machine Operator Name Role Phone Polo Villalta MD Primary Care Provider UnavailJuan C Bee Jr REASON FOR VISIT Need [facility] records Encounters Encounter Location Date Provider Diagnosis [facility] [address] [place] [address] 02/04/2024 Juan C Oliveira Jr PLAN OF TREATMENT No Information
--- OUTSIDE RECORDS SUMMARY | 2024-07-12 09:27 | XMS_ITS | Continuity of Care Document ---
Author Organization [facility] Address [address] [place] [address]- Care Team Providers Care Strip Picker Name Role Phone Polo Villalta MD Primary Care Physician [phone] [id number] Date(s): 03/10/24 - 06/19/24 [facility] [address] [place] [address] Discharge Disposition: A-D/C Home Attending Physician: Ro Clifton MD Admitting Physician: Willy Maria MD Referring Physician: Sebastian Herman DO Encounter Type: Disch Recurring OP Allergies, Adverse Reactions, Alerts Substance Criticality Severity Reaction Reaction Severity Status amLODIPine 1 High criticality Moderate Active 1weakness Medications Albuterol (Eqv-ProAir HFA) 90 mcg/inh inhalation aerosol 2 puffs, Inhalation, Every 6 hours, 0 Refills, Maintenance, 01/24/24 3:38:00 AM EDT, Partial fill upon patient request if the prescription is for a schedule II opioid drug. Start Date: 01/24/24 Status: Ordered Repeat number: 1 aspirin 81 mg oral delayed release tablet 81 mg, 1, tablet, By Mouth, Daily, # 30 tablet, Refills 0, Maintenance, 11/10/22 8:43:00 AM EDT, Partial fill upon patient request if the prescription is for a schedule II opioid drug. Start Date: 11/10/22 Status: Ordered Quantity: 30.0 Unit: tablet Repeat number: 1 atorvastatin 40 mg oral tablet 1 tablet = 40 mg, By Mouth, Daily, # 90 tablet, 0 Refills, Maintenance, 11/10/22 8:42:00 AM EDT, Tablet, Partial fill upon patient request if the prescription is for a schedule II opioid drug. Start Date: 11/10/22 Status: Ordered Quantity: 90.0 Unit: tablet Repeat number: 1 carvedilol 12.5 mg oral tablet 12.5 mg, 1, tablet, By Mouth, 2 times a day, # 180 tablet, Refills 0, Maintenance, 11/10/22 8:42:00 AM EDT, Partial fill upon patient request if the prescription is for a schedule II opioid drug. Start Date: 11/10/22 Status: Ordered Quantity: 180.0 Unit: tablet Repeat number: 1 isosorbide mononitrate 60 mg oral tablet, extended release 90 mg, 1.5, tablet, By Mouth, Daily in AM, # 135 tablet, Refills 3, Tot. Refills 3, Maintenance, 04/08/23 6:29:00 PM EDT, Route to Pharmacy Electronically, [facility], Partial fill upon patient request if the prescription is for a schedule II opioid drug., 156, cm, 04/06/23 10:10:00 EDT, Height Start Date: 04/08/23 Stop Date: 04/02/24 Status: Ordered Quantity: 135.0 Unit: tablet Repeat number: 4 lisinopril 10 mg oral tablet 10 mg, 1, tablet, By Mouth, Daily, # 30 tablet, Refills 0, Maintenance, 11/10/22 8:41:00 AM EDT, Partial fill upon patient request if the prescription is for a schedule II opioid drug. Start Date: 11/10/22 Status: Ordered Quantity: 30.0 Unit: tablet Repeat number: 1 metFORMIN 500 mg oral tablet 1 tablet = 500 mg, By Mouth, Daily, with meals, # 30 tablet, 0 Refills, Maintenance, 11/10/22 8:41:00 AM EDT, Tablet, Partial fill upon patient request if the prescription is for a schedule II opioid drug. Start Date: 11/10/22 Status: Ordered Quantity: 30.0 Unit: tablet Repeat number: 1 Nitroglycerin 0 Refills, Maintenance, 11/10/22 8:43:00 AM EDT, Partial fill upon patient request if the prescription is for a schedule II opioid drug. Start Date: 11/10/22 Status: Ordered Repeat number: 1 ONETOUCH DELICA PLUS LANCETS EXTRA FINE 33G MISC ONETOUCH DELICA PLUS LANCETS EXTRA FINE 33G MISC, 0 Refills, Maintenance, 11/10/22 8:41:00 AM EDT Start Date: 11/10/22 Status: Ordered Repeat number: 1 ONETOUCH ULTRA TEST STRIP USE ONCE A DAY *DX E11.9* Start Date: 11/10/22 Status: Ordered Repeat number: 1 Synthroid 0.088 mg oral tablet 1 tablet = 88 mcg, By Mouth, Daily, # 30 tablet, 0 Refills, Maintenance, 11/10/22 8:41:00 AM EDT, Tablet, Partial fill upon patient request if the prescription is for a schedule II opioid drug. Start Date: 11/10/22 Status: Ordered Quantity: 30.0 Unit: tablet Repeat number: 1 Vitamin D3 2000 intl units oral capsule 1 capsule = 50 mcg, By Mouth, 2 times a day, # 60 capsule, 0 Refills, Maintenance, 11/10/22 8:43:00 AM EDT, Capsule, Partial fill upon patient request if the prescription is for a schedule II opioid drug. Start Date: 11/10/22 Status: Ordered Quantity: 60.0 Unit: capsule Repeat number: 1 Vital Signs Most recent to oldest [Reference Range]: 1 2 3 Height 151.4 cm (05/23/24 9:38 AM) 155 cm (05/11/24 10:21 AM) 155 cm (04/06/24 11:10 AM) Weight 50.1 kg (05/23/24 9:38 AM) 50.3 kg (05/11/24 10: AM) 53.5 kg (04/06/24 11:10 AM) Oxygen Saturation [94-100 %] 100 % (05/23/24 9:38 AM) 100 % (05/11/24 10:21 AM) 95 % (04/06/24 11:10 AM) Pulse Rate [55-90 bpm] 69 bpm (05/23/24 9:38 AM) 80 bpm (05/11/24 10:21 AM) 70 bpm (04/06/24 11:10 AM) Body Mass Index [18.5-24.99 kg/m2] 21.86 kg/m2 (05/23/24 9:38 AM) 20.94 kg/m2 (05/11/24 10:21 AM) 22.27 kg/m2 (04/06/24 11:10 AM) Blood Pressure [90-138/55-84 mm Hg] 142/55mm Hg *H* (05/23/24 9:38 AM) 106/53mm Hg (05/11/24 10:21 AM) 132/51mm Hg (04/06/24 11:10 AM) Temperature [96.8-100.4 DegF] 98.3 DegF (05/23/24 9:38 AM) 97.8 DegF (05/11/24 10:21 AM) 97.5 DegF (04/06/24 11:10 AM) Mode of Delivery (Oxygen) Room air (05/23/24 9:38 AM) Room air (05/11/24 10:21 AM) Room air (04/06/24 11:10 AM) Blood pressure sites Arm, left (05/23/24 9:38 AM) Arm, right (05/11/24 10:21 AM) Arm, left (04/06/24 11:10 AM) Temperature Route Oral (05/23/24 9:38 AM) Oral (05/11/24 10:21 AM) Temporal (04/06/24 11:10 AM) Dry Weight 50.1 kg (05/23/24 9:38 AM) 50.3 kg (05/11/24 10:21 AM) 53.5 kg (04/06/24 11:10 AM) Weight Obtained Via Standing scale (05/23/24 9:38 AM) Standing scale (05/11/24 10:21 AM) Standing scale (04/06/24 11:10 AM) Dry Weight Obtained Via Standing scale (05/23/24 9:38 AM) Standing scale (05/11/24 10:21 AM) Standing scale (04/06/24 11:10 AM) Social History Social History Type Response Smoking Status Never (less than 100 in lifetime) entered on: 11/10/22 Sex Sex Representation Female (finding) Laboratory * Event Display: Molecular Testing Authored Date: * Event Display: Molecular Testing Authored Date: Patient Care team information Care Team Personnel Name: Johanny Dumas RN Position: [facility] RN Member Role: Primary Care Nurse Name: Polo Villalta MD Position: S Outreach Member Role: PCP Address: [address] [place] [address] Polo [place] [address]- Telecom: Name: Dahiana Rollins RN Position: S RN Member Role: Primary Care Nurse Name: Tamar House RN Position: S RN Member Role: Primary Care Nurse Name: Robin Graham RN Position: [facility] RN Member Role: Primary Care Nurse Name: Jossy Preston RN Position: [facility] RN Member Role: Primary Care Nurse Name: Norm Keene RN Position: [facility] RN Member Role: Primary Care Nurse Name: Clarissa Alarcon RN Position: [facility] RN Member Role: Primary Care Nurse Name: James Leblanc RN Position: [facility] RN Member Role: Primary Care Nurse Care Team Related Persons Name: JODY SCHWAB AND ELIZABETH Name: AL SCHWAB Insurance Providers Guarantor name: PETER SCHWAB Health Plan Information #: 1 Payer: [facility] [employer] Member Number: [id number] Policy Number: NA Group Number: [id number] Health Plan Information #: 2 Payer: [facility] [employer] Member Number: [id number] Policy Number: NA Group Number: [id number]
--- OUTSIDE RECORDS SUMMARY | 2024-07-12 09:27 | XMS_ITS | Patient Health Record ---
Author Organization [facility] Address [address] [place] [address] Care Team Providers Care Retail Store Assistant Name Role Phone Polo Villalta MD Primary Care Provider Juan C Valentin Jr Unavailable ALLERGIES No Known Allergies RESULTS Component Value Reference Range Notes IRON PROFILE Reviewed date:01/06/2024 10:01:06 AM Interpretation: Performing Lab:[facility], [address] [place] [id number] Notes/Report: Iron 37 30-160 mcg/dL Total Iron Binding Capacity 277 228-428 mcg/d L Percent Iron Saturation 13 15-50 % Unsaturated Iron Binding 240 Ferritin Reviewed date:01/06/2024 10:01:01 AM Interpretation: Performing Lab:[facility], [address] [place] [phone] Notes/Report: Ferritin 151 10-250 ng/mL Vitamin B12 Reviewed date:01/06/2024 10:00:56 AM Interpretation: Performing Lab:[facility], [address] [place] [phone] Notes/Report: Vitamin B12 961 200-900 pg/mL NORMAL 200-900 PG/ML INDETERMINATE 160-199 PG/ML DEFICIENT < 160 PG/ML Folate Reviewed date:01/06/2024 10:00:50 AM Interpretation: Performing Lab:[facility], [address] [place] [phone] Notes/Report: Folate 12.7 > or = 4.0 ng/mL Reference Values: > or = 4.0 ng/mL < 4.0 ng/mL suggests folate deficiency Methotrexate, aminopterin and folinic acid (leucovorin) are chemotherapeutic agents whose molecular structures are similar to folate; therefore, the [employer] folate assay cannot be used for patients using these drugs. OBSX3 Reviewed date:01/12/2024 07:45:03 AM Interpretation: Performing Lab:[facility], [address] [place] [phone] Notes/Report: OBS1 NEGATIVE NEGATIVE OBS Date 1 01/06/24 OBS2 NEGATIVE NEGATIVE OBS Date 2 01/07/24 OBS3 NEGATIVE NEGATIVE OBS Date 3 01/08/24 Prothrombin Time INR Reviewed date:01/23/2024 04:00:10 PM Interpretation: Performing Lab:[facility], [address] [place] [phone] Notes/Report: Prothrombin Time 15.0 11.1-13.3 SEC INTERNATIONAL NORM RATIO 1.2 0.9-1.1 INTERNATIONAL NORMALIZED RATIO (INR) REFERENCE RANGES Reference Range For patients not on anticoagulant therapy: 0.9 - 1.1 INR ranges for oral anticoagulant therapy: For prevention and treatment of venous thrombosis and pulmonary embolism: 2.0 - 3.0 For acute myocardial infarction with aspirin therapy: 2.0 - 3.0 For acute myocardial infarction without aspirin therapy: 3.0 - 4.0 For patients with mechanical prosthetic heart valves: 2.5 - 3.5 Carcinoembryonic Antigen Reviewed date:01/23/2024 04:00:27 PM Interpretation: Performing Lab:[facility], [address] [place] [phone] Notes/Report: Carcinoembryonic Antigen 4.50 CEA Reference Range: 93.4% Non-Smokers = 0.0-3.0 ng/mL 95.6% Smokers = 0.0-5.0 ng/mL CEA Methodology: Casey Alinity i Chemiluminescent Microparticle Immunoassay (CMIA) CEA testing can have significant value in monitoring of patients with diagnosed malignancies in whom changing concentrations of CEA are observed. Values obtained with different assay methods cannot be used interchangeably. Carbohydrate Antigen 19-9 Reviewed date:01/26/2024 05:22:33 PM Interpretation: Performing Lab:[facility], [address] [place] [phone] Notes/Report: Carbohydrate Antigen 19-9 506 <34 U/mL This test was performed using the Siemens chemiluminescent method. Values obtained from different assay methods cannot be used interchangeably. CA 19-9 levels, regardless of value, should not be interpreted as absolute evidence of the presence or absence of disease. THIS TEST WAS PERFORMED AT: [facility] [address] [place] [phone] COOPER FISHER MD REASON FOR REFERRAL No Information MEDICATIONS Medication SIG (Take, Route, Frequency, Duration) Notes Start Date End Date Status OneTouch Ultra - In Vitro for 25 Active OneTouch Delica Plus [id number] - for 30 Active amLODIPine Besylate 5 MG Oral for 90 Active Lisinopril 10 MG Oral for 90 A ctive Nitroglycerin 0.4 MG Sublingual for 30 Active Magnesium 400 MG as directed Orally 12/30/2023 Active Synthroid 88 MCG Oral for 90 A ctive Aspirin 81 81 MG 1 tablet Orally Once a day for 30 day(s) 12/30/2023 Active Carvedilol 12.5 MG Oral for 90 Active Vitamin D-3 25 MCG (1000 UT) 1 capsule O rally Once a day for 30 day(s) 12/30/2023 Active Atorvastatin Calcium 40 MG Oral for 90 Active Isosorbide Mononitrate ER 60 MG Oral for 90 Active metFORMIN HCl 500 MG Oral for 90 Active IMMUNIZATIONS Vaccine Route Administration Date Status Comme nts Influenza Unknown 06/22/2023 Administered SOCIAL HISTORY Tobacco Use: Social History Observation Description Date Details (start date - stop date) Never Smoker NA - NA Sex Assigned At : Social History Observation Description Sex Assigned At Unknown Tobacco Use/Smoking Question Answer Notes Patient is a nonsmoker Alcohol Screen Question Answer Notes Did you have a drink containing alcohol in the p ast year? No Points 0 Interpretation Negative PROBLEMS Problem Type ICD Code Onset Dates Problem Status W/U Status Risk SNOMED Code Notes Problem Anemia, unspecified type (D64.9) Active confirmed 329635322 Problem Obstructive jaundice (K83.8) Active confirmed Obstructive jaundice (30781232) VITAL SIGNS Temperature 98.7 degrees Fahrenheit 12/30/2023 Blood pressure diastolic 00 mm Hg 12/30/2023 Height 5 ft 1.5 in in 12/30/2023 Blood pressure systolic 000 mm Hg 12/30/2023 Weight 134 lbs 12/30/2023 BMI 24.91 kg/m2 12/30/2023 Encounters Encounter Location Date Provider Diagnosis [facility] [address] [place] [address] 12/30/2023 Juan C Oliveira Jr Anemia, unspecified type D64.9 [facility] [address] [place] [address] 01/03/2024 Juan C Oliveira Jr [facility] [address] [place] [address] 01/06/2024 Juan C Oliveira Jr [facility] [address] [place] [address] 01/12/2024 Juan C Oliveira Jr [facility] [address] [place] [address] 02/04/2024 Juan C Oliveira Jr ASSESSMENTS Encounter Date Diagnosis Assessment Notes Treatment Notes Treatment Clinical Notes 12/30/2023 Anemia, unspecified type (ICD-10 - D64.9) Anemia of chronic disease material was printed PLAN OF TREATMENT Pending Test Test Name Order Date IRON + IBC (FE) 12/30/2023 FERRITIN 12/30/2023 B12 12/30/2023 FOLATE 12/30/2023 OCCULT BLOOD STOOL X3 (OBS) 12/30/2023 Insurance Providers Payer Name Payer Address Payer Phone Subscriber Number Group Number Insured Name Patient Relationship to Insured Coverage Start Date Coverage End Date [facility] [address] [place] [address] [id number] PETER SAL Self - patient is the insured MEDICAL (GENERAL) HISTORY Medical History History ICD Code Coronary artery disease, car diac catheterization 12/23, no significant obstructive CAD except for branch of the RCA that was collateralized, medical management. Dr. Neri Hypertension Hyperlipidemia Mild to moderate Colonoscopy 01/05, limited to 60 cm due to adhesions, followup barium enema unremarkable. Surgical History Surgery Date(Month/Year)
== END 2024-07-07 13:07 | disposition home or self-care (01) ==
LOC: HO.HMGCLDS 13:06
PROVIDERS: PCP Internal Medicine; Visit Provider Internal Medicine
DX: E11.9 Type 2 diabetes mellitus without complications (principal); N18.9 Chronic kidney disease, unspecified
CPT/HCPCS: 36415; 80048

== ENCOUNTER 2024-11-06 10:47 | Outpatient (AMB) | payer MEDICARE, SELFPAY ==
--- NOTE | 2024-11-06 11:22 | A.OFFPC_ITS ---
Vital Signs 11/06/24 11:32 Weight 131 lb BP 128/76 Blood Pressure Location Lt brachial Position Sitting Pulse 71 Pulse Source Pulse Oximeter Temp 97.7 F Temp Source Axillary Intake Visit Reasons: Routine Data Technical Lead Required: No Accompanied by: Spouse Allergies No Known Allergies Allergy (Verified 11/06/24 11:23) Tobacco use date assessed: 11/06/24 Fall risk assessment: 1 Fall in past year Last assessed Fall Risk: 11/06/24 Dental Screening Dental Screen Date: 11/06/24 Did you have a dental visit in the last 12 months?: Yes Did you have a dental problem in the last 6 months where you did not have access to dental care?: No [facility] Medical History (Updated 11/12/24 @ 16:13 by Tarun Whitaker MD) Cholangiocarcinoma Aortic stenosis CAD (coronary artery disease) Type 2 diabetes mellitus HLD (hyperlipidemia) HTN (hypertension) Family History (Updated 11/06/24 @ 11:45 by Loretta Ray CMA) Mother No problems noted. Father No problems noted. Social History Household Members: Spouse Housing: House Do you presently have visiting nurse or other home services: No Unable to assess alcohol history related to: Unable to respond and Unknown Patient Tobacco Use Status: Never used Tobacco service: No Current occupational status: retired Cognitive needs: Yes (cane) Hearing needs: No Vision needs: Yes (reading glasses) Questionnaire PHQ-9 Over the last 2 weeks, how often have you been bothered by any of the following problems? 1. Little interest or pleasure in doing things: not at all 2. Feeling down, depressed, or hopeless: not at all 3. Trouble falling or staying asleep, or sleeping too much: not at all 4. Feeling tired or having little energy: not at all 5. Poor appetite or overeating: not at all 6. Feeling bad about yourself - or that you are a failure or have let yourself or your family down: not at all 7. Trouble concentrating on things, such as reading the newspaper or watching television: not at all 8. Moving or speaking so slowly that other people could have noticed. Or the opposite - being so fidgety or restless that you have been moving around a lot more than usual: not at all 9. Thoughts that you would be better off or of hurting yourself in some way: not at all Total score: 0 Source: Developed by Drs. Zaid Gilbert, Ajay Dey and colleagues, with an educational meli from [employer]. Thrive Questionnaire Date Thrive assessed: 11/06/24 I am a: Patient Within the past 12 months, did the food you bought not last and you didn't have the money to get more?: Never true Within the past 12 months, did you worry whether your food would run out before you got money to buy more?: Never true Do you have trouble paying for medicines?: No Do you have trouble getting transportation to medical appointments?: No Do you have trouble paying your heating and electricity bill?: No Do you have trouble taking care of your child, family member or friend?: No Do you have trouble with day-to-day activities such as bathing, preparing meals, shopping, managing finances, etc.?: No Are you currently unemployed and looking for a job?: No Are you interested in more education?: No THRIVE Score: 0 AUDIT C Alcohol Use Questionnaire (AUDIT-C) 1. How often do you have a drink containing alcohol?: Never 3. How often do you have six or more drinks on one occasion?: Never Total Score: 0 CHERELLE-7 AMB Questionnaire CHERELLE-7 Date CHERELLE - 7 assessed: 11/06/24 Feeling nervous, anxious, or on edge: 0 = Not at all Not being able to stop or control worryin = Not at all Worrying too much about different things: 0 = Not at all Trouble relaxin = Not at all Being so restless that it is hard to sit still: 0 = Not at all Becoming easily annoyed or irritable: 0 = Not at all Feeling afraid as if something awful might happen: 0 = Not at all Total CHERELLE-7 score (0-4 normal; 5-9 mild; 10-14 moderate; 15-21 severe): 0 Source: Developed by Drs. Zaid Gilbert, Ajay Dey and colleagues, with an educational meli from [employer]. Physical exam (Primary Care) Vital Signs: Last Vital Signs Temp 97.7 F 04/07/25 11:32 Pulse 71 11/06/24 11:32 BP 128/76 11/06/24 11:32 Tobacco/Smoking Status: Tobacco use Status Tobacco use date assessed 11/06/24 11/06/24 11:25 Patient Tobacco Use Status Never used Tobacco 11/06/24 11:25 PHQ-9: PHQ-9 Score PHQ-9: Total score 0 11/06/24 11:25 Thrive Assessment: Date of Thrive Assessment Date Thrive assessed 11/06/24 11/06/24 11:25 Coding Level of Care Code New Pt Level 4 (99393) Complex EM visit Add On G2211 Diagnoses Type 2 diabetes mellitus E11.9 Cholangiocarcinoma C22.1 Assessment & Plan Assessment & Plan (1) Type 2 diabetes mellitus: Code(s): E11.9 - Type 2 diabetes mellitus without complications Category: Medical Plan: Continue current meds (2) 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 She has an appt with the surgeon at [facility]. Orders: Orders Basic Metabolic Panel 11/08/24 E11.9 - Type 2 diabetes mellitus without complications Thyroid Stimulating Hormone 11/08/24 E11.9 - Type 2 diabetes mellitus without complications UA and rflx microscopic 11/08/24 E11.9 - Type 2 diabetes mellitus without complications Hemoglobin A1c 11/08/24 E11.9 - Type 2 diabetes mellitus without complications Lipid Panel 11/08/24 E11.9 - Type 2 diabetes mellitus without complications Complete Blood Count no Diff 11/08/24 E11.9 - Type 2 diabetes mellitus without complications Liver Panel 11/08/24 E11.9 - Type 2 diabetes mellitus without complications
[2024-11-06 11:32] VITALS: BP 128/76; PULSE 71; TEMP 36.5
--- OUTSIDE RECORDS SUMMARY | 2024-11-06 12:48 | XMS_ITS ---
Author Organization [facility] Address [address] [place] [address] Care Team Providers Care Didactic Instructor Name Role Phone Polo Villalta MD Primary Care Provider Juan C Valentin Jr REASON FOR VISIT Need [facility] records Encounters Encounter Location Date Provider Diagnosis [facility] [address] [place] [address] 02/04/2024 Juan C Oliveira Jr Plan Of Treatment No Information Progress Notes * PETER SCHWAB MDOB:[birth year] (83 yo F)Acc No.[id number]:02/04/2024 Patient:?PETER SCHWAB :1940???Age:83 Y???Sex:Female Address:[address], [place] [address] * true * Date:? Generated for Printi ng/Faxing/eTransmitting on:?11/06/2024 12:48 PM EDT
--- OUTSIDE RECORDS SUMMARY | 2024-11-06 12:48 | XMS_ITS ---
Author Organization [facility] Address [address] [place] [address] Care Team Providers Care Magazine Designer Name Role Phone Polo Villalta MD Primary Care Provider Juan C Valentin Jr REASON FOR VISIT labs Encounters Encounter Location Date Provider Diagnosis [facility] [address] [place] [address] 01/12/2024 Juan C Oliveira Jr Plan Of Treatment No Information Progress Notes * PETER SCHWAB MDOB:[birth year] (83 yo F)Acc No.[id number]:01/12/2024 Patient:?PETER SCHWAB :1940???Age:83 Y???Sex:Female Address:[place] [address] * true * Date:? Generated for Printi ng/Faazarg/eTransmitting on:?11/06/2024 12:48 PM EDT
--- OUTSIDE RECORDS SUMMARY | 2024-11-06 12:48 | XMS_ITS | Patient Health Record ---
Author Organization [facility] Address [address] [place] [address] Care Team Providers Care Operator Coating Furnace Name Role Phone Polo Villalta MD Primary Care Provider Juan C Valentin Jr Unavailable Allergies No Known Allergies Results Component Value Reference Range Notes IRON PROFILE Reviewed date:01/06/2024 10:01:06 AM Interpretation: Performing Lab:[facility], [address] [place] [phone] Notes/Report: Iron 37 30-160 mcg/dL Total Iron Binding Capacity 277 228-428 mcg/d L Percent Iron Saturation 13 15-50 % Unsaturated Iron Binding 240 Ferritin Reviewed date:01/06/2024 10:01:01 AM Interpretation: Performing Lab:[facility], [address] [place] [phone] Notes/Report: Ferritin 151 10-250 ng/mL Vitamin B12 Reviewed date:01/06/2024 10:00:56 AM Interpretation: Performing Lab:[facility], [address] [place] [phone] Notes/Report: Vitamin B12 961 200-900 pg/mL NORMAL 200-900 PG/ML INDETERMINATE 160-199 PG/ML DEFICIENT < 160 PG/ML Folate Reviewed date:01/06/2024 10:00:50 AM Interpretation: Performing Lab:[facility], [address] [place] [phone] Notes/Report: Folate 12.7 > or = 4.0 ng/mL Reference Values: > or = 4.0 ng/mL < 4.0 ng/mL suggests folate deficiency Methotrexate, aminopterin and folinic acid (leucovorin) are chemotherapeutic agents whose molecular structures are similar to folate; therefore, the Hr Advisor folate assay cannot be used for patients using these drugs. OBSX3 Reviewed date:01/12/2024 07:45:03 AM Interpretation: Performing Lab:[facility], [address] [place] [phone] Notes/Report: OBS1 NEGATIVE NEGATIVE OBS Date 1 01/06/24 OBS2 NEGATIVE NEGATIVE OBS Date 2 01/07/24 OBS3 NEGATIVE NEGATIVE OBS Date 3 01/08/24 Prothrombin Time INR Reviewed date:01/23/2024 04:00:10 PM Interpretation: Performing Lab:[facility], [address] [place] [phone] Notes/Report: Prothrombin Time 15.0 11.1-13.3 SEC INTERNATIONAL [...] Antigen Reviewed date:01/23/2024 04:00:27 PM Interpretation: Performing Lab:[facility], [address] [place] [phone] Notes/Report: Carcinoembryonic Antigen 4.50 CEA Reference Range: [...] 19-9 Reviewed date:01/26/2024 05:22:33 PM Interpretation: Performing Lab:[facility], [address] [place] [phone] Notes/Report: Carbohydrate Antigen 19-9 506 <34 U/mL This test was performed using the Siemens chemiluminescent method. Values obtained from different assay methods cannot be used interchangeably. CA 19-9 levels, regardless of value, should not be interpreted as absolute evidence of the presence or absence of disease. THIS TEST WAS PERFORMED AT: [facility] [address] [place] [phone] COOPER FISHER MD Reason For Referral No Information Medications Medication SIG (Take, Route, Frequency, Duration) Notes Start Date End Date Status OneTouch Ultra - In Vitro for 25 Active OneTouch Delica Plus [id number] - for 30 Active amLODIPine Besylate 5 [...] HCl 500 MG Oral for 90 Active Immunizations Vaccine Route Administration Date Status Comme nts Influenza Unknown 06/22/2023 Administered Social History Tobacco Use: Social History Observation Description Date Details (start date - stop date) Never Smoker NA - NA Tobacco Use/Smoking Question Answer Notes Patient is a nonsmoker Alcohol Screen Question Answer Notes Did you have a drink containing alcohol in the p ast year? No Points 0 Interpretation Negative Problems Problem Type SNOMED Code ICD Code Onset Dates Problem Status W/U Status Risk Notes Problem Obstructive jaundice (38577872) Obstructive jaundice (K83.8) Active confirmed Problem 546250419 Anemia, unspecified type (D64.9) Active confirmed Vital Signs Temperature 98.7 degrees Fahrenheit 12/30/2023 Blood pressure diastolic 00 mm Hg 12/30/2023 Height 5 ft 1.5 in in 12/30/2023 Blood pressure systolic 000 mm Hg 12/30/2023 Weight 134 lbs 12/30/2023 BMI 24.91 kg/m2 12/30/2023 Encounters Encounter Location Date Provider Diagnosis [facility] [address] [place] [address] 12/30/2023 Juan C Oliveira Jr Anemia, unspecified type D64.9 [facility] [address] [place] [address] 01/03/2024 Juan C Oliveira Jr [facility] [address] [place] [address] 01/06/2024 Juan C Oliveira Jr [facility] [address] [place] [address] 01/12/2024 Juan C Oliveira Jr [facility] [address] [place] [address] 02/04/2024 Juan C Oliveira Jr Assessments Encounter Date Diagnosis (ICD Code) Assessment Notes Treatment Notes Treatment Clinical Notes Section Notes 12/30/2023 Anemia, unspecified type (ICD-10 - D64.9) Anemia of chronic disease material was printed We discussed her symptoms today. We discussed anemia. We recommended further evaluation with laboratory testing. Colonoscopy could be considered based on laboratory results. We discussed this today as well. She will have laboratory studies in followup pending these results. Plan Of Treatment Pending Test Test Name Order Date IRON + IBC (FE) 12/30/2023 FERRITIN 12/30/2023 B12 12/30/2023 FOLATE 12/30/2023 OCCULT BLOOD STOOL X3 (OBS) 12/30/2023 Insurance Providers Payer Name Payer Address Payer Phone Subscriber Number Group Number Insured Name Patient Relationship to Insured Coverage Start Date Coverage End Date [facility] [id number] [place] [address] [id number] PETER SAL Self - patient is the insured Medical (General) History Medical History History ICD Code Coronary artery disease, car diac catheterization 12/23, no significant obstructive CAD except for branch of the RCA that was collateralized, medical management. Dr. Neri Hypertension Hyperlipidemia Mild to moderate Colonoscopy 01/05, limited to 60 cm due to adhesions, followup barium enema unremarkable. Surgical History Surgery Date(Month/Year)
--- OUTSIDE RECORDS SUMMARY | 2024-11-06 12:49 | XMS_ITS ---
Author Organization [facility] Address [address] [place] [address] Care Team Providers Care Band Ripsaw Operator Name Role Phone Polo Villalta MD Primary Care Provider Juan C Valentin Jr REASON FOR VISIT labs Encounters Encounter Location Date Provider Diagnosis [facility] [address] [place] [address] 01/06/2024 Juan C Oliveira Jr Plan Of Treatment No Information Progress Notes * PETER SCHWAB MDOB:[birth year] (83 yo F)Acc No.[id number]:01/06/2024 Patient:?PETER SCHWAB :1940???Age:83 Y???Sex:Female Address:[place] [address] * true * Date:? Generated for Printi ng/Faazarg/eTransmitting on:?11/06/2024 12:48 PM EDT
== END 2024-11-06 12:15 | disposition home or self-care (01) ==
LOC: HO.HMCHD 10:48
PROVIDERS: PCP Internal Medicine; Visit Provider Internal Medicine
DX: E11.9 Type 2 diabetes mellitus without complications (principal); C22.1 Intrahepatic bile duct carcinoma

== ENCOUNTER → 2024-11-06 10:47 | Outpatient (BNVA) | payer MEDICARE, SELFPAY | PROVIDERS: PCP Internal Medicine; Visit Provider Internal Medicine | DX: E11.9 Type 2 diabetes mellitus without complications (principal); C22.1 Intrahepatic bile duct carcinoma | CPT/HCPCS: 96127; 99202 ==

== ENCOUNTER 2024-11-08 07:29 | Outpatient (REF) | payer MEDICARE, SELFPAY ==
--- OUTSIDE RECORDS SUMMARY | 2024-11-08 07:31 | XMS_ITS | Patient Health Record ---
Author Organization [facility] Address [address] [place] [address] Care Team Providers Care Mulling Machine Operator Name Role Phone Polo Villalta MD Primary Care Provider Juan C Valentin Jr Unavailable Allergies No Known Allergies Results Component Value Reference Range Notes IRON PROFILE Reviewed date:01/06/2024 10:01:06 AM Interpretation: Performing Lab:[facility], [address] [place] [phone] Notes/Report: Iron 37 30-160 mcg/dL Total Iron Binding Capacity 277 228-428 mcg/d L Percent Iron Saturation 13 15-50 % Unsaturated Iron Binding 240 Ferritin Reviewed date:01/06/2024 10:01:01 AM Interpretation: Performing Lab:[facility], [address] [place] [phone] Notes/Report: Ferritin 151 10-250 ng/mL Vitamin B12 Reviewed date:01/06/2024 10:00:56 AM Interpretation: Performing Lab:[facility], [address] [place] [phone] Notes/Report: Vitamin B12 961 200-900 pg/mL NORMAL 200-900 PG/ML INDETERMINATE 160-199 PG/ML DEFICIENT < 160 PG/ML Folate Reviewed date:01/06/2024 10:00:50 AM Interpretation: Performing Lab:[facility], [address] [place] [phone] Notes/Report: Folate 12.7 > or = 4.0 ng/mL Reference Values: > or = 4.0 ng/mL < 4.0 ng/mL suggests folate deficiency Methotrexate, aminopterin and folinic acid (leucovorin) are chemotherapeutic agents whose molecular structures are similar to folate; therefore, the Assistant Professor Of Philosophy folate assay cannot be used for patients using these drugs. OBSX3 Reviewed date:01/12/2024 07:45:03 AM Interpretation: Performing Lab:[facility], [address] [place] [phone] Notes/Report: OBS1 NEGATIVE NEGATIVE OBS Date 1 01/06/24 OBS2 NEGATIVE NEGATIVE OBS Date 2 01/07/24 OBS3 NEGATIVE NEGATIVE OBS Date 3 01/08/24 Prothrombin Time INR Reviewed date:01/23/2024 04:00:10 PM Interpretation: Performing Lab:[facility], [address] [place] [phone] Notes/Report: Prothrombin Time 15.0 11.1-13.3 SEC INTERNATIONAL [...] Antigen Reviewed date:01/23/2024 04:00:27 PM Interpretation: Performing Lab:[facility], [address] [place] [phone] Notes/Report: Carcinoembryonic Antigen 4.50 CEA Reference Range: [...] 19-9 Reviewed date:01/26/2024 05:22:33 PM Interpretation: Performing Lab:[facility], [address] [place] [phone] Notes/Report: Carbohydrate Antigen 19-9 506 <34 U/mL This test was performed using the Siemens chemiluminescent method. Values obtained from different assay methods cannot be used interchangeably. CA 19-9 levels, regardless of value, should not be interpreted as absolute evidence of the presence or absence of disease. THIS TEST WAS PERFORMED AT: [facility] [address] [place] [phone] COOPER FISHER MD Reason For Referral No Information Medications Medication SIG (Take, Route, Frequency, Duration) Notes Start Date End Date Status OneTouch Ultra - In Vitro for 25 Active OneTouch Delica Plus [id number] - for 30 Active amLODIPine Besylate 5 [...] W/U Status Risk Notes Problem Obstructive jaundice (73451813) Obstructive jaundice (K83.8) Active confirmed Problem 721041582 Anemia, unspecified type (D64.9) Active confirmed Vital Signs Temperature 98.7 degrees Fahrenheit 12/30/2023 Blood pressure diastolic 00 mm Hg 12/30/2023 Height 5 ft 1.5 in in 12/30/2023 Blood pressure systolic 000 mm Hg 12/30/2023 Weight 134 lbs 12/30/2023 BMI 24.91 kg/m2 12/30/2023 Encounters Encounter Location Date Provider Diagnosis [facility] [address] [place] [address] 12/30/2023 Juan C Oliveira Jr Anemia, unspecified type D64.9 [facility] [address] [place] [address] 01/03/2024 Juan C Oliveira Jr [facility] [address] [place] [address] 01/06/2024 Juan C Oliveira Jr [facility] [address] [place] [address] 01/12/2024 Juan C Oliveira Jr [facility] [address] [place] [address] 02/04/2024 Juan C Oliveira Jr Assessments Encounter [...] Insured Coverage Start Date Coverage End Date [facility] [address] [place] [address] [id number] PETER SAL Self - patient is the [...]
--- OUTSIDE RECORDS SUMMARY | 2024-11-08 07:32 | XMS_ITS ---
Author Organization [facility] Address [address] [place] [address] Care Team Providers Care Business Area Director Name Role Phone Polo Villalta MD Primary Care Provider Juan C Valentin Jr REASON FOR VISIT labs Encounters Encounter Location Date Provider Diagnosis [facility] [address] [place] [address] 01/06/2024 Juan C Oliveira Jr Plan Of Treatment No Information Progress Notes * PETER SCHWAB MDOB:[birth year] (83 yo F)Acc No.[id number]:01/06/2024 Patient:?PETER SCHWAB :1940???Age:83 Y???Sex:Female Address:[place] [address] * true * Date:? Generated for Printi ng/Faazarg/eTransmitting on:?11/08/2024 07:31 AM EDT
--- OUTSIDE RECORDS SUMMARY | 2024-11-08 07:32 | XMS_ITS ---
Author Organization [facility] Address [address] [place] [address] Care Team Providers Care Toxics Program Officer Name Role Phone Polo Villalta MD Primary Care Provider Juan C Valentin Jr REASON FOR VISIT Need [facility] records Encounters Encounter Location Date Provider Diagnosis [facility] [address] [place] [address] 02/04/2024 Juan C Oliveira Jr Plan Of Treatment No Information Progress Notes * PETER SCHWAB MDOB:[birth year] (83 yo F)Acc No.[id number]:02/04/2024 Patient:?PETER SCHWAB :1940???Age:83 Y???Sex:Female Address:[address], [place] [address] * true * Date:? Generated for Printi ng/Faazarg/eTransmitting on:?11/08/2024 07:31 AM EDT
--- OUTSIDE RECORDS SUMMARY | 2024-11-08 07:32 | XMS_ITS ---
Author Organization [facility] Address [address] [place] [address] Care Team Providers Care Speeder Operator Name Role Phone Polo Villalta MD Primary Care Provider Juan C Valentin Jr REASON FOR VISIT labs Encounters Encounter Location Date Provider Diagnosis [facility] [address] [place] [address] 01/12/2024 Juan C Oliveira Jr Plan Of Treatment No Information Progress Notes * PETER SCHWAB MDOB:[birth year] (83 yo F)Acc No.[id number]:01/12/2024 Patient:?PETER SCHWAB :1940???Age:83 Y???Sex:Female Address:[place] [address] * true * Date:? Generated for Printi ng/Faazarg/eTransmitting on:?11/08/2024 07:31 AM EDT
[2024-11-08 10:59] LABS: Appearance Urine Cloudy; Color Urine Yellow; Glucose Urine UA Negative (Negative); Leukocyte Esterase Urine Trace (Negative); Nitrite Urine Positive (Negative); PH 5.5 (5.0-9.0); Specific Gravity - Urine 1.015 (1.005-1.025); UMIC TRIGGER UA YES; Urine Blood Small (1+) (Negative); Urine Ketones Negative (Negative); Urine Protein Negative (Neg-Trace)
[2024-11-08 11:01] LABS: Hematocrit 29.1 % (37.0-47.0); Hemoglobin 8.9 g/dl (12.0-16.0); Mean Corpuscular HGB Conc 30.6 g/dl (31.0-35.0); Mean Corpuscular Hemoglobin 27.5 pg (27.0-33.0); Mean Corpuscular Volume 89.8 fL (80.0-98.0); Platelet Count 272 X10*3/uL (160-400); Red Blood Count 3.24 X10*6/uL (4.20-5.50); Red Cell Distribution Width 18.2 % (11.0-16.0); White Blood Count 6.6 X10*3/uL (4.8-10.8)
[2024-11-08 11:06] LABS: Bacteria Urine 4+ (None Seen); Hyaline Casts Urine 0-2 /LPF (0-2)
[2024-11-08 11:07] LABS: Estimated Average Glucose 148 mg/dL; Hemoglobin A1C 122.7067 umol/L; Hemoglobin A1c % 6.8 % (<6.0); Total Hemoglobin (HGBA1C) 2418.4672 umol/L
[2024-11-08 11:23] LABS: Alanine Aminotransferase 20 U/L (0-31); Albumin Level 3.9 g/dL (3.5-5.0); Alkaline Phosphatase 131 U/L (39-117); Anion Gap 9 (12-20); Aspartate Amino Transferase 35 U/L (5-31); Bilirubin Direct 0.2 mg/dL (0.0-0.5); Bilirubin Total 0.6 mg/dL (0.0-1.0); Blood Urea Nitrogen 25 mg/dL (9-16); Calcium 9.5 mg/dL (8.4-10.2); Carbon Dioxide 25 mmol/L (22-29); Chloride 110 mmol/L (96-108); Cholesterol 140 mg/dL (<200); Estimated Glomerular Filt Rate > 60; Glucose Random 125 mg/dL (60-115); HDL Cholesterol 61 mg/dL (>40); LDL Cholesterol Calculated 65 mg/dL (<100); Potassium 4.3 mmol/L (3.3-5.1); Sodium 140 mmol/L (135-145); Total Protein 7.4 g/dL (6.5-8.0); Triglycerides 70 mg/dL (<150)
[2024-11-08 11:41] LABS: Thyroid Stimulating Hormone 0.69 uIU/mL (0.32-4.0)
== END 2024-11-08 07:30 | disposition home or self-care (01) ==
LOC: HO.HMGCLDS 07:29
PROVIDERS: PCP Internal Medicine; Visit Provider Internal Medicine
DX: E11.9 Type 2 diabetes mellitus without complications (principal)
CPT/HCPCS: 36415; 80048; 80061; 80076; 81001; 83036; 84443; 85027

== ENCOUNTER 2025-02-19 09:59 | Outpatient (AMB) | payer MEDICARE, SELFPAY ==
--- NOTE | 2025-02-19 09:06 | MHC.PC.OV ---
Vital Signs 02/19/25 10:07 Height 5 ft 1 in Weight 132 lb BMI 24.9 BP 122/74 Blood Pressure Location Lt brachial Position Sitting Pulse 73 Pulse Source Pulse Oximeter Temp 98.3 F Temp Source Axillary Pulse Oximetry (%) 99 Oxygen Delivery Method Room Air Intake Visit Reasons: 3 Month F/U - see comments Traffic Inspector Required: No Accompanied by: Self / Same As Patient Allergies No Known Allergies Allergy (Verified 02/19/25 09:06) Tobacco use date assessed: 02/19/25 Fall risk assessment: 1 Fall in past year Last assessed Fall Risk: 02/19/25 Dental Screening Dental Screen Date: 02/19/25 Did you have a dental visit in the last 12 months?: Yes Did you have a dental problem in the last 6 months where you did not have access to dental care?: No [facility] Medical History Cholangiocarcinoma Aortic stenosis CAD (coronary artery disease) Type 2 diabetes mellitus HLD (hyperlipidemia) HTN (hypertension) Family History Mother No problems noted. Father No problems noted. Social History Household Members: Spouse Housing: House Do you presently have visiting nurse or other home services: No Unable to assess alcohol history related to: Unable to respond and Unknown Patient Tobacco Use Status: Never used Tobacco service: No Current occupational status: retired Cognitive needs: Yes (cane) Hearing needs: No Vision needs: Yes (reading glasses) Questionnaire PHQ-9 Over the last 2 weeks, how often have you been bothered by any of the following problems? 1. Little interest or pleasure in doing things: not at all 2. Feeling down, depressed, or hopeless: not at all 3. Trouble falling or staying asleep, or sleeping too much: not at all 4. Feeling tired or having little energy: not at all 5. Poor appetite or overeating: not at all 6. Feeling bad about yourself - or that you are a failure or have let yourself or your family down: not at all 7. Trouble concentrating on things, such as reading the newspaper or watching television: not at all 8. Moving or speaking so slowly that other people could have noticed. Or the opposite - being so fidgety or restless that you have been moving around a lot more than usual: not at all 9. Thoughts that you would be better off or of hurting yourself in some way: not at all Total score: 0 Source: Developed by Drs. Zaid Gilbert, Coty Fraser, Ajay Odell and colleagues, with an educational meli from [employer]. Thrive Questionnaire Date Thrive assessed: 02/19/25 I am a: Patient Within the past 12 months, did the food you bought not last and you didn't have the money to get more?: Never true Within the past 12 months, did you worry whether your food would run out before you got money to buy more?: Never true Do you have trouble paying for medicines?: No Do you have trouble getting transportation to medical appointments?: No Do you have trouble paying your heating and electricity bill?: No Do you have trouble taking care of your child, family member or friend?: No Do you have trouble with day-to-day activities such as bathing, preparing meals, shopping, managing finances, etc.?: No Are you currently unemployed and looking for a job?: No Are you interested in more education?: No THRIVE Score: 0 AUDIT C Alcohol Use Questionnaire (AUDIT-C) 1. How often do you have a drink containing alcohol?: Never 3. How often do you have six or more drinks on one occasion?: Never Total Score: 0 CHERELLE-7 AMB Questionnaire CHERELLE-7 Date CHERELLE - 7 assessed: 02/19/25 Feeling nervous, anxious, or on edge: 0 = Not at all Not being able to stop or control worryin = Not at all Worrying too much about different things: 0 = Not at all Trouble relaxin = Not at all Being so restless that it is hard to sit still: 0 = Not at all Becoming easily annoyed or irritable: 0 = Not at all Feeling afraid as if something awful might happen: 0 = Not at all Total CHERELLE-7 score (0-4 normal; 5-9 mild; 10-14 moderate; 15-21 severe): 0 Source: Developed by Coty Gamboa Kurt Kroenke and colleagues, with an educational meli from [employer]. Physical exam (Primary Care) Vital Signs: Last Vital Signs Temp 98.3 F 02/19/25 10:07 Pulse 73 02/19/25 10:07 BP 122/74 02/19/25 10:07 Pulse Ox 99 02/19/25 10:07 Oxygen Delivery Method Room Air 02/19/25 10:07 BMI result Body Mass Index 24.9 Tobacco/Smoking Status: Tobacco use Status Tobacco use date assessed 02/19/25 02/19/25 09:07 Patient Tobacco Use Status Never used Tobacco 02/19/25 09:07 PHQ-9: PHQ-9 Score PHQ-9: Total score 0 02/19/25 10:08 Thrive Assessment: Date of Thrive Assessment Date Thrive assessed 02/19/25 02/19/25 09:07 Coding Level of Care Code Est Pt Level 4 (30286) Complex EM visit Add On G2211 Diagnoses Cholangiocarcinoma C22.1 Anemia D64.9 Assessment & Plan Assessment & Plan (1) 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 Follows up at [facility] (2) Anemia: Code(s): D64.9 - Anemia, unspecified Category: Medical Plan: Vitamin B12 added to the regimen Plan History of Present Illness - The patient is an 84-year-old female presenting with management of liver cancer and diabetes mellitus. - Liver cancer was diagnosed over a year ago, with initial symptoms leading to the discovery during a separate medical evaluation. - The patient underwent multiple endoscopic procedures, including stent placements, to manage bile duct obstruction. - Regular follow-ups and imaging studies, including CAT scans, have been part of the ongoing management plan. - Peripheral neuropathy symptoms began approximately three to four weeks ago, characterized by numbness in the fingertips of one hand, impacting dexterity. - Diabetes mellitus has been managed with regular monitoring of blood glucose levels, with recent readings higher than usual, prompting a request for A1c testing. - The patient has maintained a consistent diet and lifestyle, with no significant changes that could explain the elevated glucose levels. - Skin bruising has been noted, attributed to thinning skin rather than anticoagulant use. Social History - The patient maintains a consistent diet and lifestyle, with no significant changes reported. Review of Systems - Neurological: Reports numbness in fingertips of one hand for three to four weeks. Denies dropping objects. - Endocrine: Reports elevated blood glucose levels, previously well-controlled. - Integumentary: Reports skin bruising, attributed to thinning skin. Physical Exam General: Cooperative and healthy appearing Nutritional Appearance: Well nourished Orientation/consciousness: Patient oriented x3 Limitations: No limitations Head: Normal to inspection General: Appearance normal, both eyes and all related structures Neck: Normal visual inspection Chest: Normal palpation of entire chest wall Respiratory: N ormal respiratory effort Neurology: Patient oriented x3, reports numbness in hand and fingertips, sometimes hard to poultry picker objects, no pain reported. Results Plan 1. Liver Cancer - Continue regular follow-ups with Dr. Colmenares, including imaging studies such as CAT scans and blood work. - Monitor for symptoms such as changes in urinary or stool patterns. 2. Peripheral Neuropathy - Initiate oral vitamin B12 supplementation to address numbness in fingertips. 3. Diabetes Mellitus - Check hemoglobin A1c to assess current glycemic control. - Prescribe new glucose monitoring equipment as per insurance requirements. 4. Skin Bruising - Monitor for any changes or increase in bruising, attributed to thinning skin. Discussion Notes I discussed with the patient the management of her liver cancer, emphasizing the importance of regular follow-ups and monitoring for any changes in symptoms. We also addressed her peripheral neuropathy, recommending vitamin B12 supplementation. For her diabetes, we agreed to check her hemoglobin A1c and update her glucose monitoring equipment. Lastly, we discussed the skin bruising, attributing it to thinning skin and advising monitoring for any changes. Patient Instructions - Take vitamin B12 supplements as directed. - Monitor blood glucose levels regularly and report any significant changes. - Attend all scheduled follow-up appointments with Dr. Colmenares. - Observe for any changes in skin bruising and report if they worsen. Orders: Orders Hemoglobin A1c Today C22.1 - Intrahepatic bile duct carcinoma, D64.9 - Anemia, unspecified Basic Metabolic Panel Today C22.1 - Intrahepatic bile duct carcinoma, D64.9 - Anemia, unspecified Vitamin B12 and Folate Today C22.1 - Intrahepatic bile duct carcinoma, D64.9 - Anemia, unspecified Vitamin D 25-OH (D2 and D3) Today C22.1 - Intrahepatic bile duct carcinoma, D64.9 - Anemia, unspecified
[2025-02-19 10:07] VITALS: BP 122/74; PULSE 73; TEMP 36.8; O2SAT 99; BMI 24.9
== END 2025-02-19 11:04 | disposition home or self-care (01) ==
LOC: HO.HMCHD 09:59
PROVIDERS: PCP Internal Medicine; Visit Provider Internal Medicine
DX: C22.1 Intrahepatic bile duct carcinoma (principal); D64.9 Anemia, unspecified

== ENCOUNTER → 2025-02-19 09:59 | Outpatient (BNVA) | payer MEDICARE, SELFPAY | PROVIDERS: PCP Internal Medicine; Visit Provider Internal Medicine | DX: C22.1 Intrahepatic bile duct carcinoma (principal); D64.9 Anemia, unspecified | CPT/HCPCS: 99212 ==

== ENCOUNTER 2025-02-20 09:54 | Outpatient (REF) | payer MEDICARE, SELFPAY ==
[2025-02-20 13:53] LABS: Hemoglobin A1C 116.1413 umol/L; Total Hemoglobin (HGBA1C) 2246.9491 umol/L
[2025-02-20 14:08] LABS: Anion Gap 12 (12-20); Blood Urea Nitrogen 22 mg/dL (9-16); Calcium 9.1 mg/dL (8.4-10.2); Carbon Dioxide 25 mmol/L (22-29); Chloride 106 mmol/L (96-108); Estimated Glomerular Filt Rate > 60; Potassium 4.6 mmol/L (3.3-5.1); Sodium 138 mmol/L (135-145)
[2025-02-20 14:52] LABS: Folate 12.9 ng/mL (> or = 4.0); Vitamin B12 510 pg/mL (200-900)
[2025-02-25 15:43] LABS: Vitamin D 25-OH, D2 <4 ng/mL; Vitamin D 25-OH, D3 54 ng/mL; Vitamin D 25-OH, Total 54 ng/mL (30-100)
== END 2025-02-20 09:55 | disposition home or self-care (01) ==
LOC: HO.HMGCLDS 09:54
PROVIDERS: PCP Internal Medicine; Visit Provider Internal Medicine
DX: C22.1 Intrahepatic bile duct carcinoma (principal); D64.9 Anemia, unspecified
CPT/HCPCS: 36415; 80048; 82306; 82607; 82746; 83036

== ENCOUNTER 2025-05-07 10:15 | Outpatient (AMB) | payer MEDICARE, SELFPAY ==
--- NOTE | 2025-05-07 09:20 | A.OFFPC_ITS ---
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 Required: No Accompanied by: Spouse Allergies No Known Allergies Allergy (Verified 05/07/25 09:20) Tobacco use date assessed: 11/06/24 Fall risk assessment: No Falls in past year Last assessed Fall Risk: 05/07/25 Dental Screening Dental Screen Date: 05/07/25 Did you have a dental visit in the last 12 months?: Yes Did you have a dental problem in the last 6 months where you did not have access to dental care?: No Was dental information given to patient?: Patient has dentist HPI HPI Comments History of Present Illness Details The patient is an 85-year-old female presenting with concerns of angina-like symptoms subsequent to exertion and meals. She reports experiencing a feeling of discomfort in her chest after walking for a distance, which she considers lengthy due to other unspecified issues. These sensations, which began approximately two weeks ago, occur primarily after the patient consumes meals and has to cover a certain distance, typically after breakfast when she has taken a significant walk. She notes that the sensations dissipate within ten minutes, and there is no associated neck pain, arm pain, perspiration, or substantive chest pain experienced during these episodes. The patient denies any new exertion-related activities leading to this issue, but suspects it might correlate with indigestion. She does engage in gardening without any associated symptoms but finds that walking postprandially brings on these sensations. Importantly, she has a history of cholesterol issues and angina managed with multiple medications and is currently under surveillance for cholangiocarcinoma. Her liver cancer, identified as cholangiocarcinoma, is actively monitored with treatment from Dr. Colmenares, including three-month follow- up intervals and preparatory blood work and imaging before consultations. The patient has been compliant with her medication regimen for her various chronic conditions, including hypertension, hypothyroidism and Type 2 Diabetes Mellitus. The patient also reports experiencing numbness at the tips of the fingers on her left hand, which she has noticed when utilizing a cane with her right hand, although she has not received chemotherapy, radiation, nor has she experienced recent hand trauma. She acknowledges using both hands frequently and demonstrates strength despite the numbness, which does not extend elsewhere. This symptom has been speculated as possible neuropathy or age-related nerve changes, although its exact etiology is undetermined. Medical History: - Angina - Cholangiocarcinoma - Hyperlipidemia - Hypertension - Hypothyroidism - Type 2 Diabetes Mellitus Medications: - Aspirin for heart disease - Atorvastatin 40 mg for high cholestero l - Coreg (Carvedilol) 12.5 mg twice daily for blood pressure - Isosorbide mononitrate 90 mg daily for high blood pressure and angina - Levothyroxine 88 mcg for hypothyroidis m - Metformin 500 mg for hyperglycemia if blood sugar above 130 Diagnostic Results: Labs: - Hemoglobin A1c: 6.9% (January) - Thyroid Stimulating Hormone: 0.69 (Oct) Tests and Diagnostics: - Planned CT scan pre-visit with Dr. Colmenares - Pre-visit blood work with Dr. Colmenares Social History; - Patient resides presumably independent ly and is engaged in self-care activities. - Reports physical activity including ga rdening. - It is suggested that activities post-m eal are limited due to symptomatic presentation. [facility] Medical History (Updated 05/07/25 @ 11:09 by Norm Reyes MD) Normocytic anemia Hypothyroidism Cholangiocarcinoma Aortic stenosis CAD (coronary artery disease) Type 2 diabetes mellitus HLD (hyperlipidemia) HTN (hypertension) Family History Mother No problems noted. Father No problems noted. Social History Household Members: Spouse Housing: House Do you presently have visiting nurse or other home services: No Patient Tobacco Use Status: Never used Tobacco e-Cigarette/Vaping Use: Never Used service: No Current occupational status: retired Cognitive needs: Yes (cane) Hearing needs: No Vision needs: Yes (reading glasses) Questionnaire Thrive Questionnaire Date Thrive assessed: 11/06/24 AUDIT C Alcohol Use Questionnaire (AUDIT-C) 1. How often do you have a drink containing alcohol?: Never 3. How often do you have six or more drinks on one occasion?: Never Total Score: 0 CHERELLE-7 AMB Questionnaire CHERELLE-7 Date CHERELLE - 7 assessed: 11/06/24 Source: Developed by Drs. Zaid Gilbert, Coty B.W. Ajay Fraser and colleagues, with an educational meli from [email or web address]. Review of Systems Const Details: - Cardiovascular: Reports postprandial chest discomfort without radiation, denies neck/arm pain, and worsening perspiration - Gastrointestinal: Denies heartburn - Neurological: Reports numbness in fingertips of the left hand without radiation - No other systems reviewed All systems reviewed & are unremarkable except as reviewed in HPI and above Physical exam (Primary Care) Vital Signs: Last Vital Signs Temp 98 F 05/07/25 09:21 Pulse 76 05/07/25 09:21 Resp 18 05/07/25 09:21 BP 124/58 L 05/07/25 09:21 Pulse Ox 98 05/07/25 09:21 Oxygen Delivery Method Room Air 05/07/25 09:21 BMI result Body Mass Index 24.0 Tobacco/Smoking Status: Tobacco use Status Tobacco use date assessed 11/06/24 05/07/25 09:21 Patient Tobacco Use Status Never used Tobacco 05/07/25 09:21 e-Cigarette/Vaping Use Never Used 05/07/25 09:21 Thrive Assessment: Date of Thrive Assessment Date Thrive assessed 11/06/24 05/07/25 09:21 Const Other: General: +Alert and oriented, Well nourished, No acute distress. Eye: Pupils are equal, round and reactive to light, Intact accommodation, Extraocular movements are intact, Normal conjunctiva, Vision unchanged. HENT: Normocephalic, Atraumatic, Tympanic membranes are clear, Normal hearing, Oral mucosa is moist, No pharyngeal erythema, Ear canals patent. Respiratory: Lungs CTA bilaterally, No wheeze, Respirations are non-labored. Cardiovascular: Regular rate, Regular rhythm, S1 auscultated, S2 auscultated, No murmur, Good pulses equal in all extremities, Normal peripheral perfusion, No edema. Gastrointestinal: Soft, Non-tender, Non-distended, Normal bowel sounds, No organomegaly. Musculoskeletal: Normal range of motion, Normal strength, No tenderness, No swelling, No deformity, Normal gait. Early signs of arthritis noted in hands. Integumentary: Warm, Dry, [place], Intact. Neurologic: Alert, Oriented, Normal sensory, Normal motor function, No focal defects, Cranial Nerves II-XII are grossly intact, Normal deep tendon reflexes. Numbness noted in the fingers of the right hand, possibly due to neuropathy or nerve compression. Psychiatric: Cooperative, Appropriate mood & affect, Normal judgment. Coding Level of Care Code Est Pt Level 4 (71608) Complex EM visit Add On G2211 Diagnoses Primary hypertension I10 Hypertension type: primary hypertension Type 2 diabetes mellitus without complication, without long-term current use of insulin E11.9 Diabetes mellitus complication status: without complication Diabetes mellitus buttermaker helper insulin use: without buttermaker helper use Coronary artery disease involving [place] heart without angina pectoris, unspecified vessel or lesion type I25.10 Associated angina: without angina Coronary Disease-Associated Artery/Lesion type: unspecified vessel or lesion type [place] vs. transplanted heart: [place] heart Other specified hypothyroidism E03.8 Hypothyroidism type: other Normocytic anemia D64.9 Cholangiocarcinoma C22.1 Assessment & Plan Assessment & Plan (1) HTN (hypertension): Comment: - Continue carvedilol and isosorbide mononitrate. - Regular BP monitoring is implied. Code(s): I10 - Essential (primary) hypertension Category: Medical Qualifiers: Hypertension type: primary hypertension Qualified Code(s): I10 - Essential (primary) hypertension (2) Type 2 diabetes mellitus: Comment: - Continue metformin 500mg Daily - Repeat A1c in 3 months Code(s): E11.9 - Type 2 diabetes mellitus without complications Category: Medical Qualifiers: Diabetes mellitus complication status: without complication Diabetes mellitus skilled nursing insulin use: without buttermaker helper use Qualified Code(s): E11.9 - Type 2 diabetes mellitus without complications (3) CAD (coronary artery disease): Comment: - Continue Aspirin 81mg Daily Code(s): I25.10 - Atherosclerotic heart disease of [place] coronary artery without angina pectoris Category: Medical Qualifiers: Associated angina: without angina Coronary Disease-Associated Artery/Lesion type: unspecified vessel or lesion type [place] vs. transplanted heart: [place] heart Qualified Code(s): I25.10 - Atherosclerotic heart disease of [place] coronary artery without angina pectoris (4) Hypothyroidism: Comment: - Continue levothyroxine as current levels are satisfactory. - TSH from October at 0.69 Code(s): E03.9 - Hypothyroidism, unspecified Category: Medical Qualifiers: Hypothyroidism type: other Qualified Code(s): E03.8 - Other specified hypothyroidism (5) Normocytic anemia: Comment: - Baseline Hb around 8 - No complaints Code(s): D64.9 - Anemia, unspecified Category: Medical (6) Cholangiocarcinoma: Comment: - Monitor per prior schedule with CT scans and blood work in preparation for appointments with Dr. Colmenares. 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 Patient was informed and verbally consented to the use of an ambient scribe for clinic note documentation during this visit. Plan In our discussion, I reviewed the patient's main complaints of postprandial chest discomfort and the potential linkage to exertional angina. The patient was advised on incorporating pantoprazole to potentially mitigate these symptoms by addressing any underlying acid reflux. We confirmed her oncology follow-up schedule for cholangiocarcinoma management, emphasizing the importance of adhering to the pre-visit protocol of CT imaging and blood tests for a comprehensive assessment with Dr. Colmenares. We discussed management strategies for her chronic conditions, highlighting stability in her thyroid levels and diabetes control. Preventative health measures were recommended, particularly flu and COVID-19 vaccinations. The patient was instructed to take Metformin consistently to support blood glucose management. I emphasized reaching out to her associate publisher for any exacerbation of symptoms. Orders: Orders Hemoglobin A1c 3 Months E11.9 - Type 2 diabetes mellitus without complications Medications: New pantoprazole (Protonix) 40 mg PO DAILY 90 tabs 3RF 90 days Changed From carvedilol 12.5 mg PO BID To carvedilol 12.5 mg PO BID 180 tabs 3RF 90 days Patient Instructions: - Take pantoprazole 40 mg every morning 40 minutes before eating breakfast. - Follow the schedule for CT scan and blood tests before visiting Dr. Colmenares. - Continue daily medications as prescribed without interruption unless advised. - Ensure influenza and COVID-19 vaccinations are current. - Monitor blood glucose levels and use Metformin as directed. - Contact health services immediately if severe, persistent chest pain occurs. - Follow up for routine care and monitoring as previously scheduled.
[2025-05-07 09:21] VITALS: BP 124/58; PULSE 76; RESP 18; TEMP 36.6; O2SAT 98; BMI 24.0
== END 2025-05-07 11:10 | disposition home or self-care (01) ==
PROVIDERS: PCP Student in an Organized Health Care Education/Training Program; Visit Provider Student in an Organized Health Care Education/Training Program
DX: I10 Essential (primary) hypertension (principal); E11.9 Type 2 diabetes mellitus without complications; I25.10 Atherosclerotic heart disease of native coronary artery without angina pectoris; E03.8 Other specified hypothyroidism; D64.9 Anemia, unspecified; C22.1 Intrahepatic bile duct carcinoma

== ENCOUNTER → 2025-05-07 10:15 | Outpatient (BNVA) | payer MEDICARE, SELFPAY | PROVIDERS: PCP Internal Medicine; Visit Provider Student in an Organized Health Care Education/Training Program | DX: I10 Essential (primary) hypertension (principal); E11.9 Type 2 diabetes mellitus without complications; I25.10 Atherosclerotic heart disease of native coronary artery without angina pectoris; E03.8 Other specified hypothyroidism; D64.9 Anemia, unspecified; C22.1 Intrahepatic bile duct carcinoma; Z79.82 Long term (current) use of aspirin; Z79.84 Long term (current) use of oral hypoglycemic drugs; Z79.899 Other long term (current) drug therapy | CPT/HCPCS: 99212 ==

== ENCOUNTER 2025-06-26 12:42 | Outpatient (REF) | payer MEDICARE, SELFPAY ==
--- OUTSIDE RECORDS SUMMARY | 2025-06-23 14:11 | XMS_ITS | Continuity of Care Document ---
Author Organization [facility] ter Address [address] [place] [id number]- Care Team Providers Care Supervisor Plate Forming Name Role Phone Julianne JUAREZ, Tarun Badillo Primary Care Physician Encounter [facility] Date(s): 06/14/25 - 06/23/25 [facility] [address] [place] [id number]- Encounter Diagnosis Unstable angina(Final) - 06/13/25 Discharge Disposition: A-D/C Home Attending Physician: Norm Sweeney DO Admitting Physician: Shivani Frost MD Referring Physician: Not on Staff, Referring MD Encounter Type: Disch IP Allergies, Adverse Reactions, Alerts Substance Criticality Severity Reaction Reaction Severity Status amLODIPine 1 High criticality Moderate Active 1weakness Functional Status Functional Status Assessment Assessment Assessment Component Result Effecti ve Date Eddi scale total score 20 Functional Status Assessment Assessment Assessment Component Result Effecti ve Date Unspecifed Functional Status Assessment Skin abnormality typ e (observable entity) Surgical incision 06/21/25 Functional Status Assessment Assessment Assessment Component Result Effecti ve Date Total Falls Risk Score 3 06/23 Functional Status Assessment Assessment Assessment Component Result Effecti ve Date Eddi scale total score 21 Functional Status Assessment Assessment Assessment Component Result Effecti ve Date Total Falls Risk Score 11 06/22 Functional Status Assessment Assessment Assessment Component Result Effecti ve Date Eddi scale total score 22 Functional Status Assessment Assessment Assessment Component Result Effecti ve Date Unspecifed Functional Status Assessment Skin abnormality typ e (observable entity) Surgical incision 06/22/25 Functional Status Assessment Assessment Assessment Component Result Effecti ve Date Total Falls Risk Score 8 06/22 Functional Status Assessment Assessment Assessment Component Result Effecti Total score [AUDIT] 0 06/13/25 Functional Status Assessment Assessment Assessment Component Result Effecti Unspecifed Functional Status Assessment Skin abnormality typ e (observable entity) Surgical incision 06/20/25 Functional Status Assessment Assessment Assessment Component Result Effecti Disability status [CUBS] I'm Thriving - no identified disability 06/20/25 Do you need any matt tional assistance or accommodations during your visit No 06/20/25 Difficulty Reading O r Writing No 06/20/25 Difficulty communica ting in usual language No 06/20/25 Because of a physica l, mental, or emotional condition, do you have difficulty doing errands alone such as visiting a physician's office or shopping No 06/20/25 Do you have difficul ty dressing or bathing No 06/20/25 Do you have serious difficulty walking or climbing stairs No 06/20/25 Because of a physica l, mental, or emotional condition, do you have serious difficulty concentrating, remembering, or making decisions No 06/20/25 Are you blind, or do you have serious difficulty seeing, even when wearing glasses No 06/20/25 Are you deaf, or do you have serious difficulty hearing No 06/20/25 Medications Albuterol (Eqv-ProAir HFA) 90 mcg/inh inhalation aerosol 2 puffs, Inhalation, Every 6 hours, 0 Refills, Maintenance, 01/24/24 3:38:00 AM EDT, Partial fill upon patient request if the prescription is for a schedule II opioid drug. Start Date: 01/24/24 Status: Ordered Medication Dispense Status: Completed Total Allowed Fills: 1 Fills Dispensed: 0 aspirin 81 mg oral capsule 1 capsule = 81 mg, By Mouth, Daily, 0 Refills, Maintenance, 11/20/24 10:24:00 AM EDT, Partial fill upon patient request if the prescription is for a schedule II opioid drug. Start Date: 11/20/24 Status: Ordered Medication Dispense Status: Completed Total Allowed Fills: 1 Fills Dispensed: 0 atorvastatin 40 mg oral tablet 1 tablet = 40 mg, By Mouth, Daily, # 90 tablet, 0 Refills, Maintenance, 11/10/22 8:42:00 AM EDT, Tablet, Partial fill upon patient request if the prescription is for a schedule II opioid drug. Start Date: 11/10/22 Status: Ordered Medication Dispense Status: Completed Quantity: 90.0 Unit: tablet Total Allowed Fills: 1 Fills Dispensed: 0 carvedilol 12.5 mg oral tablet 12.5 mg, 1, tablet, By Mouth, 2 times a day, # 180 tablet, Refills 0, Maintenance, 11/10/22 8:42:00 AM EDT, Partial fill upon patient request if the prescription is for a schedule II opioid drug. Start Date: 11/10/22 Status: Ordered Medication Dispense Status: Completed Quantity: 180.0 Unit: tablet Total Allowed Fills: 1 Fills Dispensed: 0 carvedilol 12.5 mg oral tablet 12.5 mg, Tablet, By Mouth, Hold for: SBP < 110, 06/22/25 9:00:00 PM EST Start Date: 06/22/25 Stop Date: 06/22/25 Status: Completed Medication Dispense Status: Completed Total Allowed Fills: 1 Fills Dispensed: 0 isosorbide mononitrate 30 mg oral tablet, extended release 3 tablets, By Mouth, Daily in AM, 0 Refills, Maintenance, 06/13/25 2:44:00 PM EST, Partial fill upon patient request if the prescription is for a schedule II opioid drug. Start Date: 06/13/25 Status: Ordered Medication Dispense Status: Completed Total Allowed Fills: 1 Fills Dispensed: 0 metFORMIN 500 mg oral tablet 1 tablet = 500 mg, By Mouth, Daily, with meals, # 30 tablet, 0 Refills, Maintenance, 11/10/22 8:41:00 AM EDT, Tablet, Partial fill upon patient request if the prescription is for a schedule II opioid drug. Start Date: 11/10/22 Status: Ordered Medication Dispense Status: Completed Quantity: 30.0 Unit: tablet Total Allowed Fills: 1 Fills Dispensed: 0 Misc Rx Refills 0, Maintenance, 10/13/24 3:55:00 PM EDT, Supply Start Date: 10/13/24 Status: Ordered Medication Dispense Status: Completed Total Allowed Fills: 1 Fills Dispensed: 0 NIFEdipine 30 mg oral tablet, extended release 30 mg, By Mouth, Daily, # 30 tablet, Refills 1, Tot. Refills 1, Maintenance, 06/23/25 11:22:00 AM EST, Route to Pharmacy Electronically, [facility] [place] [facility], Partial fill upon patient request ifthe prescription is for a schedule II opioid drug., 155, cm, 06/23/25 8:24:00 EST, Height, 62.2, kg, 06/16/25 15:01:00 EST, Dry Weight Start Date: 06/23/25 Status: Ordered Medication Dispense Status: Completed Quantity: 30.0 Unit: tablet Total Allowed Fills: 2 Fills Dispensed: 0 nitroglycerin 0.4 mg sublingual tablet = 0.4 mg, Sublingual, Every 5 minutes, PRN Chest Pain, 0 Refills, Maintenance, 06/23/25 11:21:00 AMEST, Tablet, Partial fill upon patient request if the prescription is for a schedule II opioid drug. Start Date: 06/23/25 Status: Ordered Medication Dispense Status: Completed Total Allowed Fills: 1 Fills Dispensed: 0 ONETOUCH DELICA PLUS LANCETS EXTRA FINE 33G MISC ONETOUCH DELICA PLUS LANCETS EXTRA FINE 33G MISC, 0 Refills, Maintenance, 11/10/22 8:41:00 AM EDT Start Date: 11/10/22 Status: Ordered Medication Dispense Status: Completed Total Allowed Fills: 1 Fills Dispensed: 0 ONETOUCH ULTRA TEST STRIP USE ONCE A DAY *DX E11.9* Start Date: 11/10/22 Status: Ordered Medication Dispense Status: Completed Total Allowed Fills: 1 Fills Dispensed: 0 pantoprazole 40 mg oral delayed release tablet = 40 mg, By Mouth, Daily, # 30 tablet, 1 Refills, Maintenance, 06/23/25 11:22:00 AM EST, EC Tablet,155, cm, 06/23/25 8:24:00 EST, Height, 62.2, kg, 06/16/25 15:01:00 EST, Dry Weight Start Date: 06/23/25 Status: Ordered Medication Dispense Status: Completed Quantity: 30.0 Unit: tablet Total Allowed Fills: 2 Fills Dispensed: 0 Plavix 75 mg oral tablet 75 mg, By Mouth, Daily, # 30 tablet, Refills 5, Tot. Refills 5, Maintenance, 06/23/25 11:21:00 AM EST, Route to Pharmacy Electronically, [facility] [place] [facility], Partial fill upon patient request ifthe prescription is for a schedule II opioid drug., 155, cm, 06/23/25 8:24:00 EST, Height, 62.2, kg, 06/16/25 15:01:00 EST, Dry Weight Start Date: 06/23/25 Status: Ordered Medication Dispense Status: Completed Quantity: 30.0 Unit: tablet Total Allowed Fills: 6 Fills Dispensed: 0 potassium bicarbonate 10 mEq oral tablet, effervescent 1 tablet = 10 mEq, By Mouth, Daily, 0 Refills, Maintenance, 07/18/24 8:59:00 AM EST, Partial fill upon patient request if the prescription is for a schedule II opioid drug. Start Date: 07/18/24 Status: Ordered Medication Dispense Status: Completed Total Allowed Fills: 1 Fills Dispensed: 0 Synthroid 0.088 mg oral tablet 1 tablet = 88 mcg, By Mouth, Daily, # 30 tablet, 0 Refills, Maintenance, 11/10/22 8:41:00 AM EDT, Tablet, Partial fill upon patient request if the prescription is for a schedule II opioid drug. Start Date: 11/10/22 Status: Ordered Medication Dispense Status: Completed Quantity: 30.0 Unit: tablet Total Allowed Fills: 1 Fills Dispensed: 0 Vitamin D3 2000 intl units oral capsule 1 capsule = 50 mcg, By Mouth, 2 times a day, # 60 capsule, 0 Refills, Maintenance, 11/10/22 8:43:00 AM EDT, Capsule, Partial fill upon patient request if the prescription is for a schedule II opioid drug. Start Date: 11/10/22 Status: Ordered Medication Dispense Status: Completed Quantity: 60.0 Unit: capsule Total Allowed Fills: 1 Fills Dispensed: 0 Mental Status Mental Status Assessment Assessment Assessment Component Result Effecti ve Date Coleman coma score total 15 07/26 Mental Status Assessment Assessment Assessment Component Result Effecti ve Date Weikert coma score total 15 Results Radiology Reports * Exam Date Time Procedure Performing Provider Status 06/12/25 8:29 PM Chest 2 Views Frontal and Lat Auth (Verified) Notes: (Chest 2 Views Frontal and Lat) Reason For Exam: Chest Pain;Other: RESULT: Chest 2 Views Frontal and Lat Chest 2 Views Frontal and Lat Reason: Other:; Chest Pain; Clinical Question(s): Other: COMPARISON: CT 06/01/2025 FINDINGS: LINES AND TUBES: None. LUNGS AND PLEURA: No focal opacity or volume loss. Small nodules in both lungs similar to previous CT. No evidence of pleural effusion. No pneumothorax. HEART, MEDIASTINUM AND KATY: Heart is normal in size. Normal mediastinal and hilar contour. BONES AND SOFT TISSUES: No acute abnormality. IMPRESSION: No acute abnormality. WSN: [id number] Ordering Physician: Matilde Tanner Dictated By: Naeem Van MD Dictated Date/Time: 06/12/25 8:34 pm Reviewed By: Naeem Van MD Signed By: Naeem Van MD Signed Date/Time: 06/12/25 8:34 pm Transcribed By: MELVIN Transcribed Date/Time: 06/12/25 8:31 pm Vital Signs Most recent to oldest [Reference Range]: 1 2 3 Height 155 cm (06/23/25 8:24 AM) 155 cm (06/22/25 8:39 AM) 155 cm (06/22/25 3:18 AM) Weight 57.0 kg (06/22/25 3:18 AM) 57.5 kg (06/21/25 2:00 AM) 59.7 kg (06/20/25 2:31 AM) Oxygen Saturation [94-100 %] 99 % (06/23/25 8:24 AM) 99 % (06/23/25 2:00 AM) 100 % (06/22/25 8:39 AM) Pulse Rate [55-90 bpm] 83 bpm (06/23/25 8:24 AM) 68 bpm (06/23/25 2:00 AM) 74 bpm (06/22/25 9:18 PM) Body Mass Index [18.5-24.99 kg/m2] 23.73 kg/m2 (06/22/25 3:18 AM) 25.68 kg/m2 *H* (06/17/25 2:23 AM) 25.89 kg/m2 *H* (06/16/25 3:01 PM) Blood Pressure [90-138/55-84 mm Hg] 149/59mm Hg *H* (06/23/25 8:24 AM) 158/71mm Hg *H* (06/23/25 2:00 AM) 129/52mm Hg (06/22/25 9:18 PM) Respiratory Rate [16-30 br/min] 20 br/min (06/23/25 8:24 AM) 16 br/min (06/23/25 2:00 AM) 18 br/min (06/22/25 7:00 PM) Temperature [96.8-100.4 DegF] 97.8 DegF (06/23/25 8:24 AM) 97.7 DegF (06/23/25 2:00 AM) 97.9 DegF (06/22/25 7:00 PM) Mode of Delivery (Oxygen) Room air (06/23/25 8:24 AM) Room air (06/23/25 2:00 AM) Room air (06/22/25 7:00 PM) Blood pressure sites Arm, right (06/23/25 8:24 AM) Arm, right (06/23/25 2:00 AM) Arm, left (06/22/25 7:00 PM) Temperature Route Oral (06/23/25 8:24 AM) Oral (06/23/25 2:00 AM) Oral (06/22/25 7:00 PM) Dry Weight 62.2 kg (06/16/25 3:01 PM) 58 kg (06/13/25 8:48 AM) 60.5 kg (06/13/25 5:55 AM) Weight Obtained Via Bed scale (06/22/25 3:18 AM) Bed scale (06/19/25 5:11 AM) Bed scale (06/17/25 2:23 AM) Dry Weight Obtained Via Standing scale (06/13/25 5:55 AM) Patient/family stated (06/12/25 8:44 PM) Patient/family stated (06/12/25 7:57 PM) Social History Social History Type Response Smoking Status Never (less than 100 in lifetime) entered on: 11/10/22 Sex Sex Representation Female (finding) Status N/A Social Determinants of Health Assessment Assessment Assessment Component Result Effecti ve Date Unspecifed Social Determinants of Health Assessment Has lack of transpor tation kept you from medical appointments, meetings, work, or from getting things needed for daily living No 06/20/25 Within the last year , have you been afraid of your partner or ex-partner No 06/20/25 Do you feel physical ly and emotionally safe where you currently live [PRAPARE] Yes 06/20/25 How often do you see or talk to people that you care about and feel close to [PRAPARE] 6 or more times a week 06/20/25 Have you or any fami ly members you live with been unable to get any of the following when it was really needed in past 1 year [PRAPARE] None 06/20/25 Are you worried abou t losing your housing [PRAPARE] No 06/20/25 Housing status I have housing 06/20/25 Procedure * Event Display: Hemodynamic Procedure Report Authored Date: * Event Display: Cardiac Rhythm Strips Authored Date: * Event Display: Hemodynamic Procedure Report Authored Date: * Event Display: Hemodynamic Procedure Report Authored Date: * Event Display: Cardiac Rhythm Strips Authored Date: * Event Display: Cardiac Rhythm Strips Authored Date: * Event Display: Cardiac Rhythm Strips Authored Date: * Event Display: Cardiac Rhythm Strips Authored Date: * Event Display: Cardiac Rhythm Strips Authored Date: * Event Display: Cardiac Rhythm Strips Authored Date: * Event Display: Stress Nuc with Regadenoson Authored Date: Please click on pdf link to open report Consult note * Lizbeth JUAREZ, Mawra: PERFORM Event Display: Consultation Note Authored Date: Patient: ??MIMI CALVO ? Age:??85 Years?Sex:??Female?:??1940?LOC:??[facility]?? 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 Patient reported that she suddenly developed 8/10 chest pressure that did not resolve after taking pantoprazole, nitroglycerin.?? No associated shortness of breath, dizziness, nausea, sweating, lightheadedness.?? Pain resolved after receiving aspirin in the ED. ?? Denies shortness of breath with exertion or chest pain with exertion, dizziness, lightheadedness, blood in stools, or urine, black tarry stools, abdominal pain, constipation or diarrhea.?? She was evaluated by cardiology who thought angina was likely in the setting of anemia. ?? Labs showed drop in hemoglobin from 7.5 to 6.2.?? S/p 1 unit PRBCs.?? Repeat hemoglobin 7.9.?? Other labs showed reticulocyte count corrected 0.7, LDH 305, haptoglobin 211, indirect bilirubin 0.3,iron level 11, TIBC 402, percentage iron saturation 3, ferritin 29, vitamin B12 964, folic acid 21.7. Review of Systems A full review of systems was obtained and is negative except as mentioned above Objective Vital Signs?? Temperature: 97.7 DegF (06/14/25 14:29:00) Temperature Route: Oral (06/14/25 14:29:00) Pulse Rate: 71 bpm (06/14/25 14:29:00) Respiratory Rate: 16 br/min (06/14/25 14:29:00) Systolic Blood Pressure: 137 mm Hg (06/14/25 14:29:00) Diastolic Blood Pressure: 63 mm Hg (06/14/25 14:29:00) Blood pressure sites: Arm, right (06/14/25 14:29:00) Mean Arterial Pressure: 88 mm Hg (06/14/25 14:29:00) Pulse Pressure: 74 mm Hg (06/14/25 14:29:00) Oxygen Saturation: 97 % (06/14/25 14:29:00) Mode of Delivery (Oxygen): Room air (06/14/25 14:29:00) Early Warning Score: 3 (06/14/25 16:10:35) ?? Physical Exam Constitutional: Alert, comfortable, no acute distress Respiratory:??Normal lung sounds bilaterally Cardiovascular: S1 S2 regular. Systolic murmur Gastrointestinal: Abdomen soft, non-tender, non-distended. Normal bowel sounds. Extremities:No pitting??edema. No cyanosis or clubbing. Neurologic: Speech normal. No focal neurological deficits. 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 Connie not remember when was her last colonoscopy, it was done at [facility].? Iron deficiency anemia ?? Plan: -??Continue monitoring hemoglobin, transfuse if hemoglobin is less than 7 - Her total iron deficit is 1807 mg.??We recommend giving IV iron??500 mg daily for 4 days. -??She might benefit from??colonoscopy in near future. ?Patient's care and plan discussed with attending, Dr. Ramirez ?? Mark Nieves MD Internal Medicine PGY-3 Available on [employer] ? Histories Allergies Allergies ?(Active and Proposed Allergies Only) amLODIPine? (Severity: Moderate, Onset: Unknown) ?Comments: weakness ?? Social History Tobacco Details:??Use: Never (less than 100 in lifetime). ?? Medications Home Medications Albuterol (Albuterol (Eqv-ProAir HFA) 90 mcg/inh inhalation aerosol)??2 puff(s) Inhalation Every 6 hours Aspirin (aspirin 81 mg oral capsule)??1 capsule 81 Milligram By Mouth Daily Atorvastatin (atorvastatin 40 mg oral tablet)??1 tab(s) 40 Milligram By Mouth Daily Carvedilol (carvedilol 12.5 mg oral tablet)??12.5 Milligram 1 tablet By Mouth 2 times a day Cholecalciferol (Vitamin D3 2000 intl units oral capsule)??1 capsule 50 Microgram By Mouth 2 times a day Isosorbide Mononitrate (isosorbide mononitrate 30 mg oral tablet, extended release)??3 tablets By Mouth Daily in AM Levothyroxine (Synthroid 0.088 mg oral tablet)??1 tab(s) 88 Microgram By Mouth Daily Metformin (metFORMIN 500 mg oral tablet)??1 tab(s) 500 Milligram By Mouth Daily with meals Miscellaneous Rx ([employer] [facility] ULTRA TEST STRIP)??USE ONCE A DAY *DX E11.9* Potassium Bicarbonate (potassium bicarbonate 10 mEq oral tablet, effervescent)??1 tab(s) 10 Milliequivalent By Mouth Daily ? Inpatient Medications Medications (21) Active SCHEDULED: (9) Aspirin 81 mg Chew Tablet (aspirin 81 mg oral tablet, chewable) ??81 mg, By Mouth, Daily Carvedilol 12.5 mg Tablet (carvedilol 12.5 mg oral tablet) ??12.5 mg, By Mouth, 2 times a day Insulin Lispro 100 units/mL Inj (Insulin LISPRO Sliding Scale) ??2-10 units, Subcutaneous Injection, 3 times a day before meals Iron Sucrose 20 mg/mL IVPB (10mL) (Venofer IVPB) ??500 mg 25 mL, IVPB, Once Isosorbide Mononitrate 30 mg ER Tablet (isosorbide mononitrate 30 mg oral tablet, extended release)??90 mg, By Mouth, Daily in AM Levothyroxine 88 mcg Tablet (Synthroid 0.088 mg oral tablet) ??88 mcg, By Mouth, Daily NaCl 0.9% Flush 3ml (NaCL 0.9% Flush) ??3 mL, IV Push, Every 8 hours NIFEdipine 30 mg ER Tablet (NIFEdipine 30 mg oral tablet, extended release) ??30 mg, By Mouth, Daily Pantoprazole 40 mg EC Tablet (pantoprazole 40 mg oral delayed release tablet) ??40 mg, By Mouth, Daily CONTINUOUS: (0) PRN: (12) Acetaminophen 325 mg Tablet (Acetaminophen Tablet) ??650 mg, By Mouth, Every 4 hours Dextrose Inj Syringe (Dextrose 50% Inj Syringe (25Gm)) ??12.5 Gm, IV Push Slowly, Every 20 minutes Dextrose Inj Syringe (Dextrose 50% Inj Syringe (25Gm)) ??25 Gm, IV Push Slowly, Every 15 minutes Glucagon 1 mg Inj (Glucagon Inj) ??1 mg, Intramuscular, Once Glucose 40% Gel (15 Gm) (Glucose Gel) ??15 Gm, By Mouth, Every 20 minutes Glucose 40% Gel (15 Gm) (Glucose Gel) ??30 Gm, By Mouth, Every 20 minutes Melatonin 3 mg Tablet (Melatonin Tablet) ??3 mg, By Mouth, Daily at bedtime NaCl 0.9% Flush 3ml (NaCL 0.9% Flush) ??3 mL, IV Push, Every 8 hours Nitroglycerin 0.4 mg Sublingual Tablet (nitroglycerin 0.4 mg sublingual tablet) ??0.4 mg, Sublingual, Every 5 minutes Polyethylene Glycol 17 Gm Powder (MiraLax Powder) ??17 Gm 1 pack/packet, By Mouth, Daily Senna Tablet ??8.6 mg 1 tablet, By Mouth, 2 times a day Simethicone 80 mg Chewable Tablet (Simethicone Tablet) ??80 mg, Chew, 3 times a day ? Results Recent Labs BACTERIOLOGY Blood Culture Results Preliminary report ()?? 06/13/2025 13:10 Blood Culture Isolate 1 Comment ()?? 06/13/2025 13:10 Blood Cult 2 Results Preliminary report ()?? 06/13/2025 13:10 Blood Culture 2 Isolate 1 Comment ()?? 06/13/2025 13:10 ?? BLOOD BANK Blood Type O Positive ()?? 06/14/2025 03:20 Antibody Screen Negative ()?? 06/14/2025 03:20 RBC Unit ID [id number] ()?? 06/14/2025 03:30 RBC Available IS ()?? 06/14/2025 03:30 ?? BLOOD COUNT & DIFF WBC 7.8 k/mm3 ()?? 06/14/2025 01:07 RBC 2.46 m/mm3 (Low)?? 06/14/2025 01:07 Hgb 7.9 Gm/dL (Low)?? 06/14/2025 14:29 Hct 24.9 % (Low)?? 06/14/2025 14:29 MCV 81.3 femtoliters ()?? 06/14/2025 01:07 MCH 25.2 pg (Low)?? 06/14/2025 01:07 MCHC 31.0 Gm/dL (Low)?? 06/14/2025 01:07 Platelet Count 219 k/mm3 ()?? 06/14/2025 01:07 RDW-SD 51.9 femtoliters (High)?? 06/14/2025 01:07 MPV 9.7 femtoliters ()?? 06/14/2025 01:07 Nucleated RBC (Automated) 0.0 #/100 WBC'S ()?? 06/14/2025 01:07 Abs. NRBC 0.0 k/mm3 ()?? 06/14/2025 01:07 Abs. Neut 6.4 k/mm3 ()?? 06/14/2025 01:07 Abs. Lymph 0.7 k/mm3 (Low)?? 06/14/2025 01:07 Abs. Wallace 0.6 k/mm3 ()?? 06/14/2025 01:07 Abs. Eo 0.0 k/mm3 ()?? 06/14/2025 01:07 Abs. Baso 0.0 k/mm3 ()?? 06/14/2025 01:07 Neut % 81.9 % (High)?? 06/14/2025 01:07 Lymph % 8.6 % (Low)?? 06/14/2025 01:07 Wallace % 8.2 % ()?? 06/14/2025 01:07 Eos % 0.4 % ()?? 06/14/2025 01:07 Baso % 0.3 % ()?? 06/14/2025 01:07 Retic Count 1.6 % ()?? 06/14/2025 01:07 Retic Count Corrected 0.7 % (Low)?? 06/14/2025 01:07 Retic Production Index 0.4 % (Low)?? 06/14/2025 01:07 Imm Gran 0.6 % ()?? 06/14/2025 01:07 Abs. Imm Gran 0.1 k/mm3 ()?? 06/14/2025 01:07 ?? CHEM GENERAL Sodium 134 mmol/L ()?? 06/14/2025 01:07 Potassium 3.8 mmol/L ()?? 06/14/2025 01:07 Chloride 104 mmol/L ()?? 06/14/2025 01:07 Bicarbonate Level 21 mmol/L (Low)?? 06/14/2025 01:07 Anion Gap 9 mmol/L ()?? 06/14/2025 01:07 Glucose, POC 247 mg/dL (High)?? 06/14/2025 16:08 BUN 29 mg/dL (High)?? 06/14/2025 01:07 Creatinine-Blood 0.82 mg/dL ()?? 06/14/2025 01:07 Estimated GFR Creatinine 70 ML/MIN/1.73 M2 ()?? 06/14/2025 01:07 Protein, Total 6.6 Gm/dL ()?? 06/14/2025 01:07 Albumin 3.3 Gm/dL (Low)?? 06/14/2025 01:07 LDH 305 units/L (High)?? 06/14/2025 01:07 Alkaline Phosphatase 418 units/L (High)?? 06/14/2025 01:07 AST (SGOT) 240 units/L (High)?? 06/14/2025 01:07 ALT (SGPT) 217 units/L (High)?? 06/14/2025 01:07 Bilirubin, Total 0.6 mg/dL ()?? 06/14/2025 01:07 Bilirubin, Direct 0.3 mg/dL ()?? 06/14/2025 01:07 Bilirubin, Indirect 0.3 mg/dL ()?? 06/14/2025 01:07 Vitamin B12 Level 964 pg/mL ()?? 06/14/2025 01:07 Folic Acid Level 21.7 ng/mL ()?? 06/14/2025 14:29 Lactate 1.7 mmol/L ()?? 06/14/2025 01:07 Iron Level 11 mcg/dL (Low)?? 06/14/2025 01:07 Iron Binding Capacity, Unsaturated 391 mcg/dL (High)?? 06/14/2025 01:07 Iron Binding Capacity, Estimated Total 402 mcg/dL ()?? 06/14/2025 01:07 % Iron Saturation 3 % (Low)?? 06/14/2025 01:07 Ferritin Level 29 ng/mL ()?? 06/14/2025 01:07 ?? IMMUNOLOGY GENERAL Haptoglobin 211 mg/dL (High)?? 06/14/2025 01:07 ?? UA/URINALYSIS Appear/Color, Urine LIGHT YELLOW ()?? 06/14/2025 00:[address], Urine 1.008 ()?? 06/14/2025 00:21 pH, Urine 6.0 ()?? 06/14/2025 00:21 Albumin, Urine NEGATIVE ()?? 06/14/2025 00:21 Glucose, Urine NEGATIVE ()?? 06/14/2025 00:21 Ketones, Urine NEGATIVE ()?? 06/14/2025 00:21 Bilirubin, Urine NEGATIVE ()?? 06/14/2025 00:21 Hemoglobin, Urine NEGATIVE ()?? 06/14/2025 00:21 Nitrite, Urine POSITIVE (Abnormal)?? 06/14/2025 00:21 Leukocyte, Urine NEGATIVE ()?? 06/14/2025 00:21 Urobilinogen NORMAL mg/dL ()?? 06/14/2025 00:21 WBC's, Urine 1 /HPF ()?? 06/14/2025 00:21 RBC's, Urine NONE SEEN /HPF ()?? 06/14/2025 00:21 Bacteria SLIGHT HPF (Abnormal)?? 06/14/2025 00:21 Squamous Epith <1 /HPF () 06/14/2025 00:21 Mucus SLIGHT /LPF ()?? 06/14/2025 00:21 ?? URINE OTHER Est Creatinine Clearance 38.58 mL/min ()?? 06/14/2025 02:21 ? Electronically Signed on 06/14/25 04:58 PM Lizbeth JUAREZ, Mawra * James JUAREZ(Hem/Onc), León Adhikari: PERFORM Event Display: Consultation Note Authored Date: Pt seen. I agree with the above plan and assessment. Recommend Venofer as the form of parenteral iron Dr. Ramirez Electronically Signed on 06/14/25 10:32 PM James JUAREZ(Hem/Onc), León Adhikari * Miryam JUAREZ, [facility]: PERFORM Event Display: Consultation Note Authored Date: Patient's hemoglobin improved with??PRBC transfusions.?? Iron panel consistent with iron deficiency.?? Started on IV iron.?? Hematology will sign off. ??Patient can follow-up with??primary oncologist?? on discharge.?? Please reach out to us??if any further questions arise. Electronically Signed on 06/15/25 05:00 PM Miryam JUAREZ, [facility] * Lobo Pickett: MODIFY, PERFORM, MODIFY, MODIFY, MODIFY, MODIFY, MODIFY, MODIFY, MODIFY, MODIFY Event Display: Consult Authored Date: Patient: ??GUIDOSATHISHMIMI PHELAN ? Age:??85 Years?Sex:??Female?:??1940?LOC:??[facility]?? Indication for Consult [facility]: Cardiology consult note Requesting provider: Dr. Ivan Black Consulting physician: Dr. Ganesh Newman Primary studio grip:??Naty Bentley NP Reason for consult:??Chest Pain ?? 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 ?? Per patient, she was eating breakfast yesterday morning when she initially experienced mild chest pain. The pain subsided and then quickly returned, described as a severe, sharp, central chest pain without radiation to her arm, jaw, or back. She took a nitro and then another one thirty minutes later without any improvement in her chest pain. Given the lack of improvement with the nitro, in addition to the severity of the chest pain, she decided to call the ambulance. She denies any fever, chills, lightheadedness,??dizziness, vision changes, sweating, palpitations, nausea, vomiting, or abdominal pain. ?? Patient reports that she has a history of exertional chest pain, where even a brisk walk down a hallway can result in the onset of her chest pain. She also reports having a few instances of chest pain while at rest, but the pain is typically mild and does not compare to the pain she had yesterday. She was started on pantoprazole about three weeks ago??due to thoughts that acid reflux was contributing to her chest pain. She endorses adherence to the pantoprazole, taking it an hour before breakfast every morning. She states that she has never had experienced acid reflux in the past and has not noticed any improvement in her pain since initiating the medication. Patient reports that she had a stress test and a catheterization a few years ago back in [place], as well as a??catheterization here a year ago. Patient additionally mentions??that Amlodipine was previously discontinued a few months ago after a fall and has since been added as an allergy for causing weakness. ?? On arrival to the ED, patient was HDS. Initial labs revealing Hg 7.5 (baseline of 8-9), Hct 24.7, MCV 82.3, WBC 12.5, electrolytes wnl, BUN 33, Cr 0.84, Troponin 22->20. EKG sinus rhythm with no acute ST ot T wave changes. CXR no acute abnormality. ? Prior Cardiac Workup: EKG 06/12/2025: - Ventricular Rate: 87 ??BPM - Atrial Rate: 87 ??BPM - P-R Interval: 186 ??ms - QRS Duration: 76 ??ms - Q-T Interval: 346 ??ms - QTC Calculation(Bazett): 416 ??ms - P Moraga: 66 ??degrees - R Moraga: -21 ??degrees - T Moraga: 18 ??degrees - Normal sinus rhythm - Minimal voltage criteria for LVH, may be normal variant ( R in aVL ) - Inferior infarct , age undetermined - Anteroseptal infarct , age undetermined - Abnormal ECG ?? CT Chest 06/01/2025: - Heart: Mild cardiomegaly, unchanged. No pericardial effusion. Moderate to severe coronary artery calcifications. - Aorta: No aortic aneurysm. - Pulmonary arteries: Normal caliber. No evidence of pulmonary embolism on this study performed without angiographic technique. ?? Coronary CTA 09/03/2023: - Dominance: Right. - Left Main: The ostium is normally positioned. Minimal stenosis versus artifact, less than 25%. - Left Anterior Descending: Long segment dense calcific plaque in the proximal LAD over a length of1.8 cm, contains several nondiagnostic segments. Small first diagonal branch with minimal calcific plaque at the origin and stenosis less than 25% (image 58). Mild stenosis in the mid LAD less than 50% due to calcific plaque, greatest in the distal subsegment. Small moderate size second diagonal branch (image 69) appears normal. Focal eccentric calcific plaque in the distal LAD produces mild or moderate stenosis, but a lumen is visualized hardening against any significant stenosis. The distal LAD wraps slightly around the apex. - Left Circumflex Artery: Small vessel. There is dense eccentric calcific plaque at the ostium and proximal 3 mm of the circumflex, limited by some motion artifact, probably mild or moderate stenosis, with lumen visualization arguing against obstructive disease. Small first obtuse marginal branch appears to have minimal calcification. - Ramus Intermedius: None. - Right Coronary Artery: The ostium is normally positioned. There is focal dense calcification at the ostium and focal tortuosity that appears to produce moderate stenosis 50-69% with detail limited by some motion artifact. Dense calcific plaque combined with mild motion artifact more distally in the proximal LAD produces a nondiagnostic segment. There is mild to moderate stenosis in the distal RCA due to eccentric calcific plaque with a focus of soft plaque possible (image 175). The distal RCAgives rise to a moderate sized PDA and a small posterior left ventricular branch that appear normal. ?? IMPRESSION: 1. Dense calcific plaque in the proximal LAD and proximal RCA combined with motion blurring, produce nondiagnostic segments. Obstructive disease possible and probably likely. There also appears to bemoderate or severe ostial stenosis of the RCA. Cardiac catheterization should be considered for further assessment. 2. Abnormal low-attenuation regions centrally in the visualized portion of the left hepatic lobe, may reflect unusually clustered cysts or dilated duct structures. No comparison study available. Recommend clinical correlation for any evidence of biliary disease. There are also rounded low-attenuation regions in the spleen suggestive of cysts but incompletely assessed. Consider abdomen ultrasound or MRI as warranted for further assessment. 3. There is an indeterminate 3.5 x 5 mm nodule in the left lower lobe. No comparison study available. If low risk for malignancy, no routine follow-up. If high risk, optional CT at 12 months. If unchanged, no further follow-up needed per Guidelines for Management of Incidental Pulmonary Nodules Detected on CT Images: From the Fleischner Society 2017. ?? Cardiac Catheterization 12/06/2023: - LMCA: Mild diffuse disease (<30%). - LAD: Mild diffuse disease (<30%). Lesion in Mid LAD: Mid subsection.30% stenosis 14 mm length. Pre procedure KIANNA III flow was noted. Good runoff was present.The lesion was tubular and lightly calcified. - LCx: Mild luminal irregularities (<30%). - RCA: Lesion in Mid RCA: Mid subsection.40% stenosis 10 mm length. Pre procedure KIANNA III flow wasnoted. Good runoff was present.The lesion was tubular and eccentric.The lesion showed with irregular contour. Lesion in 1st Ac Sandra: Ostial.100% stenosis . Pre procedure KIANNA 0 flow was noted. - Cardiac Collaterals: Good collateral flow from the Dist LAD to the 1st Ac Sandra. ?? Diagnostic Summary - Low normal left ventricular filling pressures. LVEDP 8-9 mmHg. - Normal systemic pressures. - No evidence of any gradient across aortic valve by catheter pullback from LV to aorta. - Right coronary artery is large and dominant vessel. There is no significant disease in the proximal segment. The vessel origin is from right coronary cusp somewhat anteriorly. Mid RCA had diffuse 30% stenosis. - Left main is medium in size with mild disease. - LAD is large in caliber with mild diffuse disease. Mid segment of mid LAD had 30% stenosis. - LCx is medium to large in size and gives rise to a fairly large OM1 branch. -??There is a chronically occluded RV marginal branch from mid segment of RCA. It is well collateralized via distal LAD. ?? Diagnostic Recommendations - There was no evidence of any significant obstructive CAD except chronically occluded acute marginal branch of RCA. It is well collateralized from left system. - We recommend further optimization of antianginal medications. - Consider increasing Norvasc dose to 5 mg or higher. - Follow-up with primary studio grip in 1 to 2 months. - ACC Diagnostic Recommendations: Medical therapy and/or counseling. ?? Echocardiogram 02/15/2023: - The left ventricle is normal in size. Ejection fraction is 50-60%. No definite wall motion abnormalities detected. Diastolic function could not be determined. -??The left atrium is normal in size. - There is mild to moderate aortic stenosis. - The aortic root is mildly dilated at 3.2 cm when indexed. - The right ventricle is normal in size. Function is preserved. - The right atrial size is at the upper limit of normal. - The pulmonary artery systolic pressure estimation is within normal limits. ?? Review of Systems Constitutional:??No weight loss, fever, chills, weakness or fatigue. Respiratory:??No shortness of breath, cough or sputum production. Cardiovascular:??No palpitations or pedal edema. Gastrointestinal:??No anorexia, nausea, vomiting or diarrhea. No abdominal pain or blood in stool. Physical Exam Vitals & Measurements T:??97.9?F?? HR:??72??(Peripheral)?? RR:??22?? BP:??127/61?? SpO2:??100%?? HT:??155??cm?? WT:??60.5??kg?? BMI:??24.14?? Weight lb/oz: 133 lb 6 oz ?? Constitutional: Alert, in no distress. Mental Status: Oriented to person, place and time. Head: Normocephalic. Eyes: Pupils are equal, round and reactive to light. Extraocular muscles intact. Ear, Nose and Throat: Oropharynx clear, mucous membranes moist. Ears and nose without masses, lesions or deformities. Trachea midline. Neck: Supple, Full range of motion. Respiratory: Equal chest rise bilaterally. Clear to auscultation. No wheezing, rales or rhonchi. Cardiovascular: S1 S2 regular. Early peaking systolic murmur appreciated diffusely. Gastrointestinal: Abdomen soft, non-tender, non-distended. Neurologic: Cranial nerves II-XII grossly intact. No focal neurological deficits. Skin: No rashes or lesions. No petechiae or purpura.?? Musculoskeletal: No lower extremity edema. ?? Other Imaging: CXR 06/12/2025: FINDINGS: - LINES AND TUBES: None. - LUNGS AND PLEURA: No focal opacity or volume loss. Small nodules in both lungs similar to previous CT. No evidence of pleural effusion. No pneumothorax. - HEART, MEDIASTINUM AND KATY: Heart is normal in size. Normal mediastinal and hilar contour. - BONES AND SOFT TISSUES: No acute abnormality. IMPRESSION: - No acute abnormality. Assessment/Plan Anemia CAD (coronary artery disease) Chest pain Cholangiocarcinoma Diabetes mellitus HLD (hyperlipidemia) HTN (hypertension) Hypothyroid Unstable angina Confirmation: Provisional ?? 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 ?? Based on the patient's description of the chest pain occurring at rest, in addition to no EKG changes and unremarkable troponins, patient is most likely experiencing unstable angina. Patient has chronic anemia, but appears to be more anemic during this admission compared to her typical baseline. The anemia may be contributing to the patient's angina. Less likely a new ACS.??Would recommend an anemia workup including iron studies (last measured over a year ago with iron 136, iron binding capacity 294, iron saturation 46%, ferritin 793). Defer blood transfusion to hematology, but believe the patient should have a Hgb goal >9 which may prove beneficial to her chest pain. Echo can be obtained due to the last one performed in 2022, but no need for a stress test at this time due to the patient currently being anemic which can lead to altered results, as well as already known to have occlusion of the marginal branch of RCA. ?? Recommendations: - Echocardiogram -??Hold stress test - Start Nifedipine - Consider Hematology consult iso anemia - Anemia Workup (iron studies, defer blood transfusion to hematology) - Monitor H/H ? The above has been discussed with??the attending, Dr. Newman. ?? Lobo Pickett, MS4 06/13/2025 Allergies amLODIPine (Moderate) Home Medications Albuterol: 2 puffs, Inhalation, Every 6 hours Aspirin: 81 mg = 1 capsule, By Mouth, Daily Atorvastatin: 40 mg = 1 tablet, By Mouth, Daily Carvedilol: 12.5 mg = 1 tablet, By Mouth, 2 times a day Cholecalciferol: 50 mcg = 1 capsule, By Mouth, 2 times a day Isosorbide Mononitrate: 90 mg = 1.5 tablet, By Mouth, Daily in AM Levothyroxine: 88 mcg = 1 tablet, By Mouth, Daily Metformin: 500 mg = 1 tablet, By Mouth, Daily, with meals Miscellaneous Rx (ONETOUCH DELICA PLUS LANCETS EXTRA FINE 33G ??MISC) Miscellaneous Rx: USE ONCE A DAY *DX E11.9* Miscellaneous Rx Nitroglycerin Potassium Bicarbonate: 10 mEq = 1 tablet, By Mouth, Daily Hospital Medications Medications (20) Active SCHEDULED: (8) Aspirin 81 mg Chew Tablet (aspirin 81 mg oral tablet, chewable) ??81 mg, By Mouth, Daily Atorvastatin 40 mg Tablet (atorvastatin 40 mg oral tablet) ??40 mg, By Mouth, Daily Carvedilol 12.5 mg Tablet (carvedilol 12.5 mg oral tablet) ??12.5 mg, By Mouth, 2 times a day Insulin Lispro 100 units/mL Inj (Insulin LISPRO Sliding Scale) ??2-10 units, Subcutaneous Injection, 3 times a day before meals Isosorbide Mononitrate 30 mg ER Tablet (isosorbide mononitrate 30 mg oral tablet, extended release)??90 mg, By Mouth, Daily in AM Levothyroxine 88 mcg Tablet (Synthroid 0.088 mg oral tablet) ??88 mcg, By Mouth, Daily NaCl 0.9% Flush 3ml (NaCL 0.9% Flush) ??3 mL, IV Push, Every 8 hours Pantoprazole 40 mg EC Tablet (pantoprazole 40 mg oral delayed release tablet) ??40 mg, By Mouth, Daily CONTINUOUS: (0) PRN: (12) Acetaminophen 325 mg Tablet (Acetaminophen Tablet) ??650 mg, By Mouth, Every 4 hours Dextrose Inj Syringe (Dextrose 50% Inj Syringe (25Gm)) ??12.5 Gm, IV Push Slowly, Every 20 minutes Dextrose Inj Syringe (Dextrose 50% Inj Syringe (25Gm)) ??25 Gm, IV Push Slowly, Every 15 minutes Glucagon 1 mg Inj (Glucagon Inj) ??1 mg, Intramuscular, Once Glucose 40% Gel (15 Gm) (Glucose Gel) ??15 Gm, By Mouth, Every 20 minutes Glucose 40% Gel (15 Gm) (Glucose Gel) ??30 Gm, By Mouth, Every 20 minutes Melatonin 3 mg Tablet (Melatonin Tablet) ??3 mg, By Mouth, Daily at bedtime NaCl 0.9% Flush 3ml (NaCL 0.9% Flush) ??3 mL, IV Push, Every 8 hours Nitroglycerin 0.4 mg Sublingual Tablet (nitroglycerin 0.4 mg sublingual tablet) ??0.4 mg, Sublingual, Every 5 minutes Polyethylene Glycol 17 Gm Powder (MiraLax Powder) ??17 Gm 1 pack/packet, By Mouth, Daily Senna Tablet ??8.6 mg 1 tablet, By Mouth, 2 times a day Simethicone 80 mg Chewable Tablet (Simethicone Tablet) ??80 mg, Chew, 3 times a day Lab Results Cardiology Labs Blood Count & Diff General Chemistry?? Cardiac?? WBC:??12.5 k/mm3??High (06/12/25) Sodium: 135 mmol/L (06/12/25) Bilirubin, Total: 0.4 mg/dL (05/30/25) RBC:??3 m/mm3??Low (06/12/25) Potassium: 4.7 mmol/L (06/12/25) ?? Hgb:??7.5 Gm/dL??Low (06/12/25) Chloride: 102 mmol/L (06/12/25) ?? Hct:??24.7 %??Low (06/12/25) Bicarbonate Level:??20 mmol/L??Low (06/12/25) ?? MCV: 82.3 femtoliters (06/12/25) Anion Gap: 13 mmol/L (06/12/25) ?? Platelet Count: 311 k/mm3 (06/12/25) Glucose Level:??147 mg/dL??High (06/12/25) ? Hemoglobin A1C (Monitoring):??7.3 %??High (10/11/24) ? BUN:??33 mg/dL??High (06/12/25) ? BUN: 27 mg/dL (05/30/25) ? Creatinine-Blood: 0.84 mg/dL (06/12/25) ? Estimated GFR Creatinine: 68 ML/MIN/1.73 M2 (06/12/25) ? Calcium: 9.6 mg/dL (06/12/25) ? Protein, Total: 7 Gm/dL (05/30/25) ? Albumin: 3.9 Gm/dL (05/30/25) ? Alkaline Phosphatase:??415 IU/L??High (05/30/25) ? AST (SGOT):??50 IU/L??High (05/30/25) ? ALT (SGPT):??39 IU/L??High (05/30/25) ?? Diagnostic Impression CT CT Heart/Coronary/3D/Morph ?? 14:45:31 IMPRESSION: ?? 1. Dense calcific plaque in the proximal LAD and proximal RCA combined with motion blurring, produce nondiagnostic segments. Obstructive disease possible and probably likely. There also appears to bemoderate or severe ostial stenosis of the RCA. Cardiac catheterization should be considered for further assessment. ?? 2. Abnormal low-attenuation regions centrally in the visualized portion of the left hepatic lobe, may reflect unusually clustered cysts or dilated duct structures. No comparison study available. Recommend clinical correlation for any evidence of biliary disease. There are also rounded low-attenuation regions in the spleen suggestive of cysts but incompletely assessed. Consider abdomen ultrasound or MRI as warranted for further assessment. ?? 3. There is an indeterminate 3.5 x 5 mm nodule in the left lower lobe. No comparison study available. If low risk for malignancy, no routine follow-up. If high risk, optional CT at 12 months. If unchanged, no further follow-up needed per Guidelines for Management of Incidental Pulmonary Nodules Detected on CT Images: From the Fleischner Society 2017. ? WSN: [id number] ? Ordering Physician: Norm De ?? Signed By: Naeem Morel MD ECG ECG 12-Lead * Preliminary * ?? 21:59:42 Ventricular Rate: 87 BPM Atrial Rate: 87 BPM P-R Interval: 186 ms QRS Duration: 76 ms Q-T Interval: 346 ms QTC Calculation(Bazett): 416 ms P Moraga: 66 degrees R Moraga: -21 degrees T Moraga: 18 degrees Normal sinus rhythm Minimal voltage criteria for LVH, may be normal variant ( R in aVL ) Inferior infarct , age undetermined Anteroseptal infarct , age undetermined Abnormal ECG When compared with ECG of 28-Apr-2024 14:08, Premature atrial complexes are no longer Present Anteroseptal infarct is now Present Inferior infarct is now Present ?? [place]: , ?? ECG 12-Lead * Preliminary * ?? 21:59:42 Please click on pdf link to open report Stress Test NM Myocard Perf SPECT Multi ?? 00:00:00 Summary 1. Myocardial perfusion imaging is nondiagnostic due to patient motion and gastrointestinal uptake of isotope. There are perfusion defects of unclear significance. ?? 2. LV function is normal with an E.F. >70% on rest and stress after IV administration of Regadenoson with normal wall motion and thickening. ?? 3. EKG portion of the stress test is reported separately. ?? Signatures _ _ ?? Signed By: Coco Murphy MD Echo Echocardiogram - Complete ?? 08:39:33 Summary The left ventricle is normal in size. Ejection fraction is 50-60%. No definite wall motion abnormalities detected. Diastolic function could not be determined. ?? The left atrium is normal in size. ?? There is mild to moderate aortic stenosis. ?? The aortic root is mildly dilated at 3.2 cm when indexed. ?? The right ventricle is normal in size. Function is preserved. ?? The right atrial size is at the upper limit of normal. ?? The pulmonary artery systolic pressure estimation is within normal limits. ?? Comparison No prior study available for comparison. ?? Signature ?? Signed By: Black JUAREZ, Uma Hall Cardiac Cath Procedure Cardiac Cath Procedure ?? 09:30:00 Conclusions ?? Diagnostic Summary ?? Low normal left ventricular filling pressures. LVEDP 8-9 mmHg. Normal systemic pressures. No evidence of any gradient across aortic valve by catheter pullback from LV to aorta. ?? Right coronary artery is large and dominant vessel. There is no significant disease in the proximal segment. The vessel origin is from right coronary cusp somewhat anteriorly. Mid RCA had diffuse 30% stenosis. Left main is medium in size with mild disease. LAD is large in caliber with mild diffuse disease. Mid segment of mid LAD had 30% stenosis. LCx is medium to large in size and gives rise to a fairly large OM1 branch. There is a chronically occluded RV marginal branch from mid segment of RCA. It is well collateralized via distal LAD. ?? Diagnostic Recommendations ?? There was no evidence of any significant obstructive CAD except chronically occluded acute marginal branch of RCA. It is well collateralized from left system. We recommend further optimization of antianginal medications. Consider increasing Norvasc dose to 5 mg or higher. Follow-up with primary studio grip in 1 to 2 months. ?? ACC Diagnostic Recommendations: Medical therapy and/or counseling. ?? Signatures ?? Signed By: Cuauhtemoc Neri MD Procedure/Surgical History No qualifying data available. Social History Tobacco Use:Never (less than 100 in lifetime) Family History No family history recorded. * Paty JUAREZ, Ganesh R: PERFORM Event Display: Consult Authored Date: Patient seen and examined. ??The history physical and medical decision making are my own. ??The medical student served primarily as a scribe. ?? Pleasant 85-year-old woman with well-known??coronary artery disease, and chronic stable angina??normally well-controlled with medications. ??She has had a recent drop in her hemoglobin form??around 9to around 7.5. ??With this she has had??some stuttering chest discomfort. ?? We will try to get her some nifedipine, as well as an echo??for her??possible moderate aortic stenosis. ??On exam, I do not think this is severe. ?? However, I think the most important thing is her??anemia. ??I think a hematology consult would be quite helpful. History and physical note * Sofia JUAREZ, Ivan Wilson: PERFORM, MODIFY, MODIFY Event Display: History and Physical Hospital Authored Date: [id number] Patient: ??MIMI CALVO ? Age:??85 Years?Sex:??Female?:??1940?LOC:??[facility]?? 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 ??EKG no WNL History of Present Illness 06/13 ?? 85-year-old female with PMH including HTN, HLD, DM, diabetic nephropathy, CAD, moderate aortic stenosis, hypothyroid, history of cholangiocarcinoma (diagnosed 01/2024, initially presented with obstructive jaundice, s/p stent placement), anemia.?? Patient presented to ER with chest pain. ?? Patient tells me that??yesterday morning after having breakfast she started having chest pain but the pain was at the center of the chest, localized, no radiation, felt like a pressure, 8/10 in severity.?? Pain was intermittent. ??She tried to walk around but??that did not help,??made it worse.?She took pantoprazole thinking??it was related to??indigestion??but it did not help. ??Also took nitroglycerin without much benefit. ??Denies any associated shortness of breath,??dizziness, lightheadedness, nausea,??sweating.?? With worsening chest pain??she decided come to the hospital.?? After coming to the hospital she was given??2 aspirin and??the pain subsided. ??She has not had the pain??since. ?? Patient denies any??recent history of??exertional chest pain or shortness of breath. Patient tells me that she has had??history of heart disease, but does not know if she has any stent. ??She says that??about 5 years ago she had a stress test done at [place],??unknown??report. ??Also??around symptoms she had a cardiac cath??as well. ?? Patient is hemodynamically stable.?? Labs shows WBC 12.5, hemoglobin 7.5, platelets normal, creatinine 0.84, BUN 33.?? Troponin 22 and 20.?? Chest x-ray does not show anything acute.?? EKG shows sinus rhythm with heart rate of 88, QTc 433, LVH, anterior and inferior Q waves. ?? Patient was placed for further observation. Review of Systems All systems reviewed and negative except as in HPI. Objective Measurements?? Height: 155 cm (06/12/25) Weight: 58 kg (06/12/25) Dry Weight: 58 kg (06/12/25) Body Mass Index: 24.14 kg/m2 (06/12/25) ? Vital Signs?? Temperature: 98.2 DegF (06/13/25 01:53:00) Temperature Route: Oral (06/13/25 01:53:00) Pulse Rate: 81 bpm (06/13/25 03:47:00) Respiratory Rate: 20 br/min (06/13/25 03:47:00) Systolic Blood Pressure: 116 mm Hg (06/13/25 03:47:00) Diastolic Blood Pressure:??50 mm Hg??Low (06/13/25 03:47:00) Blood pressure sites: Arm, left (06/13/25 01:53:00) Mean Arterial Pressure: 91 mm Hg (06/13/25 01:53:00) Pulse Pressure: 66 mm Hg (06/13/25 03:47:00) Oxygen Saturation: 96 % (06/13/25 03:47:00) Mode of Delivery (Oxygen): Room air (06/13/25 03:47:00) Early Warning Score: 1 (06/13/25 04:40:52) ? Physical Exam Constitutional: ??Alert,??no acute distress, co-operative, lying on the bed, saturating well on room air. ?? Mental state: Oriented x 3. Head: ??Normocephalic, atraumatic. ?? Eye:?No discharge. ENT: No discharge. Neck: ??Supple,??no JVD. Cardiovascular: ??S1, S2. Regular rhythm. No MRG. Respiratory: ??Lungs are clear to auscultation b/l, No RRR. ?? Gastrointestinal: ??Soft, Nontender, Non distended, ??Normal bowel sounds.?? Genitourinary: No costovertebral angle tenderness. Neurological: ??Cranial nerves intact. Motor and sensory intact. Back: ??Nontender. Musculoskeletal: ??Normal ROM.?? No edema Hematology: No lymphadenopathy Skin: ??Warm, dry. Psychiatric: ??Cooperative.?? 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 Assessment:??85-year-old female with PMH including HTN, HLD, DM, diabetic nephropathy, CAD, moderate aortic stenosis, hypothyroid, history of cholangiocarcinoma (diagnosed 01/2024, initially presentedwith obstructive jaundice, s/p stent placement), anemia.??Patient presented to ER with chest pain. ?? Chest pain (R07.9):??Patient with previous history of CAD, moderate??aortic stenosis,??presented with chest pain??that was retrosternal, localized, intermittent, worse with??walking around.??Since coming to the hospital she is pain-free.??Troponin flat.??EKG nonischemic.? Continue telemetry Continue aspirin Sublingual nitroglycerin for chest pain. Cardiology consult to assess for??stress??test??(likely??outpatient). ?? HTN (hypertension) (I10):??Carvedilol ?? HLD (hyperlipidemia) (E78.5):??Atorvastatin ?? Diabetes mellitus (E11.9):??Hold oral medication.??POC glucose and SSI. ?? CAD (coronary artery disease) (I25.10):??Aspirin,??statin, isosorbide mononitrate, beta-savannah. ?? Hypothyroid (E03.9):??Levothyroxine ?? Cholangiocarcinoma (C22.1):??Not on??treatment.??Outpatient follow-up. ?? Anemia (D64.9):??Lower end of her baseline, monitor. ?? VTE Prophylaxis:??ambulatory ?VTE Prophylaxis Assessment:??Risk Level documented as Low Risk ?? Code Status:??full code ?Order Code Status:??Code Status Ordered ? Histories Allergies Allergies ?(Active and Proposed Allergies Only) amLODIPine? (Severity: Moderate, Onset: Unknown) ?Comments: weakness ? Past Medical History/Problem List No problems documented. ? Past Surgical History No surgery history documented. ? Social History Tobacco Details:??Use: Never (less than 100 in lifetime). ? Family History No Family History documented. ? Medications Home Medications Albuterol (Albuterol (Eqv-ProAir HFA) 90 mcg/inh inhalation aerosol)??2 puff(s) Inhalation Every 6 hours Aspirin (aspirin 81 mg oral capsule)??1 capsule 81 Milligram By Mouth Daily Atorvastatin (atorvastatin 40 mg oral tablet)??1 tab(s) 40 Milligram By Mouth Daily Carvedilol (carvedilol 12.5 mg oral tablet)??12.5 Milligram 1 tablet By Mouth 2 times a day Cholecalciferol (Vitamin D3 2000 intl units oral capsule)??1 capsule 50 Microgram By Mouth 2 times a day Isosorbide Mononitrate (isosorbide mononitrate 60 mg oral tablet, extended release)??90 Milligram 1.5 tablet By Mouth Daily in AM for 90 Days Levothyroxine (Synthroid 0.088 mg oral tablet)??1 tab(s) 88 Microgram By Mouth Daily Metformin (metFORMIN 500 mg oral tablet)??1 tab(s) 500 Milligram By Mouth Daily with meals Miscellaneous Rx (ONETOUCH ULTRA TEST STRIP)??USE ONCE A DAY *DX E11.9* Potassium Bicarbonate (potassium bicarbonate 10 mEq oral tablet, effervescent)??1 tab(s) 10 Milliequivalent By Mouth Daily ? Inpatient Medications Medications (20) Active SCHEDULED: (8) Aspirin 81 mg Chew Tablet (aspirin 81 mg oral tablet, chewable) ??81 mg, By Mouth, Daily Atorvastatin 40 mg Tablet (atorvastatin 40 mg oral tablet) ??40 mg, By Mouth, Daily Carvedilol 12.5 mg Tablet (carvedilol 12.5 mg oral tablet) ??12.5 mg, By Mouth, 2 times a day Insulin Lispro 100 units/mL Inj (Insulin LISPRO Sliding Scale) ??2-10 units, Subcutaneous Injection, 3 times a day before meals Isosorbide Mononitrate 30 mg ER Tablet (isosorbide mononitrate 30 mg oral tablet, extended release)??90 mg, By Mouth, Daily in AM Levothyroxine 88 mcg Tablet (Synthroid 0.088 mg oral tablet) ??88 mcg, By Mouth, Daily NaCl 0.9% Flush 3ml (NaCL 0.9% Flush) ??3 mL, IV Push, Every 8 hours Pantoprazole 40 mg EC Tablet (pantoprazole 40 mg oral delayed release tablet) ??40 mg, By Mouth, Daily CONTINUOUS: (0) PRN: (12) Acetaminophen 325 mg Tablet (Acetaminophen Tablet) ??650 mg, By Mouth, Every 4 hours Dextrose Inj Syringe (Dextrose 50% Inj Syringe (25Gm)) ??12.5 Gm, IV Push Slowly, Every 20 minutes Dextrose Inj Syringe (Dextrose 50% Inj Syringe (25Gm)) ??25 Gm, IV Push Slowly, Every 15 minutes Glucagon 1 mg Inj (Glucagon Inj) ??1 mg, Intramuscular, Once Glucose 40% Gel (15 Gm) (Glucose Gel) ??15 Gm, By Mouth, Every 20 minutes Glucose 40% Gel (15 Gm) (Glucose Gel) ??30 Gm, By Mouth, Every 20 minutes Melatonin 3 mg Tablet (Melatonin Tablet) ??3 mg, By Mouth, Daily at bedtime NaCl 0.9% Flush 3ml (NaCL 0.9% Flush) ??3 mL, IV Push, Every 8 hours Nitroglycerin 0.4 mg Sublingual Tablet (nitroglycerin 0.4 mg sublingual tablet) ??0.4 mg, Sublingual, Every 5 minutes Polyethylene Glycol 17 Gm Powder (MiraLax Powder) ??17 Gm 1 pack/packet, By Mouth, Daily Senna Tablet ??8.6 mg 1 tablet, By Mouth, 2 times a day Simethicone 80 mg Chewable Tablet (Simethicone Tablet) ??80 mg, Chew, 3 times a day ? Results Recent Labs BLOOD COUNT & DIFF WBC 12.5 k/mm3 (High)?? 06/12/2025 20:03 RBC 3.00 m/mm3 (Low)?? 06/12/2025 20:03 Hgb 7.5 Gm/dL (Low)?? 06/12/2025 20:03 Hct 24.7 % (Low)?? 06/12/2025 20:03 MCV 82.3 femtoliters ()?? 06/12/2025 20:03 MCH 25.0 pg (Low)?? 06/12/2025 20:03 MCHC 30.4 Gm/dL (Low)?? 06/12/2025 20:03 Platelet Count 311 k/mm3 ()?? 06/12/2025 20:03 RDW-SD 52.0 femtoliters (High)?? 06/12/2025 20:03 MPV 9.5 femtoliters ()?? 06/12/2025 20:03 Nucleated RBC (Automated) 0.0 #/100 WBC'S ()?? 06/12/2025 20:03 Abs. NRBC 0.0 k/mm3 ()?? 06/12/2025 20:03 Abs. Neut 10.7 k/mm3 (High)?? 06/12/2025 20:03 Abs. Lymph 0.6 k/mm3 (Low)?? 06/12/2025 20:03 Abs. Wallace 0.8 k/mm3 ()?? 06/12/2025 20:03 Abs. Eo 0.3 k/mm3 ()?? 06/12/2025 20:03 Abs. Baso 0.0 k/mm3 ()?? 06/12/2025 20:03 Neut % 85.9 % (High)?? 06/12/2025 20:03 Lymph % 4.7 % (Low)?? 06/12/2025 20:03 Wallace % 6.3 % ()?? 06/12/2025 20:03 Eos % 2.6 % ()?? 06/12/2025 20:03 Baso % 0.2 % ()?? 06/12/2025 20:03 Imm Gran 0.3 % ()?? 06/12/2025 20:03 Abs. Imm Gran 0.0 k/mm3 ()?? 06/12/2025 20:03 ?? CARDIAC High Sensitivity Troponin (HSTnT) 20 ng/L (High)?? 06/12/2025 22:08 ?? CHEM GENERAL Sodium 135 mmol/L ()?? 06/12/2025 20:03 Potassium 4.7 mmol/L ()?? 06/12/2025 20:03 Chloride 102 mmol/L ()?? 06/12/2025 20:03 Bicarbonate Level 20 mmol/L (Low)?? 06/12/2025 20:03 Anion Gap 13 mmol/L ()?? 06/12/2025 20:03 Glucose Level 147 mg/dL (High)?? 06/12/2025 20:03 Glucose, POC 168 mg/dL (High)?? 06/13/2025 02:17 BUN 33 mg/dL (High)?? 06/12/2025 20:03 Creatinine-Blood 0.84 mg/dL ()?? 06/12/2025 20:03 Estimated GFR Creatinine 68 ML/MIN/1.73 M2 ()?? 06/12/2025 20:03 Calcium 9.6 mg/dL ()?? 06/12/2025 20:03 ?? HEME OTHER Hold Blue Top SPECIMEN DISCARDED AFTER 4 HOURS. ()?? 06/12/2025 20:03 ?? MISC. CHEMISTRY Hold Green Top SPECIMEN DISCARDED AFTER 1 WEEK ()?? 06/12/2025 22:08 ?? URINE OTHER Est Creatinine Clearance 37.66 mL/min ()?? 06/12/2025 21:00 ? Electronically Signed on 06/13/25 06:43 AM Sofia JUAREZ, Ivan A EKG study * Event Display: ECG 12-Lead Authored Date: [id number] Please click on pdf link to open report * Event Display: ECG 12-Lead Authored Date: [id number] Ventricular Rate: 61 BPM Atrial Rate: 61 BPM P-R Interval: 202 ms QRS Duration: 84 ms Q-T Interval: 408 ms QTC Calculation(Bazett): 410 ms P [place]: 80 degrees R [place]: -24 degrees T [place]: 28 degrees Normal sinus rhythm Minimal voltage criteria for LVH, may be normal variant ( R in aVL ) Inferior infarct (cited on or before 12-Jun-2025) Anteroseptal infarct (cited on or before 12-Jun-2025) Abnormal ECG When compared with ECG of 12-Jun-2025 21:59, No significant change Confirmed by CHANA JORDAN MD ([id number]) on 06/21/2025 2:15:09 PM [place]: CHANA JORDAN MD * Event Display: ECG 12-Lead Authored Date: [id number] Please click on pdf link to open report * Event Display: ECG 12-Lead Authored Date: [id number] Ventricular Rate: 87 BPM Atrial Rate: 87 BPM P-R Interval: 186 ms QRS Duration: 76 ms Q-T Interval: 346 ms QTC Calculation(Bazett): 416 ms P [place]: 66 degrees R [place]: -21 degrees T [place]: 18 degrees Normal sinus rhythm Minimal voltage criteria for LVH, may be normal variant ( R in aVL ) Inferior infarct , age undetermined Anteroseptal infarct , age undetermined Abnormal ECG When compared with ECG of 28-Apr-2024 14:08, Premature atrial complexes are no longer Present Anteroseptal infarct is now Present Inferior infarct is now Present Confirmed by JJ PATTERSON MD ([id number]) on 06/13/2025 8:33:15 PM [place]: JJ PATTERSON MD Heart * Event Display: Echocardiogram - Complete Authored Date: [id number] Transthoracic Echocardiography Report (TTE) Patient Demographics Patient Name MIMI CALVO Date of Study 06/13/2025 Corporate Gender Female Facility Race Ethnicity Date of 1940 Height: 61.02 inches Age 85 year(s) Weight: 134.48 pounds Accession Number [id number] BSA: 1.6 m2 Room Number [id number] BMI: 25.39 kg/m2 Referring Physician Unassigned Interpreting Tushar Newby Unassigned Physician Correspondent Jason Eckert Indications Heart murmur. Clinical History Hypertension. Hyperlipidemia. Diabetes Mellitus. Coronary artery disease. Aortic stenosis Study Data Type of Study TTE procedure:Echo Complete-Doppler, Colorflow, M-Mode. Study Date06/13/2025 Start Time: 10:32 AM Study Location: [facility] Adult Echo Study Status: Echo lab Patient Status: Routine Technical Quality: Fair Blood Pressure:127/61 mmHg EKG: Normal sinus rhythm HR: 77 bpm Allergies - No known allergies. 2D Measurements LV Diastolic Dimension: 4.2 cm LV Systolic Dimension: 3.1 cm LV Septum Diastolic: 1 cm LV PW Diastolic: 1 cm AO Root Dimension: 3.1 cm EF Estimated: 60 % LA ESV (BP):74.4 ml LVOT Stroke Volume: 68.15 ml LA ESV Index: 46 ml/m2 Stroke Volume Index42.59 ml/m2 LVOT: 2.19 cm Cardiac Index:3.28 l/min/m2 Ascending Aorta:3.4 cm Doppler Measurements AV Peak Velocity: 234 cm/s MV Peak E-Wave: 159 cm/s AV Peak Gradient: 21.9 mmHg MV Peak A-Wave: 120 cm/s AV Mean Gradient: 14 mmHg MV E/A Ratio: 1.32 AV VTI:55.7 cm MV P1/2t: 50 msec LVOT Peak Velocity: 73.2 cm/s MV Mean Gradient: 4 mmHg LVOT VTI18.1 cm MV Area (continuity): 2 cm2 AV Area (Continuity):1.22 cm2 MV Deceleration Time: 130 msec MV Area (PHT): 4.4 cm2 TR Velocity:265 cm/s TR Gradient:28.09 mmHg Estimated RAP:3 mmHg Estimated RVSP: 31.1 mmHg E' Septal Velocity: 5.11 cm/s E' Lateral Velocity: 7.94 cm/s E/Med E':31.15030 E/Lat E':20.46044 Cardiac Anatomy Left Ventricle/Interventricular Septum The left ventricle is normal in size and wall thickness. Overall left ventricular systolic function is normal. Quantitative LVEF 60% (biplane Casper). There are no definite wall motion abnormalities. Grade II diastolic dysfunction with elevated left atrial pressure estimation. Left Atrium/Interatrial Septum The left atrium is moderately dilated. Aortic Valve The aortic valve is moderately thickened and calcified. There is mild to moderate aortic stenosis. There is no significant aortic regurgitation. Mitral Valve There is mitral annular calcification. There is trace mitral regurgitation. There is mild mitral stenosis with mean gradient 4 mmHg at heart rate 78 bpm and calculated mitral valve area 2.0 cm2. Aorta The aortic root is normal in size. The ascending aorta is mildly dilated (3.4 cm, 2.12 cm/m2). Right Ventricle The right ventricle is normal in size and systolic function. Right Atrium The right atrium is normal in size. Pulmonic Valve Mild regurgitation. Tricuspid Valve The tricuspid valve is grossly normal. There is trace tricuspid regurgitation. Pumonary Artery The pulmonary artery systolic pressure estimation is upper normal, 31 mmHg. Venous Structures The inferior vena cava size is normal with normal inspiratory collapse. The central venous pressure estimation is normal, 3mmHg. Pericardium/Extracardiac There is no significant pericardial effusion. Summary The left ventricle is normal in size and wall thickness. Overall left ventricular systolic function is normal. Quantitative LVEF 60% (biplane Casper). There are no definite wall motion abnormalities. Grade II diastolic dysfunction with elevated left atrial pressure estimation. The right ventricle is normal in size and systolic function The left atrium is moderately dilated. The ascending aorta is mildly dilated. There is mild to moderate aortic stenosis. There is mild mitral stenosis. Normal CVP and PASP estimate. Comparison Comparison is made to the study of February 05, 2023. No definite significant change. Signature * Event Display: Echocardiogram - Complete Authored Date: Hospital Progress note * Lisseth Renee RN: PERFORM, SIGN, VERIFY Event Display: Progress Note Hospital Authored Date: [id number] Patient: MIMI CALVO Age: 85 years Sex: Female : 1940 Associated Diagnoses: None Author: Lisseth Renee RN Findings Evaluation Patient alert and oriented x4, sp/ cardiac cath yesterday, right radial site stable, DSD CDI. Discharge to home today. See CIs for further assessment. No further needs identified at the time of this note. . Discharge Information Case Management Discharge Plan : Case Management Discharge Plan Data 06/23/2025 14:11 EST Discharge Level of Care at Discharge Home/Correction/Foster Care Rehabilitation Discharge : Rehab Discharge Index 06/18/2025 10:46 EST Walker: distance >50 Electronically Signed on 06/23/25 05:17 PM Lisseth Renee RN * Ceasar Huerta: MODIFY, SIGN, VERIFY, PERFORM Event Display: Progress Note Hospital Authored Date: Patient: MIMI CALVO Age: 85 years Sex: Female : 1940 Associated Diagnoses: None Author: Ceasar Huerta Findings Problem Related to Alteration in Cardiac Function (new) : Alteration in Cardiac Function/new 06/23/2025 4:00 EST Alteration in Cardiac Status Related to Cardiac Procedure Goals & Outcomes, Cardiac Status Pt will resume/maintain adequate cardiac output, Pt will resume/maintain adequate hemodynamic status, Pt will resume/maintain adequate respiratory function, Pt will resume/maintain intact neuro function, Pt will maintain adequate GI/ function appropriate for pt, Pt will maintain adequate nutrition status Cardiac Interventions Implemented Assess/monitor cardiac status, Assess/monitor neuro status, Assess/monitor respiratory status, Assess for tolerance of IV infusions; verify rate & dose, Document& Monitor O2 Sats; Administer O2 as ordered, Obtain 12 Lead ECG and CXR as ordered BH Goals/Interventions, Cardiac Yes Cardiac, Problem Start 06/14/2025 21:00 Reviewed Plan with, Cardiac Status Patient Patient Progression, Cardiac Status Patient progressing according to plan . Narrative/Incidental Alert & oriented x 4. Denies any complaints C/P, SOB, palpitations, or dizziness. Normal sinus in the 60s with 1HB. Right radial site clean, dry, and intact. Ecchymosis noted to surrounding area.Surrounding tissue soft to palpation. Peripheral pulses palpable. Sensation distal to site intact. A mbulatory with walker. Able to make needs known. Frequent rounding. Bed locked and in lowest position. Call piña within reach. See interactive flow sheets and biophysical for full assessment.. Discharge Information Rehabilitation Discharge : Rehab Discharge Index 06/18/2025 10:46 EST Walker: distance >50 Electronically Signed on 06/23/25 05:08 AM Ceasar Huerta * Jocelyn Conrad RN: PERFORM, MODIFY, SIGN, VERIFY, SIGN, MODIFY Event Display: Progress Note Hospital Authored Date: Patient: MIMI CALVO Age: 85 years Sex: Female : 1940 Associated Diagnoses: None Author: Jocelyn Conrad RN Findings Problem Related to Alteration in Cardiac Function (new) : Alteration in Cardiac Function/new 06/22/2025 12:00 EST Alteration in Cardiac Status Related to Cardiac Procedure Goals & Outcomes, Cardiac Status Pt will resume/maintain adequate cardiac output, Pt will resume/maintain adequate hemodynamic status, Pt will resume/maintain adequate respiratory function, Pt will resume/maintain intact neuro function, Pt will maintain adequate GI/ function appropriate for pt, Pt will maintain adequate nutrition status Cardiac Interventions Implemented Assess/monitor cardiac status, Assess/monitor neuro status, Assess/monitor respiratory status, Assess for tolerance of IV infusions; verify rate & dose, Call/Report variances in ECG to provider, Document & Monitor O2 Sats; Administer O2 as ordered, Ensure adequate caloric intake, If no bowel movement in 3 days activate bowel regime, Monitor & document daily weight, Monitor anticoagulation values, Monitor ECG w/administration of antiarrhythmics (CO 13.420), Obtain 12 Lead ECG and CXR as ordered, Prep pt for treatments & procedures, Teach/encourage deep breath & cough exercises, Teach/encourage use of incentive spirometer, Team conversation regarding appropriate level of care, Turn & reposition Q2 hours per activity restrictions, Useadjunctive therapies per Standards of Practice Goals/Interventions, Cardiac Yes Cardiac, Problem Start 06/14/2025 21:00 Reviewed Plan with, Cardiac Status Patient Patient Progression, Cardiac Status Patient progressing according to plan . Evaluation Patient reporting no concerns. Patient left unit to go to clinical lab scientist. For futher assessment, please see interactive flow sheet/biophysical. . Discharge Information Rehabilitation Discharge : Rehab Discharge Index 06/18/2025 10:46 EST Walker: distance >50 Electronically Signed on 06/22/25 12:22 PM Jocelyn Conrad RN * Jocelyn Conrad RN: PERFORM Event Display: Progress Note Hospital Authored Date: [id number] Patient S/P clinical lab scientist. TR band off. DSD/tegaderm applied. + CMS. Site is ecchymotic but no oozing/hematoma; palpable radial pulse. Electronically Signed on 06/22/25 07:49 PM Jocelyn Conrad RN Note * Lisseth Renee RN: PERFORM Event Display: Discharge/Transfer Note Hospital Authored Date: Nursing Discharge Note Entered On: 06/23/2025 14:12 EST Performed On: 06/23/2025 14:11 EST by Lisseth Renee RN Nursing Discharge Note 2 Discharge Level of Care at Discharge : Home/Correction/Foster Care Discharge Time : 06/23/2025 14:11 EST Global Lead Utilized : No Patient Left Unit Via : Wheelchair Patient Accompanied Off Unit with : Significant other DC Instructions Provided & Signed by Pt : Yes Patient Understands D/C Instructions : Yes Patient Instructions Discharge Signed : Yes Did Pt have Specialty Bed or Wound Vac : No Lisseth Renee RN - 06/23/2025 14:11 EST Electronically Signed on 06/23/25 02:11 PM Lisseth Renee RN * Norm Sweeney DO: PERFORM Event Display: Discharge/Transfer Note Hospital Authored Date: [id number] Patient: ??JOSSELIN MIMI ? Age:??85 Years?Sex:??Female?:??1940?LOC:[facility]?? Patient Information Discharge Location: Primary Care Physician: Julianne JUAREZ, Tarun Badillo Admit Date/Time: 06/14/2025 08:20 Discharge Disposition Discharge Disposition: Home: No Services Discharge Diagnosis Unstable angina (I20.0) Chest pain (R07.9) Anemia (D64.9) Cholangiocarcinoma (C22.1) Hypothyroid (E03.9) CAD (coronary artery disease) (I25.10) Diabetes mellitus (E11.9) HLD (hyperlipidemia) (E78.5) HTN (hypertension) (I10) Rigors (R68.89) Iron deficiency anemia (D50.9) High liver transaminase level (R74.01) _ Discharge Medications Albuterol (Albuterol (Eqv-ProAir HFA) 90 mcg/inh inhalation aerosol)??2 puff(s) Inhalation Every 6 hours Aspirin (aspirin 81 mg oral capsule)??1 capsule 81 Milligram By Mouth Daily Atorvastatin (atorvastatin 40 mg oral tablet)??1 tab(s) 40 Milligram By Mouth Daily Carvedilol (carvedilol 12.5 mg oral tablet)??12.5 Milligram 1 tablet By Mouth 2 times a day Cholecalciferol (Vitamin D3 2000 intl units oral capsule)??1 capsule 50 Microgram By Mouth 2 times a day Clopidogrel (Plavix 75 mg oral tablet)??75 Milligram By Mouth Daily Isosorbide Mononitrate (isosorbide mononitrate 30 mg oral tablet, extended release)??3 tablets By Mouth Daily in AM Levothyroxine (Synthroid 0.088 mg oral tablet)??1 tab(s) 88 Microgram By Mouth Daily Metformin (metFORMIN 500 mg oral tablet)??1 tab(s) 500 Milligram By Mouth Daily with meals Miscellaneous Rx ([employer] [facility] ULTRA TEST STRIP)??USE ONCE A DAY *DX E11.9* NIFEdipine (NIFEdipine 30 mg oral tablet, extended release)??30 Milligram By Mouth Daily Nitroglycerin (nitroglycerin 0.4 mg sublingual tablet)??0.4 Milligram Sublingual Every 5 minutes asneeded Chest Pain Pantoprazole (pantoprazole 40 mg oral delayed release tablet)??40 Milligram By Mouth Daily Potassium Bicarbonate (potassium bicarbonate 10 mEq oral tablet, effervescent)??1 tab(s) 10 Milliequivalent By Mouth Daily ? Discharge Medications New Clopidogrel (Plavix 75 mg oral tablet)75 Milligram Oral Daily. Refills: 5. NIFEdipine (NIFEdipine 30 mg oral tablet, extended release)30 Milligram Oral Daily. Refills: 1. Pantoprazole (pantoprazole 40 mg oral delayed release tablet)40 Milligram Oral Daily. Refills: 1. Changed Nitroglycerin (nitroglycerin 0.4 mg sublingual tablet)0.4 Milligram Sublingual every 5 minutes as needed Chest Pain. Unchanged Albuterol (Albuterol (Eqv-ProAir HFA) 90 mcg/inh inhalation aerosol)2 puff(s) Inhalation every 6 hours. Aspirin (aspirin 81 mg oral capsule)1 capsule Oral Daily. Atorvastatin (atorvastatin 40 mg oral tablet)1 tab(s) Oral Daily. Carvedilol (carvedilol 12.5 mg oral tablet)1 tab(s) Oral twice a day. Cholecalciferol (Vitamin D3 2000 intl units oral capsule)1 capsule Oral twice a day. Isosorbide Mononitrate (isosorbide mononitrate 30 mg oral tablet, extended release)3 tablets Oral Daily in the morning. Levothyroxine (Synthroid 0.088 mg oral tablet)1 tab(s) Oral Daily. Metformin (metFORMIN 500 mg oral tablet)1 tab(s) Oral Daily. with meals. Miscellaneous Rx (Misc Rx) Miscellaneous Rx (ONETOUCH DELICA PLUS LANCETS EXTRA FINE 33G MISC) Miscellaneous Rx (ONETOUCH ULTRA TEST STRIP)USE ONCE A DAY *DX E11.9*. Potassium Bicarbonate (potassium bicarbonate 10 mEq oral tablet, effervescent)1 tab(s) Oral Daily. 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 ACS ruled out. She had acute on chronic anemia requiring RBC transfusion. Cardiology, Hematology consulted. Received 2 unit RBC transfusions, IV Iron supplementation per hematology recs. Nuclear stress test was abnormal. She was evaluated by cardiology and underwent cath and PCI on 06/22 with stent to the LAD. She will continue on DAPT and follow up outpatient. ? 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 ??Troponin flat. EKG nonischemic. ??Cardiology following with abnormal nuc test TTE: preserved LVEF, grade 2 diastolic dysfunction, mild to moderate AAS ??06/19 cardiac cath - mid LAD lesion ??PCI 06/22, on DAPT Continue Coreg, Nifedipine with holding parameters. BP labile, will hold ACEi initiation ?? Iron deficiency anemia (D50.9): - ??Baseline Hb ~ 9 g/dL, now presented with Hb of 7.3 g/dL, dropped to 6.2 g/dL ??Last colonoscopy 2005 limited due to adhesions but unremarkable. ??Denies any GERD symptoms or dark stools. She was also started on PPI recently ??Anemia workup showed significant iron deficiency. No evidence of hemolysis; peripheral blood smear unremarkable Hematology consult recommended IV iron 500 mg daily for 4 days--> completed on 06/17 Trend H&H, transfuse to keep hemoglobin > 8 g/dL ?? High liver transaminase level (R74.01): - Rigors (R68.89): - Cholangiocarcinoma (C22.1): Not on treatment. ??Denies new or worsening abdominal pain, nausea, vomiting ??Recent CT abdomen pelvis 06/01: Stable persistent intrahepatic biliary ductal dilatation despite metallic biliary stents. No convincing evidence of metastatic disease. Suspected intra-abdominal source of infection but no fevers or recurrent rigors off Abx. Blood cultures negative Trend LFTs--> stable, improving slowly so far ??Outpatient Oncology follow-up. ? HTN (hypertension) (I10): cont Carvedilol, started Nifedipine. monitor BP and adjust meds HLD (hyperlipidemia) (E78.5): Atorvastatin on hold due to elevated LFTs Diabetes mellitus (E11.9): Hold oral medication. POC glucose and SSI. Hypothyroid (E03.9): Levothyroxine ? FULL CODE ? Objective Measurements?? Height: 155 cm (06/23/25) Weight: 57 kg (06/22/25) Dry Weight: 62.2 kg (06/16/25) Body Mass Index: 23.73 kg/m2 (06/22/25) ? Vital Signs?? Temperature: 97.8 DegF (06/23/25 08:24:00) Temperature Route: Oral (06/23/25 08:24:00) Pulse Rate: 83 bpm (06/23/25 08:24:00) Respiratory Rate: 20 br/min (06/23/25 08:24:00) Systolic Blood Pressure:??149 mm Hg??High (06/23/25 08:24:00) Diastolic Blood Pressure: 59 mm Hg (06/23/25 08:24:00) Blood pressure sites: Arm, right (06/23/25 08:24:00) Mean Arterial Pressure: 89 mm Hg (06/23/25 08:24:00) Pulse Pressure: 90 mm Hg (06/23/25 08:24:00) Oxygen Saturation: 99 % (06/23/25 08:24:00) Mode of Delivery (Oxygen): Room air (06/23/25 08:24:00) Early Warning Score: 2 (06/23/25 08:55:41) ? . Physical Exam Gen: Frail, A&O x4 ?Resp:Veritably vesicular, absent adventitial acoustic aberration ?CV:??Regular rhythm,??regular rate;??S1/S2 present ?GI: Soft, nontender, no??organomegaly palpated,??nondistended, + bowel sounds ?Skin: No lesions seen ?Psych: appropriate affect _ [facility] Cardiology Pending Results Add On Lab Order ordered on 06/14/2025 Add On Lab Order ordered on 06/14/2025 Add On Lab Order ordered on 06/14/2025 Add On Lab Order ordered on 06/14/2025 Add On Lab Order ordered on 06/14/2025 Add On Lab Order ordered on 06/18/2025 Add On Lab Order ordered on 06/23/2025 Transfuse RBCs ordered on 06/14/2025 Transfuse RBCs ordered on 06/16/2025 Patient Education Titles Web[employer] Ignite Patient Education - Lifestyle Management After Percutaneous Coronary Intervention (PCI)?? [employer] Patient Education - Discharge Instructions for Cardiac Catheterization?? Follow-Up Appointments Added Follow Up ?Time Frame ?Comments [facility] Julianne JUAREZ, Tarun Badillo Results Discharge Labs BACTERIOLOGY Blood Culture Results Final report ()?? 06/13/2025 13:10 Blood Culture Specimen Source BLOOD ()?? 06/13/2025 13:10 Blood Culture Isolate 1 Comment ()?? 06/13/2025 13:10 Blood Cult 2 Results Final report ()?? 06/13/2025 13:10 Blood Culture 2 Specimen Source BLOOD ()?? 06/13/2025 13:10 Blood Culture 2 Isolate 1 Comment ()?? 06/13/2025 13:10 ?? BLOOD BANK Blood Type O Positive ()?? 06/14/2025 03:20 Antibody Screen Negative ()?? 06/14/2025 03:20 RBC Unit ID [id number] ()?? 06/16/2025 08:53 RBC Available PT ()?? 06/16/2025 08:53 ?? BLOOD COUNT & DIFF WBC 10.0 k/mm3 ()?? 06/23/2025 02:12 RBC 3.61 m/mm3 (Low)?? 06/23/2025 02:12 Hgb 9.9 Gm/dL (Low)?? 06/23/2025 02:12 Hct 31.7 % (Low)?? 06/23/2025 02:12 MCV 87.8 femtoliters ()?? 06/23/2025 02:12 MCH 27.4 pg ()?? 06/23/2025 02:12 MCHC 31.2 Gm/dL (Low)?? 06/23/2025 02:12 Platelet Count 273 k/mm3 ()?? 06/23/2025 02:12 RDW-SD 60.5 femtoliters (High)?? 06/23/2025 02:12 MPV 10.1 femtoliters ()?? 06/23/2025 02:12 Nucleated RBC (Automated) 0.0 #/100 WBC'S ()?? 06/23/2025 02:12 Abs. NRBC 0.0 k/mm3 ()?? 06/23/2025 02:12 Abs. Neut 5.3 k/mm3 ()?? 06/20/2025 01:12 Abs. Lymph 0.9 k/mm3 ()?? 06/20/2025 01:12 Abs. Wallace 1.0 k/mm3 (High)?? 06/20/2025 01:12 Abs. Eo 0.4 k/mm3 ()?? 06/20/2025 01:12 Abs. Baso 0.1 k/mm3 ()?? 06/20/2025 01:12 Neut % 66.4 % ()?? 06/20/2025 01:12 Lymph % 11.1 % (Low)?? 06/20/2025 01:12 Wallace % 12.4 % (High)?? 06/20/2025 01:12 Eos % 4.4 % ()?? 06/20/2025 01:12 Baso % 0.9 % ()?? 06/20/2025 01:12 Peripheral Blood Smear Review Interp. Reviewed by pathologist. ()?? 06/14/2025 01:07 Retic Count 1.6 % ()?? 06/14/2025 01:07 Retic Count Corrected 0.7 % (Low)?? 06/14/2025 01:07 Retic Production Index 0.4 % (Low)?? 06/14/2025 01:07 Imm Gran 4.8 % ()?? 06/20/2025 01:12 Abs. Imm Gran 0.4 k/mm3 ()?? 06/20/2025 01:12 ?? CARDIAC High Sensitivity Troponin (HSTnT) 20 ng/L (High)?? 06/12/2025 22:08 ? CHEM GENERAL Sodium 137 mmol/L ()?? 06/23/2025 02:12 Potassium 3.8 mmol/L ()?? 06/23/2025 02:12 Chloride 106 mmol/L ()?? 06/23/2025 02:12 Bicarbonate Level 20 mmol/L (Low)?? 06/23/2025 02:12 Anion Gap 11 mmol/L ()?? 06/23/2025 02:12 Glucose Level 95 mg/dL ()?? 06/23/2025 02:12 Glucose, POC 111 mg/dL (High)?? 06/23/2025 07:51 BUN 17 mg/dL ()?? 06/23/2025 02:12 Creatinine-Blood 0.63 mg/dL ()?? 06/23/2025 02:12 Estimated GFR Creatinine 87 ML/MIN/1.73 M2 ()?? 06/23/2025 02:12 Calcium 8.5 mg/dL (Low)?? 06/23/2025 02:12 Magnesium 2.0 mg/dL ()?? 06/18/2025 00:49 Protein, Total 6.8 Gm/dL ()?? 06/18/2025 00:49 Albumin 3.0 Gm/dL (Low)?? 06/18/2025 00:49 AG Ratio 0.8 ()?? 06/18/2025 00:49 LDH 305 units/L (High)?? 06/14/2025 01:07 Alkaline Phosphatase 675 units/L (High)?? 06/18/2025 00:49 AST (SGOT) 128 units/L (High)?? 06/18/2025 00:49 ALT (SGPT) 175 units/L (High)?? 06/18/2025 00:49 Bilirubin, Total 1.9 mg/dL (High)?? 06/18/2025 00:49 Bilirubin, Direct 0.3 mg/dL ()?? 06/14/2025 01:07 Bilirubin, Indirect 0.3 mg/dL ()?? 06/14/2025 01:07 Vitamin B12 Level 964 pg/mL ()?? 06/14/2025 01:07 Folic Acid Level 21.7 ng/mL ()?? 06/14/2025 14:29 Lactate 1.7 mmol/L ()?? 06/14/2025 01:07 Iron Level 11 mcg/dL (Low)?? 06/14/2025 01:07 Iron Binding Capacity, Unsaturated 391 mcg/dL (High)?? 06/14/2025 01:07 Iron Binding Capacity, Estimated Total 402 mcg/dL ()?? 06/14/2025 01:07 % Iron Saturation 3 % (Low)?? 06/14/2025 01:07 Ferritin Level 29 ng/mL ()?? 06/14/2025 01:07 ?? COAG INR 1.1 ()?? 06/15/2025 02:27 Protime (PT) 11.7 seconds (High)?? 06/15/2025 02:27 POC ACT-LR 264.0 seconds ()?? 06/22/2025 12:51 ? HEME OTHER Hold Blue Top SPECIMEN DISCARDED AFTER 4 HOURS. ()?? 06/12/2025 20:03 ? IMMUNOLOGY GENERAL Haptoglobin 211 mg/dL (High)?? 06/14/2025 01:07 ? MISC. CHEMISTRY Hold Green Top SPECIMEN DISCARDED AFTER 1 WEEK ()?? 06/12/2025 22:08 ? UA/URINALYSIS Appear/Color, Urine LIGHT YELLOW ()?? 06/14/2025 00:[address], Urine 1.008 ()?? 06/14/2025 00:21 pH, Urine 6.0 ()?? 06/14/2025 00:21 Albumin, Urine NEGATIVE ()?? 06/14/2025 00:21 Glucose, Urine NEGATIVE ()?? 06/14/2025 00:21 Ketones, Urine NEGATIVE ()?? 06/14/2025 00:21 Bilirubin, Urine NEGATIVE ()?? 06/14/2025 00:21 Hemoglobin, Urine NEGATIVE ()?? 06/14/2025 00:21 Nitrite, Urine POSITIVE (Abnormal)?? 06/14/2025 00:21 Leukocyte, Urine NEGATIVE ()?? 06/14/2025 00:21 Urobilinogen NORMAL mg/dL ()?? 06/14/2025 00:21 WBC's, Urine 1 /HPF ()?? 06/14/2025 00:21 RBC's, Urine NONE SEEN /HPF ()?? 06/14/2025 00:21 Bacteria SLIGHT HPF (Abnormal)?? 06/14/2025 00:21 Squamous Epith <1 /HPF () 06/14/2025 00:21 Mucus SLIGHT /LPF ()?? 06/14/2025 00:21 Hold Urine Culture Testing available 48 hours from time of collection. ()?? 06/14/2025 00:21 ? URINE OTHER Est Creatinine Clearance 50.22 mL/min ()?? 06/23/2025 03:12 ? 389??minutes spent on discharge Electronically Signed on 06/23/25 11:25 AM Patel WRIGHT, Norm Bo RN, Wen: PERFORM Event Display: Patient Education/Instruction Authored Date: [id number] Inpatient Adult Discharge Instructions. [address] [address] Name: MIMI CALVO : 1940?? Visit: 06/14/2025 08:20?? Current Date: 06/23/2025 13:00 ?? Account: [id number]?? Inpatient Adult Discharge Instructions We would like to thank you for allowing us to assist you with your healthcare needs. The following includes patient education materials and information regarding your injury/illness. Our entire staffstrives to provide an excellent experience for our patients and their families. PLEASE ENSURE YOU FOLLOW-UP PER THE INSTRUCTIONS BELOW! ?? YOUR OPINION IS IMPORTANT TO US! Please complete the survey you may receive by mail or email. Your feedback will be used to make improvements to the healthcare experiences of our patients and their families. Surveys are administered by [employer] ?? If further treatment with your primary care physician or another doctor is recommended, it is important for you to keep the appointment. Call your primary care physician or return to the Emergency Department immediately if your condition worsens, fails to improve, or new symptoms develop. If you need to find a doctor, you can call [facility] [employer] for a referral at [phone] or toll free at [phone]) or log in to [email or web address].. ?? [facility], in keeping with [facility] guidance, no longer requires face masks for staff, patientsor visitors in most situations. Similiar to time spent indoors at other locations, there is the chance that you were exposed to repiratory viruses during your time with us (such as flu or COVID-19). If you develop symptoms concerning for a viral respiratory infection, please seek testing (and treatment if indicated) from your medical provider or home test kit. ?? You can view and manage your care through the patient portal or by using a health care angelica of your choosing. [employer] is a website that allows you to securely view your medical information including your hospital discharge summary, office visit summaries, medications and follow-up visits. You can also request appointments, renew medications, and request access to your medical information using a health care angelica of your choosing, or just ask a question. You are entitled to know the individuals who participated in your treatment. This information is available within your medical record and will be provided upon your request. You can enroll at [email or web address] or register d uring your next office visit. You have been discharged from [facility], Patient Care Unit: M5??. If you have any questions regarding these instructions, including results of studies pending, afteryou leave, please call us and we will be happy to assist you 22/02. [facility] Your Care Team Attending Physician Norm Sweeney DO?? Consulting Providers Norm Sweeney DO?? 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 ??EKG no WNL?? Your Diagnosis Anemia CAD (coronary artery disease) Chest pain Cholangiocarcinoma Diabetes mellitus High liver transaminase level HLD (hyperlipidemia) HTN (hypertension) Hypothyroid Iron deficiency anemia Rigors Tests Performed Below is a partial list of the tests performed during your hospitalization. You may have had other tests and procedures not included in this list. Please discuss all test results with your provider. ALT AST Basic Metabolic Panel Blood Culture Blood Culture #2 Blood Culture 2 Results Blood Culture Result Blood Urea Nitrogen BUN CBC CBC w/ Differential Comprehensive Metabolic Panel Creatinine Electrolytes FERRITIN Folate Level GLUCOSE POC H + H HAPTOGLOBIN High Sensitivity Troponin T Hold Blue Top Tube HOLD GREEN TUBE INR IRON & TIBC Lactate Level LDH LFT's MAGNESIUM PERIPHERAL BLOOD SMEAR REVIEW POC Hemochron ACT-LR RETICULOCYTE COUNT Type and Screen UA with hold for urine culture VITAMIN B12 XR Chest 2 Views Frontal and Lat ALT?? AST?? Add On Lab Order?? BUN?? Basic Metabolic Panel?? Blood Culture?? Blood Culture #2?? Blood Culture 2 Results?? Blood Culture Result?? CBC?? CBC w/ Differential?? Comprehensive Metabolic Panel?? Creatinine?? Electrolytes?? Ferritin?? Folate Level?? Glucose POC?? Haptoglobin?? Hepatic Function Panel (LFT's)?? Hgb + Hct (H + H)?? High??Sensitivity??Troponin T (High Sensitivity Troponin T)?? Hold Blue Top Tube?? Hold Green Top Tube (HOLD GREEN TUBE)?? INR?? Iron + Iron Binding Capacity (IRON & TIBC) LDH?? Lactic Acid Level (Lactate Level)?? Magnesium Level (MAGNESIUM)?? POC ACT-LR (POC Hemochron ACT-LR)?? Peripheral Blood Smear Review?? Reticulocyte Ct (RETICULOCYTE COUNT)?? Transfuse RBCs?? Type and Screen?? Urinalysis w/hold for Urine Culture (UA with hold for urine culture)?? Vitamin B12 Level (VITAMIN B12)?? Chest 2 Views Frontal and Lat (XR Chest 2 Views Frontal and Lat)?? Primary Care Provider Tarun Whitaker MD? Advance Directive Health Care Proxy on File Yes - Health Care Proxy Discharge Vitals Temperature: 97.8 DegF Height: 155 cm Pulse Rate: 83 bpm Weight: 57 kg Respiratory Rate: 20 br/min Body Mass Index: 23.73 kg/m2 Systolic Blood Pressure:??149 mm Hg??High Body surface area: 1.57 Diastolic Blood Pressure: 59 mm Hg ?? Oxygen Saturation: 99 % ?? Studies Pending All studies ordered during this hospital stay have been completed unless listed below. Please discuss all pending results with your provider listed above in these instructions. ?? Add On Lab Order?? Transfuse RBCs?? What to do next Instructions From Your Doctor ?? Orders? 06/23/25 11:25:00 EST?? You Need to Schedule the Following Appointments Follow Up with??[facility] ?? Where:[address] [address]- Follow Up with??Tarun Whitaker MD ?? Where:[address] [place] [address]- Discharge Medications MIMI CALVO :1940 Visit Date:06/14/2025 Medications: Please continue your medications until treatment is completed or stopped by your provider. Medications not listed below should be discontinued. Discuss any questions related to medications with your provider. What How Much When Instructions Next Dose New Clopidogrel (Plavix 75 mg oral tablet) 75 Milligram Oral Daily Refills: 5 Ordering Physician: Norm Sweeney DO at [place] [address] 06/24 New NIFEdipine (NIFEdipine 30 mg oral tablet, extended release) 30 Milligram Oral Daily Refills: 1 Ordering Physician: Norm Sweeney DO at [place] [address] 06/24 New Pantoprazole (pantoprazole 40 mg oral delayed release tablet) 40 Milligram Oral Daily Refills: 1 Ordering Physician: Norm Sweeney DO at [place] [address] 06/24 Changed Nitroglycerin (nitroglycerin 0.4 mg sublingual tablet) 0.4 Milligram Sublingual Every 5 minutes as needed for Chest Pain Ordering Physician: Norm Sweeney DO As needed Unchanged Albuterol (Albuterol (Eqv-ProAir HFA) 90 mcg/ inh inhalation aerosol) 2 puff(s) Inhalation Every 6 hours Resume Unchanged Aspirin (aspirin 81 mg oral capsule) 1 capsule Oral Daily 06/24 Unchanged Atorvastatin (atorvastatin 40 mg oral tablet) 1 tab(s) Oral Daily Tonight 06/23 Unchanged Carvedilol (carvedilol 12.5 mg oral tablet) 1 tab(s) Oral Twice a day Tonight 06/23 Unchanged Cholecalciferol (Vitamin D3 2000 intl units oral capsule) 1 capsule Oral Twice a day Tonight 06/23 Unchanged Isosorbide Mononitrate (isosorbide mononitrate 30 mg oral tablet, extended release) 3 tablets Oral Daily in the morning 06/24 Unchanged Levothyroxine (Synthroid 0.088 mg oral tablet) 1 tab(s) Oral Daily 06/24 Unchanged Metformin (metFORMIN 500 mg oral tablet) 1 tab(s) Oral Daily Special Instructions: with meals ?? Resume with meals Unchanged Miscellaneous Rx (Misc Rx) Unchanged Miscellaneous Rx (ONETOUCH DELICA PLUS LANCETS EXTRA FINE 33G MISC) Unchanged Miscellaneous Rx (ONETOUCH ULTRA TEST STRIP) Special Instructions: USE ONCE A DAY *DX E11.9* ?? Unchanged Potassium Bicarbonate (potassium bicarbonate 10 mEq oral tablet, effervescent) 1 tab(s) Oral Daily Resume Pharmacy Information [facility] 3: [address] [place] [address] [phone] Prescription Given During Visit Clopidogrel (Plavix 75 mg oral tablet) - 75 mg, By Mouth, Daily, # 30 tablet, 5 Refills, [facility] [address], [address] [place] [phone]?? NIFEdipine (NIFEdipine 30 mg oral tablet, extended release) - 30 mg, By Mouth, Daily, # 30 tablet, 1 Refills, [facility] [address], [address] [place] [phone]?? Pantoprazole (pantoprazole 40 mg oral delayed release tablet) - 40 mg, By Mouth, Daily, # 30 tablet, 1 Refills, [facility] [address], [address] [place] [address] [phone]?? Laboratory Results Below is a partial list of the most recent Laboratory test results done prior to this discharge. You may have had other tests and procedures not included in this list. Please discuss all test resultswith your provider. Est Creatinine Clearance - 50.22 mL/min (06/23/2025) RBC Available - PT (06/16/2025) RBC Unit ID - [id number] (06/16/2025) ALT (06/23/2025) ???ALT (SGPT) - 87 units/L AST (06/23/2025) ???AST (SGOT) - 74 units/L Basic Metabolic Panel (06/23/2025) ???Sodium - 137 mmol/L???Potassium - 3.8 mmol/L???Chloride - 106 mmol/L???Bicarbonate Level - 20 mmol/L???Anion Gap - 11 mmol/L???Glucose Level - 95 mg/dL???BUN - 17 mg/dL???Creatinine-Blood - 0.63 mg/dL???Estimated GFR Creatinine - 87 ML/MIN/1.73 M2???Calcium - 8.5 mg/dL Blood Culture (06/13/2025) ???Blood Culture Results - Final report???Blood Culture Specimen Source - BLOOD Blood Culture #2 (06/13/2025) ???Blood Cult 2 Results - Final report???Blood Culture 2 Specimen Source - BLOOD Blood Culture 2 Results (06/13/2025) ???Blood Culture 2 Isolate 1 - Comment Blood Culture Result (06/13/2025) ???Blood Culture Isolate 1 - Comment Blood Urea Nitrogen (06/14/2025) ???BUN - 29 mg/dL BUN (06/20/2025) ???BUN - 20 mg/dL CBC (06/23/2025) ???WBC - 10.0 k/mm3???RBC - 3.61 m/mm3???Hgb - 9.9 Gm/dL???Hct - 31.7 %???MCV - 87.8 femtoliters???MCH - 27.4 pg???MCHC - 31.2 Gm/dL???Platelet Count - 273 k/mm3???RDW-SD - 60.5 femtoliters???MPV - 10.1 femtoliters???Nucleated RBC (Automated) - 0.0 #/100 WBC'S???Abs. NRBC - 0.0 k/mm3 CBC w/ Differential (06/20/2025) ???WBC - 7.9 k/mm3???RBC - 3.56 m/mm3???Hgb - 9.7 Gm/dL???Hct - 30.1 %???MCV - 84.6 femtoliters???MCH - 27.2 pg???MCHC - 32.2 Gm/dL???Platelet Count - 258 k/mm3???RDW-SD - 57.8 femtoliters???MPV - 9.7 femtoliters???Nucleated RBC (Automated) - 0.0 #/100 WBC'S???Abs. NRBC - 0.0 k/mm3???Abs. Neut - 5.3 k/mm3???Abs. Lymph - 0.9 k/mm3???Abs. Wallace - 1.0 k/mm3???Abs. Eo - 0.4 k/mm3???Abs. Baso - 0.1 k/mm3???Neut % - 66.4 %???Lymph % - 11.1 %???Wallace % - 12.4 %???Eos % - 4.4 %???Baso % - 0.9 %???Imm Gran - 4.8 %???Abs. Imm Gran - 0.4 k/mm3 Comprehensive Metabolic Panel (06/18/2025) ???Sodium - 136 mmol/L???Potassium - 3.3 mmol/L???Chloride - 103 mmol/L???Bicarbonate Level - 22 mmol/L???Anion Gap - 11 mmol/L???Glucose Level - 173 mg/dL???BUN - 18 mg/dL???Creatinine-Blood - 0.65 mg/dL???Estimated GFR Creatinine - 87 ML/MIN/1.73 M2???Calcium - 9.1 mg/dL???Protein, Total - 6.8 Gm/ dL???Albumin - 3.0 Gm/dL???AG Ratio - 0.8???Alkaline Phosphatase - 675 units/L???AST (SGOT) - 128 units/L???ALT (SGPT) - 175 units/L???Bilirubin, Total - 1.9 mg/dL Creatinine (06/20/2025) ???Creatinine-Blood - 0.82 mg/dL???Estimated GFR Creatinine - 70 ML/MIN/1.73 M2 Electrolytes (06/20/2025) ???Sodium - 135 mmol/L???Potassium - 3.9 mmol/L???Chloride - 103 mmol/L???Bicarbonate Level - 21 mmol/L???Anion Gap - 11 mmol/L FERRITIN (06/14/2025) ???Ferritin Level - 29 ng/mL Folate Level (06/14/2025) ???Folic Acid Level - 21.7 ng/mL GLUCOSE POC (06/23/2025) ???Glucose, POC - 111 mg/dL H + H (06/18/2025) ???Hgb - 9.6 Gm/dL???Hct - 30.0 % HAPTOGLOBIN (06/14/2025) ???Haptoglobin - 211 mg/dL High Sensitivity Troponin T (06/12/2025) ???High Sensitivity Troponin (HSTnT) - 20 ng/L Hold Blue Top Tube (06/12/2025) ???Hold Blue Top - SPECIMEN DISCARDED AFTER 4 HOURS. HOLD GREEN TUBE (06/12/2025) ???Hold Green Top - SPECIMEN DISCARDED AFTER 1 WEEK INR (06/15/2025) ???INR - 1.1???Protime (PT) - 11.7 seconds IRON & TIBC (06/14/2025) ???Iron Level - 11 mcg/dL???Iron Binding Capacity, Unsaturated - 391 mcg/dL???Iron Binding Capacity, Estimated Total - 402 mcg/dL???% Iron Saturation - 3 % Lactate Level (06/14/2025) ???Lactate - 1.7 mmol/L LDH (06/14/2025) ???LDH - 305 units/L LFT's (06/14/2025) ???Protein, Total - 6.6 Gm/dL???Albumin - 3.3 Gm/dL???Alkaline Phosphatase - 418 units/L???AST (SGOT) - 240 units/L???ALT (SGPT) - 217 units/L???Bilirubin, Total - 0.6 mg/dL???Bilirubin, Direct - 0.3mg/dL???Bilirubin, Indirect - 0.3 mg/dL MAGNESIUM (06/18/2025) ???Magnesium - 2.0 mg/dL PERIPHERAL BLOOD SMEAR REVIEW (06/14/2025) ???Peripheral Blood Smear Review Interp. - Reviewed by pathologist. POC Hemochron ACT-LR (06/22/2025) ???POC ACT-LR - 264.0 seconds RETICULOCYTE COUNT (06/14/2025) ???Retic Count - 1.6 %???Retic Count Corrected - 0.7 %???Retic Production Index - 0.4 % Type and Screen (06/14/2025) ???Blood Type - O Positive???Antibody Screen - Negative UA with hold for urine culture (06/14/2025) ???Appear/Color, Urine - LIGHT YELLOW???Specific [address], Urine - 1.008???pH, Urine - 6.0???Albumin, Urine - NEGATIVE???Glucose, Urine - NEGATIVE???Ketones, Urine - NEGATIVE???Bilirubin, Urine - NEGATIVE???Hemoglobin, Urine - NEGATIVE???Nitrite, Urine - POSITIVE???Leukocyte, Urine - NEGATIVE???Urobi linogen - NORMAL???WBC's, Urine - 1 /HPF???RBC's, Urine - NONE SEEN???Bacteria - SLIGHT???Squamous Epith - <1 /HPF Mucus - SLIGHT Hold Urine Culture - Testing available 48 hours from time of collection. VITAMIN B12 (06/14/2025) ???Vitamin B12 Level - 964 pg/mL Allergies (NKA means No Known Allergies) amLODIPine (Moderate) Problems No qualifying data available Education Materials Below is the list of Educational Leaflet Providered with your Discharge Instructions. [employer] Ignite Patient Education - Lifestyle Management After Percutaneous Coronary Intervention (PCI)?? [employer] Ignite Patient Education - Discharge Instructions for Cardiac Catheterization?? Valuables and Belongings I fully understand and agree that [facility] accepts no responsibility for all my personal property including clothing, toilet articles, radios, jewelry, dentures, hearing aids, rings, money, or any other property that is in my possession or is brought to me after admission. I understand certain valuables may be placed in a hospital safe for a short period of time. I understand that the hospital is not liable for loss or damage due to accident, fire, or other natural occurrence while said property is in the safe. I accept full responsibility for any personal property that I keep with me, and will not hold the hospital responsible in case of loss or disappearance. I acknowledge that i have been encouraged to send valuables and belongings home. ?? Review of Valuable and Belonging List: With patient Date for Pt to Sign Valuables/Belongings: 06/16/25 16:59:00 ?? Other Discharge Information ? Pulmonary Rehab Status?? Pulmonary Rehab Discharge Status?? Respiratory Rate: 20 br/min ? Cardiac Rehab Assessment?? Cardiac Rehab Inpatient Assessment?? Comments-Education: post procedure guidlines, stent card reviewed, cardiac risk factor modification Comments-Exercise Activity: Home walking, post procedure guidlines Comments-Nutrition: heart healthy Comments-Stress Management: importance Comments-Lipids: diet exercise and medications as prescribed Comments-Other plan of care: declines phase 2 CR referral Common Emergency Awareness Tips IS IT A STROKE? Act FAST and Check for these signs: FACE Does the face look uneven? ARM Does one arm drift down? SPEECH Does their speech sound strange? TIME Call at any sign of stroke ?? Heart Attack Signs Chest discomfort: Most heart attacks involve discomfort in the center of the chest and lasts more than a few minutes, or goes away and comes back. It can feel like uncomfortable pressure, squeezing, fullness or pain. Discomfort in upper body: Symptoms can include pain or discomfort in one or both arms, back, neck, jaw or stomach. Shortness of breath: With or without discomfort. Other signs: Breaking out in a cold sweat, nausea, or lightheaded. Remember, MINUTES DO MATTER. If you experience any of these heart attack warning signs, call to get immediate medical attention! ?? Smoking can increase your chances of developing chronic health problems and can cause harmful effects to other family members in your house. If you smoke, you are strongly encouraged to quit. Please call [facility] at [phone] or [phone]) or log in to [email or web address] for referrals to smoking cessation programs. ?? 977 Suicide & Crisis Lifeline is available 22/02 if you or someone you know needs to find a reason to keep living. By calling 176 you'll be connected to a skilled, trained counselor at a crisis center in your area. INPATIENT DISCHARGE INSTRUCTIONS SIGNATURE PAGE GUIDONOEMY QUINONEZAINE Location:[facility] Registration Date and Time:06/14/2025 08:20 EST Primary Care Physician: Julianne JUAREZ, Tarun Badillo, Attending Physician: Norm Sweeney DO, I MIMI CALVO, have received the above patient education materials/instructions and have verbalized understanding. If ambulance or transport services are being used I further acknowledge being given a choice of service. ?? If you need to contact me, please call me at this number: . Patient/Freelance Digital Project Manager Name: Patient/Freelance Digital Project Manager Signature: Relationship to Patient: Witness Name/Signature: Date: * Wen Bo RN: PERFORM Event Display: Patient Education Leaflets Authored Date: [id number] Surgery Radial Cath Approach Discharge Instructions ?? 278 Radial Cath Approach Discharge Instructions ?? Activity Take it easy the rest of the day. Limit your activity on the affected side.?? Act as if your arm is broken for 24 hours. No lifting with affected arm for 24 hours. No pushing or pulling with the affected arm. Do not reach or lift with the affected arm. Do not place excessive pressure on the wrist. ?? Precautions Due to intravenous sedation: It is recommended that someone stay with you for the first night after your procedure. Do not drive or operate hazardous machinery for 24 hours. Do not make legal decisions for 24 hours. Avoid alcohol for 24 hours. Unless directed otherwise, keep yourself hydrated. ?? Dressing/Incision Care You may remove the dressing 24 hours after your procedure. Replace with band aid for an additional 24 hours. You may shower and cleanse the site with soap & water then pat dry. Avoid submersion of site in water x 5 days. Cover the with a clean band aid daily until site is healed. If the band aid becomes soiled, replacewith a clean new one. Do not apply any ointments, lotions, gels or powders to the puncture site. ?? When to contact your doctor If any of the following signs of infection occur: Fever greater than 100 degrees F Increased pain Drainage, redness or warmth at puncture site Tingling of the fingers and hand that last longer than 3 days Slight bubble of blood or bleeding from site: apply manual pressure and notify your doctor ?? Emergency situations: Bleeding from the site that will not stop: apply manual pressure and notify your doctor Profuse bleeding streaming from the puncture site: Apply manual pressure and notify your doctor immediately If your hand becomes bluish, cold to the touch, or painful, notify your doctor immediately or go toEmergency Department. For these emergent situations: If unable to contact your physician, call 911. ?? * Norm Sweeney DO: PERFORM Event Display: Patient Education Leaflets Authored Date: Lifestyle Management After Percutaneous Coronary Intervention (PCI) ?? 81558 Lifestyle Management After Percutaneous Coronary Intervention (PCI) Percutaneous coronary intervention (PCI)??involves angioplasty and often stenting. This procedure can open arteries in your heart and improve blood flow to relieve symptoms. But, it doesn???t cure coronary artery disease. New blockages can still form. You need to take steps to prevent this by managing risk factors. Doing so will help make your heart and arteries healthier. Your healthcare provider may prescribe cardiac rehabilitation to help with this lifelong process. Understanding risk factors Some risk factors for coronary artery disease can be controlled. These include smoking, high blood pressure, cholesterol, diabetes, and obesity. They can be managed with medicine, diet, and exercise.Support and counseling can also play a role. The effort will pay off! Managing risk factors can help you be more active, feel better, and reduce the risk of heart attack. ?? If you smoke, get help to quit! If your healthcare provider has been urging you to quit smoking, it???s for good reasons. Smoking damages your heart, blood vessels, and lungs. The good news is that quitting can halt or even reversethe damage of smoking. To quit now: ??? Get medical help. Ask your provider for advice on stop-smoking programs. Also ask about medicine or nicotine replacement therapy products that may help you quit smoking. ??? Get support. Join a support group. Ask for help from your family and friends. ??? Don???t give up. It often takes several tries to succeed in quitting smoking. ??? Stay away from secondhand smoke. Ask family and friends not to smoke around you. ?? Last Reviewed Date: 2024 00:00:00 ?? [id number] [employer]. All rights reserved. This information is not intended as a substitute for professional medical care. Always follow your healthcare professional's instructions. ?? * Norm Sweeney DO: PERFORM Event Display: Patient Education Leaflets Authored Date: [id number] Discharge Instructions for Cardiac Catheterization ?? 29988 Discharge Instructions for Cardiac Catheterization Cardiac catheterization??is an invasive??procedure??to look for certain heart problems. These problems may affect the heart's chambers, valves, and blood vessels. A thin, flexible tube (catheter) is put in a blood vessel in your groin or arm. The catheter is moved to the heart. The health care provider can look at the blood flow, blood pressure, and oxygen. They can inject contrast fluid??into your blood. This flows to your heart.??The provider can then take X- rays pictures??of your heart. Coronary angiography is often done as part of a cardiac cath. This looks for blocked areas in the arteries that send blood to the heart. If a blockage is found, your provider may try to open up the artery. They may put a stent in place. Your provider will talk with you about the results of your procedure . Ask any questions you have before you leave. This sheet will help you take care of yourselfat home. Home care ??? Have a responsible adult drive you home after your procedure. ??? Don't drive or makeany important decisions for at least 24 hours after getting any type of sedation or anesthesia.? Drink?? 6 to 8??glasses of water over the next 24 hours. This is to help flush the contrast dye out of your body. Call your health care team if your urine has any change in color. ??? Take your temp erature every day for 3 to 5 days. If you feel cold and clammy or start sweating, take your temperature right away. Call your health care team. ??? Do only light and easy activities for??the next?? 2to 3??days. Ask for help with chores and errands while you recover. Have someone drive you to your a [facility]. ??? Don't lift anything heavy??until your health care team says it's safe. ??? Ask your health care team when you can expect to return to work. Unless your job involves lifting, you may be able to return to your normal activities within 2 days. ??? Take your medicines as directed. Don't skip doses. ??? Check your incisions every day for signs of infection. These include redness, swelling, and fluid leaking. It's normal to have a small bruise or bump where the catheter was put in. Abruise that's getting larger is not normal. Tell your health care team about this. Call your team if you see blood forming in the incision. Go to the emergency room if you have uncontrolled bleeding from the artery site. This is even more important if you take medicines that make it hard for your blood to clot. These include aspirin, clopidogrel, prasugrel, and brilinta. ??? Eat a healthy diet. Make sure it's low in fat, salt, and cholesterol. Ask your health care team for diet information. ???Stop smoking. Sign up for a quit-smoking program. Or ask your health care team for help. ??? Exercise as your health care team tells you to. Your team??may advise you to start a cardiac rehab program. Cardiac rehab is an exercise program where trained health care staff watch your progress and stress on your heart while you exercise. Ask your team how to enroll. ??? Don't swim or take baths until your health care team says it???s OK. You can shower the day after the procedure. Keep the site clean and dry. This keeps the incision from getting wet and infected until the skin and artery can heal.??? Follow all other after-care instructions from your team.? Follow-up care ??? Make a follow-up appointment as advised. It's common to have a follow-up appointment 2 to 4 weeks after an angioplasty or coronary stent procedure. ??? Make a yearly appointment. This is??to make sure you're still doing well and not having any new symptoms. ??? Don't wait for a follow-up appointment if your medicines aren't working or you're having heart-related symptoms. Call your provider. ?? When to contact your doctor Contact your provider right away if: ??? You have severe or increasing pain, numbness, coldness, ora bluish color in the leg or arm that held the catheter. ??? You have a fever of 100.4?? F??( 38??C) or higher, or as advised by your provider. ??? There are signs of infection at the incision site. These include redness, swelling, drainage, or warmth. ??? There is bleeding, bruising, or a lot of??swelling where the catheter was inserted. ??? You have blood in your urine. ??? Your stools are black or tarry. ??? You have any unusual bleeding. ??? Your heartbeat is irregular, very slow, or fast. ??? You are dizzy. ?? Call 911 Call 911 if: ??? You have chest pain. ??? You are short of breath. ??? You feel sudden numbness or weakness in arms, legs, or face, or have trouble speaking. ??? The puncture site swells up very fast. ??? You have bleeding from the puncture site that doesn't slow down with firm pressure. ?? Last Reviewed Date: 2024 00:00:00 ?? [id number] [employer]. All rights reserved. This information is not intended as a substitute for professional medical care. Always follow your healthcare professional's instructions. ?? * Event Display: Provider Clarification Note Please click on pdf link to open report Deprecated Cardiac rehabilitation treatment plan Progress note and attainment of goals (narrative) * Eva Cristobal RN: SIGN, VERIFY, PERFORM Event Display: Cardiac Rehab Note Authored Date: [id number] Patient: MIMI CALVO Age: 85 years Sex: Female : 1940 Associated Diagnoses: None Author: Eva Cristobal RN Diagnosis Cardiac Rehab Diagnosis: PCI . Pre-exercise Physical Examination Neurologic: alert & oriented. Activity Symptoms with Cardiac Rehab Symptoms: No exertional symptoms. Activity Transfers: independent. Ambulate: with assist, assistive device. Activity comment: pt reports ambulating in [place] denies symptoms and reports feeling steady . Assistive Devices Assistive Device: Walker. Patient Education Education: Patient alone, Written material included, Post procedure guidelines, Stent card reviewed. Education topic Teachback comprehension 75% Topic: Pathophysiology, Medication education, Role of exercise, Home activity guidelines/limits. Recommendation and Plan Ambulate: 3-5 times/day. Outpatient follow up recommended: [facility], pt declining phase 2 referral, pt reports gonig to [facility] and does not want to add another thing to her or her kids plate. pt given flyer for phase 2 in [place] it does want to come. . Cardiac Rehab: Will sign off at this time. Electronically Signed on 06/23/25 12:10 PM Eva Cristobal RN * Shivani Tony: PERFORM, SIGN, VERIFY Event Display: Cardiac Rehab Note Authored Date: [id number] Patient: MIMI CALVO Age: 85 years Sex: Female : 1940 Associated Diagnoses: None Author: Shivani Tony Patient chart reviewed. Patient awaiting cardiac cath this am . Patient is not appropriate for Phase 1 Cardiac Rehab at this time. Will F/U for education and evaluation for Ph 2 when patient is clinically appropriate. Thank you, please page if we can be of further assistance, [id number] Electronically Signed on 06/22/25 08:32 AM Shivani Tony * Sharmaine Camarena RN: PERFORM, SIGN, VERIFY Event Display: Cardiac Rehab Note Authored Date: [id number] Patient: MIMI CALVO Age: 85 years Sex: Female : 1940 Associated Diagnoses: None Author: Sharmaine Camarena RN Chart reviewed. Patient for possible PCI on Wednesday. Will follow patient's hospitalization and provide Cardiac Rehab phase 1 when appropriate. Please page beeper #[phone] with any questions. Electronically Signed on 06/21/25 08:39 AM Sharmaine Camarena RN Imaging * Event Display: NM Myocard Perf SPECT Multi Authored Date: * Event Display: NM Myocard Perf SPECT Multi Authored Date: Myocardial Perfusion Imaging Demographics Patient Name JOSSELIN GREEN Gender Female [employer] Room Number [id number] Height 61 inches Date of 1940 Weight 134.5 pounds Age 85 year(s) BSA 1.6 m2 Accession Number [id number] BMI 25.39 kg/m2 Date of study 06/13/2025 Resident Referring Physician Sj Aguilera MD Interpreting Physician Deja Das MD NM Technologist Flower Smiley Procedure Procedure Type: Myocardial Perfusion Imaging:NM Myocardial Perfusion Spect Multi Indications: Chest pain. Risk Factors The patient risk factors include:prior PCI;hypercholesterolemia, hypertension, family history of premature CAD and diabetes mellitus. Stress Protocols Resting ECG Sinus rhythm. Incomplete Right bundle branch block. Resting HR:74 bpm Resting BP:160/70 mmHg Pre-stress physical exam: The patient's medications include ASA, Atorvastatin, Carvedilol, Lispro, Isosorbide, Levothyroxine, Pantoprazole. Stress Protocol:Pharmacologic - IV Regadenoson Dose: 0.4 mg Peak HR:82 bpm HR response: Not assessed Peak BP:160/70 mmHg (pharmacologic study) Predicted HR: 136 bpm HR recovery: Not Assessed % of predicted HR: 60 (Pharmacologic Study) Test duration: 1 min BP response: Normal resting BP with Reason for termination:Protocol appropriate response complete HR/BP product:[id number] Functional capacity:Not assessed Time of RP Injection:00:59 min Chest pain:Non-limiting chest pain ST Changes:No ST segment changes Arrhythmias No arrhythmias. Stress Interpretation Pharmacologic study only. Physiologic response not assessed - pharm stress. No EKG evidence of ischemia. Imaging Protocols - Two Day Rest Stress Isotope:Tc99m Sestamibi Isotope: Tc99m Sestamibi Isotope dose:9.3 mCi IV Isotope dose:25.5 mCi IV Date:06/13/2025 Date:06/14/2025 Time to Rest Imagin minutes Time to Stress Imagin minutes Technique: Gated Technique: Gated Supine Supine Perfusion Images Rest and Stress: Segments: 1 -Normal 2 -Fixed 3 -Reversible 4 -Partialy reversible 5 -Scar 6 -Defect +-------+---------+--------+----+---------+---------+ !Segment!Perfusion!Severity!Wall!Artifact !Artreason! +-------+---------+--------+----+---------+---------+ Rest: Segments: 1 -Normal 2 -Fixed 3 -Reversible 4 -Partialy reversible 5 -Scar 6 -Defect +-------+---------+--------+----+---------+---------+ !Segment!Perfusion!Severity!Wall!Artifact !Artreason! +-------+---------+--------+----+---------+---------+ Stress: Segments: 1 -Normal 2 -Fixed 3 -Reversible 4 -Partialy reversible 5 -Scar 6 -Defect +-------+---------+--------+----+---------+---------+ !Segment!Perfusion!Severity!Wall!Artifact !Artreason! +-------+---------+--------+----+---------+---------+ Imaging Results Summed scores - Summed stress score: 20 - Summed rest score: 7 Rest ejection Stress ejection Ejection fraction:74 % Ejection fraction:72 % EDV :92 ml EDV :96 ml ESV :24 ml ESV :27 ml Stroke volume :68 ml Stroke volume :69 ml LV mass :131 gr LV mass :133 gr Conclusions Summary 1. Myocardial perfusion imaging is abnormal after Regadenoson stress test. Small, mild perfusion defect in the mid to distal inferolateral wall on rest images, with stress images demonstrating a large area of moderate to severe perfusion defect involving the apex, most of the entire inferior and inferolateral wall, extending to the distal anteroseptal and anterolateral wall and part of the mid to distal inferoseptal wall. Given the widespread reversible defects on stress images, these are highly suspicious for multi-vessel ischemia ( could be a component of demand ischemia, considering patient's severe anemia), versus, less likely artifacts. 2. LV function is normal with an E.F. of 74 % at rest and 72 % with stress, with normal wall motion and thickening. 3. EKG portion of the stress test is reported separately. This procedure is not being performed on this patient for preoperative evaluation for low-risk surgery within 30 days. Findings communicated with covering provider, Corrie Mata NP at the time of the interpretation, 5:49 pm, 06/14/25. Signatures * Event Display: NM Myocard Perf SPECT Multi Authored Date: [id number] Patient Care team information Care Team Personnel Name: Michelle Jung RN Position: [facility] RN Member Role: Primary Care Nurse Name: Johanny Dumas RN Position: [facility] RN Member Role: Primary Care Nurse Name: Jocelyn Conrad RN Position: [facility] RN Member Role: Primary Care Nurse Name: Dahiana Rollins RN Position: [facility] RN Member Role: Primary Care Nurse Name: Tamar House RN Position: [facility] RN Member Role: Primary Care Nurse Name: Robin Graham RN Position: [facility] RN Member Role: Primary Care Nurse Name: Veda Mckeon Position: [facility] RN Member Role: Primary Care Nurse Name: Sanya You RN Position: [facility] RN Member Role: Primary Care Nurse Name: Jossy Preston RN Position: [facility] RN Member Role: Primary Care Nurse Name: Norm Keene RN Position: [facility] RN Member Role: Primary Care Nurse Name: Liseth Marks RN Position: [facility] RN Member Role: Primary Care Nurse Name: James Leblanc RN Position: [facility] ED RN W/OE and Tasks Member Role: Primary Care Nurse Name: Tarun Whitaker MD Position: Reference Physician Member Role: PCP Address: [address] [place] [address] [address] [place] [id number] Telecom: Care Team Related Persons Name: JODY CALVO AND ELIZABETH Name: AL CALVO Insurance Providers Guarantor name: MIMI CALVO Health Plan Information #: 1 Payer: [facility] [employer] PPO Payer Identifier: TEA Member Number: [id number] Group Number: [id number] Subscriber Identifier: [id number] Relationship to Subscriber: self Coverage Type: Medicare PPO Coverage Verification Date: NA Telecom: Address:
[2025-06-26 16:02] LABS: MANUAL DIFF FLAG NO
[2025-06-26 16:22] LABS: Hematocrit 32.2 % (37.0-47.0); Hemoglobin 9.9 g/dl (12.0-16.0); Imm Gran Abs Auto 0.14 X10*3/uL (0.00-0.03); Imm Gran Pct Auto 1.4 % (0.0-0.4); Lymphocytes Absolute Auto 1.0 X10*3/uL (1.2-4.9); Mean Corpuscular HGB Conc 30.7 g/dl (31.0-35.0); Mean Corpuscular Hemoglobin 27.0 pg (27.0-33.0); Mean Corpuscular Volume 88.0 fL (80.0-98.0); NRBC Abs Auto 0.000 X10*3/uL (0.0-0.012); NRBC Pct Auto 0.0 /100WBC (0.0-0.2); Platelet Count 349 X10*3/uL (160-400); Red Blood Count 3.66 X10*6/uL (4.20-5.50); White Blood Count 10.1 X10*3/uL (4.8-10.8)
[2025-06-26 16:38] LABS: Iron 69 mcg/dL (30-160); Percent Iron Saturation 24 % (15-50); Total Iron Binding Capacity 285 mcg/dL (228-428); Unsaturated Iron Binding 216 ug/dL
== END 2025-06-26 12:43 | disposition home or self-care (01) ==
LOC: HO.HMGCLDS 12:42
PROVIDERS: PCP Student in an Organized Health Care Education/Training Program; Visit Provider Student in an Organized Health Care Education/Training Program
DX: E03.8 Other specified hypothyroidism (principal); D64.9 Anemia, unspecified; E11.9 Type 2 diabetes mellitus without complications; I25.10 Atherosclerotic heart disease of native coronary artery without angina pectoris; I10 Essential (primary) hypertension; C22.1 Intrahepatic bile duct carcinoma; E78.49 Other hyperlipidemia
CPT/HCPCS: 36415; 83036; 83540; 84443; 85025; 99212

== ENCOUNTER 2025-06-26 12:42 | Outpatient (AMB) | payer MEDICARE, SELFPAY ==
--- NOTE | 2025-06-26 13:14 | A.OFFPC_ITS ---
Vital Signs 06/26/25 13:18 Height 5 ft 1 in Weight 130 lb BMI 24.6 BP 116/62 Blood Pressure Location Rt brachial Position Sitting Respiration 18 Pulse 67 Pulse Source Pulse Oximeter Temp 98 F Temp Source Temporal Artery Scan Pulse Oximetry (%) 98 Oxygen Delivery Method Room Air Intake Visit Reasons: ED F/U - see comments Curing Press Operator Required: No Accompanied by: Spouse Allergies No Known Allergies Allergy (Verified 06/26/25 13:15) Medication List - Last Reconciled 06/26/25 by Norm Reyes MD aspirin 81 mg PO DAILY atorvastatin 40 mg PO DAILY blood sugar diagnostic ([email or web address] Ultra Test strips) test one time a day. E11.9 blood sugar diagnostic (Accu-Chek Guide test strips) use to check blood glucose twice daily blood-glucose meter (Accu-Chek Guide Me Glucose Meter) check blood glucose twice daily carvedilol 12.5 mg PO BID 90 days cholecalciferol (vitamin D3) 50 mcg PO BID clopidogrel 75 mg PO DAILY isosorbide mononitrate ER 90 mg (3 x 30 mg) PO QAM 90 days lancets (Accu-Chek Softclix Lancets) use to check blood glucose twice daily lancets (OneTouch Delica Plus Lancet) As directed levothyroxine (Synthroid) 88 mcg PO DAILY 90 days magnesium oxide 500 mg PO DAILY mecobalamin (vitamin B12) 1,000 mcg PO DAILY metformin 500 mg PO DAILY 90 days nifedipine ER 30 mg PO DAILY pantoprazole (Protonix) 40 mg PO DAILY 90 days potassium chloride ER 10 mEq PO DAILY Tobacco use date assessed: 11/06/24 Dental Screening Dental Screen Date: 11/06/24 HPI HPI Comments History of Present Illness Details History of Present Illness The patient is an 85 year old individual presenting for follow-up after a recent hospitalization. The patient was taken to the hospital by ambulance for chest pains. During the hospitalization, the patient was found to have severe anemia with a hemoglobin of 6.2 g/dL. The patient received two blood transfusions and four iron infusions, which increased the patient's hemoglobin to 9.6-9.7 g/dL by discharge. A cardiac evaluation revealed a blockage, which was treated with a stent. The patient reports no further chest pain since the procedure. The patient has a history of cancer, diagnosed on December 05 of the previous year, and is under the care of Dr. Clifton. The patient undergoes CT scans every four to six weeks for monitoring, and the last scan was reported as doing well. The patient denies any pain associated with the cancer. The patient has a history of chronic low hemoglobin, with previous levels documented as 9.1 g/dL and 8.8 g/dL. The patient reports being tired, a symptom of the anemia. No source of bleeding was found during the hospital stay, and the patient denies any blood in the stool or coughing up blood. The patient was sent a Cologuard test and plans to complete it soon. The patient's last HbA1c was 6.9%. Medical History: - Coronary artery disease, status post r ecent stent placement - Anemia, with recent hospitalization re quiring blood transfusions and iron infusions - Cancer, unspecified, diagnosed December 05 of previous year, under care of Dr. Clifton - Type 2 diabetes mellitus - Hypertension - Hyperlipidemia - Hypothyroidism - Gastroesophageal reflux disease Surgical History: - Cardiac stent placement (recent) Medications: - Aspirin 81 mg daily for cardiac stent - Plavix (clopidogrel) 75 mg once daily for cardiac stent - Nifedipine 30 mg daily for hypertensio n (new medication) - Atorvastatin 40 mg for hyperlipidemia - Carvedilol 12.5 mg twice daily for hyp ertension - Isosorbide mononitrate 90 mg once adan y for hypertension - Synthroid 88 mcg daily for hypothyroid ism - Metformin 500 mg once daily for diabet es - Pantoprazole 40 mg for acid reflux (ne w medication) Diagnostic Results: - Labs: Hemoglobin was 6.2 on admission, and 9.7 on discharge. - Labs: Last A1c was 6.9%. - Labs: TSH in October was 0.69. - Labs: Historical hemoglobin [facility] 9.1 and 8.8. - Diagnostics: Cardiac catheterization r evealed a blockage, which was stented. Social History - Activity Level: The patient reports be ing slowed by walking but remains active. [facility] Medical History (Updated 06/26/25 @ 13:48 by Norm Reyes MD) Normocytic anemia Hypothyroidism Cholangiocarcinoma Aortic stenosis CAD (coronary artery disease) Type 2 diabetes mellitus HLD (hyperlipidemia) HTN (hypertension) Family History Mother No problems noted. Father No problems noted. Social History Household Members: Spouse Housing: House Do you presently have visiting nurse or other home services: No Patient Tobacco Use Status: Never used Tobacco e-Cigarette/Vaping Use: Never Used service: No Current occupational status: retired Cognitive needs: Yes (cane) Hearing needs: No Vision needs: Yes (reading glasses) Questionnaire Thrive Questionnaire Date Thrive assessed: 11/06/24 CHERELLE-7 AMB Questionnaire CHERELLE-7 Date CHERELLE - 7 assessed: 11/06/24 Source: Developed by Drs. Zaid Gilbert, Coty Fraser, Ajay Odell and colleagues, with an educational meli from [employer]. Review of Systems Narrative Review of Systems - Cardiovascular: Denies chest pain since stent placement. - Gastrointestinal: Denies hematemesis or blood in stools. - Constitutional: Reports a history of chronic fatigue consistent with anemia. - General: Denies pain related to cancer. All systems reviewed & are unremarkable except as reviewed in HPI and above Physical exam (Primary Care) Vital Signs: Last Vital Signs Temp 98 F 06/26/25 13:18 Pulse 67 06/26/25 13:18 Resp 18 06/26/25 13:18 BP 116/62 06/26/25 13:18 Pulse Ox 98 06/26/25 13:18 Oxygen Delivery Method Room Air 06/26/25 13:18 BMI result Body Mass Index 24.6 Tobacco/Smoking Status: Tobacco use Status Tobacco use date assessed 11/06/24 06/26/25 13:20 Patient Tobacco Use Status Never used Tobacco 06/26/25 13:20 e-Cigarette/Vaping Use Never Used 06/26/25 13:20 Thrive Assessment: Date of Thrive Assessment Date Thrive assessed 11/06/24 06/26/25 13:20 Narrative Physical Exam General: Alert and oriented, Well nourished, No acute distress. Eye: Pupils are equal, round and reactive to light, Intact accommodation, Extraocular movements are intact, Normal conjunctiva, Vision unchanged. HENT: Normocephalic, Atraumatic, Tympanic membranes are clear, Normal hearing, Oral mucosa is moist, No pharyngeal erythema, Ear canals patent. Respiratory: Lungs CTA bilaterally, No wheeze, Respirations are non-labored. Cardiovascular: Regular rate, Regular rhythm, S1 auscultated, S2 auscultated, No murmur, Good pulses equal in all extremities, Normal peripheral perfusion, No edema. Gastrointestinal: Soft, Non-tender, Non-distended, Normal bowel sounds, No organomegaly. Musculoskeletal: Normal range of motion, Normal strength, No tenderness, No swelling, No deformity, Normal gait. Integumentary: Warm, Dry, [place], Intact. Neurologic: Alert, Oriented, Normal sensory, Normal motor function, No focal defects, Cranial Nerves II-XII are grossly intact, Normal deep tendon reflexes. Psychiatric: Cooperative, Appropriate mood & affect, Normal judgment. Coding Level of Care Code Est Pt Level 4 (29330) Complex visit Add On G2211 Diagnoses Normocytic anemia D64.9 Coronary artery disease involving [place] heart without angina pectoris, unspecified vessel or lesion type I25.10 Coronary Disease-Associated Artery/Lesion type: unspecified vessel or lesion type [place] vs. transplanted heart: [place] heart Associated angina: without angina Type 2 diabetes mellitus without complication, without long-term current use of insulin E11.9 Diabetes mellitus group home insulin use: without certified maintenance welder use Diabetes mellitus complication status: without complication Primary hypertension I10 Hypertension type: primary hypertension Other specified hypothyroidism E03.8 Hypothyroidism type: other Cholangiocarcinoma C22.1 Other hyperlipidemia E78.49 Hyperlipidemia type: other hyperlipidemia Assessment & Plan Assessment & Plan (1) Normocytic anemia: Comment: - The patient has a history of chronic anemia, likely anemia of chronic disease, with a recent acute drop in hemoglobin to 6.2 g/dL requiring blood transfusions and iron infusions. - The patient's hemoglobin improved to 9.7 g/dL on discharge, and no active source of bleeding was identified. - A Cologuard test is pending. - A plan is in place to order a CBC and iron levels to monitor the patient's status. - A follow-up is scheduled in 3 months to recheck blood counts. Code(s): D64.9 - Anemia, unspecified Category: Medical (2) CAD (coronary artery disease): Comment: - The patient presented with chest pain, leading to the discovery of a cardiac blockage treated with a stent. - The patient is now on dual antiplatelet therapy with aspirin and Plavix and denies any current chest pain. - The plan is to continue aspirin and Plavix without fail for at least one year. - The patient will also follow up with a utility service worker, Dr. Cleveland, in about four weeks. Code(s): I25.10 - Atherosclerotic heart disease of [place] coronary artery without angina pectoris Category: Medical Qualifiers: Coronary Disease-Associated Artery/Lesion type: unspecified vessel or lesion type [place] vs. transplanted heart: [place] heart Associated angina: without angina Qualified Code(s): I25.10 - Atherosclerotic heart disease of [place] coronary artery without angina pectoris (3) Type 2 diabetes mellitus: Comment: - The patient's last A1c was 6.9%, which is good for the patient's age. - The patient is on metformin 500 mg daily. - The patient was advised to take the medication daily without frequent glucose monitoring unless symptoms of hypoglycemia occur. - The plan is to check a new HbA1c, as it has been over three months. Code(s): E11.9 - Type 2 diabetes mellitus without complications Category: Medical Qualifiers: Diabetes mellitus certified maintenance welder insulin use: without certified maintenance welder use Diabetes mellitus complication status: without complication Qualified Code(s): E11.9 - Type 2 diabetes mellitus without complications (4) HTN (hypertension): Comment: - The patient's blood pressure is well-controlled at 116/92 mmHg on carvedilol, isosorbide mononitrate, and the recently added nifedipine. - The plan is to continue the current medication regimen. Code(s): I10 - Essential (primary) hypertension Category: Medical Qualifiers: Hypertension type: primary hypertension Qualified Code(s): I10 - Essential (primary) hypertension (5) Hypothyroidism: Comment: - The patient's TSH in October was 0.69, which was within a good range. - Given the recent significant medical events, the plan is to recheck the TSH along with other blood work. Code(s): E03.9 - Hypothyroidism, unspecified Category: Medical Qualifiers: Hypothyroidism type: other Qualified Code(s): E03.8 - Other specified hypothyroidism (6) Cholangiocarcinoma: Comment: - The patient is followed by oncologist Dr. Clifton with regular CT scans and is due for a visit next month. - The plan is to fax today's blood work results to the oncologist's office once the patient provides the fax number. 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 - Physical activity: The patient was encouraged to stay active and keep moving, which the patient reports doing. - Follow-up care: A follow-up appointment is scheduled in three months. Patient was informed and verbally consented to the use of an ambient scribe for clinic note documentation during this visit. Plan I reviewed the patient's recent hospitalization for chest pain, which led to the discovery of severe anemia and a cardiac blockage. I explained the treatment course, including blood and iron transfusions and the placement of a cardiac stent. I emphasized the critical importance of adhering to the prescribed aspirin and Plavix regimen for one year to prevent stent thrombosis. I discussed the likely diagnosis of anemia of chronic disease, explaining that underlying conditions like the patient's cancer can cause the body to sequester iron, leading to low hemoglobin levels. I have ordered blood work to check the patient's CBC, iron levels, HbA1c, and TSH. I instructed the patient that if any lab results are abnormal, I will call. We agreed to a follow-up appointment in three months, canceling the previously s cheduled one-month visit. I also advised the patient to obtain the fax number for the patient's oncologist, Dr. Clifton, so that we can send the lab results to his office. Orders: Orders Complete Blood Count Auto Diff Today D64.9 - Anemia, unspecified IRON PROFILE Today D64.9 - Anemia, unspecified Hemoglobin A1c Today E11.9 - Type 2 diabetes mellitus without complications TSH reflex Free T4 Today E03.8 - Other specified hypothyroidism Patient Instructions: - Continue all your current medications as prescribed. - It is very important that you do not skip your Plavix (clopidogrel) and aspirin, which are for your new heart stent. - Please go to the lab to have your blood drawn; you can go to the [facility] location. - Complete the Cologuard test you were sent and mail it in after the holiday. - Continue to stay active and keep moving around as you are able. - Your next follow-up appointment will be in three months. - If there is anything concerning with your blood work, I will give you a call. - Please get the fax number for your cancer doctor, Dr. Clifton, and call our office with it so we can send him your lab results.
[2025-06-26 13:18] VITALS: BP 116/62; PULSE 67; RESP 18; TEMP 36.6; O2SAT 98; BMI 24.6
== END 2025-06-26 13:42 | disposition home or self-care (01) ==
LOC: HO.HMCHD 12:42
PROVIDERS: PCP Student in an Organized Health Care Education/Training Program; Visit Provider Student in an Organized Health Care Education/Training Program
DX: D64.9 Anemia, unspecified (principal); I25.10 Atherosclerotic heart disease of native coronary artery without angina pectoris; E11.9 Type 2 diabetes mellitus without complications; I10 Essential (primary) hypertension; E03.8 Other specified hypothyroidism; C22.1 Intrahepatic bile duct carcinoma; E78.49 Other hyperlipidemia